=== PATIENT | male | born 1940 | race Caucasian/White ===

== ENCOUNTER 2017-03-03 05:57 | Day surgery (SDC) | payer OTHER ==
[~2017-03-03] VITALS: Ht 167.6 cm; Wt 75.9 kg
[~2017-03-03 05:57] MED LIST: AMLO5TAB22 PO; HYDR-3533 PO; PRAV20 PO
[2017-03-03 06:38] VITALS: BP 173/95; PULSE 71; RESP 20; TEMP 98; O2SAT 95
[2017-03-03] MEDS ORDERED: LOVA20TA PO (06:43)
[2017-03-03] MEDS ORDERED: ASPI-516 CHEW (06:43)
[2017-03-03] MEDS ORDERED: AMLO5TAB2 PO (06:43)
[2017-03-03] MEDS ORDERED: POVIDONE IODINE 5% (ANTISEPSIS KIT) 4 APPLICATIONS EACH NARE SCH (07:00)
[2017-03-03] MEDS ORDERED: CHLORHEXIDINE GLUCONATE 2 % 1 PACK (2 CLOTHS) TOPICAL SCH (07:00)
[2017-03-03] MEDS ORDERED: SODIUM CHLORIDE 0.9% 1000 ML IV SCH (07:00)
[2017-03-03] MEDS ORDERED: VANCOMYCIN 1000 MG/NS 250 ML - implanted port/tunneled catheter IV SCH ×2 (07:00)
[2017-03-03] MEDS ORDERED: ceFAZolin 2 GM PREMIX 50 ML - implanted port/tunneled catheter insertion IV SCH (07:00)
[2017-03-03 07:11] LABS: AUTOMATED NEUTROPHIL # 4.9 TH/MM3 (1.8-7.7); BASOPHIL # 0.1 TH/MM3 (0-0.2); BASOPHIL % 1.1 % (0.0-2.0); EOSINOPHIL # 0.9 TH/MM3 (0-0.4); EOSINOPHIL % 10.9 % (0.0-4.0); HEMATOCRIT 46.6 % (39.0-51.0); HEMO FLAGS DIFF FINAL; LYMPH % 20.8 % (9.0-44.0); LYMPHOCYTE # 1.7 TH/MM3 (1.0-4.8); MEAN CELL VOLUME 92.5 FL (80.0-100.0); MEAN CORPUSCULAR HEMOGLOBIN 31.9 PG (27.0-34.0); MEAN CORPUSCULAR HGB CONC 34.5 % (32.0-36.0); MONO % 5.9 % (0.0-8.0); NEUT % 61.3 % (16.0-70.0); PLATELET COUNT 222 TH/MM3 (150-450); RED BLOOD COUNT 5.04 MIL/MM3 (4.50-5.90); RED CELL DISTRIBUTION WIDTH 13.5 % (11.6-17.2); WHITE BLOOD COUNT 7.9 TH/MM3 (4.0-11.0)
[2017-03-03] MEDS ORDERED: MIDAZOLAM HCL 2 MG/2 ML VIAL ONE ×2 (08:07→08:44)
[2017-03-03] MEDS ORDERED: LIDOCAINE 1%/EPINEPHrine 1:100,000 SOLN 20 ML VIAL ONE (08:13)
[2017-03-03] MEDS ORDERED: SODIUM CHLORIDE 0.9% FLUSH 10 ML FLUSH IVF PRN (09:00)
--- NOTE | 2017-03-03 09:01 | PD.RAD ---
Post Procedure Progress Note Pre Procedure Diagnosis: (1) Bladder cancer Post Procedure Diagnosis: (1) Bladder cancer Procedure Date: Mar 03, 2017 Supervising Radiologist: Luis Wyatt Estimated blood loss: 3CC Anesthesia: Local, Conscious Sedation Plan of Activity Patient to Unit: ROPU Patient Condition: Good Additional Comments: Port placed via the right subclavian vein. Catheter in good position OK for use. Full dictated report to follow See PACS Report for procedural detail/treatment Luis Wyatt MD Mar 03, 2017 09:01
[2017-03-03 09:05] VITALS: BP 127/68; PULSE 67; RESP 20; TEMP 97.8; O2SAT 90
[2017-03-03 09:20] VITALS: BP 141/79; PULSE 69; RESP 16; O2SAT 93
[2017-03-03 10:00] VITALS: BP 105/57; PULSE 60; RESP 16; O2SAT 94
[2017-03-03 10:30] VITALS: BP 116/69; PULSE 52; RESP 18; O2SAT 95
[2017-03-03 10:58] VITALS: BP 130/65; PULSE 57; RESP 18; O2SAT 96
--- NOTE | 2017-03-03 11:43 | RADRPT ---
EXAM DATE/TIME: 03/03/2017 09:20 [facility] COMPARISON: No previous studies available for comparison. INDICATIONS : Patient with bladder cancer in need of [id number] placement. MEDICAL HISTORY : HTN, HLD, AAA SURGICAL HISTORY : AAA Repair, Bladder tumor removed ENCOUNTER: Initial ACUITY: 3 months PAIN SCORE: 0/10 FLUORO TIME: 45 minutes IMAGE SERIES: 1 SEDATION TIME: 30 minutes ACCESS: Right subclavian vein SEDATION: 1.) 2.5 mg midazolam (Versed) IV 2.) 125 mcg fentanyl (Sublimaze) IV Prophylactic antibiotics were administered with appropriate pre-procedure timing. Vancomycin within 2 hours of procedure, Ancef (or alternative) within 1 hour of procedure. DEVICE: 1. 8 Danish single lumen Smart power port with vortex PROCEDURE : 1. Continuous pulse oximetry and EKG monitoring. 2. Intravenous conscious sedation. 3. Ultrasound guidance for venous access. 4. Fluoroscopic guided implantable central venous port placement. The patient was placed supine. The neck was prepped in sterile fashion. Full sterile technique was u sed, including cap, mask, sterile gloves and gown, and a large sterile sheet. Hand hygiene and 2% ch lorhexidine Betadine was utilized per protocol for cutaneous antisepsis with appropriate dry time for site. Sterile gel and sterile probe cover were utilized for ultrasound guidance. The skin and sub cutaneous tissues were infiltrated with local anesthetic solution. The neck was examined with ultrasound. The right internal jugular was patent however the external jug ular was quite sizable and was located across the IJ as such, the decision was made to place a port v ia the subclavian vein. Under direct ultrasound guidance, central venous access was accomplished via the right subclavian vei n. The ultrasound images depicting access guidance were stored and saved to PACS for permanent recor d. A subcutaneous pocket was created using blunt dissection. The port was introduced to the pocket. The catheter tubing was fed through a subcutaneous tunnel to the venotomy site. The catheter tubin g was cut to a suitable length and then was introduced through a valved Peel-Away sheath and position ed with catheter tubing tip at the cavo-atrial junction level. The pocket incision was closed with s ubcuticular Vicryl suture. Steri-Strips were applied. The port was flushed and locked with heparin solution per protocol. Sterile dressing was applied to the site. The patient tolerated the procedur e well. Conscious sedation was performed with the prescribed dosages and duration as above in the presence of an independent trained radiology nurse to assist in the monitoring of the patient. EKG and oximetry remained stable throughout the procedure. The patient tolerated the procedure well and there were no complications. The patient was sent to post anesthesia recovery in stable condition. CONCLUSION: Uncomplicated ultrasound and fluoroscopic guided implanted central venous port catheter placement as described in detail above. An 8 Danish Power port was placed. Luis Wyatt MD on March 03, 2017 at 11:40 Board Certified Radiologist. This report was verified electronically.
== END 2017-03-03 11:00 | disposition home or self-care (01) ==
LOC: HROP 05:57 → HRIP 05:57 → HROP 11:00
PROVIDERS: ATTEND Internal Medicine Hematology & Oncology
DX: C67.9 Malignant neoplasm of bladder, unspecified (principal); I10 Essential (primary) hypertension; E78.5 Hyperlipidemia, unspecified
CPT/HCPCS: 36561; 76937; 77001; 85025; 85610; 99152; 99153; C1788; J0690; J1642; J2250; J3010; J3370; J7030; J7050

== ENCOUNTER 2017-06-24 23:00 | Inpatient (IN) | payer OTHER, MEDICARE ==
[~2017-06-24] VITALS: Ht 167.6 cm; Wt 74.9 kg
[~2017-06-24 23:00] MED LIST changes: +AMLO5TAB2 PO; -AMLO5TAB22 PO; +ASPI-516 CHEW; -HYDR-3533 PO; +LOVA20TA PO; -PRAV20 PO
[2017-06-24 23:06] VITALS: BP 101/66; PULSE 129; RESP 16; TEMP 98.9; O2SAT 97
[2017-06-24] MEDS ORDERED: SODIUM CHLOR 0.9% 1000 ML INJ 1,000 ML IV SCH (23:18)
[2017-06-24 23:30] VITALS: O2SAT 96
[2017-06-24] MEDS ORDERED: FAMOTIDINE 20 MG/2 ML VIAL IV PUSH ONE (23:30)
[2017-06-24] MEDS ORDERED: SODIUM CHLORIDE 0.9% FLUSH 10 ML FLUSH IV FLUSH PRN (23:30)
[2017-06-24] MEDS ORDERED: MORPHINE SULFATE 4 MG/ML INJ IV PUSH ONE (23:30)
[2017-06-24] MEDS ORDERED: ONDANSETRON HCL 4 MG/2 ML VIAL IVP ONE (23:30)
--- NOTE | 2017-06-24 23:57 | PD ---
HPI Chief Complaint: Medical Clearance Time Seen by Provider: 23:09 Travel History International Travel<30 days: No Contact w/Intl Traveler<30days: No Traveled to known affect area: No History of Present Illness HPI The patient is a 77-year-old male who presents to the emergency department for dizziness, nausea, vomiting, and diarrhea. The patient states his symptoms started on . He does have a history of similar symptoms after chemotherapy. The patient last had chemotherapy last Monday, is currently under the care Dr. Valerio, and Dr. Ambrose, for bladder carcinoma. The patient states he had chemotherapy in the past with secondary nausea, vomiting, and diarrhea. However, he is able to drink Gatorade at that time and avoid coming to the emergency department. However, he states his symptoms have him progressing since . He complains of dizziness that is worse with orthostatics, standing upright, and worse with exertion. He also complains of dehydration, lightheadedness, generalized weakness. He does note multiple episodes of nausea and vomiting. He describes his diarrhea as loose, watery, brown, without any visible blood. He estimates 3-4 episodes of diarrhea per day. He also complains of subjective fevers. Symptoms are moderate. PFSH Past Medical History Cancer: Yes (BLADDER) Cardiovascular Problems: No High Cholesterol: Yes Diabetes: No Diminished Hearing: No Endocrine: No Hepatitis: No Hiatal Hernia: No Hypertension: Yes Immune Disorder: No Medical other: No Musculoskeletal: No Neurologic: No Psychiatric: No Reproductive: No Respiratory: Yes (COPD) Thyroid Disease: No Past Surgical History Abdominal Surgery: Yes (AAA) AICD: No Cardiac Surgery: No Ear Surgery: No Endocrine Surgery: No Eye Surgery: No Genitourinary Surgery: Yes (tumor removed on bladder) Gynecologic Surgery: No Joint Replacement: No Neurologic Surgery: No Oral Surgery: Yes (ALL TEETH REMOVED) Pacemaker: No Thoracic Surgery: No Social History Alcohol Use: No (DENIES) Tobacco Use: Yes (1/2 PPD) Substance Use: No Allergies-Medications (Allergen,Severity, Reaction): Coded Allergies: Sulfa (Sulfonamide Antibiotics) (Unverified Allergy, Unknown, BLURRY VISION WITH SULFA EYE DROPS., 11/15/16) Reported Meds & Prescriptions Reported Meds & Active Scripts Active Reported Aspirin 81 Mg Chew 81 Mg CHEW DAILY Amlodipine (Amlodipine Besylate) 5 Mg Tab 5 Mg PO DAILY Lovastatin 20 Mg Tab 20 Mg PO DAILY Review of Systems Except as stated in HPI: all other systems reviewed are Neg General / Constitutional: Positive: Fever (subjective) HENT: Positive: Lightheadedness Cardiovascular: No: Chest Pain or Discomfort Respiratory: No: Shortness of Breath Gastrointestinal: Positive: Nausea, Vomiting, Diarrhea, Abdominal Pain Genitourinary: No: Dysuria Musculoskeletal: Positive: Weakness Neurologic: Positive: Weakness, Dizziness Physical Exam Narrative GENERAL: Awake, alert, pleasant 77-year-old male who appears his stated age and is in no acute respiratory distress. SKIN: Focused skin assessment warm/dry. HEAD: Atraumatic. Normocephalic. EYES: Pupils equal and round. No scleral icterus. No injection or drainage. ENT: No nasal bleeding or discharge. Dry mucous membranes. NECK: Trachea midline. No JVD. CARDIOVASCULAR: Regular, tachycardic with a heart rate in the 130s. Port in place right chest wall. RESPIRATORY: No accessory muscle use. Clear to auscultation. Breath sounds equal bilaterally. GASTROINTESTINAL: Abdomen soft, mild generalized tenderness. No guarding or rigidity. MUSCULOSKELETAL: No obvious deformities. No clubbing. No cyanosis. No edema. NEUROLOGICAL: Awake and alert. No obvious cranial nerve deficits. Motor grossly within normal limits. Normal speech. PSYCHIATRIC: Appropriate mood and affect; insight and judgment normal. Data Data Last Documented VS Vital Signs Date Time Temp Pulse Resp B/P (MAP) Pulse Ox O2 Delivery O2 Flow Rate FiO2 06/24/17 23:30 96 Nasal Cannula 2.00 06/24/17 23:06 98.9 129 16 101/66 (78) Orders Orders Complete Blood Count With Diff (06/24/17 23:18) Comprehensive Metabolic Panel (06/24/17 23:18) Lipase (06/24/17 23:18) Lactic Acid (06/24/17 23:18) Urinalysis - C+S If Indicated (06/24/17 23:18) Ct Abd/Pel W/O Iv Contrast (06/24/17 23:18) Iv Access Insert/Monitor (06/24/17 23:18) Ecg Monitoring (06/24/17 23:18) Oximetry (06/24/17 23:18) Morphine Inj (Morphine Inj) (06/24/17 23:30) Ondansetron Inj (Zofran Inj) (06/24/17 23:30) Sodium Chlor 0.9% 1000 Ml Inj (Ns 1000 M (06/24/17 23:18) Sodium Chloride 0.9% Flush (Ns Flush) (06/24/17 23:30) Electrocardiogram (06/24/17 23:18) Famotidine Inj (Pepcid Inj) (06/24/17 23:30) Orthostatic Blood Pressure (06/24/17 23:18) Blood Culture (06/24/17 23:18) C Diff Toxin Pcr (06/24/17 23:18) Chest, Single Ap (06/25/17 ) Cefepime Inj (Maxipime Inj) (06/25/17 02:30) Azithromycin Inj (Zithromax Inj) (06/25/17 02:30) Sodium Chlor 0.9% 1000 Ml Inj (Ns 1000 M (06/25/17 03:00) (Hub Use Only)Inp Phy Cons/Ref (06/25/17 ) Vancomycin Consult Pharmacy (Vancomycin (06/25/17 03:30) Cefepime Inj (Maxipime Inj) (06/25/17 12:00) Consult Medical Oncology (06/25/17 ) Albuterol-Ipratropium Neb (Duoneb Neb) (06/25/17 03:30) Lactic Acid (06/25/17 06:00) Admit To Inpatient (06/25/17 ) Vital Signs (Adult) Q4H (06/25/17 03:19) Activity Oob With Assistance (06/25/17 03:19) Property Administrator / Telemetry .CONTINUOUS (06/25/17 03:19) Intake + Output GALI.QSHIFT (06/25/17 03:19) Sodium Chlor 0.9% 1000 Ml Inj (Ns 1000 M (06/25/17 03:19) Sodium Chloride 0.9% Flush (Ns Flush) (06/25/17 03:30) Sodium Chloride 0.9% Flush (Ns Flush) (06/25/17 09:00) Ondansetron Inj (Zofran Inj) (06/25/17 03:30) Comprehensive Metabolic Panel (06/25/17 06:00) Complete Blood Count With Diff (06/25/17 06:00) Scd Bilateral/Knee High GALI.BID (06/25/17 03:19) Chris Bilateral/Knee High GALI.QSHIFT (06/25/17 03:22) Acetaminophen (Tylenol) (06/25/17 03:30) Acetamin-Hydrocod 325-5 Mg ([place] 5-325 (06/25/17 03:30) Morphine Inj (Morphine Inj) (06/25/17 03:30) Docusate Sodium-Senna (Idalmis-Colace) (06/25/17 09:00) Magnesium Hydroxide Liq (Milk Of Magnesi (06/25/17 03:30) Sennosides (Senokot) (06/25/17 03:30) Bisacodyl Supp (Dulcolax Supp) (06/25/17 03:30) Lactulose Liq (Lactulose Liq) (06/25/17 03:30) Inpatient Certification (06/25/17 ) Diet Regular Basic (06/25/17 Breakfast) Admit Order (Ed Use Only) (06/25/17 03:22) Labs Laboratory Tests Test 06/24/17 23:25 06/24/17 23:35 06/25/17 02:20 Blood Urea Nitrogen 18 MG/DL Creatinine 1.26 MG/DL Random Glucose 156 MG/DL Total Protein 6.7 GM/DL Albumin 3.0 GM/DL Calcium Level 8.3 MG/DL Alkaline Phosphatase 84 U/L Aspartate Amino Transf (AST/SGOT) 17 U/L Alanine Aminotransferase (ALT/SGPT) 14 U/L Total Bilirubin 0.8 MG/DL Sodium Level 137 MEQ/L Potassium Level 3.8 MEQ/L Chloride Level 99 MEQ/L Carbon Dioxide Level 21.0 MEQ/L Anion Gap 17 MEQ/L Estimat Glomerular Filtration Rate 55 ML/MIN Lipase 103 U/L White Blood Count 1.0 TH/MM3 Red Blood Count 3.42 MIL/MM3 Hemoglobin 11.2 GM/DL Hematocrit 30.6 % Mean Corpuscular Volume 89.3 FL Mean Corpuscular Hemoglobin 32.8 PG Mean Corpuscular Hemoglobin Concent 36.7 % Red Cell Distribution Width 13.0 % Platelet Count 59 TH/MM3 Mean Platelet Volume 9.4 FL Neutrophils (%) (Auto) 96.4 % Lymphocytes (%) (Auto) 1.9 % Monocytes (%) (Auto) 1.5 % Eosinophils (%) (Auto) 0.0 % Basophils (%) (Auto) 0.2 % Neutrophils # (Auto) 0.9 TH/MM3 Lymphocytes # (Auto) 0.0 TH/MM3 Monocytes # (Auto) 0.0 TH/MM3 Eosinophils # (Auto) 0.0 TH/MM3 Basophils # (Auto) 0.0 TH/MM3 CBC Comment AUTO DIFF Differential Total Cells Counted 100 Neutrophils % (Manual) 94 % Band Neutrophils % 2 % Lymphocytes % 2 % Monocytes % 2 % Neutrophils # (Manual) 1.0 TH/MM3 Differential Comment FINAL DIFF MANUAL Toxic Granulation 1+ Dohle Bodies PRESENT Platelet Estimate LOW Platelet Morphology Comment NORMAL Acanthocytes Lactic Acid Level 3.9 mmol/L Urine Color YELLOW Urine Turbidity CLEAR Urine pH 5.5 Urine Specific [place] 1.024 Urine Protein 30 mg/dL Urine Glucose (UA) NEG mg/dL Urine Ketones TRACE mg/dL Urine Occult Blood TRACE Urine Nitrite NEG Urine Bilirubin NEG Urine Urobilinogen LESS THAN 2.0 MG/DL Urine Leukocyte Esterase TRACE Urine RBC 6 /hpf Urine WBC 6 /hpf Urine Squamous Epithelial Cells <1 /hpf Urine Calcium Oxalate Crystals RARE /hpf Urine Bacteria RARE /hpf Urine Hyaline Casts 1 /lpf Urine White Blood Cell Casts 1 /lpf Urine Mucus FEW /lpf Microscopic Urinalysis Comment CULT NOT INDICATED MDM Medical Decision Making Medical Screen Exam Complete: Yes Emergency Medical Condition: Yes Medical Record Reviewed: Yes Interpretation(s) Laboratory Tests Test 06/24/17 23:25 06/24/17 23:35 Blood Urea Nitrogen 18 MG/DL Creatinine 1.26 MG/DL Random Glucose 156 MG/DL Total Protein 6.7 GM/DL Albumin 3.0 GM/DL Calcium Level 8.3 MG/DL Alkaline Phosphatase 84 U/L Aspartate Amino Transf (AST/SGOT) 17 U/L Alanine Aminotransferase (ALT/SGPT) 14 U/L Total Bilirubin 0.8 MG/DL Sodium Level 137 MEQ/L Potassium Level 3.8 MEQ/L Chloride Level 99 MEQ/L Carbon Dioxide Level 21.0 MEQ/L Anion Gap 17 MEQ/L Estimat Glomerular Filtration Rate 55 ML/MIN Lipase 103 U/L White Blood Count 1.0 TH/MM3 Red Blood Count 3.42 MIL/MM3 Hemoglobin 11.2 GM/DL Hematocrit 30.6 % Mean Corpuscular Volume 89.3 FL Mean Corpuscular Hemoglobin 32.8 PG Mean Corpuscular Hemoglobin Concent 36.7 % Red Cell Distribution Width 13.0 % Platelet Count 59 TH/MM3 Mean Platelet Volume 9.4 FL Neutrophils (%) (Auto) 96.4 % Lymphocytes (%) (Auto) 1.9 % Monocytes (%) (Auto) 1.5 % Eosinophils (%) (Auto) 0.0 % Basophils (%) (Auto) 0.2 % Neutrophils # (Auto) 0.9 TH/MM3 Lymphocytes # (Auto) 0.0 TH/MM3 Monocytes # (Auto) 0.0 TH/MM3 Eosinophils # (Auto) 0.0 TH/MM3 Basophils # (Auto) 0.0 TH/MM3 CBC Comment AUTO DIFF Lactic Acid Level 3.9 mmol/L CT the abdomen and pelvis reveals unremarkable bowel gas pattern on this noncontrast exam performed without oral contrast. New patchy opacity in the posterior right lower lobe which is nonspecific and is of unclear chronicity but is new from 2015. The differential diagnosis includes pneumonia, scarring, and asbestosis. Status post interval abdominal aortic aneurysm repair with stent graft in place. Multiple small partially calcified bilateral pleural plaques are now present. Unremarkable gallbladder. Chest x-ray reveals no acute cardiopulmonary disease. The mild patchy opacity a right lower lobe seen on the abdomen CT is not visualized and may be obscured by the hemidiaphragm. Differential Diagnosis Differential diagnosis includes chemotherapy side effect, dehydration, C. difficile, gastroenteritis, acute renal failure, electrolyte abnormality, ileus , partial small bowel obstruction. Narrative Course The patient's port was accessed, labs are drawn and sent, and the patient was placed on cardiac telemetry monitoring and continuous pulse oximetry monitoring. The patient was administered morphine, Zofran, and IV fluids. Noncontrast CT of the abdomen and pelvis was performed. The patient's white count is low 1.0, lactic acid is elevated at 3.9. Chest x-rays unremarkable, CT the abdomen and pelvis reveals right lower lobe patchy airspace disease, possibly pneumonia. The patient does appear dehydrated, initially was tachycardic with elevated lactic acid. The patient was administered IV fluids, was administered cefepime and Zithromax to cover for healthcare acquired pneumonia as he was recently receiving chemotherapy. Patient has [employer], therefore, [facility]ists were paged for admission. Sepsis Criteria SIRS Criteria (2 or more): Heart rate over 90, WBC > 11062, < 4000 or > 10% bands Sepsis Criteria (SIRS+source): Infect source susp/known Criteria Outcome: Meets sepsis criteria Physician Communication Physician Communication The [facility] [employer] I discussed the patient with Dr. Carpenter who agrees with admission. Diagnosis Primary Impression: Right lower lobe pneumonia Qualified Codes: J18.1 - Lobar pneumonia, unspecified organism Additional Impressions: Pancytopenia Lactic acidosis Sepsis Qualified Codes: A41.9 - Sepsis, unspecified organism Admitting Information Admitting Physician Requests: Admit Condition: Stable Tyrell Phelps MD Jun 24, 2017 23:57
[2017-06-25] VITALS (11 sets, daily range): BP systolic 97–116; BP diastolic 60–69; PULSE 79–104; RESP 16–18; TEMP 98–99.2; O2SAT 96–99
[2017-06-25 00:27] LABS: AUTOMATED NEUTROPHIL # 0.9 TH/MM3 (1.8-7.7); BASOPHIL % 0.2 % (0.0-2.0); HEMATOCRIT 30.6 % (39.0-51.0); HEMOGLOBIN 11.2 GM/DL (13.0-17.0); LYMPH % 1.9 % (9.0-44.0); MEAN CELL VOLUME 89.3 FL (80.0-100.0); MEAN CORPUSCULAR HEMOGLOBIN 32.8 PG (27.0-34.0); MEAN CORPUSCULAR HGB CONC 36.7 % (32.0-36.0); MEAN PLATELET VOLUME 9.4 FL (7.0-11.0); MONO % 1.5 % (0.0-8.0); NEUT % 96.4 % (16.0-70.0); PLATELET COUNT 59 TH/MM3 (150-450); RED BLOOD COUNT 3.42 MIL/MM3 (4.50-5.90)
--- NOTE | 2017-06-25 00:35 | RADRPT ---
EXAM DATE/TIME: 06/25/2017 00:13 [facility] COMPARISON: CT ABDOMEN & PELVIS W/O CONTRAST, June 16, 2014, 20:38. INDICATIONS : Abdominal pain, nausea, and vomiting. ORAL CONTRAST: No oral contrast ingested. RADIATION DOSE: 10.08 CTDIvol (mGy) MEDICAL HISTORY : Aneurysm, abdominal. Hypertension. Chronic obstructive pulmonary disease. Bladder cancer SURGICAL HISTORY : None. ENCOUNTER: Initial ACUITY: 1 day PAIN SCALE: 7/10 LOCATION: abdomen TECHNIQUE: Volumetric scanning of the abdomen and pelvis was performed. Using automated exposure control and ad justment of the mA and/or kV according to patient size, radiation dose was kept as low as reasonably achievable to obtain optimal diagnostic quality images. DICOM format image data is available electro nically for review and comparison. FINDINGS: LOWER LUNGS: There are multiple small bilateral partially calcified pleural plaques noted along both posterior and lateral pleura. New patchy opacity is present in the right posterior lower lobe. LIVER: Homogeneous density without lesion. There is no dilation of the biliary tree. No calcified gallston es. SPLEEN: Normal size without lesion. PANCREAS: Within normal limits. KIDNEYS: Normal in size and shape. There is no mass, stone, or hydronephrosis. ADRENAL GLANDS: Within normal limits. VASCULAR: Status post interval abdominal aortic aneurysm repair with stent graft in place. BOWEL/MESENTERY: The stomach, small bowel, and colon demonstrate no acute abnormality. There is no free intraperitone al air or fluid. ABDOMINAL WALL: Within normal limits. RETROPERITONEUM: There is no lymphadenopathy. BLADDER: No wall thickening or mass. REPRODUCTIVE: Within normal limits. INGUINAL: There is no lymphadenopathy or hernia. MUSCULOSKELETAL: Within normal limits for patient age. CONCLUSION: 1. Unremarkable bowel gas pattern on this noncontrast exam performed without oral contrast. 2. New patchy opacity in the posterior right lower lobe which is nonspecific and is of unclear chroni city but is new from 2014. The differential diagnosis includes pneumonia, scarring and asbestosis. 3. Status post interval abdominal aortic aneurysm repair with stent graft in place. 4. Multiple small partially calcified bilateral pleural plaques are now present. 5. Unremarkable gallbladder. Koby Interiano MD on June 25, 2017 at 0:28 Board Certified Radiologist. This report was verified electronically.
[2017-06-25 00:44] LABS: ALT (GPT) 14 U/L (12-78); AST (GOT) 17 U/L (15-37); BLOOD UREA NITROGEN 18 MG/DL (7-18); CALCIUM 8.3 MG/DL (8.5-10.1); CHLORIDE 99 MEQ/L (98-107); CREATININE 1.26 MG/DL (0.60-1.30); GLOMERULAR FILTRATION RATE 55 ML/MIN (>89); GLUCOSE,RANDOM 156 MG/DL (74-106); SODIUM (NA) 137 MEQ/L (136-145)
[2017-06-25 00:47] LABS: ALKALINE PHOSPHATASE 84 U/L (45-117); TOTAL BILIRUBIN ADULT 0.8 MG/DL (0.2-1.0); TOTAL PROTEIN 6.7 GM/DL (6.4-8.2)
--- NOTE | 2017-06-25 01:54 | RADRPT ---
EXAM DATE/TIME: 06/25/2017 00:44 [facility] COMPARISON: CT ABDOMEN & PELVIS W/O CONTRAST, June 25, 2017, 0:13. INDICATIONS : Shortness of breath, abnormal abdomen CT demonstrating patchy opacity in the right posterior lower lo be.. MEDICAL HISTORY : Aneurysm, abdominal. Hypertension Carcinoma, bladder. COPD SURGICAL HISTORY : [id number]. ENCOUNTER: Initial ACUITY: 1 day PAIN SCORE: 0/10 LOCATION: Bilateral chest FINDINGS: A single AP semierect view of the chest was obtained and demonstrates a right subclavian implantable port catheter in place with the tip in the superior vena cava. There are no confluent infiltrates or effusions. The heart and mediastinal structures are within normal limits. The bony thorax is intact. Benign sclerotic foci are present in the proximal left humerus consistent with bone infarcts. There a re multiple overlying electrocardiogram leads. CONCLUSION: No acute cardiopulmonary disease. The mild patchy opacity in the right lower lobe seen on the abdomen CT is not visualized and may be obscured by the hemidiaphragm. Koby Interiano MD on June 25, 2017 at 1:05 Board Certified Radiologist. This report was verified electronically.
[2017-06-25] MEDS ORDERED: AZITHROMYCIN INJ 500 MG in SODIUM CHLOR 0.9% 250 ML INJ 250 ML IV ONE (02:30)
[2017-06-25] MEDS ORDERED: CEFEPIME INJ 2,000 MG in SODIUM CHLORIDE 0.9% INJ 100 ML IV ONE (02:30)
[2017-06-25] MEDS ORDERED: SODIUM CHLOR 0.9% 1000 ML INJ 1,000 ML IV ONE (03:00)
[2017-06-25 03:08] LABS: BANDS 2 % (0-6); DOHLE BODIES PRESENT (NONE SEEN); LYMPHOCYTES 2 % (9-44); MONOCYTES 2 % (0-8); POLYS (SEG NEUTROPHILS) 94 % (16-70); TOXIC GRANULATION 1+ (NORMAL)
[2017-06-25 03:19] LABS: BACTERIA, URINE RARE /hpf; BILIRUBIN, URINE NEG (NEG); BLOOD, URINE TRACE (NEG); CALCIUM OXALATE CRYSTALS,URINE RARE /hpf; GLUCOSE,URINE NEG (NEG); HYALINE CAST, URINE 1 /lpf (RARE); KETONE, URINE TRACE mg/dL (NEG); MUCUS URINE FEW /lpf (OCC); NITRITE,URINE NEG (NEG); PH, URINE 5.5 (5.0-8.5); SQUAMOUS EPITHELIAL CELL URINE <1 /hpf (0-5); URINE COLOR YELLOW (YELLW/STRAW); URINE LEUKOCYTE ESTERASE TRACE (NEG); WHITE BLOOD CELL CAST, URINE 1 /lpf
[2017-06-25] MEDS ORDERED: RESP: ALBUTEROL 2.5 MG/IPRATROPIUM 0.5 MG NEB (PRN) NEB (03:30)
[2017-06-25] MEDS ORDERED: SENNOSIDES 8.6 MG TAB PO PRN (03:30)
[2017-06-25] MEDS ORDERED: LACTULOSE SYRUP 20 GM/30 ML CUP PO PRN (03:30)
[2017-06-25] MEDS ORDERED: Vancomycin Consult Pharmacy 1 EA OTHER SCH (03:30)
[2017-06-25] MEDS ORDERED: BISACODYL 10 MG SUPP RECTAL PRN (03:30)
[2017-06-25] MEDS ORDERED: MAGNESIUM HYDROXIDE SUSP 30 ML CUP PO PRN (03:30)
[2017-06-25] MEDS ORDERED: SODIUM CHLORIDE 0.9% FLUSH 10 ML FLUSH IV FLUSH PRN (03:30)
--- NOTE | 2017-06-25 03:55 | HHI.HP ---
HPI Service [facility] Primary [facility] Physician Myke Estes MD Admission Diagnosis right lower lobe pneumonia, pancytopen, lactic acidosis, dehydration Diagnoses: (1) Sepsis Diagnosis: Principal (2) PNA (pneumonia) Diagnosis: Principal (3) Bladder cancer Diagnosis: Principal (4) Pancytopenia Diagnosis: Principal Travel History International Travel<30 Days: No Contact w/Intl Traveler <30 Da: No Traveled to Known Affected Are: No History of Present Illness This is a 77-year-old male with PMH of HTN, Hyperlipidemia and Bladder CA on Chemo who presented to ER with complaints of generalized weakness, dizziness, nausea, vomiting and diarrhea x3 days. States usually has these symptoms after Chemo, however this time lasted longer than usual. Unable to tolerate PO except for small sips. Denies fever or chills. No chest pain, cough or SOB. On arrival, BP 101/66, HR 129, O2 sat 97% on 2L NC, Afebrile. WBC 1.0. Hemoglobin 11.2. Platelets 59. Lactic Acid 3.9. UA negative for UTI. CXR with no acute findings, mild patchy opacity right lower lobe. CT Abdomen/ Pelvis patchy opacity right lower lobe, possible pneumonia. S/p Blood Cultures , Zithro/Cefepime in ER. Review of Systems Except as stated in HPI: all other systems reviewed are Neg ROS: 14 point review of systems otherwise negative. Past Family Social History Past Medical History PMH: HTN, Hyperlipidemia and Bladder CA on Chemo Past Surgical History PAST SURGICAL HISTORY: AAA, Bladder Surgery, Dental Extraction Allergies: Coded Allergies: Sulfa (Sulfonamide Antibiotics) (Unverified Allergy, Unknown, BLURRY VISION WITH SULFA EYE DROPS., 11/15/16) Family History PAST FAMILY HISTORY: Reviewed. No h/o DM or CAD Social History PAST SOCIAL HISTORY: Negative for alcohol or drugs. Positive for tobacco. Physical Exam Vital Signs Vital Signs Date Time Temp Pulse Resp B/P (MAP) Pulse Ox O2 Delivery O2 Flow Rate FiO2 06/24/17 23:30 96 Nasal Cannula 2.00 06/24/17 23:06 98.9 129 16 101/66 (78 97 Physical Exam PE: GENERAL: Pleasant elderly white male in no acute distress. HEENT: PERRLA, EOMI. No scleral icterus or conjunctival pallor. No lid lag or facial droop. CARDIOVASCULAR: Regular rate and rhythm. No obvious murmurs to auscultation. No chest tenderness to palpation. RESPIRATORY: No obvious rhonchi or wheezing. Clear to auscultation. Breath sounds equal bilaterally. GASTROINTESTINAL: Abdomen soft, non-tender, nondistended. BS normal. MUSCULOSKELETAL: Extremities without clubbing, cyanosis, or edema. No obvious deformities. NEUROLOGICAL: Awake, alert and oriented x4. No focal neurologic deficits. Moving both upper and lower extremities spontaneously. Laboratory Laboratory Tests Test 06/24/17 23:25 06/24/17 23:35 06/25/17 02:20 Blood Urea Nitrogen 18 Creatinine 1.26 Random Glucose 156 Total Protein 6.7 Albumin 3.0 Calcium Level 8.3 Alkaline Phosphatase 84 Aspartate Amino Transf (AST/SGOT) 17 Alanine Aminotransferase (ALT/SGPT) 14 Total Bilirubin 0.8 Sodium Level 137 Potassium Level 3.8 Chloride Level 99 Carbon Dioxide Level 21.0 Anion Gap 17 Estimat Glomerular Filtration Rate 55 Lipase 103 White Blood Count 1.0 Red Blood Count 3.42 Hemoglobin 11.2 Hematocrit 30.6 Mean Corpuscular Volume 89.3 Mean Corpuscular Hemoglobin 32.8 Mean Corpuscular Hemoglobin Concent 36.7 Red Cell Distribution Width 13.0 Platelet Count 59 Mean Platelet Volume 9.4 Neutrophils (%) (Auto) 96.4 Lymphocytes (%) (Auto) 1.9 Monocytes (%) (Auto) 1.5 Eosinophils (%) (Auto) 0.0 Basophils (%) (Auto) 0.2 Neutrophils # (Auto) 0.9 Lymphocytes # (Auto) 0.0 Monocytes # (Auto) 0.0 Eosinophils # (Auto) 0.0 Basophils # (Auto) 0.0 CBC Comment AUTO DIFF Differential Total Cells Counted 100 Neutrophils % (Manual) 94 Band Neutrophils % 2 Lymphocytes % 2 Monocytes % 2 Neutrophils # (Manual) 1.0 Differential Comment FINAL DIFF MANUAL Toxic Granulation 1+ Dohle Bodies PRESENT Platelet Estimate LOW Platelet Morphology Comment NORMAL Acanthocytes Lactic Acid Level 3.9 Urine Color YELLOW Urine Turbidity CLEAR Urine pH 5.5 Urine Specific [place] 1.024 Urine Protein 30 Urine Glucose (UA) NEG Urine Ketones TRACE Urine Occult Blood TRACE Urine Nitrite NEG Urine Bilirubin NEG Urine Urobilinogen LESS THAN 2.0 Urine Leukocyte Esterase TRACE Urine RBC 6 Urine WBC 6 Urine Squamous Epithelial Cells <1 Urine Calcium Oxalate Crystals RARE Urine Bacteria RARE Urine Hyaline Casts 1 Urine White Blood Cell Casts 1 Urine Mucus FEW Microscopic Urinalysis Comment CULT NOT INDICATED Date/Time Source Procedure Growth Status 06/24/17 23:30 Blood Peripheral Aerobic Blood Culture Pending Received 06/24/17 23:30 Blood Peripheral Anaerobic Blood Culture Pending Received Result Diagram: 06/24/17 2335 06/24/17 2325 Caprini VTE Risk Assessment Caprini VTE Risk Assessment: No/Low Risk (score <= 1) Caprini Risk Assessment Model Point Value = 1 Point Value = 2 Point Value = 3 Point Value = 5 Age 41-60 Minor surgery BMI > 25 kg/m2 Swollen legs Varicose veins or History of unexplained or recurrent spontaneous Oral contraceptives or hormone replacement Sepsis (< 1 month) Serious lung disease, including pneumonia (< 1 month) Abnormal pulmonary function Acute myocardial infarction Congestive heart failure (< 1 month) History of inflammatory bowel disease Medical patient at bed rest Age 61-74 Arthroscopic surgery Major open surgery (> 45 min) Laparoscopic surgery (> 45 min) Malignancy Confined to bed (> 72 hours) Immobilizing plaster cast Central venous access Age >= 75 History of VTE Family history of VTE Factor V Leiden Prothrombin [id number] Lupus anticoagulant Anticardiolipin antibodies Elevated serum homocysteine Heparin-induced thrombocytopenia Other congenital or acquired thrombophilia Stroke (< 1 month) Elective arthroplasty Hip, pelvis, or leg fracture Acute spinal cord injury (< 1 month) Prophylaxis Regimen Total Risk Factor Score Risk Level Prophylaxis Regimen 0-1 Low Early ambulation 2 Moderate Order ONE of the following: *Sequential Compression Device (SCD) *Heparin 5000 units SQ BID 3-4 Higher Order ONE of the following medications: *Heparin 5000 units SQ TID *Enoxaparin/Lovenox 40 mg SQ daily (WT < 150 kg, CrCl > 30 mL/min) *Enoxaparin/Lovenox 30 mg SQ daily (WT < 150 kg, CrCl > 10-29 mL/min) *Enoxaparin/Lovenox 30 mg SQ BID (WT < 150 kg, CrCl > 30 mL/min) AND/OR *Sequential Compression Device (SCD) 5 or more Highest Order ONE of the following medications: *Heparin 5000 units SQ TID (Preferred with Epidurals) *Enoxaparin/Lovenox 40 mg SQ daily (WT < 150 kg, CrCl > 30 mL/min) *Enoxaparin/Lovenox 30 mg SQ daily (WT < 150 kg, CrCl > 10-29 mL/min) *Enoxaparin/Lovenox 30 mg SQ BID (WT < 150 kg, CrCl > 30 mL/min) AND *Sequential Compression Device (SCD) Assessment and Plan Problem List: (1) Sepsis ICD Code: A41.9 - Sepsis, unspecified organism Status: Acute (2) PNA (pneumonia) ICD Code: J18.9 - Pneumonia, unspecified organism (3) Pancytopenia ICD Code: D61.818 - Other pancytopenia Status: Acute (4) Bladder cancer ICD Code: C67.9 - Malignant neoplasm of bladder, unspecified Assessment and Plan A/P: 1. Sepsis: HR 120, WBC 1.0, Lactic Acid 3.9, Source-RLL PNA. S/p Blood Cultures, Cefepime/Zithro in ER, will follow up cultures, continue w/ Vanc/ Cefepime IV. +diarrhea, check Stool for C diff 2. PNA: CXR w/ patchy opacity, CT Abd/Pelvis w/ RLL infiltrate, images reviewed by me. Continue w/ IV Vanc/Cefepime, DuoNeb prn, Mucinex, check Sputum Cultures. 3. Pancytopenia: WBC 1.0, Hgb 11.2, Platelets 59, worse in comparison to labs from 06/19/17, likely secondary to recent Chemo. Monitor closely. Repeat labs in am, transfuse as needed. 4. Bladder CA: following w/ Dr. Ambrose and Dr. Valerio as outpatient, will consult Dr. Valerio for further evaluation in light of ongoing chemo w/ acute sepsis. 5. DVT Prophylaxis: SCD/Teds. 6. Social work for d/c planning as needed. 7. Case discussed w/ ER physician at length, labs/records/imaging reviewed by me. Physician Certification 2 Midnight Certification Type: Admission for Inpatient Services Order for Inpatient Services The services are ordered in accordance with Medicare regulations or non- Medicare payer requirements, as applicable. In the case of services not specified as inpatient-only, they are appropriately provided as inpatient services in accordance with the 2-midnight benchmark. Estimated LOS (days): 2 days is the estimated time the patient will need to remain in the hospital, assuming treatment plan goals are met and no additional complications. Post-Hospital Plan: Not yet determined Problem Qualifiers (1) Sepsis: Qualified Codes: A41.9 - Sepsis, unspecified organism Kathleen Carpenter MD Jun 25, 2017 03:55
[2017-06-25] MEDS ORDERED: VANCOMYCIN 1,500 MG/NS 500 ML IV ONE ×2 (04:00)
[2017-06-25] MEDS: SODIUM CHLOR 0.9% 1000 ML INJ 1,000 ML IV SCH ×2 (05:04→19:36)
[2017-06-25 08:28] LABS: AUTOMATED NEUTROPHIL # 0.7 TH/MM3 (1.8-7.7); EOSINOPHIL % 0.1 % (0.0-4.0); HEMATOCRIT 22.7 % (39.0-51.0); LYMPH % 5.9 % (9.0-44.0); MEAN CELL VOLUME 90.3 FL (80.0-100.0); MEAN CORPUSCULAR HEMOGLOBIN 31.6 PG (27.0-34.0); MEAN PLATELET VOLUME 9.1 FL (7.0-11.0); MONO % 1.4 % (0.0-8.0); NEUT % 92.6 % (16.0-70.0); PLATELET COUNT 34 TH/MM3 (150-450); RED BLOOD COUNT 2.51 MIL/MM3 (4.50-5.90); RED CELL DISTRIBUTION WIDTH 13.2 % (11.6-17.2); WHITE BLOOD COUNT 0.7 TH/MM3 (4.0-11.0)
[2017-06-25 08:34] LABS: HEMOGLOBIN 7.9 GM/DL (13.0-17.0)
[2017-06-25 08:58] LABS: ALBUMIN 2.4 GM/DL (3.4-5.0); BICARBONATE 22.7 MEQ/L (21.0-32.0); CALCIUM 7.4 MG/DL (8.5-10.1); CALCIUM-PROTEIN CORRECTED 8.4 MG/DL (8.5-10.1); CREATININE 1.02 MG/DL (0.60-1.30); TOTAL BILIRUBIN ADULT 0.7 MG/DL (0.2-1.0); TOTAL PROTEIN 5.3 GM/DL (6.4-8.2)
[2017-06-25] MEDS: DOCUSATE SODIUM 50 MG/SENNA 8.6 MG TAB PO SCH ×2 (09:00→21:00)
[2017-06-25 09:49] LABS: BANDS 40 % (0-6); DOHLE BODIES PRESENT (NONE SEEN); LYMPHOCYTES 7 % (9-44); NEUTROPHIL # MANUAL DIFF 0.7 TH/MM3 (1.8-7.7); POLYS (SEG NEUTROPHILS) 53 % (16-70); TOXIC GRANULATION 1+ (NORMAL)
[2017-06-25] MEDS: ONDANSETRON HCL 4 MG/2 ML VIAL IVP PRN (10:37)
[2017-06-25] MEDS: guaiFENesin E.R. 600 MG TAB PO SCH ×2 (10:37→21:12)
[2017-06-25] MEDS: SODIUM CHLORIDE 0.9% FLUSH 10 ML FLUSH IV FLUSH SCH ×2 (10:37→21:15)
[2017-06-25 11:39] LABS: HEMATOCRIT 22.1 % (39.0-51.0); HEMOGLOBIN 7.8 GM/DL (13.0-17.0)
[2017-06-25] MEDS: VANCOMYCIN INJ 1,250 MG in SODIUM CHLOR 0.9% 250 ML INJ 250 ML IV SCH (11:49)
--- NOTE | 2017-06-25 14:09 | HHI.PR ---
Subjective Remarks Patient reports still feeling lightheaded. He reports the left great toe is intermittently purple with some mild discomfort. Shortness of breath is about the same. No chest pressure. Objective Vitals Vital Signs Date Time Temp Pulse Resp B/P (MAP) Pulse Ox O2 Delivery O2 Flow Rate FiO2 06/25/17 06:39 99.2 95 16 97/69 (78) 98 06/25/17 06:30 06/25/17 06:30 104 18 103/60 (74) 98 Nasal Cannula 2.00 06/24/17 23:30 96 Nasal Cannula 2.00 06/24/17 23:06 98.9 129 16 101/66 (78) 97 I/O 06/24/17 06/24/17 06/24/17 06/25/17 06/25/17 06/25/17 07:00 15:00 23:00 07:00 15:00 23:00 Intake Total 2350 ml Balance 2350 ml Intake IV Total 2350 ml Result Diagram: 06/25/17 1030 06/25/17 0600 Objective Remarks GENERAL: Elderly and frail male in no acute distress. CARDIOVASCULAR: Normal rate and regular rhythm without murmurs, gallops, or rubs. RESPIRATORY: Good respiratory efforts. Breath sounds equal and clear to auscultation bilaterally. GASTROINTESTINAL: Abdomen soft, non-tender, non-distended. Normal active bowel sounds MUSCULOSKELETAL: Left great toe appears slightly purple compared to the right. I am unable to palpate dorsalis pedis pulses bilaterally. Sensation intact. NEURO: Alert & Oriented x4 to person, place, time, situation. Moves all ext x4 PSYCH: Appropriate mood and affect. A/P Problem List: (1) Severe sepsis ICD Code: A41.9 - Sepsis, unspecified organism; R65.20 - Severe sepsis without septic shock Status: Acute Plan: Secondary to pneumonia in immunosuppressed patient on chemotherapy. Meet criteria due to tachycardia, leukopenia, sources right lower lobe pneumonia. Evidence of organ dysfunction with elevated lactic acid of 3.9 Continue broad-spectrum antibiotics with vancomycin and cefepime. Follow blood cultures Continue IV fluid Sepsis improving, lactic acid normalized. (2) PNA (pneumonia) ICD Code: J18.9 - Pneumonia, unspecified organism Plan: Continue antibiotics as above. (3) Bladder cancer ICD Code: C67.9 - Malignant neoplasm of bladder, unspecified Status: Chronic Plan: Patient undergoing chemotherapy with Dr. Valerio. Consult oncology for assistance. (4) Pancytopenia ICD Code: D61.818 - Other pancytopenia Status: Acute Plan: Monitor labs closely. H&H significantly dropped compared to his baseline since he started chemotherapy. - He may benefit from blood transfusion. Will defer to hematology/oncology. (5) Anemia ICD Code: D64.9 - Anemia, unspecified Problem Qualifiers (1) PNA (pneumonia): Monica Meyer MD Jun 25, 2017 14:09
[2017-06-25] MEDS: CEFEPIME INJ 1,000 MG in SODIUM CHLORIDE 0.9% INJ 100 ML IV SCH (14:28)
--- NOTE | 2017-06-25 19:42 | EKG ---
Date Performed: 06/25/2017 Time Performed: 05:42:56 PTAGE: 77 years EKG: Sinus rhythm MARKED LEFT AXIS DEVIATION ABNORMAL ECG NO PREVIOUS TRACING DOCTOR: Debbie Mckeon Interpretating Date/Time 06/25/2017 19:41:06
--- NOTE | 2017-06-25 19:47 | MB ---
cc: Deb Reyes MD DATE: 06/25/2017 CHIEF COMPLAINT: 1. Locally advanced bladder cancer, currently receiving definitive chemotherapy and radiation therapy under the direction of Dr. Perez and Dr. Valerio. 2. Admitted with sepsis. HISTORY OF PRESENT ILLNESS: Mr. Zaman is a 77-year-old gentleman with a history of locally advanced bladder cancer, which was diagnosed in 01/2017. He declined radical surgery and opted for bladder preservation. He underwent repeat cystoscopy on 04/24 and a 3 cm tumor was removed at the previous biopsy site. He is currently on combined chemotherapy and radiation therapy with cisplatin and gemcitabine. He presented to the emergency room on 06/25/2017, with generalized weakness, dizziness, nausea, vomiting and diarrhea of 3 days' duration. He also had inability to tolerate p.o. On arrival in the emergency room, his heart rate was found to be 125. White blood cell count 1. He had a lactic acidosis at 3.9 and a mild patchy opacity in the right lower lobe on his chest x-ray, which was also seen on the CT scan of the abdomen and pelvis. He was initiated on broad spectrum antibiotics with vancomycin and cefepime. Sputum culture, blood cultures are pending. Urinalysis with ketones, occult blood, proteinuria, rare bacteria. He reports that he continues to have mild nausea, heartburn, and fatigue. He states that he is due for an additional round of chemotherapy and radiation therapy this coming week. PAST MEDICAL HISTORY: 1. Hypertension. 2. Hyperlipidemia. PAST SURGICAL HISTORY: 1. AAA repair. 2. Bladder surgery. 3. Dental extraction. ALLERGIES: ALLERGIC TO SULFA. FAMILY HISTORY: Mother with history of cancer. SOCIAL HISTORY: He is and is a retired [employer]. He is a former smoker. ROS as above in HPI PHYSICAL EXAMINATION: VITAL SIGNS: Temperature 98.3, pulse 90, respiratory rate 16, blood pressure 107/69, pulse oximetry 99% on room air. GENERAL: Elderly man resting in bed in no distress. NECK: Supple with no lymphadenopathy. CARDIOVASCULAR: Regular rate and rhythm with no murmurs. LUNGS: Clear to auscultation bilaterally. ABDOMEN: Protuberant, soft, nontender, nondistended. EXTREMITIES: With no edema. NEUROLOGIC: Grossly nonfocal. PSYCHIATRIC: Appropriate mood and affect. ASSESSMENT AND PLAN: 1. Locally advanced bladder cancer, currently receiving treatment with concurrent chemotherapy and radiation therapy. Will hold while the patient is inpatient and receiving antibiotics. Will alert primary oncology team. 2. Cytopenias due to chemotherapy. White blood cell count 0.7, hemoglobin 7.8, and platelet count is 34,000. ANC is 700. Will continue to trend daily. Will transfuse for hemoglobin of less than 7 or platelet count of less than 20,000. Inpatient oncology service will continue to follow. MD CORTEZ Nguyen/STEVE , 07:30 PM , 07:47 PM TOMAS
[2017-06-25] MEDS ORDERED: ALUMINUM/MAGNESIUM/SIMETH 30 ML CUP PO ONE (20:15)
--- NOTE | 2017-06-25 21:14 | PD.CAR.PN ---
CVT Progress Note Subjective/Hospital Course: REFERRAL RECEIVED Fullconsult TF Thanks J Objective: Vital Signs Date Time Temp Pulse Resp B/P (MAP) Pulse Ox O2 Delivery O2 Flow Rate FiO2 06/25/17 20:55 98.0 93 16 116/63 (80) 98 06/25/17 17:50 98.3 90 16 107/69 (82) 99 06/25/17 16:58 86 06/25/17 14:10 98.4 86 16 101/62 (75) 96 06/25/17 06:39 99.2 95 16 97/69 (78) 98 06/25/17 06:30 06/25/17 06:30 104 18 103/60 (74) 98 Nasal Cannula 2.00 06/24/17 23:30 96 Nasal Cannula 2.00 06/24/17 23:06 98.9 129 16 101/66 (78) 97 Labs: Laboratory Tests Test 06/25/17 10:30 Hemoglobin 7.8 GM/DL (13.0-17.0) Hematocrit 22.1 % (39.0-51.0) Result Diagram: 06/25/17 1030 06/25/17 0600 Juan J Maya MD Jun 25, 2017 21:14
[2017-06-26] VITALS (30 sets, daily range): BP systolic 98–117; BP diastolic 59–69; PULSE 77–108; RESP 16–22; TEMP 97.8–99; O2SAT 98–99
[2017-06-26] MEDS: SODIUM CHLOR 0.9% 1000 ML INJ 1,000 ML IV SCH ×3 (00:46→19:19)
[2017-06-26] MEDS: CEFEPIME INJ 1,000 MG in SODIUM CHLORIDE 0.9% INJ 100 ML IV SCH ×2 (00:46→13:11)
[2017-06-26 06:04] LABS: BICARBONATE 22.2 MEQ/L (21.0-32.0); CALCIUM 7.7 MG/DL (8.5-10.1); CREATININE 0.85 MG/DL (0.60-1.30)
[2017-06-26 06:16] LABS: HEMATOCRIT 22.9 % (39.0-51.0); HEMOGLOBIN 8.2 GM/DL (13.0-17.0); MEAN CELL VOLUME 89.7 FL (80.0-100.0); MEAN CORPUSCULAR HEMOGLOBIN 32.1 PG (27.0-34.0); MEAN CORPUSCULAR HGB CONC 35.9 % (32.0-36.0); PLATELET COUNT 23 TH/MM3 (150-450); RED BLOOD COUNT 2.56 MIL/MM3 (4.50-5.90); RED CELL DISTRIBUTION WIDTH 13.1 % (11.6-17.2); WHITE BLOOD COUNT 1.2 TH/MM3 (4.0-11.0)
[2017-06-26] MEDS: DOCUSATE SODIUM 50 MG/SENNA 8.6 MG TAB PO SCH ×2 (08:31→21:00)
[2017-06-26] MEDS: VANCOMYCIN INJ 1,250 MG in SODIUM CHLOR 0.9% 250 ML INJ 250 ML IV SCH (08:31)
[2017-06-26] MEDS: guaiFENesin E.R. 600 MG TAB PO SCH ×2 (08:31→22:26)
[2017-06-26] MEDS: SODIUM CHLORIDE 0.9% FLUSH 10 ML FLUSH IV FLUSH SCH ×2 (09:00→22:30)
--- NOTE | 2017-06-26 10:08 | PD.ONC.PN ---
Subjective Subjective Remarks Afebrile overnight. Patient resting in bed in nad. continue to have diarrhea. denies abdominal pain at present. feels fatigued today. Objective Data Date Time Temp Pulse Resp B/P (MAP) Pulse Ox O2 Delivery O2 Flow Rate FiO2 06/26/17 08:40 98.6 79 22 98/65 (76) 99 06/26/17 06:02 78 06/26/17 05:02 103 06/26/17 05:00 98.3 89 16 117/69 (85) 98 06/26/17 04:06 82 06/26/17 03:02 86 06/26/17 02:04 77 06/26/17 01:07 78 06/26/17 00:42 99.0 82 16 107/68 (81) 98 06/26/17 00:02 82 06/25/17 23:00 79 06/25/17 22:03 80 06/25/17 21:02 100 06/25/17 20:55 98.0 93 16 116/63 (80) 98 06/25/17 20:01 84 06/25/17 19:02 88 06/25/17 17:50 98.3 90 16 107/69 (82) 99 06/25/17 16:58 86 06/25/17 14:10 98.4 86 16 101/62 (75) 96 06/26/17 06/26/17 06/26/17 07:00 15:00 23:00 Intake Total 1100 ml Balance 1100 ml Result Diagram: 06/26/17 0510 06/26/17 0510 Laboratory Results Laboratory Tests Test 06/25/17 10:30 06/26/17 05:10 Hemoglobin 7.8 GM/DL 8.2 GM/DL Hematocrit 22.1 % 22.9 % White Blood Count 1.2 TH/MM3 Red Blood Count 2.56 MIL/MM3 Mean Corpuscular Volume 89.7 FL Mean Corpuscular Hemoglobin 32.1 PG Mean Corpuscular Hemoglobin Concent 35.9 % Red Cell Distribution Width 13.1 % Platelet Count 23 TH/MM3 Mean Platelet Volume 8.0 FL Blood Urea Nitrogen 13 MG/DL Creatinine 0.85 MG/DL Random Glucose 92 MG/DL Calcium Level 7.7 MG/DL Sodium Level 137 MEQ/L Potassium Level 3.2 MEQ/L Chloride Level 104 MEQ/L Carbon Dioxide Level 22.2 MEQ/L Anion Gap 11 MEQ/L Estimat Glomerular Filtration Rate 87 ML/MIN Culture Results Microbiology Date/Time Source Procedure Growth Status 06/24/17 23:30 Blood Peripheral Aerobic Blood Culture Pending Received 06/24/17 23:30 Blood Peripheral Anaerobic Blood Culture Pending Received 06/24/17 23:20 Blood Peripheral Aerobic Blood Culture Pending Received 06/24/17 23:20 Blood Peripheral Anaerobic Blood Culture Pending Received 06/26/17 01:10 Stool Stool Stool Occult Blood (ORTIZ) - Final HEMOCCULT NEGATIVE Complete 06/25/17 06:26 Sputum Expectorated Sputum Gram Stain - Final Resulted 06/25/17 06:26 Sputum Expectorated Sputum Sputum Culture Pending Resulted Administered Medications Medications (Trade) Dose Ordered Sig/Leeann Route PRN Reason Start Time Stop Time Status Last Admin Dose Admin Cefepime HCl 1000 mg/Sodium Chloride 100 ml @ 200 mls/hr Q12H IV 06/25/17 12:00 06/26/17 00:46 Sodium Chloride 1,000 ml @ 100 mls/hr Q10H IV 06/25/17 03:19 06/26/17 00:46 Sodium Chloride (NS Flush) 2 ml BID IV FLUSH 06/25/17 09:00 06/25/17 21:15 Ondansetron HCl (Zofran Inj) 4 mg Q6H PRN IVP NAUSEA OR VOMITING 06/25/17 03:30 06/25/17 10:37 Guaifenesin (Mucinex Er) 600 mg BID PO 06/25/17 09:00 06/26/17 08:31 Vancomycin HCl 1250 mg/Sodium Chloride 262.5 ml @ 250 mls/hr Q24H IV 06/25/17 10:00 06/26/17 08:31 Objective Remarks GENERAL: Elderly male, sitting up in bed [facility]. SKIN: Warm and dry. HEAD: Normocephalic. EYES: No injection or drainage. NECK: Supple, trachea midline. CARDIOVASCULAR: Regular rate and rhythm RESPIRATORY: Breath sounds equal bilaterally. No accessory muscle use. GASTROINTESTINAL: Abdomen mild distended. + BS, nontender. EXTREMITIES: No cyanosis, or edema. MUSCULOSKELETAL: Adequate muscle tone. NEUROLOGICAL: No obvious focal deficit. Awake, alert, and oriented x3. Assessment/Plan Problem List: (1) Sepsis ICD Codes: A41.9 - Sepsis, unspecified organism Status: Acute Plan: --BC pending. --on Vanco + Cefepime. (2) Bladder cancer ICD Codes: C67.9 - Malignant neoplasm of bladder, unspecified Status: Chronic Plan: --currently on combined chemotherapy and radiation therapy with cisplatin and gemcitabine. (hold while inpatient) (3) Pancytopenia ICD Codes: D61.818 - Other pancytopenia Status: Acute Plan: -- transfuse for hemoglobin of less than 7 or platelet count of less than 20,000. (4) Diarrhea ICD Codes: R19.7 - Diarrhea, unspecified Plan: --C. diff negative --likely due to chemotherapy. --start Imodium (5) Nausea & vomiting ICD Codes: R11.2 - Nausea with vomiting, unspecified Plan: --on IVF --continue symptomatic management Assessment 77y/o male with locally advanced bladder cancer, currently receiving definitive chemotherapy and radiation therapy admitted with sepsis, nausea and vomiting. Attending Statement The exam, history, and the medical decision-making described in the above note were completed with the assistance of the mid-level provider. I reviewed and agree with the findings presented. I attest that I had a [id number] encounter with the patient on the same day, and personally performed and documented my assessment and findings in the medical record. feels weak no more fever has neutropenic fever. A/B . Hold chemo. Problem Qualifiers (1) Sepsis: Qualified Codes: A41.9 - Sepsis, unspecified organism Tiesha Sutherland Jun 26, 2017 10:07 Deepali Valerio MD Jun 26, 2017 17:09
[2017-06-26] MEDS ORDERED: LOPERAMIDE HCL 2 MG CAP PO PRN (10:15)
--- NOTE | 2017-06-26 10:29 | RADRPT ---
EXAM DATE/TIME: 06/25/2017 00:00 [place] COMPARISON: No previous studies available for comparison. INDICATIONS : Left big toe discolored/purple TECHNIQUE: Four-cuff ankle and brachial pressures were obtained. Pulse cuff waveform tracings of the ankles were recorded, and ankle-brachial indices were calculated. PRESSURES (mmHg): Brachial (arm): Right 101 Left 104 Ankle: Right 111 Left 65 ESTELA: Right 1.07 Left 0.63 TBI: Right 1.04 Left 0.00 PULSED CUFF WAVEFORMS: Severely blunted left ankle tracing CONCLUSION: Severely compromised left leg circulation Jonnathan Stringer MD on June 26, 2017 at 10:26 Board Certified Radiologist. This report was verified electronically.
--- NOTE | 2017-06-26 12:09 | HHI.PR ---
Subjective Remarks Patient reports feeling okay except for diarrhea. No abdominal pain. Objective Vitals Vital Signs Date Time Temp Pulse Resp B/P (MAP) Pulse Ox O2 Delivery O2 Flow Rate FiO2 06/26/17 08:40 98.6 79 22 98/65 (76) 99 06/26/17 08:00 80 06/26/17 06:02 78 06/26/17 05:02 103 06/26/17 05:00 98.3 89 16 117/69 (85) 98 06/26/17 04:06 82 06/26/17 03:02 86 06/26/17 02:04 77 06/26/17 01:07 78 06/26/17 00:42 99.0 82 16 107/68 (81) 98 06/26/17 00:02 82 06/25/17 23:00 79 06/25/17 22:03 80 06/25/17 21:02 100 06/25/17 20:55 98.0 93 16 116/63 (80) 98 06/25/17 20:01 84 06/25/17 19:02 88 06/25/17 17:50 98.3 90 16 107/69 (82) 99 06/25/17 16:58 86 06/25/17 14:10 98.4 86 16 101/62 (75) 96 I/O 06/25/17 06/25/17 06/25/17 06/26/17 06/26/17 06/26/17 07:00 15:00 23:00 07:00 15:00 23:00 Intake Total 2350 ml 973 ml 2060 ml 1100 ml 250 ml Output Total 150 ml 300 ml Balance 2350 ml 823 ml 1760 ml 1100 ml 250 ml Intake Oral 720 ml 960 ml IV Total 2350 ml 253 ml 1100 ml 1100 ml 250 ml Output Urine Total 150 ml 300 ml # Voids 5 Result Diagram: 06/26/17 0510 06/26/17 0510 Imaging Last Impressions Chest X-Ray 06/25/17 0000 Signed Impressions: Service Date/Time: Sunday, June 25, 2017 00:44 - CONCLUSION: No acute cardiopulmonary disease. The mild patchy opacity in the right lower lobe seen on the abdomen CT is not visualized and may be obscured by the hemidiaphragm. Koby Interiano MD Abdomen/Pelvis CT 06/24/17 2318 Signed Impressions: Service Date/Time: Sunday, June 25, 2017 00:13 - CONCLUSION: 1. Unremarkable bowel gas pattern on this noncontrast exam performed without oral contrast. 2. New patchy opacity in the posterior right lower lobe which is nonspecific and is of unclear chronicity but is new from 2015. The differential diagnosis includes pneumonia, scarring and asbestosis. 3. Status post interval abdominal aortic aneurysm repair with stent graft in place. 4. Multiple small partially calcified bilateral pleural plaques are now present. 5. Unremarkable gallbladder. Koby Interiano MD Objective Remarks GENERAL: Elderly and frail male in no acute distress. CARDIOVASCULAR: Normal rate and regular rhythm without murmurs, gallops, or rubs. RESPIRATORY: Good respiratory efforts. Breath sounds equal and clear to auscultation bilaterally. GASTROINTESTINAL: Abdomen soft, non-tender, non-distended. Normal active bowel sounds MUSCULOSKELETAL: Left great toe appears slightly purple compared to the right. I am unable to palpate dorsalis pedis pulses bilaterally. Sensation intact. Unchanged from yesterday NEURO: Alert & Oriented x4 to person, place, time, situation. Moves all ext x4 PSYCH: Appropriate mood and affect. A/P Problem List: (1) Severe sepsis ICD Code: A41.9 - Sepsis, unspecified organism; R65.20 - Severe sepsis without septic shock Status: Acute Plan: Secondary to pneumonia in immunosuppressed patient on chemotherapy. Meet criteria due to tachycardia, leukopenia, sources right lower lobe pneumonia. Evidence of organ dysfunction with elevated lactic acid of 3.9 Continue broad-spectrum antibiotics with vancomycin and cefepime. Follow blood cultures Continue IV fluid since he is still having diarrhea. Sepsis improving, lactic acid normalized. (2) PNA (pneumonia) ICD Code: J18.9 - Pneumonia, unspecified organism Plan: Continue antibiotics as above. (3) Bladder cancer ICD Code: C67.9 - Malignant neoplasm of bladder, unspecified Status: Chronic Plan: Patient undergoing chemotherapy with Dr. Valerio. Appreciate Oncology following. (4) Pancytopenia ICD Code: D61.818 - Other pancytopenia Status: Acute Plan: Secondary to chemotherapy. Monitor labs closely. -Hematology/oncology following. Transfuse for hemoglobin less than 7. - Improving but platelets still low. (5) Anemia ICD Code: D64.9 - Anemia, unspecified (6) PAD (peripheral artery disease) ICD Code: I73.9 - Peripheral vascular disease, unspecified Plan: ESTELA conclusion: Severely compromised left leg circulation. Vascular surgery consulted. Dr. Walters aware and full consult to follow Continue to monitor for now, symptoms unchanged. Unclear how much of that is chronic. Will defer to Dr. Walters. (7) Diarrhea ICD Code: R19.7 - Diarrhea, unspecified Plan: Likely secondary to chemotherapy. Agree with Imodium. Follow progress. Problem Qualifiers (1) PNA (pneumonia): Monica Meyer MD Jun 26, 2017 12:09
[2017-06-26 12:29] LABS: BANDS 25 % (0-6); DOHLE BODIES PRESENT (NONE SEEN); LYMPHOCYTES 8 % (9-44); METAMYELOCYTES 3 % (0-1); MONOCYTES 5 % (0-8); POLYS (SEG NEUTROPHILS) 59 % (16-70); TOXIC GRANULATION 2+ (NORMAL)
[2017-06-26] MEDS: ONDANSETRON HCL 4 MG/2 ML VIAL IVP PRN (13:11)
[2017-06-26] MEDS ORDERED: ALUMINUM/MAGNESIUM/SIMETH 30 ML CUP PO PRN (14:00)
[2017-06-26] MEDS: FAMOTIDINE 20 MG/2 ML VIAL IV PUSH SCH ×2 (14:44→22:30)
[2017-06-27] VITALS (30 sets, daily range): BP systolic 99–137; BP diastolic 59–68; PULSE 73–106; RESP 18–22; TEMP 97.9–100.1; O2SAT 94–98
[2017-06-27] MEDS: SODIUM CHLOR 0.9% 1000 ML INJ 1,000 ML IV SCH ×2 (00:25→11:20)
[2017-06-27] MEDS: CEFEPIME INJ 1,000 MG in SODIUM CHLORIDE 0.9% INJ 100 ML IV SCH ×2 (00:25→14:03)
[2017-06-27] MEDS: MORPHINE SULFATE 2 MG/ML SYRINGE IV PUSH PRN (00:40)
[2017-06-27 05:46] LABS: AUTOMATED NEUTROPHIL # 0.8 TH/MM3 (1.8-7.7); BASOPHIL % 0.2 % (0.0-2.0); EOSINOPHIL % 0.8 % (0.0-4.0); HEMOGLOBIN 7.2 GM/DL (13.0-17.0); LYMPH % 5.9 % (9.0-44.0); LYMPHOCYTE # 0.1 TH/MM3 (1.0-4.8); MEAN CELL VOLUME 88.6 FL (80.0-100.0); MEAN CORPUSCULAR HEMOGLOBIN 31.6 PG (27.0-34.0); MEAN CORPUSCULAR HGB CONC 35.6 % (32.0-36.0); MEAN PLATELET VOLUME 8.2 FL (7.0-11.0); MONO % 9.5 % (0.0-8.0); MONOCYTE # 0.1 TH/MM3 (0-0.9); NEUT % 83.6 % (16.0-70.0); RED BLOOD COUNT 2.28 MIL/MM3 (4.50-5.90); RED CELL DISTRIBUTION WIDTH 12.7 % (11.6-17.2)
[2017-06-27 06:08] LABS: HEMATOCRIT 20.2 % (39.0-51.0); PLATELET COUNT 15 TH/MM3 (150-450)
[2017-06-27 06:14] LABS: BICARBONATE 23.4 MEQ/L (21.0-32.0); CALCIUM 7.3 MG/DL (8.5-10.1); CREATININE 0.74 MG/DL (0.60-1.30)
[2017-06-27 06:37] LABS: CALCIUM-PROTEIN CORRECTED 8.2 MG/DL (8.5-10.1); TOTAL PROTEIN 5.4 GM/DL (6.4-8.2)
[2017-06-27 07:13] LABS: BANDS 20 % (0-6); LYMPHOCYTES 10 % (9-44); MONOCYTES 9 % (0-8); NEUTROPHIL # MANUAL DIFF 0.8 TH/MM3 (1.8-7.7); POLYS (SEG NEUTROPHILS) 60 % (16-70)
[2017-06-27] MEDS ORDERED: ACETAMINOPHEN 325 MG TAB PO PRN (08:00)
[2017-06-27] MEDS ORDERED: SODIUM CHLOR 0.9% 250 ML INJ 250 ML IV ONE (08:00)
[2017-06-27] MEDS: DOCUSATE SODIUM 50 MG/SENNA 8.6 MG TAB PO SCH ×2 (08:53→21:00)
[2017-06-27] MEDS: FAMOTIDINE 20 MG/2 ML VIAL IV PUSH SCH (08:54)
[2017-06-27] MEDS: guaiFENesin E.R. 600 MG TAB PO SCH ×2 (08:54→20:53)
[2017-06-27] MEDS: SODIUM CHLORIDE 0.9% FLUSH 10 ML FLUSH IV FLUSH SCH ×2 (08:55→21:04)
[2017-06-27] MEDS: VANCOMYCIN INJ 1,250 MG in SODIUM CHLOR 0.9% 250 ML INJ 250 ML IV SCH (09:07)
[2017-06-27] MEDS ORDERED: POTASSIUM CHLOR 40 MEQ PREMIX 100 ML IV SCH ×2 (09:15→23:00)
[2017-06-27] MEDS ORDERED: PHARMACY ORDERED LAB ONE (09:45)
[2017-06-27 09:53] LABS: MAGNESIUM 1.4 MG/DL (1.5-2.5); VANCOMYCIN TROUGH 5.8 MCG/ML (5.0-10.0)
--- NOTE | 2017-06-27 09:57 | PD.ONC.PN ---
Subjective Subjective Remarks Tmax 100.1 overnight. Patient anxious for counts to come up. He is resting in bed in nad. No complaints. Objective Data Date Time Temp Pulse Resp B/P (MAP) Pulse Ox O2 Delivery O2 Flow Rate FiO2 06/27/17 08:50 99.3 89 22 114/68 (83) 97 06/27/17 08:07 82 06/27/17 08:02 93 06/27/17 06:03 89 06/27/17 05:02 90 06/27/17 04:08 92 06/27/17 04:06 98.9 06/27/17 04:06 97.9 90 18 130/63 (85) 96 06/27/17 03:00 91 06/27/17 02:10 85 06/27/17 01:04 83 06/27/17 00:29 100.1 73 18 137/62 (87) 95 06/27/17 00:07 87 06/26/17 23:04 101 06/26/17 22:01 93 06/26/17 21:29 99.0 92 20 113/62 (79) 98 06/26/17 21:03 90 06/26/17 20:00 86 06/26/17 19:02 99 06/26/17 18:00 86 06/26/17 17:00 108 06/26/17 16:23 98.9 87 20 110/59 (76) 98 06/26/17 16:00 91 06/26/17 15:00 90 06/26/17 14:00 88 06/26/17 13:17 97.8 96 22 110/63 (79) 98 06/26/17 13:00 86 06/26/17 12:00 94 06/26/17 11:00 92 06/26/17 10:00 88 06/27/17 06/27/17 06/27/17 07:00 15:00 23:00 Intake Total 1190 ml Output Total 300 ml Balance 890 ml Result Diagram: 06/27/17 0400 06/27/17 0400 Laboratory Results Laboratory Tests Test 06/27/17 04:00 06/27/17 09:00 White Blood Count 1.0 TH/MM3 Red Blood Count 2.28 MIL/MM3 Hemoglobin 7.2 GM/DL Hematocrit 20.2 % Mean Corpuscular Volume 88.6 FL Mean Corpuscular Hemoglobin 31.6 PG Mean Corpuscular Hemoglobin Concent 35.6 % Red Cell Distribution Width 12.7 % Platelet Count 15 TH/MM3 Mean Platelet Volume 8.2 FL Neutrophils (%) (Auto) 83.6 % Lymphocytes (%) (Auto) 5.9 % Monocytes (%) (Auto) 9.5 % Eosinophils (%) (Auto) 0.8 % Basophils (%) (Auto) 0.2 % Neutrophils # (Auto) 0.8 TH/MM3 Lymphocytes # (Auto) 0.1 TH/MM3 Monocytes # (Auto) 0.1 TH/MM3 Eosinophils # (Auto) 0.0 TH/MM3 Basophils # (Auto) 0.0 TH/MM3 CBC Comment AUTO DIFF Differential Total Cells Counted 100 Neutrophils % (Manual) 60 % Band Neutrophils % 20 % Lymphocytes % 10 % Monocytes % 9 % Eosinophils % 1 % Neutrophils # (Manual) 0.8 TH/MM3 Differential Comment FINAL DIFF MANUAL Platelet Estimate RARE Platelet Morphology Comment NORMAL Blood Urea Nitrogen 7 MG/DL Creatinine 0.74 MG/DL Random Glucose 89 MG/DL Total Protein 5.4 GM/DL Calcium Level 7.3 MG/DL Sodium Level 136 MEQ/L Potassium Level 2.8 MEQ/L Chloride Level 102 MEQ/L Carbon Dioxide Level 23.4 MEQ/L Anion Gap 11 MEQ/L Estimat Glomerular Filtration Rate 102 ML/MIN Protein Corrected Calcium 8.2 MG/DL Magnesium Level 1.4 MG/DL Vancomycin Level Trough 5.8 MCG/ML Culture Results Microbiology Date/Time Source Procedure Growth Status 06/24/17 23:30 Blood Peripheral Aerobic Blood Culture - Preliminary NO GROWTH IN 1 DAY Resulted 06/24/17 23:30 Blood Peripheral Anaerobic Blood Culture - Preliminary NO GROWTH IN 1 DAY Resulted 06/24/17 23:20 Blood Peripheral Aerobic Blood Culture - Preliminary NO GROWTH IN 1 DAY Resulted 06/24/17 23:20 Blood Peripheral Anaerobic Blood Culture - Preliminary NO GROWTH IN 1 DAY Resulted 06/26/17 01:10 Stool Stool Stool Occult Blood (ORTIZ) - Final HEMOCCULT NEGATIVE Complete 06/25/17 06:26 Sputum Expectorated Sputum Gram Stain - Final Complete 06/25/17 06:26 Sputum Expectorated Sputum Sputum Culture - Final HEAVY GROWTH NORMAL RESPIRATORY LISA Complete Administered Medications Medications (Trade) Dose Ordered Sig/Leeann Route PRN Reason Start Time Stop Time Status Last Admin Dose Admin Cefepime HCl 1000 mg/Sodium Chloride 100 ml @ 200 mls/hr Q12H IV 06/25/17 12:00 06/27/17 00:25 Sodium Chloride 1,000 ml @ 100 mls/hr Q10H IV 06/25/17 03:19 06/27/17 00:25 Sodium Chloride (NS Flush) 2 ml UNSCH PRN IV FLUSH FLUSH AFTER USING IV ACCESS 06/25/17 03:30 06/27/17 00:43 Sodium Chloride (NS Flush) 2 ml BID IV FLUSH 06/25/17 09:00 06/27/17 08:55 Ondansetron HCl (Zofran Inj) 4 mg Q6H PRN IVP NAUSEA OR VOMITING 06/25/17 03:30 06/26/17 13:11 Morphine Sulfate (Morphine Inj) 2 mg Q3H PRN IV PUSH Pain 6-10 06/25/17 03:30 06/27/17 00:40 Guaifenesin (Mucinex Er) 600 mg BID PO 06/25/17 09:00 06/27/17 08:54 Vancomycin HCl 1250 mg/Sodium Chloride 262.5 ml @ 250 mls/hr Q24H IV 06/25/17 10:00 06/27/17 09:07 Loperamide HCl (Imodium) 2 mg UNSCH PRN PO DIARRHEA 06/26/17 10:15 06/26/17 13:11 Objective Remarks GENERAL: Elderly male, upright in bed in nad. SKIN: Warm and dry. HEAD: Normocephalic. EYES: No injection or drainage. NECK: Supple, trachea midline. CARDIOVASCULAR: Regular rate and rhythm RESPIRATORY: Breath sounds equal bilaterally. No accessory muscle use. GASTROINTESTINAL: Abdomen soft, non-tender, mildly distended EXTREMITIES: No cyanosis, or edema. NEUROLOGICAL: awake and alert. normal speech. Assessment/Plan Problem List: (1) Pancytopenia ICD Codes: D61.818 - Other pancytopenia Status: Acute Plan: 06/27: start Neupogen. transfuse 1 unit pRBC. replace potassium. continue antibiotics. -- transfuse for hemoglobin of less than 7 or platelet count of less than 20, 000. (2) Sepsis ICD Codes: A41.9 - Sepsis, unspecified organism Status: Acute Plan: --BC no growth --on Vanco + Cefepime. (3) Bladder cancer ICD Codes: C67.9 - Malignant neoplasm of bladder, unspecified Status: Chronic Plan: --currently on combined chemotherapy and radiation therapy with cisplatin and gemcitabine. (hold while inpatient) (4) Diarrhea ICD Codes: R19.7 - Diarrhea, unspecified Plan: --C. diff negative --likely due to chemotherapy. --start Imodium (5) Nausea & vomiting ICD Codes: R11.2 - Nausea with vomiting, unspecified Plan: --on IVF --continue symptomatic management (6) Dyspepsia ICD Codes: R10.13 - Epigastric pain Plan: --on PO Pepcid BID Assessment 77y/o male with locally advanced bladder cancer, currently receiving definitive chemotherapy and radiation therapy admitted with sepsis, nausea and vomiting. Attending Statement The exam, history, and the medical decision-making described in the above note were completed with the assistance of the mid-level provider. I reviewed and agree with the findings presented. I attest that I had a [id number] encounter with the patient on the same day, and personally performed and documented my assessment and findings in the medical record. C/O Weakness and fever pt is neutropenic, on A/B start neupogen PRBC 1 unit. Hold XRt and Chemo Problem Qualifiers (1) Sepsis: Qualified Codes: A41.9 - Sepsis, unspecified organism Tiesha Sutherland Jun 27, 2017 09:57 Deepali Valerio MD Jun 27, 2017 23:04
--- NOTE | 2017-06-27 11:31 | HHI.PR ---
Subjective Remarks K is low. Pancytopenia worsening. Patient report he is feeling ok. Breathing comfortable. Objective Vitals Vital Signs Date Time Temp Pulse Resp B/P (MAP) Pulse Ox O2 Delivery O2 Flow Rate FiO2 06/27/17 08:50 99.3 89 22 114/68 (83) 97 06/27/17 08:07 82 06/27/17 08:02 93 06/27/17 06:03 89 06/27/17 05:02 90 06/27/17 04:08 92 06/27/17 04:06 98.9 06/27/17 04:06 97.9 90 18 130/63 (85) 96 06/27/17 03:00 91 06/27/17 02:10 85 06/27/17 01:04 83 06/27/17 00:29 100.1 73 18 137/62 (87) 95 06/27/17 00:07 87 06/26/17 23:04 101 06/26/17 22:01 93 06/26/17 21:29 99.0 92 20 113/62 (79) 98 06/26/17 21:03 90 06/26/17 20:00 86 06/26/17 19:02 99 06/26/17 18:00 86 06/26/17 17:00 108 06/26/17 16:23 98.9 87 20 110/59 (76) 98 06/26/17 16:00 91 06/26/17 15:00 90 06/26/17 14:00 88 06/26/17 13:17 97.8 96 22 110/63 (79) 98 06/26/17 13:00 86 06/26/17 12:00 94 I/O 06/26/17 06/26/17 06/26/17 06/27/17 06/27/17 06/27/17 07:00 15:00 23:00 07:00 15:00 23:00 Intake Total 1100 ml 350 ml 1490 ml 1190 ml Output Total 1150 ml 300 ml Balance 1100 ml 350 ml 340 ml 890 ml Intake Oral 500 ml 240 ml IV Total 1100 ml 350 ml 990 ml 950 ml Output Urine Total 700 ml 300 ml Stool Total 450 ml # Voids 3 # Bowel Movements 6 Result Diagram: 06/27/17 04006/27/17 040 Objective Remarks GENERAL: Elderly male in no acute distress. CARDIOVASCULAR: Normal rate and regular rhythm without murmurs, gallops, or rubs. RESPIRATORY: Good respiratory efforts. Breath sounds equal and clear to auscultation bilaterally. GASTROINTESTINAL: Abdomen soft, non-tender, non-distended. Normal active bowel sounds MUSCULOSKELETAL: Left great toe appears slightly purple compared to the right. I am unable to palpate dorsalis pedis pulses bilaterally. Sensation intact. Unchanged from yesterday NEURO: Alert & Oriented x4 to person, place, time, situation. Moves all ext x4 PSYCH: Appropriate mood and affect. A/P Problem List: (1) Severe sepsis ICD Code: A41.9 - Sepsis, unspecified organism; R65.20 - Severe sepsis without septic shock Status: Acute Plan: Secondary to pneumonia in immunosuppressed patient on chemotherapy. Meet criteria due to tachycardia, leukopenia, sources right lower lobe pneumonia. Evidence of organ dysfunction with elevated lactic acid of 3.9 on presentation. Continue broad-spectrum antibiotics with vancomycin and cefepime. Follow blood cultures Continue IV fluid since he is still having diarrhea. Sepsis improving, lactic acid normalized. (2) PNA (pneumonia) ICD Code: J18.9 - Pneumonia, unspecified organism Plan: Continue antibiotics as above. (3) Bladder cancer ICD Code: C67.9 - Malignant neoplasm of bladder, unspecified Status: Chronic Plan: Patient undergoing chemotherapy with Dr. Valerio. Appreciate Oncology following. (4) Pancytopenia ICD Code: D61.818 - Other pancytopenia Status: Acute Plan: Secondary to chemotherapy. Worse today. Monitor labs closely. -Hematology/oncology following. Transfusion and Neupogen ordered per Heme/Onc (5) Anemia ICD Code: D64.9 - Anemia, unspecified (6) PAD (peripheral artery disease) ICD Code: I73.9 - Peripheral vascular disease, unspecified Plan: ESTELA conclusion: Severely compromised left leg circulation. Vascular surgery consulted. Dr. Walters aware and full consult to follow Continue to monitor for now, symptoms unchanged. Unclear how much of that is chronic. Will defer to Dr. Walters. (7) Diarrhea ICD Code: R19.7 - Diarrhea, unspecified Plan: Likely secondary to chemotherapy. Agree with Imodium. Follow progress. Problem Qualifiers (1) PNA (pneumonia): Monica Meyer MD Jun 27, 2017 11:31
[2017-06-27] MEDS: ONDANSETRON HCL 4 MG/2 ML VIAL IVP PRN (14:05)
[2017-06-27] MEDS: FILGRASTIM INJ 480 MCG in DEXTROSE 5% IN WATER INJ 50 ML IV SCH ×2 (16:10)
[2017-06-27] MEDS: diphenhydrAMINE HCL 25 MG CAP PO PRN (16:36)
[2017-06-27] MEDS: ACETAMINOPHEN 325 MG TAB PO PRN (16:37)
[2017-06-27] MEDS: ACETAMINOPHEN/HYDROcodone 325 MG/5 MG TAB PO PRN (20:53)
[2017-06-27] MEDS: FAMOTIDINE 20 MG TAB PO SCH (20:53)
[2017-06-27] MEDS: VANCOMYCIN 1 GM/200 ML PREMIX IV SCH (20:54)
[2017-06-27] MEDS ORDERED: VANCOMYCIN INJ 1,250 MG in SODIUM CHLOR 0.9% 250 ML INJ 250 ML IV SCH (21:00)
[2017-06-28] VITALS (18 sets, daily range): BP systolic 89–118; BP diastolic 52–68; PULSE 76–110; RESP 16–18; TEMP 98.5–101.1; O2SAT 94–97
[2017-06-28] MEDS: CEFEPIME INJ 1,000 MG in SODIUM CHLORIDE 0.9% INJ 100 ML IV SCH ×2 (00:40→12:53)
[2017-06-28] MEDS: SODIUM CHLOR 0.9% 1000 ML INJ 1,000 ML IV SCH ×2 (02:38→15:58)
[2017-06-28] MEDS: ACETAMINOPHEN 325 MG TAB PO PRN ×2 (05:40→20:06)
[2017-06-28] MEDS: ACETAMINOPHEN/HYDROcodone 325 MG/5 MG TAB PO PRN ×3 (05:42→20:06)
[2017-06-28 05:57] LABS: BASOPHIL % 0.1 % (0.0-2.0); EOSINOPHIL % 0.4 % (0.0-4.0); HEMATOCRIT 22.3 % (39.0-51.0); LYMPH % 3.3 % (9.0-44.0); LYMPHOCYTE # 0.1 TH/MM3 (1.0-4.8); MEAN CORPUSCULAR HEMOGLOBIN 31.3 PG (27.0-34.0); MEAN PLATELET VOLUME 7.8 FL (7.0-11.0); MONO % 12.3 % (0.0-8.0); MONOCYTE # 0.3 TH/MM3 (0-0.9); NEUT % 83.9 % (16.0-70.0); RED BLOOD COUNT 2.56 MIL/MM3 (4.50-5.90); WHITE BLOOD COUNT 2.4 TH/MM3 (4.0-11.0)
[2017-06-28 06:05] LABS: PLATELET COUNT 12 TH/MM3 (150-450)
[2017-06-28 06:23] LABS: ALBUMIN 2.3 GM/DL (3.4-5.0); AST (GOT) 20 U/L (15-37); BICARBONATE 27.4 MEQ/L (21.0-32.0); BLOOD UREA NITROGEN 5 MG/DL (7-18); CALCIUM 7.5 MG/DL (8.5-10.1); CHLORIDE 104 MEQ/L (98-107); CREATININE 0.76 MG/DL (0.60-1.30); GLOMERULAR FILTRATION RATE 99 ML/MIN (>89); GLUCOSE,RANDOM 100 MG/DL (74-106); SODIUM (NA) 137 MEQ/L (136-145)
[2017-06-28 06:25] LABS: ALT (GPT) 15 U/L (12-78)
[2017-06-28 06:27] LABS: ALKALINE PHOSPHATASE 68 U/L (45-117); TOTAL BILIRUBIN ADULT 0.8 MG/DL (0.2-1.0); TOTAL PROTEIN 5.5 GM/DL (6.4-8.2)
[2017-06-28 07:07] LABS: DOHLE BODIES PRESENT (NONE SEEN); TOXIC GRANULATION 1+ (NORMAL)
--- NOTE | 2017-06-28 08:12 | MB ---
cc: Juan J Maya MD DATE: 06/26/2017 CONSULTING PHYSICIAN: Dr. Maya, Vascular Surgery REASON FOR CONSULTATION: Ischemia, compressed flow to the left leg, incipient gangrene of the left greater toe. HISTORY OF PRESENT ILLNESS: This pleasant 77-year-old gentleman presents to the hospital with locally advanced bladder cancer that he was diagnosed last year with. The patient presents with generalized weakness, nausea, vomiting and severe pancytopenia. On the workup, he was found to have ischemia of the left greater toe with discoloration and purplish hue. Question arise about any significance of this at this time. The patient states his walking has not been impaired. However, right now, he is weak, short of breath and clearly systemically wasting. PAST MEDICAL HISTORY: Abdominal aortic aneurysm, hyperlipidemia, hypertension and the above noted locally advanced bladder cancer. PAST SURGICAL HISTORY: Endovascular abdominal aortic aneurysm repair a year or 2 ago in another hospital, tumor extraction surgery. PHYSICAL EXAMINATION: GENERAL: Reveals a 77-year-old male in no acute. HEENT: Normocephalic. No trauma to head. Pupils equal, reactive to light. Extraocular muscles intact. NECK: Supple, bilateral carotid pulses. No bruits. CHEST: Clear bilateral breath sounds, decreased in both lung bishop. HEART: Regular rhythm. ABDOMEN: Soft. Active bowel sounds. EXTREMITIES: The patient actually has palpable femoral pulses and Dopplerable strong popliteal pulses, dorsalis pedis and posterior tibial by Doppler bilateral. Feet are warm. The patient has slightly decreased capillary refill bilateral, but not significantly. NEUROLOGIC: He is intact. IMPRESSION AND PLAN: The patient with severe pancytopenia manifested by thrombocytopenia and leukopenia, as well as anemia. At this point, the patient's vascular supply is impaired, however, this is a chronic problem and the only acute finding is the ischemia of the hallux. Currently patient's general condition with effective pancytopenia and sequela of the bladder cancer treatment such that no further investigation should be undertaken on vascular issues the patient is improved. Vascular issues of taking secondary place at this point and should not be pursued in this setting. MD ALISON [place] , 10:14 PM , 10:32 PM TOMAS
[2017-06-28] MEDS: FAMOTIDINE 20 MG TAB PO SCH ×2 (08:37→20:05)
[2017-06-28] MEDS: guaiFENesin E.R. 600 MG TAB PO SCH ×2 (08:37→20:06)
[2017-06-28] MEDS: SODIUM CHLORIDE 0.9% FLUSH 10 ML FLUSH IV FLUSH SCH ×2 (08:47→21:16)
[2017-06-28] MEDS: VANCOMYCIN 1 GM/200 ML PREMIX IV SCH (08:47)
[2017-06-28] MEDS ORDERED: PHARMACY ORDERED LAB ONE (09:45)
[2017-06-28] MEDS: MORPHINE SULFATE 2 MG/ML SYRINGE IV PUSH PRN (09:54)
--- NOTE | 2017-06-28 11:04 | PD.ONC.PN ---
Subjective Subjective Remarks T-max 101.1 last night Patient reports overall he feels better No longer having chills No bleeding Objective Data Date Time Temp Pulse Resp B/P (MAP) Pulse Ox O2 Delivery O2 Flow Rate FiO2 06/28/17 07:58 98.5 80 18 95/68 (77) 97 06/28/17 06:03 79 06/28/17 05:03 91 06/28/17 04:04 83 06/28/17 03:51 101.1 92 18 111/60 (77) 97 06/28/17 03:04 85 06/28/17 02:08 91 06/28/17 01:12 90 06/28/17 00:41 99.0 84 18 103/58 (73) 97 06/28/17 00:30 99.1 06/28/17 00:00 76 06/27/17 23:06 80 06/27/17 22:00 78 06/27/17 21:07 81 06/27/17 20:43 99.1 82 18 117/60 97 06/27/17 20:05 81 06/27/17 19:55 98.2 90 18 135/63 (87) 98 06/27/17 19:03 98 06/27/17 17:55 99.2 82 20 106/59 94 06/27/17 17:30 99.5 85 20 99/62 96 06/27/17 15:59 99.1 94 18 109/60 (76) 97 06/27/17 14:00 106 06/27/17 13:00 90 06/27/17 12:00 83 06/27/17 11:32 99.9 91 20 100/60 (73) 94 06/28/17 06/28/17 06/28/17 07:00 15:00 23:00 Intake Total 120 ml Output Total 700 ml Balance -580 ml Result Diagram: 06/28/17 0535 06/28/17 0535 Laboratory Results Laboratory Tests Test 06/28/17 05:35 White Blood Count 2.4 TH/MM3 Red Blood Count 2.56 MIL/MM3 Hemoglobin 8.0 GM/DL Hematocrit 22.3 % Mean Corpuscular Volume 87.0 FL Mean Corpuscular Hemoglobin 31.3 PG Mean Corpuscular Hemoglobin Concent 36.0 % Red Cell Distribution Width 14.0 % Platelet Count 12 TH/MM3 Mean Platelet Volume 7.8 FL Neutrophils (%) (Auto) 83.9 % Lymphocytes (%) (Auto) 3.3 % Monocytes (%) (Auto) 12.3 % Eosinophils (%) (Auto) 0.4 % Basophils (%) (Auto) 0.1 % Neutrophils # (Auto) 2.0 TH/MM3 Lymphocytes # (Auto) 0.1 TH/MM3 Monocytes # (Auto) 0.3 TH/MM3 Eosinophils # (Auto) 0.0 TH/MM3 Basophils # (Auto) 0.0 TH/MM3 CBC Comment AUTO DIFF Differential Comment AUTO DIFF CONFIRMED Toxic Granulation 1+ Dohle Bodies PRESENT Platelet Estimate LOW Platelet Morphology Comment ENLARGED Blood Urea Nitrogen 5 MG/DL Creatinine 0.76 MG/DL Random Glucose 100 MG/DL Total Protein 5.5 GM/DL Albumin 2.3 GM/DL Calcium Level 7.5 MG/DL Alkaline Phosphatase 68 U/L Aspartate Amino Transf (AST/SGOT) 20 U/L Alanine Aminotransferase (ALT/SGPT) 15 U/L Total Bilirubin 0.8 MG/DL Sodium Level 137 MEQ/L Potassium Level 3.2 MEQ/L Chloride Level 104 MEQ/L Carbon Dioxide Level 27.4 MEQ/L Anion Gap 6 MEQ/L Estimat Glomerular Filtration Rate 99 ML/MIN Culture Results Microbiology Date/Time Source Procedure Growth Status 06/28/17 05:35 Blood Line Aerobic Blood Culture Pending Received 06/28/17 05:35 Blood Line Anaerobic Blood Culture Pending Received 06/28/17 05:20 Blood Peripheral Aerobic Blood Culture Pending Received 06/28/17 05:20 Blood Peripheral Anaerobic Blood Culture Pending Received 06/26/17 01:10 Stool Stool Stool Occult Blood (ORTIZ) - Final HEMOCCULT NEGATIVE Complete Administered Medications Medications (Trade) Dose Ordered Sig/Leeann Route PRN Reason Start Time Stop Time Status Last Admin Dose Admin Cefepime HCl 1000 mg/Sodium Chloride 100 ml @ 200 mls/hr Q12H IV 06/25/17 12:00 06/28/17 00:40 Sodium Chloride 1,000 ml @ 75 mls/hr [id number] IV 06/25/17 03:19 06/27/17 11:20 Sodium Chloride (NS Flush) 2 ml UNSCH PRN IV FLUSH FLUSH AFTER USING IV ACCESS 06/25/17 03:30 06/27/17 00:43 Sodium Chloride (NS Flush) 2 ml BID IV FLUSH 06/25/17 09:00 06/28/17 08:47 Ondansetron HCl (Zofran Inj) 4 mg Q6H PRN IVP NAUSEA OR VOMITING 06/25/17 03:30 06/27/17 14:05 Acetaminophen (Tylenol) 650 mg Q6H PRN PO FEVER/PAIN SCALE 1 TO 2 06/25/17 03:30 06/28/17 05:40 Acetaminophen/ Hydrocodone Bitart ([place] 5-325 Mg) 1 tab Q4H PRN PO PAIN SCALE 3 TO 5 06/25/17 03:30 06/28/17 05:42 Morphine Sulfate (Morphine Inj) 2 mg Q3H PRN IV PUSH Pain 6-10 06/25/17 03:30 06/28/17 09:54 Guaifenesin (Mucinex Er) 600 mg BID PO 06/25/17 09:00 06/28/17 08:37 Loperamide HCl (Imodium) 2 mg UNSCH PRN PO DIARRHEA 06/26/17 10:15 06/26/17 13:11 Filgrastim 480 mcg/Dextrose 51.6 ml @ 100 mls/hr DAILY@14 IV 06/27/17 14:00 06/27/17 16:10 Diphenhydramine HCl (Benadryl) 25 mg Q4H PRN PO SEE LABEL COMMENTS 06/27/17 08:00 06/27/17 16:36 Famotidine (Pepcid) 20 mg BID PO 06/27/17 21:00 06/28/17 08:37 Vancomycin/Sodium Chloride 200 ml @ 200 mls/hr Q12H IV 06/27/17 21:00 06/28/17 08:47 Objective Remarks GENERAL: Older male resting in bed in no obvious distress SKIN: Warm and dry. HEAD: Normocephalic. EYES: No injection or drainage. NECK: Supple, trachea midline. CARDIOVASCULAR: Plus S1/S2. No murmur noted RESPIRATORY: Clear anteriorly. Breathing easy and unlabored at rest GASTROINTESTINAL: Abdomen soft, non-tender, nondistended. EXTREMITIES: No cyanosis. Left great toe appears dusky. No edema. MUSCULOSKELETAL: Adequate muscle tone. NEUROLOGICAL: No obvious focal deficit. Awake, alert, and oriented x3. Assessment/Plan Problem List: (1) Pancytopenia ICD Codes: D61.818 - Other pancytopenia Status: Acute Plan: 06/28: Patient no longer neutropenic. Continue Neupogen for now. Monitor CBC. Appreciate ID consult for antibiotic recommendation 06/27: start Neupogen. transfuse 1 unit pRBC. replace potassium. continue antibiotics. -- transfuse for hemoglobin of less than 7 or platelet count of less than 20, 000. (2) Sepsis ICD Codes: A41.9 - Sepsis, unspecified organism Status: Acute Plan: --Blood cultures pending on 06/26 --BC no growth from 06/24 --on Vanco + Cefepime. --ID consulted (3) Bladder cancer ICD Codes: C67.9 - Malignant neoplasm of bladder, unspecified Status: Chronic Plan: --currently on combined chemotherapy and radiation therapy with cisplatin and gemcitabine. (hold while inpatient) (4) Diarrhea ICD Codes: R19.7 - Diarrhea, unspecified Plan: --C. diff negative --likely due to chemotherapy. --start Imodium (5) Nausea & vomiting ICD Codes: R11.2 - Nausea with vomiting, unspecified Plan: --on IVF --continue symptomatic management (6) Dyspepsia ICD Codes: R10.13 - Epigastric pain Plan: --on PO Pepcid BID Assessment 77y/o male with locally advanced bladder cancer, currently receiving definitive chemotherapy and radiation therapy admitted with sepsis, nausea and vomiting. Attending Statement The exam, history, and the medical decision-making described in the above note were completed with the assistance of the mid-level provider. I reviewed and agree with the findings presented. I attest that I had a [id number] encounter with the patient on the same day, and personally performed and documented my assessment and findings in the medical record. C/O pain and discoloration left big toe had fever last night, no chills Neutropenia has resolved. Continue neupogen till ANC >5.0 DR Walters to follow for PVD. continue A/B. Problem Qualifiers (1) Sepsis: Qualified Codes: A41.9 - Sepsis, unspecified organism Lolis Villatoro Jun 28, 2017 11:04 Deepali Valerio MD Jun 28, 2017 23:16
[2017-06-28] MEDS: FILGRASTIM INJ 480 MCG in DEXTROSE 5% IN WATER INJ 50 ML IV SCH ×2 (13:07)
--- NOTE | 2017-06-28 13:10 | HHI.PR ---
Subjective Remarks Patient reports he is feeling okay. He had a fever this morning. Objective Vitals Vital Signs Date Time Temp Pulse Resp B/P (MAP) Pulse Ox O2 Delivery O2 Flow Rate FiO2 06/28/17 11:15 98.5 81 16 100/58 (72) 96 06/28/17 07:58 98.5 80 18 95/68 (77) 97 06/28/17 06:03 79 06/28/17 05:03 91 06/28/17 04:04 83 06/28/17 03:51 101.1 92 18 111/60 (77) 97 06/28/17 03:04 85 06/28/17 02:08 91 06/28/17 01:12 90 06/28/17 00:41 99.0 84 18 103/58 (73) 97 06/28/17 00:30 99.1 06/28/17 00:00 76 06/27/17 23:06 80 06/27/17 22:00 78 06/27/17 21:07 81 06/27/17 20:43 99.1 82 18 117/60 97 06/27/17 20:05 81 06/27/17 19:55 98.2 90 18 135/63 (87) 98 06/27/17 19:03 98 06/27/17 17:55 99.2 82 20 106/59 94 06/27/17 17:30 99.5 85 20 99/62 96 06/27/17 15:59 99.1 94 18 109/60 (76) 97 06/27/17 14:00 106 I/O 06/27/17 06/27/17 06/27/17 06/28/17 06/28/17 06/28/17 07:00 15:00 23:00 07:00 15:00 23:00 Intake Total 1190 ml 250 ml 1265 ml 120 ml Output Total 300 ml 900 ml 700 ml Balance 890 ml 250 ml 365 ml -580 ml Intake Oral 240 ml 240 ml 120 ml IV Total 950 ml 250 ml 200 ml Packed Cells 400 ml Blood Product IV Normal Saline Flush 425 ml Output Urine Total 300 ml 900 ml 700 ml Result Diagram: 06/28/17 0535 06/28/17 0535 Objective Remarks GENERAL: Elderly male in no acute distress. CARDIOVASCULAR: Normal rate and regular rhythm without murmurs, gallops, or rubs. RESPIRATORY: Good respiratory efforts. Breath sounds equal and clear to auscultation bilaterally. GASTROINTESTINAL: Abdomen soft, non-tender, non-distended. Normal active bowel sounds MUSCULOSKELETAL: Left great toe appears slightly purple compared to the right. I am unable to palpate dorsalis pedis pulses bilaterally. Sensation intact. Unchanged from yesterday NEURO: Alert & Oriented x4 to person, place, time, situation. Moves all ext x4 PSYCH: Appropriate mood and affect. A/P Problem List: (1) Severe sepsis ICD Code: A41.9 - Sepsis, unspecified organism; R65.20 - Severe sepsis without septic shock Status: Acute Plan: Secondary to pneumonia in immunosuppressed patient on chemotherapy. Meet criteria due to tachycardia, leukopenia, sources right lower lobe pneumonia. Evidence of organ dysfunction with elevated lactic acid of 3.9 on presentation. Continue broad-spectrum antibiotics with vancomycin and cefepime. He continues to have fevers. Consult infectious disease for assistance. Follow blood cultures (2) PNA (pneumonia) ICD Code: J18.9 - Pneumonia, unspecified organism Plan: Continue antibiotics as above. (3) Bladder cancer ICD Code: C67.9 - Malignant neoplasm of bladder, unspecified Status: Chronic Plan: Patient undergoing chemotherapy with Dr. Valerio. Appreciate Oncology following. (4) Pancytopenia ICD Code: D61.818 - Other pancytopenia Status: Acute Plan: Secondary to chemotherapy. Stable today. Monitor labs closely. -Hematology/oncology following. Status post transfusion and Neupogen ordered per Heme/Onc (5) Anemia ICD Code: D64.9 - Anemia, unspecified (6) PAD (peripheral artery disease) ICD Code: I73.9 - Peripheral vascular disease, unspecified Plan: ESTELA conclusion: Severely compromised left leg circulation. Vascular surgery consulted. Dr. Walters evaluated the patient and concluded that the patient has chronic PAD and given his current comorbid condition, no intervention at this point. Continue to monitor for now, symptoms unchanged. (7) Diarrhea ICD Code: R19.7 - Diarrhea, unspecified Plan: Resolving. Agree with Imodium. Follow progress. Problem Qualifiers (1) PNA (pneumonia): Monica Meyer MD Jun 28, 2017 13:10
--- NOTE | 2017-06-28 14:47 | PD.ID.CON ---
History of Present Illness Service ID Consult Requested By Dr. Meyer Reason for Consult Evaluation and Mment of Neutropenic fever in a patient with bladder cancer s/p Chemotherapy. Primary Care Physician Myke Estes MD Diagnoses: History of Present Illness Mr. Zaman is a 77-year-old pleasant gentleman with PMHx of locally advanced bladder cancer, which was diagnosed in 01/2017. Per review of (H[facility]- Onc) records it appears he declined radical surgery and opted for bladder preservation. He underwent repeat cystoscopy on 04/24 and a 3 cm tumor was removed at the previous biopsy site. He reports being on combined chemotherapy and radiation therapy with cisplatin and gemcitabine. Patient reports his last chemotherapy was approx 1 week prior to admission. He presented to the emergency room on 06/25/2017, with generalized weakness, dizziness, nausea, vomiting and diarrhea of 3 days' duration. He also had inability to tolerate p.o. On arrival in the emergency room. He reports fevers of 101 F at home and associated night sweats. On presentation to the ED he was found to have a HR of 125. He was found to be neutropenic with WBC of 1. He had a lactic acidosis at 3.9 and a mild patchy opacity in the right lower lobe on his chest x-ray, which was also seen on the CT scan of the abdomen and pelvis. Sepsis workup was initiated and she was started on empiric broad spectrum antibiotics with vancomycin and cefepime. Sputum culture, blood cultures are pending at the time of my evaluation. ID was consulted for evaluation and M'ment of fevers in a neutropenic patient. Review of Systems Constitutional: COMPLAINS OF: Diaphoretic episodes, Fatigue, Fever, Chills, Change in appetite, Night Sweats, DENIES: Weight gain, Weight loss, Dizziness Endocrine: DENIES: Heat/cold intolerance, Polydipsia, Polyuria, Polyphagia Eyes: DENIES: Blurred vision, Diplopia, Eye inflammation, Eye pain, Vision loss , Photosensitivity, Double Vision Ears, nose, mouth, throat: DENIES: Tinnitus, Hearing loss, Vertigo, Nasal discharge, Oral lesions, Throat pain, Hoarseness, Ear Pain, Running Nose, Epistaxis, Sinus Pain, Toothache, Odynophagia Respiratory: DENIES: Apneas, Cough, Snoring, Wheezing, Hemoptysis, Sputum production, Shortness of breath Cardiovascular: DENIES: Chest pain, Palpitations, Syncope, Dyspnea on Exertion , PND, Lower Extremity Edema, Orthopnea, Claudication Gastrointestinal: COMPLAINS OF: Diarrhea, DENIES: Abdominal pain, Black stools , Bloody stools, Constipation, Nausea, Vomiting, Difficulty Swallowing, Anorexia Genitourinary: DENIES: Sexual dysfunction, Urinary frequency, Urinary incontinence, Urgency, Hematuria, Dysuria, Nocturia, Penile Discharge, Testicular Pain, Testicular Swelling Musculoskeletal: DENIES: Joint pain, Muscle aches, Stiffness, Joint Swelling, Back pain, Neck pain Integumentary: COMPLAINS OF: Abnormal pigmentation (Left great toe turned a bluish hue with associated tenderness.), DENIES: Nail changes, Pruritus, Rash Hematologic/lymphatic: DENIES: Bruising, Lymphadenopathy Immunologic/allergic: DENIES: Eczema, Urticaria Neurologic: DENIES: Abnormal gait, Headache, Localized weakness, Paresthesias, Seizures, Speech Problems, Tremor, Poor Balance Psychiatric: DENIES: Anxiety, Confusion, Mood changes, Depression, Hallucinations, Agitation, Suicidal Ideation, Homicidal Ideation, Delusions Except as stated in HPI: all other systems reviewed are Neg Past Family Social History Allergies: Coded Allergies: Sulfa (Sulfonamide Antibiotics) (Unverified Allergy, Unknown, BLURRY VISION WITH SULFA EYE DROPS., 11/15/16) Past Medical History HTN, Hyperlipidemia Bladder CA on Chemo Past Surgical History AAA, Bladder Surgery, Dental Extraction Reported Medications Reported Meds & Active Scripts Active Reported Aspirin 81 Mg Chew 81 Mg CHEW DAILY Amlodipine (Amlodipine Besylate) 5 Mg Tab 5 Mg PO DAILY Lovastatin 20 Mg Tab 20 Mg PO DAILY Active Ordered Medications Current Medications Medications (Trade) Dose Ordered Sig/Leeann Route Start Time Stop Time Status Last Admin Pharmacy Profile Note 0 ml @ 0 mls/hr UNSCH OTHER 06/25/17 03:30 Cefepime HCl 1000 mg/Sodium Chloride 100 ml @ 200 mls/hr Q12H IV 06/25/17 12:00 06/28/17 12:53 (Duoneb Neb) 1 ampule Q4HR NEB PRN NEB 06/25/17 03:30 Sodium Chloride 1,000 ml @ 75 mls/hr [id number] IV 06/25/17 03:19 06/27/17 11:20 (NS Flush) 2 ml UNSCH PRN IV FLUSH 06/25/17 03:30 06/27/17 00:43 (NS Flush) 2 ml BID IV FLUSH 06/25/17 09:00 06/28/17 08:47 (Zofran Inj) 4 mg Q6H PRN IVP 06/25/17 03:30 06/27/17 14:05 (Tylenol) 650 mg Q6H PRN PO 06/25/17 03:30 06/28/17 05:40 ([place] 5-325 Mg) 1 tab Q4H PRN PO 06/25/17 03:30 06/28/17 12:52 (Morphine Inj) 2 mg Q3H PRN IV PUSH 06/25/17 03:30 06/28/17 09:54 (Milk Of Magnesia Liq) 30 ml Q12H PRN PO 06/25/17 03:30 (Senokot) 17.2 mg Q12H PRN PO 06/25/17 03:30 (Dulcolax Supp) 10 mg DAILY PRN RECTAL 06/25/17 03:30 (Lactulose Liq) 30 ml DAILY PRN PO 06/25/17 03:30 (Mucinex Er) 600 mg BID PO 06/25/17 09:00 06/28/17 08:37 (Imodium) 2 mg UNSCH PRN PO 06/26/17 10:15 06/26/17 13:11 (Mag-Al Plus Susp Liq) 30 ml Q6H PRN PO 06/26/17 14:00 Filgrastim 480 mcg/Dextrose 51.6 ml @ 100 mls/hr DAILY@14 IV 06/27/17 14:00 06/28/17 13:07 (Tylenol) 650 mg Q4H PRN PO 06/27/17 08:00 (Benadryl) 25 mg Q4H PRN PO 06/27/17 08:00 06/27/17 16:36 (Pepcid) 20 mg BID PO 06/27/17 21:00 06/28/17 08:37 Vancomycin/Sodium Chloride 200 ml @ 200 mls/hr Q12H IV 06/27/17 21:00 06/28/17 08:47 Miscellaneous Information SPECIFIC LAB TO BE DRAWN:VANCOMYCIN TROUGH DATE TO... ONCE ONCE .XX 06/29/17 08:45 06/29/17 08:46 Family History reviewed and NC to current ID problems. Social History Alcohol: 6-8 beers approx 2-3 times a day. Smokin/2 ppd for 40 plus years in past. Denies any IVDA or illicit drugs. Has been a part of [employer] [employer]. Was in the [employer]. He has dogs at home. Physical Exam Vital Signs Vital Signs Date Time Temp Pulse Resp B/P (MAP) Pulse Ox O2 Delivery O2 Flow Rate FiO2 06/28/17 11:15 98.5 81 16 100/58 (72) 96 06/28/17 07:58 98.5 80 18 95/68 (77) 97 06/28/17 06:03 79 06/28/17 05:03 91 06/28/17 04:04 83 06/28/17 03:51 101.1 92 18 111/60 (77) 97 06/28/17 03:04 85 06/28/17 02:08 91 06/28/17 01:12 90 06/28/17 00:41 99.0 84 18 103/58 (73) 97 06/28/17 00:30 99.1 06/28/17 00:00 76 06/27/17 23:06 80 06/27/17 22:00 78 06/27/17 21:07 81 06/27/17 20:43 99.1 82 18 117/60 97 06/27/17 20:05 81 06/27/17 19:55 98.2 90 18 135/63 (87) 98 06/27/17 19:03 98 06/27/17 17:55 99.2 82 20 106/59 94 06/27/17 17:30 99.5 85 20 99/62 96 06/27/17 15:59 99.1 94 18 109/60 (76) 97 Physical Exam GENERAL: This is a well-nourished, well-developed patient, in no apparent distress. SKIN: No rashes, ecchymoses or lesions. Cool and dry. HEAD: Atraumatic. Normocephalic. No temporal or scalp tenderness. EYES: Pupils equal round and reactive. Extraocular motions intact. No scleral icterus. No injection or drainage. ENT: Nose without bleeding, purulent drainage or septal hematoma. Throat without erythema, tonsillar hypertrophy or exudate. Uvula midline. Airway patent. NECK: Trachea midline. Supple, nontender, no meningeal signs. CARDIOVASCULAR: HS audible. RESPIRATORY: Clear to auscultation. Breath sounds equal bilaterally. No wheezes , rales, or rhonchi. GASTROINTESTINAL: Abdomen soft, non-tender, nondistended. MUSCULOSKELETAL: Left great toe with bluish discoloration, cool clammy skin. Decreased dorsalis pedis pulsations. Tenderness on touching the toe. NEUROLOGICAL: Awake and alert. Non focal Psych cooperative IV line sites with no e/o infection. Port site with no e.o infection Laboratory Laboratory Tests Test 06/28/17 05:35 White Blood Count 2.4 Red Blood Count 2.56 Hemoglobin 8.0 Hematocrit 22.3 Mean Corpuscular Volume 87.0 Mean Corpuscular Hemoglobin 31.3 Mean Corpuscular Hemoglobin Concent 36.0 Red Cell Distribution Width 14.0 Platelet Count 12 Mean Platelet Volume 7.8 Neutrophils (%) (Auto) 83.9 Lymphocytes (%) (Auto) 3.3 Monocytes (%) (Auto) 12.3 Eosinophils (%) (Auto) 0.4 Basophils (%) (Auto) 0.1 Neutrophils # (Auto) 2.0 Lymphocytes # (Auto) 0.1 Monocytes # (Auto) 0.3 Eosinophils # (Auto) 0.0 Basophils # (Auto) 0.0 CBC Comment AUTO DIFF Differential Comment AUTO DIFF CONFIRMED Toxic Granulation 1+ Dohle Bodies PRESENT Platelet Estimate LOW Platelet Morphology Comment ENLARGED Blood Urea Nitrogen 5 Creatinine 0.76 Random Glucose 100 Total Protein 5.5 Albumin 2.3 Calcium Level 7.5 Alkaline Phosphatase 68 Aspartate Amino Transf (AST/SGOT) 20 Alanine Aminotransferase (ALT/SGPT) 15 Total Bilirubin 0.8 Sodium Level 137 Potassium Level 3.2 Chloride Level 104 Carbon Dioxide Level 27.4 Anion Gap 6 Estimat Glomerular Filtration Rate 99 Date/Time Source Procedure Growth Status 06/28/17 05:35 Blood Line Aerobic Blood Culture Pending Received 06/28/17 05:35 Blood Line Anaerobic Blood Culture Pending Received 06/26/17 01:10 Stool Stool Stool Occult Blood (ORTIZ) - Final HEMOCCULT NEGATIVE Complete 06/25/17 06:26 Sputum Expectorated Sputum Gram Stain - Final Complete 06/25/17 06:26 Sputum Expectorated Sputum Sputum Culture - Final HEAVY GROWTH NORMAL RESPIRATORY LISA Complete Result Diagram: 3/28/18 0535 06/28/17 0535 Imaging Last Impressions Chest X-Ray 06/25/17 0000 Signed Impressions: Service Date/Time: Sunday, June 25, 2017 00:44 - CONCLUSION: No acute cardiopulmonary disease. The mild patchy opacity in the right lower lobe seen on the abdomen CT is not visualized and may be obscured by the hemidiaphragm. Koby Interiano MD Abdomen/Pelvis CT 06/24/17 2318 Signed Impressions: Service Date/Time: Sunday, June 25, 2017 00:13 - CONCLUSION: 1. Unremarkable bowel gas pattern on this noncontrast exam performed without oral contrast. 2. New patchy opacity in the posterior right lower lobe which is nonspecific and is of unclear chronicity but is new from 2015. The differential diagnosis includes pneumonia, scarring and asbestosis. 3. Status post interval abdominal aortic aneurysm repair with stent graft in place. 4. Multiple small partially calcified bilateral pleural plaques are now present. 5. Unremarkable gallbladder. Koby Interiano MD Assessment and Plan Assessment and Plan Possible Sepsis present on admission. Neutropenic fever Possible pneumonitis vs asbestosis. Left great toe with ischemia ? early gangrene secondary cellulitis. Recs: Continue Cefepime IV DC Vanco IV (? drug fever from Vanco IV) Start Daptomycin IV (cellulitis. Possible drug fever, cannot use Zyvox due to low platelets, cannot use Teflaro as need Cefepime in Neutropenic patient) Check CK level Follow cultures Follow clinically. reviewed vascular notes: no surgical intervention planned. dw patient. Sruthi Melgoza MD Jun 28, 2017 14:47
[2017-06-28] MEDS: DAPTOmycin INJ 600 MG in SODIUM CHLORIDE 0.9% INJ 100 ML IV SCH (21:16)
[2017-06-29] VITALS (19 sets, daily range): BP systolic 88–116; BP diastolic 53–85; PULSE 64–104; RESP 16–18; TEMP 97.4–100.1; O2SAT 96–98
[2017-06-29] MEDS: CEFEPIME INJ 1,000 MG in SODIUM CHLORIDE 0.9% INJ 100 ML IV SCH ×2 (00:49→13:00)
[2017-06-29] MEDS: ACETAMINOPHEN/HYDROcodone 325 MG/5 MG TAB PO PRN ×3 (00:53→20:37)
[2017-06-29] MEDS: SODIUM CHLOR 0.9% 1000 ML INJ 1,000 ML IV SCH ×2 (04:47→16:51)
[2017-06-29 05:43] LABS: HEMATOCRIT 22.5 % (39.0-51.0); HEMOGLOBIN 7.9 GM/DL (13.0-17.0); MEAN CELL VOLUME 87.6 FL (80.0-100.0); MEAN CORPUSCULAR HEMOGLOBIN 30.8 PG (27.0-34.0); MEAN CORPUSCULAR HGB CONC 35.2 % (32.0-36.0); MEAN PLATELET VOLUME 8.8 FL (7.0-11.0); RED BLOOD COUNT 2.57 MIL/MM3 (4.50-5.90); RED CELL DISTRIBUTION WIDTH 14.2 % (11.6-17.2); WHITE BLOOD COUNT 2.3 TH/MM3 (4.0-11.0)
[2017-06-29 05:57] LABS: ALBUMIN 2.2 GM/DL (3.4-5.0); BICARBONATE 26.9 MEQ/L (21.0-32.0); CALCIUM 7.4 MG/DL (8.5-10.1); CALCIUM-PROTEIN CORRECTED 8.5 MG/DL (8.5-10.1); CREATININE 0.78 MG/DL (0.60-1.30); TOTAL BILIRUBIN ADULT 0.5 MG/DL (0.2-1.0); TOTAL PROTEIN 5.2 GM/DL (6.4-8.2)
[2017-06-29 06:00] LABS: PLATELET COUNT 14 TH/MM3 (150-450)
[2017-06-29 08:25] LABS: BANDS 14 % (0-6); DOHLE BODIES PRESENT (NONE SEEN); LYMPHOCYTES 14 % (9-44); METAMYELOCYTES 1 % (0-1); MONOCYTES 4 % (0-8); NEUTROPHIL # MANUAL DIFF 1.9 TH/MM3 (1.8-7.7); POLYS (SEG NEUTROPHILS) 65 % (16-70); PROMYELOCYTES 2 % (0-0); TOXIC GRANULATION 1+ (NORMAL)
[2017-06-29 08:27] LABS: OVALOCYTES 1+ (NORMAL)
[2017-06-29] MEDS ORDERED: PHARMACY ORDERED LAB ONE (08:45)
[2017-06-29] MEDS: POTASSIUM CHLORIDE INJ 30 MEQ in SODIUM CHLORIDE 0.9% INJ 100 ML IV SCH ×2 (09:00→13:00)
[2017-06-29] MEDS: SODIUM CHLORIDE 0.9% FLUSH 10 ML FLUSH IV FLUSH SCH ×2 (09:00→20:37)
[2017-06-29] MEDS: FAMOTIDINE 20 MG TAB PO SCH ×2 (09:01→20:36)
[2017-06-29] MEDS: guaiFENesin E.R. 600 MG TAB PO SCH ×2 (09:01→20:36)
--- NOTE | 2017-06-29 09:08 | PD.ONC.PN ---
Subjective Subjective Remarks Tmax 100.7 overnight. Patient resting in bed. feeling good. hopeful to go home soon. Objective Data Date Time Temp Pulse Resp B/P (MAP) Pulse Ox O2 Delivery O2 Flow Rate FiO2 06/29/17 07:55 97.7 18 107/59 (75) 97 06/29/17 04:43 97.8 73 17 92/53 (66) 96 06/29/17 04:00 74 06/29/17 03:00 76 06/29/17 02:00 90 06/29/17 01:00 84 06/29/17 00:00 100.1 96 17 96/53 (67) 96 06/29/17 00:00 89 06/29/17 00:00 86 06/28/17 23:00 110 06/28/17 22:00 78 06/28/17 21:00 88 06/28/17 20:00 100.7 95 16 118/63 (81) 94 06/28/17 20:00 94 06/28/17 20:00 94 06/28/17 19:00 88 06/28/17 15:40 98.5 84 18 89/52 (64) 97 06/28/17 11:15 98.5 81 16 100/58 (72) 96 06/29/17 06/29/17 06/29/17 07:00 15:00 23:00 Intake Total 175 ml Output Total 300 ml Balance -125 ml Result Diagram: 06/29/17 0450 06/29/17 0450 Laboratory Results Laboratory Tests Test 06/28/17 20:05 06/29/17 04:50 Total Creatine Kinase 86 U/L White Blood Count 2.3 TH/MM3 Red Blood Count 2.57 MIL/MM3 Hemoglobin 7.9 GM/DL Hematocrit 22.5 % Mean Corpuscular Volume 87.6 FL Mean Corpuscular Hemoglobin 30.8 PG Mean Corpuscular Hemoglobin Concent 35.2 % Red Cell Distribution Width 14.2 % Platelet Count 14 TH/MM3 Mean Platelet Volume 8.8 FL CBC Comment AUTO DIFF Differential Total Cells Counted 100 Neutrophils % (Manual) 65 % Band Neutrophils % 14 % Lymphocytes % 14 % Monocytes % 4 % Neutrophils # (Manual) 1.9 TH/MM3 Metamyelocytes 1 % Promyelocytes 2 % Differential Comment FINAL DIFF MANUAL Atypical Lymphocytes % Toxic Granulation 1+ Dohle Bodies PRESENT Platelet Estimate LOW Platelet Morphology Comment NORMAL Basophilic Stippling FAINT Ovalocytes 1+ Blood Urea Nitrogen 5 MG/DL Creatinine 0.78 MG/DL Random Glucose 100 MG/DL Total Protein 5.2 GM/DL Albumin 2.2 GM/DL Calcium Level 7.4 MG/DL Alkaline Phosphatase 80 U/L Aspartate Amino Transf (AST/SGOT) 24 U/L Alanine Aminotransferase (ALT/SGPT) 11 U/L Total Bilirubin 0.5 MG/DL Sodium Level 139 MEQ/L Potassium Level 3.1 MEQ/L Chloride Level 105 MEQ/L Carbon Dioxide Level 26.9 MEQ/L Anion Gap 7 MEQ/L Estimat Glomerular Filtration Rate 96 ML/MIN Protein Corrected Calcium 8.5 MG/DL Culture Results Microbiology Date/Time Source Procedure Growth Status 06/28/17 05:35 Blood Line Aerobic Blood Culture Pending Received 06/28/17 05:35 Blood Line Anaerobic Blood Culture Pending Received 06/28/17 05:20 Blood Peripheral Aerobic Blood Culture Pending Received 06/28/17 05:20 Blood Peripheral Anaerobic Blood Culture Pending Received Administered Medications Medications (Trade) Dose Ordered Sig/Leeann Route PRN Reason Start Time Stop Time Status Last Admin Dose Admin Cefepime HCl 1000 mg/Sodium Chloride 100 ml @ 200 mls/hr Q12H IV 06/25/17 12:00 06/29/17 00:49 Sodium Chloride 1,000 ml @ 75 mls/hr [id number] IV 06/25/17 03:19 06/29/17 04:47 Sodium Chloride (NS Flush) 2 ml UNSCH PRN IV FLUSH FLUSH AFTER USING IV ACCESS 06/25/17 03:30 06/27/17 00:43 Sodium Chloride (NS Flush) 2 ml BID IV FLUSH 06/25/17 09:00 06/28/17 21:16 Ondansetron HCl (Zofran Inj) 4 mg Q6H PRN IVP NAUSEA OR VOMITING 06/25/17 03:30 06/27/17 14:05 Acetaminophen (Tylenol) 650 mg Q6H PRN PO FEVER/PAIN SCALE 1 TO 2 06/25/17 03:30 06/28/17 20:06 Acetaminophen/ Hydrocodone Bitart ([place] 5-325 Mg) 1 tab Q4H PRN PO PAIN SCALE 3 TO 5 06/25/17 03:30 06/29/17 00:53 Morphine Sulfate (Morphine Inj) 2 mg Q3H PRN IV PUSH Pain 6-10 06/25/17 03:30 06/28/17 09:54 Guaifenesin (Mucinex Er) 600 mg BID PO 06/25/17 09:00 06/28/17 20:06 Loperamide HCl (Imodium) 2 mg UNSCH PRN PO DIARRHEA 06/26/17 10:15 06/26/17 13:11 Filgrastim 480 mcg/Dextrose 51.6 ml @ 100 mls/hr DAILY@14 IV 06/27/17 14:00 06/28/17 13:07 Diphenhydramine HCl (Benadryl) 25 mg Q4H PRN PO SEE LABEL COMMENTS 06/27/17 08:00 06/27/17 16:36 Famotidine (Pepcid) 20 mg BID PO 06/27/17 21:00 06/28/17 20:05 Daptomycin 600 mg/ Sodium Chloride 100 ml @ 200 mls/hr Q24H IV 06/28/17 20:00 06/28/17 21:16 Objective Remarks GENERAL: Elderly male, cheerful and in good spirits, lying in bed resting. SKIN: Warm and dry. HEAD: Normocephalic. EYES: No injection or drainage. NECK: Supple, trachea midline. CARDIOVASCULAR: Regular rate and rhythm RESPIRATORY: Breath sounds equal bilaterally. No accessory muscle use. GASTROINTESTINAL: Abdomen soft, non-tender, mildly distended EXTREMITIES: No cyanosis, or edema. NEUROLOGICAL: awake and alert. normal speech. no focal deficit. Assessment/Plan Problem List: (1) Pancytopenia ICD Codes: D61.818 - Other pancytopenia Status: Acute Plan: 06/29: Continue Neupogen until WBC greater than 5K. Monitor CBC. 06/27: start Neupogen. transfuse 1 unit pRBC. replace potassium. continue antibiotics. -- transfuse for hemoglobin of less than 7 or platelet count of less than 20, 000. (2) Sepsis ICD Codes: A41.9 - Sepsis, unspecified organism Status: Acute Plan: --BC 06/28 pending --BC no growth from 06/24 --on Dapto + Cefepime. --ID consulted (3) Bladder cancer ICD Codes: C67.9 - Malignant neoplasm of bladder, unspecified Status: Chronic Plan: --currently on combined chemotherapy and radiation therapy with cisplatin and gemcitabine. (hold while inpatient) (4) Diarrhea ICD Codes: R19.7 - Diarrhea, unspecified Status: Resolved Plan: --C. diff negative --likely due to chemotherapy. --start Imodium (5) Nausea & vomiting ICD Codes: R11.2 - Nausea with vomiting, unspecified Status: Resolved Plan: --on IVF --continue symptomatic management (6) Dyspepsia ICD Codes: R10.13 - Epigastric pain Status: Resolved Plan: --on PO Pepcid BID Assessment 77y/o male with locally advanced bladder cancer, currently receiving definitive chemotherapy and radiation therapy admitted with sepsis, nausea and vomiting. Attending Statement The exam, history, and the medical decision-making described in the above note were completed with the assistance of the mid-level provider. I reviewed and agree with the findings presented. I attest that I had a [id number] encounter with the patient on the same day, and personally performed and documented my assessment and findings in the medical record. Feels better, OOB and walking in the room. Continue A/b an dneupogen Monitor cbc. Problem Qualifiers (1) Sepsis: Qualified Codes: A41.9 - Sepsis, unspecified organism Tiesha Sutherland Jun 29, 2017 09:08 Deepali Valerio MD Jun 29, 2017 21:17
[2017-06-29] MEDS: MAGNESIUM SULFATE 1 GM PREMIX 100 ML IV SCH ×2 (09:15→09:44)
--- NOTE | 2017-06-29 12:02 | HHI.PR ---
Subjective Remarks Patient reports he is feeling okay today. No shortness of breath, no chest pain. Blood cell count stable. Objective Vitals Vital Signs Date Time Temp Pulse Resp B/P (MAP) Pulse Ox O2 Delivery O2 Flow Rate FiO2 06/29/17 11:28 97.4 71 18 88/54 (65) 97 06/29/17 07:55 97.7 18 107/59 (75) 97 06/29/17 04:43 97.8 73 17 92/53 (66) 96 06/29/17 04:00 74 06/29/17 03:00 76 06/29/17 02:00 90 06/29/17 01:00 84 06/29/17 00:00 100.1 96 17 96/53 (67) 96 06/29/17 00:00 89 06/29/17 00:00 86 06/28/17 23:00 110 06/28/17 22:00 78 06/28/17 21:00 88 06/28/17 20:00 100.7 95 16 118/63 (81) 94 06/28/17 20:00 94 06/28/17 20:00 94 06/28/17 19:00 88 06/28/17 15:40 98.5 84 18 89/52 (64) 97 I/O 06/28/17 06/28/17 06/28/17 06/29/17 06/29/17 06/29/17 07:00 15:00 23:00 07:00 15:00 23:00 Intake Total 120 ml 580 ml 175 ml 115 ml Output Total 700 ml 775 ml 300 ml Balance -580 ml -195 ml -125 ml 115 ml Intake Oral 120 ml 480 ml IV Total 100 ml 175 ml 115 ml Output Urine Total 700 ml 775 ml 300 ml Result Diagram: 06/29/17 0450 06/29/17 0450 Objective Remarks GENERAL: Elderly male in no acute distress. CARDIOVASCULAR: Normal rate and regular rhythm without murmurs, gallops, or rubs. RESPIRATORY: Good respiratory efforts. Breath sounds equal and clear to auscultation bilaterally. GASTROINTESTINAL: Abdomen soft, non-tender, non-distended. Normal active bowel sounds MUSCULOSKELETAL: Left great toe appears slightly purple compared to the right. I am unable to palpate dorsalis pedis pulses bilaterally. Sensation intact. Unchanged from yesterday NEURO: Alert & Oriented x4 to person, place, time, situation. Moves all ext x4 PSYCH: Appropriate mood and affect. A/P Problem List: (1) Severe sepsis ICD Code: A41.9 - Sepsis, unspecified organism; R65.20 - Severe sepsis without septic shock Status: Acute Plan: Secondary to pneumonia in immunosuppressed patient on chemotherapy. Meet criteria due to tachycardia, leukopenia, sources right lower lobe pneumonia. Evidence of organ dysfunction with elevated lactic acid of 3.9 on presentation. Continue broad-spectrum antibiotics. Vancomycin switched to daptomycin per ID for concerns of drug fever. Appreciate assistance from infectious disease Follow blood cultures (2) PNA (pneumonia) ICD Code: J18.9 - Pneumonia, unspecified organism Plan: Continue antibiotics as above. (3) Bladder cancer ICD Code: C67.9 - Malignant neoplasm of bladder, unspecified Status: Chronic Plan: Patient undergoing chemotherapy with Dr. Valerio. Appreciate Oncology following. (4) Pancytopenia ICD Code: D61.818 - Other pancytopenia Status: Acute Plan: Secondary to chemotherapy. Stable today. Monitor labs closely. -Hematology/oncology following. Status post transfusion and Neupogen ordered per Heme/Onc - Continue Neupogen per oncology. (5) Anemia ICD Code: D64.9 - Anemia, unspecified (6) PAD (peripheral artery disease) ICD Code: I73.9 - Peripheral vascular disease, unspecified Plan: ESTELA conclusion: Severely compromised left leg circulation. Vascular surgery consulted. Dr. Walters evaluated the patient and concluded that the patient has chronic PAD and given his current comorbid condition, no intervention at this point. Continue to monitor for now, symptoms unchanged. (7) Diarrhea ICD Code: R19.7 - Diarrhea, unspecified Status: Resolved Plan: Resolving. Agree with Imodium. Follow progress. Problem Qualifiers (1) PNA (pneumonia): Monica Meyer MD Jun 29, 2017 12:02
[2017-06-29] MEDS: FILGRASTIM INJ 480 MCG in DEXTROSE 5% IN WATER INJ 50 ML IV SCH ×2 (13:45)
[2017-06-29] MEDS ORDERED: MAGNESIUM SULFATE 1 GM PREMIX 100 ML IV ONE (18:00)
[2017-06-29] MEDS: DAPTOmycin INJ 600 MG in SODIUM CHLORIDE 0.9% INJ 100 ML IV SCH (20:36)
[2017-06-30] VITALS (19 sets, daily range): BP systolic 103–119; BP diastolic 59–73; PULSE 72–100; RESP 16–20; TEMP 96.4–99.6; O2SAT 96–99
[2017-06-30] MEDS: CEFEPIME INJ 1,000 MG in SODIUM CHLORIDE 0.9% INJ 100 ML IV SCH ×2 (00:30→13:34)
[2017-06-30] MEDS: SODIUM CHLOR 0.9% 1000 ML INJ 1,000 ML IV SCH ×3 (04:01→20:50)
[2017-06-30 05:57] LABS: HEMATOCRIT 22.9 % (39.0-51.0); HEMOGLOBIN 8.1 GM/DL (13.0-17.0); MEAN CELL VOLUME 87.8 FL (80.0-100.0); MEAN CORPUSCULAR HEMOGLOBIN 31.1 PG (27.0-34.0); MEAN CORPUSCULAR HGB CONC 35.4 % (32.0-36.0); MEAN PLATELET VOLUME 9.5 FL (7.0-11.0); PLATELET COUNT 25 TH/MM3 (150-450); RED BLOOD COUNT 2.61 MIL/MM3 (4.50-5.90); RED CELL DISTRIBUTION WIDTH 14.5 % (11.6-17.2); WHITE BLOOD COUNT 4.2 TH/MM3 (4.0-11.0)
[2017-06-30 06:23] LABS: ALBUMIN 2.1 GM/DL (3.4-5.0); BICARBONATE 25.4 MEQ/L (21.0-32.0); CALCIUM 7.4 MG/DL (8.5-10.1); CALCIUM-PROTEIN CORRECTED 8.3 MG/DL (8.5-10.1); CREATININE 0.74 MG/DL (0.60-1.30); MAGNESIUM 1.5 MG/DL (1.5-2.5); TOTAL BILIRUBIN ADULT 0.5 MG/DL (0.2-1.0); TOTAL PROTEIN 5.4 GM/DL (6.4-8.2)
[2017-06-30 06:59] LABS: BANDS 12 % (0-6); CORRECTED NUCLEATED RBC 4 /100 WBC (0-0); DOHLE BODIES PRESENT (NONE SEEN); LYMPHOCYTES 10 % (9-44); MONOCYTES 6 % (0-8); MYELOCYTES 7 % (0-0); NEUTROPHIL # MANUAL DIFF 3.5 TH/MM3 (1.8-7.7); NUCLEATED RED BLOOD CELL 4 (0-0); POLYS (SEG NEUTROPHILS) 65 % (16-70); TOXIC GRANULATION 1+ (NORMAL)
[2017-06-30 07:00] LABS: OVALOCYTES 1+ (NORMAL); TOXIC VACUOLATION PRESENT (NONE SEEN)
[2017-06-30] MEDS ORDERED: MAGNESIUM SULFATE 1 GM PREMIX 100 ML IV ONE (08:30)
--- NOTE | 2017-06-30 08:47 | PD.ONC.PN ---
Subjective Subjective Remarks Afebrile overnight. patient resting in bed. states he feels clammy and lightheaded this AM. no chest pain or shortness of breath. mild nausea, which he states is always there and not new. had a very small BM yesterday. Objective Data Date Time Temp Pulse Resp B/P (MAP) Pulse Ox O2 Delivery O2 Flow Rate FiO2 06/30/17 06:00 78 06/30/17 05:40 99.6 88 16 110/62 (78) 96 06/30/17 05:00 84 06/30/17 04:00 78 06/30/17 03:00 100 06/30/17 02:00 74 06/30/17 01:00 72 06/30/17 00:29 72 06/30/17 00:27 98.5 76 18 109/59 (76) 96 06/29/17 23:00 70 06/29/17 22:00 72 06/29/17 21:35 16 06/29/17 21:00 70 06/29/17 20:41 97.8 81 18 115/59 (77) 98 06/29/17 20:11 71 06/29/17 19:00 74 06/29/17 16:36 70 06/29/17 16:35 97.9 71 16 116/85 (95) 97 06/29/17 12:00 64 06/29/17 11:28 97.4 71 18 88/54 (65) 97 06/30/17 06/30/17 06/30/17 07:00 15:00 23:00 Intake Total 400 ml Output Total 1200 ml Balance -800 ml Result Diagram: 06/30/17 0535 06/30/17 0535 Laboratory Results Laboratory Tests Test 06/30/17 05:35 White Blood Count 4.2 TH/MM3 Red Blood Count 2.61 MIL/MM3 Hemoglobin 8.1 GM/DL Hematocrit 22.9 % Mean Corpuscular Volume 87.8 FL Mean Corpuscular Hemoglobin 31.1 PG Mean Corpuscular Hemoglobin Concent 35.4 % Red Cell Distribution Width 14.5 % Platelet Count 25 TH/MM3 Mean Platelet Volume 9.5 FL CBC Comment AUTO DIFF Differential Total Cells Counted 100 Neutrophils % (Manual) 65 % Band Neutrophils % 12 % Lymphocytes % 10 % Monocytes % 6 % Neutrophils # (Manual) 3.5 TH/MM3 Myelocytes 7 % Nucleated Red Blood Cells 4 /100 WBC Differential Comment FINAL DIFF MANUAL Toxic Granulation 1+ Toxic Vacuolation PRESENT Dohle Bodies PRESENT Platelet Estimate LOW Platelet Morphology Comment ENLARGED Ovalocytes 1+ Blood Urea Nitrogen 5 MG/DL Creatinine 0.74 MG/DL Random Glucose 101 MG/DL Total Protein 5.4 GM/DL Albumin 2.1 GM/DL Calcium Level 7.4 MG/DL Magnesium Level 1.5 MG/DL Alkaline Phosphatase 83 U/L Aspartate Amino Transf (AST/SGOT) 19 U/L Alanine Aminotransferase (ALT/SGPT) 12 U/L Total Bilirubin 0.5 MG/DL Sodium Level 140 MEQ/L Potassium Level 3.2 MEQ/L Chloride Level 106 MEQ/L Carbon Dioxide Level 25.4 MEQ/L Anion Gap 9 MEQ/L Estimat Glomerular Filtration Rate 102 ML/MIN Protein Corrected Calcium 8.3 MG/DL Culture Results Microbiology Date/Time Source Procedure Growth Status 06/28/17 05:35 Blood Line Aerobic Blood Culture - Preliminary NO GROWTH IN 1 DAY Resulted 06/28/17 05:35 Blood Line Anaerobic Blood Culture - Preliminary NO GROWTH IN 1 DAY Resulted 06/28/17 05:20 Blood Peripheral Aerobic Blood Culture - Preliminary NO GROWTH IN 1 DAY Resulted 06/28/17 05:20 Blood Peripheral Anaerobic Blood Culture - Preliminary NO GROWTH IN 1 DAY Resulted Administered Medications Medications (Trade) Dose Ordered Sig/Leeann Route PRN Reason Start Time Stop Time Status Last Admin Dose Admin Cefepime HCl 1000 mg/Sodium Chloride 100 ml @ 200 mls/hr Q12H IV 06/25/17 12:00 06/30/17 00:30 Sodium Chloride 1,000 ml @ 100 mls/hr Q10H IV 06/25/17 03:19 06/30/17 04:01 Sodium Chloride (NS Flush) 2 ml UNSCH PRN IV FLUSH FLUSH AFTER USING IV ACCESS 06/25/17 03:30 06/27/17 00:43 Sodium Chloride (NS Flush) 2 ml BID IV FLUSH 06/25/17 09:00 06/29/17 09:00 Ondansetron HCl (Zofran Inj) 4 mg Q6H PRN IVP NAUSEA OR VOMITING 06/25/17 03:30 06/27/17 14:05 Acetaminophen (Tylenol) 650 mg Q6H PRN PO FEVER/PAIN SCALE 1 TO 2 06/25/17 03:30 06/28/17 20:06 Acetaminophen/ Hydrocodone Bitart ([employer] 5-325 Mg) 1 tab Q4H PRN PO PAIN SCALE 3 TO 5 06/25/17 03:30 06/29/17 20:37 Morphine Sulfate (Morphine Inj) 2 mg Q3H PRN IV PUSH Pain 6-10 06/25/17 03:30 06/28/17 09:54 Guaifenesin (Mucinex Er) 600 mg BID PO 06/25/17 09:00 06/29/17 20:36 Loperamide HCl (Imodium) 2 mg UNSCH PRN PO DIARRHEA 06/26/17 10:15 06/26/17 13:11 Filgrastim 480 mcg/Dextrose 51.6 ml @ 100 mls/hr DAILY@14 IV 06/27/17 14:00 06/29/17 13:45 Diphenhydramine HCl (Benadryl) 25 mg Q4H PRN PO SEE LABEL COMMENTS 06/27/17 08:00 06/27/17 16:36 Famotidine (Pepcid) 20 mg BID PO 06/27/17 21:00 06/29/17 20:36 Daptomycin 600 mg/ Sodium Chloride 100 ml @ 200 mls/hr Q24H IV 06/28/17 20:00 06/29/17 20:36 Objective Remarks GENERAL: Pleasant elderly male, lying in bed. He appears comfortable. He does not appear pale or diaphoretic. HEAD: Normocephalic. EYES: No injection or drainage. NECK: Supple, trachea midline. CARDIOVASCULAR: Regular rate and rhythm RESPIRATORY: Breath sounds equal bilaterally. No accessory muscle use. GASTROINTESTINAL: Abdomen soft, mildly distended. EXTREMITIES: No cyanosis NEUROLOGICAL: awake and alert. normal speech. moving extremities. Assessment/Plan Problem List: (1) Pancytopenia ICD Codes: D61.818 - Other pancytopenia Status: Acute Plan: 06/30: WBC=4K. continue neupogen. no blood transfusion 06/27: start Neupogen. transfuse 1 unit pRBC. replace potassium. continue antibiotics. -- transfuse for hemoglobin of less than 7 or platelet count of less than 20, 000. (2) Sepsis ICD Codes: A41.9 - Sepsis, unspecified organism Status: Acute Plan: 06/30: monitor for fever, continue antibiotics and supportive care with fluids. check repeat chest x-ray. --BC 06/28 no growth --BC no growth from 06/24 --on Dapto + Cefepime. --ID following (3) Bladder cancer ICD Codes: C67.9 - Malignant neoplasm of bladder, unspecified Status: Chronic Plan: --currently on combined chemotherapy and radiation therapy with cisplatin and gemcitabine. (hold while inpatient) (4) Dyspepsia ICD Codes: R10.13 - Epigastric pain Status: Resolved Plan: --on PO Pepcid BID Assessment 77y/o male with locally advanced bladder cancer, currently receiving definitive chemotherapy and radiation therapy admitted with sepsis, nausea and vomiting. Attending Statement The exam, history, and the medical decision-making described in the above note were completed with the assistance of the mid-level provider. I reviewed and agree with the findings presented. I attest that I had a [id number] encounter with the patient on the same day, and personally performed and documented my assessment and findings in the medical record. Feels better. Neutropenia has resolved. Stop growth factor. Remains afebrile. Continue to monitor CBC. He will continue XRT. Problem Qualifiers (1) Sepsis: Qualified Codes: A41.9 - Sepsis, unspecified organism Tiesha Sutherland Jun 30, 2017 08:47 Ja Fitzpatrick MD Jul 01, 2017 11:48
[2017-06-30] MEDS: SODIUM CHLORIDE 0.9% FLUSH 10 ML FLUSH IV FLUSH SCH ×2 (09:00→20:53)
--- NOTE | 2017-06-30 09:21 | RADRPT ---
EXAM DATE/TIME: 06/30/2017 08:43 [facility] COMPARISON: CHEST SINGLE AP, June 25, 2017, 0:44. INDICATIONS : Short of breath, cough MEDICAL HISTORY : Aneurysm, abdominal. Carcinoma, bladder. Chronic obstructive pulmonary disease. Hypertension SURGICAL HISTORY : infusaport, bladder x 2 ENCOUNTER: Subsequent ACUITY: 4 - 6 days PAIN SCORE: 0/10 LOCATION: Bilateral chest FINDINGS: A single view of the chest demonstrates the lungs to be symmetrically aerated without evidence of mas s, infiltrate or effusion. The cardiomediastinal contours are unremarkable. Osseous structures are intact. CONCLUSION: No acute disease. David Martinez MD on June 30, 2017 at 9:18 Board Certified Radiologist. This report was verified electronically.
--- NOTE | 2017-06-30 09:22 | RADRPT ---
EXAM DATE/TIME: 06/30/2017 08:47 [facility] COMPARISON: No previous studies available for comparison. INDICATIONS : Abdominal discomfort and bloating, nausea MEDICAL HISTORY : Aneurysm, abdominal. Carcinoma, bladder. Chronic obstructive pulmonary disease. SURGICAL HISTORY : infusaport, bladder x 2 ENCOUNTER: Subsequent ACUITY: 4 - 6 days PAIN SCORE: 3/10 LOCATION: Bilateral abdomen FINDINGS: Examination of the abdomen demonstrates a normal bowel gas pattern. No free air is identified. No o rganomegaly is evident. Osseous structures are intact. Aortic stent graft is noted in place. CONCLUSION: No evidence of obstruction. Aortic stent graft identified. David Martinez MD on June 30, 2017 at 9:19 Board Certified Radiologist. This report was verified electronically.
[2017-06-30] MEDS: FAMOTIDINE 20 MG TAB PO SCH ×2 (09:32→20:53)
[2017-06-30] MEDS: ACETAMINOPHEN/HYDROcodone 325 MG/5 MG TAB PO PRN ×2 (09:32→21:00)
[2017-06-30] MEDS: guaiFENesin E.R. 600 MG TAB PO SCH ×2 (09:32→20:53)
--- NOTE | 2017-06-30 10:41 | HHI.PR ---
Subjective Remarks Patient reported cold chills and lightheadedness earlier this morning. A troponin was checked which came back elevated at 0.65. On my evaluation, he denies chest pain or shortness of breath. In reviewing cardiovascular history, he denies any history of heart problems in the past. He did have an abdominal aneurysm which was repaired with a stent at [facility] a few months ago. Objective Vitals Vital Signs Date Time Temp Pulse Resp B/P (MAP) Pulse Ox O2 Delivery O2 Flow Rate FiO2 06/30/17 06:00 78 06/30/17 05:40 99.6 88 16 110/62 (78) 96 06/30/17 05:00 84 06/30/17 04:00 78 06/30/17 03:00 100 06/30/17 02:00 74 06/30/17 01:00 72 06/30/17 00:29 72 06/30/17 00:27 98.5 76 18 109/59 (76) 96 06/29/17 23:00 70 06/29/17 22:00 72 06/29/17 21:35 16 06/29/17 21:00 70 06/29/17 20:41 97.8 81 18 115/59 (77) 98 06/29/17 20:11 71 06/29/17 19:00 74 06/29/17 16:36 70 06/29/17 16:35 97.9 71 16 116/85 (95) 97 06/29/17 12:00 64 06/29/17 11:28 97.4 71 18 88/54 (65) 97 I/O 06/29/17 06/29/17 06/29/17 06/30/17 06/30/17 06/30/17 07:00 15:00 23:00 07:00 15:00 23:00 Intake Total 175 ml 115 ml 400 ml Output Total 300 ml 1200 ml Balance -125 ml 115 ml -800 ml Intake Oral 400 ml IV Total 175 ml 115 ml Output Urine Total 300 ml 1200 ml # Voids 5 # Bowel Movements 1 Result Diagram: 06/30/1735 06/30/17 0535 Objective Remarks GENERAL: Elderly male in no acute distress. CARDIOVASCULAR: Normal rate and regular rhythm without murmurs, gallops, or rubs. RESPIRATORY: Good respiratory efforts. Breath sounds equal and clear to auscultation bilaterally. GASTROINTESTINAL: Abdomen soft, non-tender, non-distended. Normal active bowel sounds MUSCULOSKELETAL: Left great toe is more purple compared to my previous exam. I am unable to palpate dorsalis pedis pulses bilaterally. Exam worse today NEURO: Alert & Oriented x4 to person, place, time, situation. Moves all ext x4 PSYCH: Appropriate mood and affect. A/P Problem List: (1) Severe sepsis ICD Code: A41.9 - Sepsis, unspecified organism; R65.20 - Severe sepsis without septic shock Status: Acute Plan: Secondary to pneumonia in immunosuppressed patient on chemotherapy. Meet criteria due to tachycardia, leukopenia, sources right lower lobe pneumonia. Evidence of organ dysfunction with elevated lactic acid of 3.9 on presentation. Continue broad-spectrum antibiotics. Vancomycin switched to daptomycin per ID for concerns of drug fever. Appreciate assistance from infectious disease Follow blood cultures (2) Elevated troponin I level ICD Code: R74.8 - Abnormal levels of other serum enzymes Plan: Troponin 0.65 Asymptomatic, no chest pain or shortness of breath. The patient denies any cardiac history. His risk factors include hypertension and age otherwise no previous history of coronary artery disease. He has a history of abdominal aortic aneurysm repair. He does have PAD with a current ischemic left toe. ? demand ischemia from anemia. He is s/p transfusion. I do not see any acute ST changes on his EKG. - Consult Cardiology for recommendations. - Trend troponin (3) PNA (pneumonia) ICD Code: J18.9 - Pneumonia, unspecified organism Plan: Continue antibiotics as above. (4) PAD (peripheral artery disease) ICD Code: I73.9 - Peripheral vascular disease, unspecified Status: Acute Plan: ESTELA conclusion: Severely compromised left leg circulation. Acute on chronic. Vascular surgery consult. Dr. Pio Mcadams discussed the case with him today regarding worsening ischemic left great toe. Unfortunately not much can be done given the patient's comorbidities, mainly pancytopenia. Dr. Walters will consult podiatry. (5) Bladder cancer ICD Code: C67.9 - Malignant neoplasm of bladder, unspecified Status: Chronic Plan: Patient undergoing chemotherapy with Dr. Valerio. Appreciate Oncology following. (6) Pancytopenia ICD Code: D61.818 - Other pancytopenia Status: Acute Plan: Secondary to chemotherapy. Improving. Monitor labs closely. -Hematology/oncology following. Status post transfusion and Neupogen ordered per Heme/Onc - Continue Neupogen per oncology. (7) Anemia ICD Code: D64.9 - Anemia, unspecified (8) Diarrhea ICD Code: R19.7 - Diarrhea, unspecified Status: Resolved Plan: Resolving. Agree with Imodium. Follow progress. (9) Electrolyte abnormality ICD Code: E87.8 - Other disorders of electrolyte and fluid balance, not elsewhere classified Plan: Replace potassium and magnesium. Follow-up BMP in a.m. Problem Qualifiers (1) PNA (pneumonia): Monica Meyer MD Jun 30, 2017 10:41
[2017-06-30] MEDS: POTASSIUM CHLORIDE INJ 30 MEQ in SODIUM CHLORIDE 0.9% INJ 100 ML IV SCH ×2 (11:05→11:45)
--- NOTE | 2017-06-30 11:28 | EKG ---
Date Performed: 06/30/2017 Time Performed: 08:12:01 PTAGE: 77 years EKG: Sinus rhythm MARKED LEFT AXIS DEVIATION ABNORMAL ECG PREVIOUS TRACING : 06/25/2017 05.42 Since the previous tracing, no significant change noted DOCTOR: Andres Churchill Interpretating Date/Time 06/30/2017 11:25:58
[2017-06-30] MEDS: FILGRASTIM INJ 480 MCG in DEXTROSE 5% IN WATER INJ 50 ML IV SCH ×2 (13:33)
--- NOTE | 2017-06-30 13:35 | MB ---
cc: Steven Cote MD DATE: 06/30/2017 REASON FOR CONSULTATION: Evaluation of elevated troponin. HISTORY OF PRESENT ILLNESS: Matt Hurst is a 77-year-old man with known vascular disease. Dr. Watson did an AAA repair at [facility]. I do not have have any of those records. The patient has been about 1 pack per day smoker for 55 years and only quit 2 weeks ago. He does not know his lipid status. He came in to the hospital 6 days ago with dizziness, nausea, vomiting, and diarrhea, was severely cytopenic and he was septic. His condition is significantly improved. Troponin is elevated, but I cannot elicit any chest pain, chest tightness, chest squeezing or any other symptoms that I could construe as representing coronary ischemia. His EKG does not show any acute ST-T wave changes. He still has significant cytopenias on his lab work. He has claudication, pain in his left leg. Denies dyspnea on exertion despite the appearance of COPD. PAST MEDICAL HISTORY: Includes bladder cancer that is invasive, getting chemotherapy for this; vascular disease with AAA repair, teeth extractions, hypertension, and hyperlipidemia. ALLERGIES: SULFA. FAMILY HISTORY: Positive for cancer in the mother. SOCIAL HISTORY: Retired [employer]. . Heavy smoker in the past as described. REVIEW OF SYSTEMS: Otherwise, negative. PHYSICAL EXAMINATION: GENERAL: Well-developed, well-nourished white male, in no acute distress. He has a gravelly voice. VITAL SIGNS: Blood pressure highest he has been is 115, lowest he has been is 85. He is in sinus rhythm. HEENT: Unremarkable. NECK: No bruits. No JVD. CHEST: Shows diminished breath sounds with a few scattered rhonchi. HEART: Shows S1, S2. Regular rate and rhythm, I/ systolic ejection murmur. ABDOMEN: Soft. EXTREMITIES: Reveal absent left femoral pulse, severely diminished left pedal pulses and discoloration of the left first great toe. LABORATORY DATA: Troponin was 0.65 and 0.51 on repeat. Potassium is only 3.2. He has cytopenias. EKG does not show any acute changes. IMPRESSION: This is a 77-year-old man with documented atherosclerotic disease, previous aneurysm repair and undoubtedly has coronary artery disease. I cannot elicit any anginal symptoms from him. He could have easily had a type 2 infarct on admission from all the problems he has had. RECOMMENDATIONS: With the cytopenias, he is not a candidate for aspirin, PCI or intervention. I am going to add a 0.1 mg per hour nitroglycerin patch. I am going to order a 2-D echo Doppler study. Once he recovers from cytopenias, he should probably have a nuclear stress test. We will followup p.r.n. Please call if questions. MD BENJAMÍN Ly/MADELINE , 01:16 PM , 01:35 PM
--- NOTE | 2017-06-30 14:07 | HHI.IDPN ---
Subjective Subjective Remarks Mr. Zaman is a 77-year-old pleasant gentleman with PMHx of locally advanced bladder cancer, which was diagnosed in 01/2017. Per review of ([facility]) records it appears he declined radical surgery and opted for bladder preservation. He underwent repeat cystoscopy on 04/24 and a 3 cm tumor was removed at the previous biopsy site. He reports being on combined chemotherapy and radiation therapy with cisplatin and gemcitabine. Patient reports his last chemotherapy was approx 1 week prior to admission. He presented to the emergency room on 06/25/2017, with generalized weakness, dizziness, nausea, vomiting and diarrhea of 3 days' duration. He also had inability to tolerate p.o. On arrival in the emergency room. He reports fevers of 101 F at home and associated night sweats. On presentation to the ED he was found to have a HR of 125. He was found to be neutropenic with WBC of 1. He had a lactic acidosis at 3.9 and a mild patchy opacity in the right lower lobe on his chest x-ray, which was also seen on the CT scan of the abdomen and pelvis. Sepsis workup was initiated and she was started on empiric broad spectrum antibiotics with vancomycin and cefepime. Sputum culture, blood cultures are pending at the time of my evaluation. ID was consulted for evaluation and M'ment of fevers in a neutropenic patient. Delayed entry patient seen at ~ 11 am Overnight events reviewed No fevers No rash No diarrhea Dizzy this am troponins elevated. Cardiology consult placed. No more dizzy when I saw him. Antibiotics Cefepime IV Dapto IV Lines Lines ok Past Medical History reviewed Allergies: Coded Allergies: Sulfa (Sulfonamide Antibiotics) (Unverified Allergy, Unknown, BLURRY VISION WITH SULFA EYE DROPS., 11/15/16) Objective . Vital Signs Date Time Temp Pulse Resp B/P (MAP) Pulse Ox O2 Delivery O2 Flow Rate FiO2 06/30/17 08:00 80 06/30/17 06:00 78 06/30/17 05:40 99.6 88 16 110/62 (78) 96 06/30/17 05:00 84 06/30/17 04:00 78 06/30/17 03:00 100 06/30/17 02:00 74 06/30/17 01:00 72 06/30/17 00:29 72 06/30/17 00:27 98.5 76 18 109/59 (76) 96 06/29/17 23:00 70 06/29/17 22:00 72 06/29/17 21:35 16 06/29/17 21:00 70 06/29/17 20:41 97.8 81 18 115/59 (77) 98 06/29/17 20:11 71 06/29/17 19:00 74 06/29/17 16:36 70 06/29/17 16:35 97.9 71 16 116/85 (95) 97 06/30/17 06/30/17 07/01/17 15:00 23:00 07:00 Intake Total 0 ml Balance 0 ml Intake Oral 0 ml . Laboratory Tests Test 06/29/17 04:50 06/30/17 05:35 White Blood Count 2.3 TH/MM3 4.2 TH/MM3 Red Blood Count 2.57 MIL/MM3 2.61 MIL/MM3 Hemoglobin 7.9 GM/DL 8.1 GM/DL Hematocrit 22.5 % 22.9 % Mean Corpuscular Volume 87.6 FL 87.8 FL Mean Corpuscular Hemoglobin 30.8 PG 31.1 PG Mean Corpuscular Hemoglobin Concent 35.2 % 35.4 % Red Cell Distribution Width 14.2 % 14.5 % Platelet Count 14 TH/MM3 25 TH/MM3 Mean Platelet Volume 8.8 FL 9.5 FL CBC Comment AUTO DIFF AUTO DIFF Differential Total Cells Counted 100 100 Neutrophils % (Manual) 65 % 65 % Band Neutrophils % 14 % 12 % Lymphocytes % 14 % 10 % Monocytes % 4 % 6 % Neutrophils # (Manual) 1.9 TH/MM3 3.5 TH/MM3 Metamyelocytes 1 % Promyelocytes 2 % Differential Comment FINAL DIFF MANUAL FINAL DIFF MANUAL Atypical Lymphocytes % Toxic Granulation 1+ 1+ Dohle Bodies PRESENT PRESENT Platelet Estimate LOW LOW Platelet Morphology Comment NORMAL ENLARGED Basophilic Stippling FAINT Ovalocytes 1+ 1+ Myelocytes 7 % Nucleated Red Blood Cells 4 /100 WBC Toxic Vacuolation PRESENT Laboratory Tests Test 06/28/17 20:05 06/29/17 04:50 06/30/17 05:35 06/30/17 10:05 Total Creatine Kinase 86 U/L Blood Urea Nitrogen 5 MG/DL 5 MG/DL Creatinine 0.78 MG/DL 0.74 MG/DL Random Glucose 100 MG/DL 101 MG/DL Total Protein 5.2 GM/DL 5.4 GM/DL Albumin 2.2 GM/DL 2.1 GM/DL Calcium Level 7.4 MG/DL 7.4 MG/DL Alkaline Phosphatase 80 U/L 83 U/L Aspartate Amino Transf (AST/SGOT) 24 U/L 19 U/L Alanine Aminotransferase (ALT/SGPT) 11 U/L 12 U/L Total Bilirubin 0.5 MG/DL 0.5 MG/DL Sodium Level 139 MEQ/L 140 MEQ/L Potassium Level 3.1 MEQ/L 3.2 MEQ/L Chloride Level 105 MEQ/L 106 MEQ/L Carbon Dioxide Level 26.9 MEQ/L 25.4 MEQ/L Anion Gap 7 MEQ/L 9 MEQ/L Estimat Glomerular Filtration Rate 96 ML/MIN 102 ML/MIN Protein Corrected Calcium 8.5 MG/DL 8.3 MG/DL Magnesium Level 1.5 MG/DL Troponin I 0.65 NG/ML 0.51 NG/ML Microbiology Date/Time Source Procedure Growth Status 06/28/17 05:35 Blood Line Aerobic Blood Culture - Preliminary NO GROWTH IN 2 DAYS Resulted 06/28/17 05:35 Blood Line Anaerobic Blood Culture - Preliminary NO GROWTH IN 2 DAYS Resulted 06/28/17 05:20 Blood Peripheral Aerobic Blood Culture - Preliminary NO GROWTH IN 2 DAYS Resulted 06/28/17 05:20 Blood Peripheral Anaerobic Blood Culture - Preliminary NO GROWTH IN 2 DAYS Resulted Imaging Last Impressions Chest X-Ray 06/30/17 0000 Signed Impressions: Service Date/Time: Friday, June 30, 2017 08:43 - CONCLUSION: No acute disease. David Martinez MD Abdomen X-Ray 06/30/17 0000 Signed Impressions: Service Date/Time: Friday, June 30, 2017 08:47 - CONCLUSION: No evidence of obstruction. Aortic stent graft identified. David Martinez MD Abdomen/Pelvis CT 06/24/17 2318 Signed Impressions: Service Date/Time: Sunday, June 25, 2017 00:13 - CONCLUSION: 1. Unremarkable bowel gas pattern on this noncontrast exam performed without oral contrast. 2. New patchy opacity in the posterior right lower lobe which is nonspecific and is of unclear chronicity but is new from 2015. The differential diagnosis includes pneumonia, scarring and asbestosis. 3. Status post interval abdominal aortic aneurysm repair with stent graft in place. 4. Multiple small partially calcified bilateral pleural plaques are now present. 5. Unremarkable gallbladder. Koby Interiano MD Physical Exam GENERAL: This is a well-nourished, well-developed patient, in no apparent distress. SKIN: No rashes, ecchymoses or lesions. Cool and dry. HEAD: Atraumatic. Normocephalic. No temporal or scalp tenderness. EYES: Pupils equal round and reactive. Extraocular motions intact. No scleral icterus. No injection or drainage. ENT: Nose without bleeding, purulent drainage or septal hematoma. Throat without erythema, tonsillar hypertrophy or exudate. Uvula midline. Airway patent. NECK: Trachea midline. Supple, nontender, no meningeal signs. CARDIOVASCULAR: HS audible. RESPIRATORY: Clear to auscultation. Breath sounds equal bilaterally. No wheezes , rales, or rhonchi. GASTROINTESTINAL: Abdomen soft, non-tender, nondistended. MUSCULOSKELETAL: Left great toe with bluish discoloration, cool clammy skin. Decreased dorsalis pedis pulsations. Tenderness on touching the toe. NEUROLOGICAL: Awake and alert. Non focal Psych cooperative IV line sites with no e/o infection. Port site with no e.o infection Assessment & Plan Remarks Possible Sepsis present on admission. Neutropenic fever Possible pneumonitis vs asbestosis. Left great toe with ischemia ? early gangrene secondary cellulitis. Recs: Continue Cefepime IV Continue Daptomycin IV (cellulitis. Possible drug fever, cannot use Zyvox due to low platelets, cannot use Teflaro as need Cefepime in Neutropenic patient) Follow cultures Follow clinically. dw patient. covering for me this weekend. Sruthi Melgoza MD Jun 30, 2017 14:07
--- NOTE | 2017-06-30 15:45 | ECHRPT ---
Indication: CORONARY ATHEROSCLEROSIS CONCLUSIONS Normal left ventricular size. Wall thickness is normal. The left ventricular systolic function is normal with an estimated ejection fraction in the range of 55-60%. Mitral annular calcification is present. There is trace tricuspid valve regurgitation. BP: / HR: Rhythm: Technical Quality: FINDINGS LEFT VENTRICLE Normal left ventricular size. Wall thickness is normal. The left ventricular systolic function is normal with an estimated ejection fraction in the range of 55-60%. RIGHT VENTRICLE Normal right ventricular size and systolic function. LEFT ATRIUM The left atrial size is normal. RIGHT ATRIUM The right atrial size is normal. ATRIAL SEPTUM Normal atrial septal thickness without atrial level shunting by limited color doppler interrogation. AORTA The aortic root and proximal ascending aorta are normal in size on limited imaging. MITRAL VALVE Mitral annular calcification is present. AORTIC VALVE Trileaflet aortic valve. No aortic valve stenosis or regurgitation. TRICUSPID VALVE There is trace tricuspid valve regurgitation. PULMONARY VALVE The pulmonary valve is not well visualized. VESSELS The inferior vena cava is normal in size. PERICARDIUM No pericardial effusion. Han Cr MD, FACC (Electronically Signed) Final Date:30 June 2017 15:44
[2017-06-30] MEDS: NITROGLYCERIN 0.1 MG/HR PATCH T-DERMAL SCH (16:05)
[2017-06-30] MEDS: DAPTOmycin INJ 600 MG in SODIUM CHLORIDE 0.9% INJ 100 ML IV SCH (20:52)
[2017-07-01] VITALS (28 sets, daily range): BP systolic 105–138; BP diastolic 57–67; PULSE 68–108; RESP 16–20; TEMP 97.5–100.6; O2SAT 95–98
[2017-07-01] MEDS: CEFEPIME INJ 1,000 MG in SODIUM CHLORIDE 0.9% INJ 100 ML IV SCH ×3 (00:26→23:22)
[2017-07-01 05:45] LABS: AUTOMATED NEUTROPHIL # 7.3 TH/MM3 (1.8-7.7); BASOPHIL % 0.2 % (0.0-2.0); EOSINOPHIL % 0.2 % (0.0-4.0); HEMATOCRIT 22.9 % (39.0-51.0); HEMOGLOBIN 8.2 GM/DL (13.0-17.0); LYMPH % 3.3 % (9.0-44.0); LYMPHOCYTE # 0.3 TH/MM3 (1.0-4.8); MEAN CELL VOLUME 87.8 FL (80.0-100.0); MEAN CORPUSCULAR HEMOGLOBIN 31.6 PG (27.0-34.0); MEAN PLATELET VOLUME 9.2 FL (7.0-11.0); MONO % 8.3 % (0.0-8.0); MONOCYTE # 0.7 TH/MM3 (0-0.9); PLATELET COUNT 36 TH/MM3 (150-450); RED BLOOD COUNT 2.61 MIL/MM3 (4.50-5.90); RED CELL DISTRIBUTION WIDTH 14.1 % (11.6-17.2); WHITE BLOOD COUNT 8.3 TH/MM3 (4.0-11.0)
[2017-07-01 06:03] LABS: ALBUMIN 2.3 GM/DL (3.4-5.0); AST (GOT) 21 U/L (15-37); BLOOD UREA NITROGEN 4 MG/DL (7-18); CHLORIDE 107 MEQ/L (98-107); GLOMERULAR FILTRATION RATE 109 ML/MIN (>89); GLUCOSE,RANDOM 94 MG/DL (74-106); SODIUM (NA) 140 MEQ/L (136-145)
[2017-07-01 06:05] LABS: ALT (GPT) 12 U/L (12-78)
[2017-07-01 06:07] LABS: ALKALINE PHOSPHATASE 95 U/L (45-117); TOTAL BILIRUBIN ADULT 0.6 MG/DL (0.2-1.0); TOTAL PROTEIN 5.5 GM/DL (6.4-8.2)
[2017-07-01] MEDS: ACETAMINOPHEN/HYDROcodone 325 MG/5 MG TAB PO PRN ×3 (06:11→20:08)
[2017-07-01 07:36] LABS: BANDS 18 % (0-6); CORRECTED NUCLEATED RBC 1 /100 WBC (0-0); LYMPHOCYTES 1 % (9-44); METAMYELOCYTES 6 % (0-1); MYELOCYTES 4 % (0-0); NEUTROPHIL # MANUAL DIFF 8.2 TH/MM3 (1.8-7.7); NUCLEATED RED BLOOD CELL 1 (0-0); POLYS (SEG NEUTROPHILS) 71 % (16-70)
[2017-07-01 07:37] LABS: DOHLE BODIES PRESENT (NONE SEEN); TOXIC GRANULATION 1+ (NORMAL)
[2017-07-01] MEDS: NITROGLYCERIN 0.1 MG/HR PATCH T-DERMAL SCH (09:00)
[2017-07-01] MEDS: FAMOTIDINE 20 MG TAB PO SCH ×2 (09:30→20:08)
[2017-07-01] MEDS: guaiFENesin E.R. 600 MG TAB PO SCH ×2 (09:30→20:08)
[2017-07-01] MEDS: SODIUM CHLOR 0.9% 1000 ML INJ 1,000 ML IV SCH ×2 (09:31→19:31)
[2017-07-01] MEDS: SODIUM CHLORIDE 0.9% FLUSH 10 ML FLUSH IV FLUSH SCH ×2 (09:31→20:09)
--- NOTE | 2017-07-01 12:04 | HHI.PR ---
Subjective Remarks Patient reports he is feeling okay today. Pain in the toes about the same. Objective Vitals Vital Signs Date Time Temp Pulse Resp B/P (MAP) Pulse Ox O2 Delivery O2 Flow Rate FiO2 07/01/17 11:48 97.5 85 18 112/67 (82) 97 07/01/17 10:00 80 07/01/17 09:06 97.9 91 16 122/62 (82) 97 07/01/17 08:00 91 07/01/17 05:03 99.3 93 18 121/60 (80) 95 07/01/17 05:00 88 07/01/17 04:00 84 07/01/17 04:00 72 07/01/17 03:00 82 07/01/17 02:00 76 07/01/17 01:00 74 07/01/17 00:00 70 07/01/17 00:00 98.7 82 16 106/58 (74) 95 07/01/17 00:00 72 06/30/17 23:00 76 06/30/17 22:00 72 06/30/17 21:00 74 06/30/17 20:40 96.4 80 16 115/60 (78) 96 06/30/17 20:40 72 06/30/17 20:00 76 06/30/17 16:00 96 06/30/17 15:34 98.0 85 20 103/61 (75) 99 06/30/17 15:00 98.0 85 20 103/61 (75) 99 I/O 06/30/17 06/30/17 06/30/17 07/01/17 07/01/17 07/01/17 07:00 15:00 23:00 07:00 15:00 23:00 Intake Total 400 ml 0 ml 580 ml 1580 ml 1000 ml Output Total 1200 ml 1075 ml 1325 ml Balance -800 ml 0 ml -495 ml 255 ml 1000 ml Intake Oral 400 ml 0 ml 480 ml 480 ml IV Total 100 ml 1100 ml 1000 ml Output Urine Total 1200 ml 1075 ml 1325 ml # Bowel Movements 1 1 1 Result Diagram: 07/01/17 0510 07/01/17 0510 Objective Remarks GENERAL: Elderly male in no acute distress. CARDIOVASCULAR: Normal rate and regular rhythm without murmurs, gallops, or rubs. RESPIRATORY: Good respiratory efforts. Breath sounds equal and clear to auscultation bilaterally. GASTROINTESTINAL: Abdomen soft, non-tender, non-distended. Normal active bowel sounds MUSCULOSKELETAL: Left great toe is purple. I am unable to palpate dorsalis pedis pulses bilaterally. Exam stable today. Slightly better NEURO: Alert & Oriented x4 to person, place, time, situation. Moves all ext x4 PSYCH: Appropriate mood and affect. A/P Problem List: (1) Severe sepsis ICD Code: A41.9 - Sepsis, unspecified organism; R65.20 - Severe sepsis without septic shock Status: Acute Plan: Secondary to pneumonia in immunosuppressed patient on chemotherapy. Meet criteria due to tachycardia, leukopenia, sources right lower lobe pneumonia. Evidence of organ dysfunction with elevated lactic acid of 3.9 on presentation. Continue broad-spectrum antibiotics. Vancomycin switched to daptomycin per ID for concerns of drug fever. Appreciate assistance from infectious disease Follow blood cultures (2) Elevated troponin I level ICD Code: R74.8 - Abnormal levels of other serum enzymes Plan: Troponin 0.65 Asymptomatic, no chest pain or shortness of breath. The patient denies any cardiac history. His risk factors include hypertension and age otherwise no previous history of coronary artery disease. He has a history of abdominal aortic aneurysm repair. He does have PAD with a current ischemic left toe. ? demand ischemia from anemia. He is s/p transfusion. I do not see any acute ST changes on his EKG. -Appreciate Cardiology input. Possible type 2 [place]. - Troponin trended down. Not a candidate for invasive measures given pancytopenia. (3) PNA (pneumonia) ICD Code: J18.9 - Pneumonia, unspecified organism Plan: Continue antibiotics as above. (4) PAD (peripheral artery disease) ICD Code: I73.9 - Peripheral vascular disease, unspecified Status: Acute Plan: ESTELA conclusion: Severely compromised left leg circulation. Acute on chronic. Vascular surgery consult. Dr. Pio Mcadams discussed the case with him regarding ischemic left great toe. Unfortunately not much can be done given the patient's comorbidities, mainly pancytopenia. Dr. Walters will consult podiatry. Unclear if he will need amputation. (5) Bladder cancer ICD Code: C67.9 - Malignant neoplasm of bladder, unspecified Status: Chronic Plan: Patient undergoing chemotherapy with Dr. Valerio. Appreciate Oncology following. (6) Pancytopenia ICD Code: D61.818 - Other pancytopenia Status: Acute Plan: Secondary to chemotherapy. Improving. Monitor labs closely. -Hematology/oncology following. Status post transfusion and Neupogen ordered per Heme/Onc - Neupogen on hold for now as counts recovering. (7) Anemia ICD Code: D64.9 - Anemia, unspecified (8) Diarrhea ICD Code: R19.7 - Diarrhea, unspecified Status: Resolved Plan: Resolving. Agree with Imodium. Follow progress. (9) Electrolyte abnormality ICD Code: E87.8 - Other disorders of electrolyte and fluid balance, not elsewhere classified Plan: Replace potassium and magnesium. Follow-up BMP in a.m. Problem Qualifiers (1) PNA (pneumonia): Monica Meyer MD Jul 01, 2017 12:04
[2017-07-01] MEDS ORDERED: POTASSIUM CHLORIDE 10 MEQ CONTROLLED RELEASE TAB PO ONE (14:15)
--- NOTE | 2017-07-01 14:25 | PD.CARD.PN ---
Subjective Subjective Remarks no chest pain Objective Medications Current Medications Medications (Trade) Dose Ordered Sig/Leeann Route Start Time Stop Time Status Last Admin Cefepime HCl 1000 mg/Sodium Chloride 100 ml @ 200 mls/hr Q12H IV 06/25/17 12:00 07/01/17 11:46 (Duoneb Neb) 1 ampule Q4HR NEB PRN NEB 06/25/17 03:30 Sodium Chloride 1,000 ml @ 100 mls/hr Q10H IV 06/25/17 03:19 07/01/17 09:31 (NS Flush) 2 ml UNSCH PRN IV FLUSH 06/25/17 03:30 06/27/17 00:43 (NS Flush) 2 ml BID IV FLUSH 06/25/17 09:00 07/01/17 09:31 (Zofran Inj) 4 mg Q6H PRN IVP 06/25/17 03:30 06/27/17 14:05 (Tylenol) 650 mg Q6H PRN PO 06/25/17 03:30 06/28/17 20:06 ([place] 5-325 Mg) 1 tab Q4H PRN PO 06/25/17 03:30 07/01/17 10:15 (Morphine Inj) 2 mg Q3H PRN IV PUSH 06/25/17 03:30 06/28/17 09:54 (Milk Of Magnesia Liq) 30 ml Q12H PRN PO 06/25/17 03:30 (Senokot) 17.2 mg Q12H PRN PO 06/25/17 03:30 (Dulcolax Supp) 10 mg DAILY PRN RECTAL 06/25/17 03:30 (Lactulose Liq) 30 ml DAILY PRN PO 06/25/17 03:30 (Mucinex Er) 600 mg BID PO 06/25/17 09:00 07/01/17 09:30 (Imodium) 2 mg UNSCH PRN PO 06/26/17 10:15 06/26/17 13:11 (Mag-Al Plus Susp Liq) 30 ml Q6H PRN PO 06/26/17 14:00 (Tylenol) 650 mg Q4H PRN PO 06/27/17 08:00 (Benadryl) 25 mg Q4H PRN PO 3/27/18 08:00 06/27/17 16:36 (Pepcid) 20 mg BID PO 06/27/17 21:00 07/01/17 09:30 Daptomycin 600 mg/ Sodium Chloride 100 ml @ 200 mls/hr Q24H IV 06/28/17 20:00 06/30/17 20:52 (Nitro-Dur 0.1 Mg Patch.24hr) 1 patch DAILY T-DERMAL 06/30/17 15:00 06/30/17 16:05 Vital Signs / I&O Vital Signs Date Time Temp Pulse Resp B/P (MAP) Pulse Ox O2 Delivery O2 Flow Rate FiO2 07/01/17 14:00 100 07/01/17 13:00 80 07/01/17 12:00 94 07/01/17 11:48 97.5 85 18 112/67 (82) 97 07/01/17 11:00 80 07/01/17 10:00 80 07/01/17 09:06 97.9 91 16 122/62 (82) 97 07/01/17 09:00 92 07/01/17 08:00 91 07/01/17 05:03 99.3 93 18 121/60 (80) 95 07/01/17 05:00 88 07/01/17 04:00 84 07/01/17 04:00 72 07/01/17 03:00 82 07/01/17 02:00 76 07/01/17 01:00 74 07/01/17 00:00 70 07/01/17 00:00 98.7 82 16 106/58 (74) 95 07/01/17 00:00 72 06/30/17 23:00 76 06/30/17 22:00 72 06/30/17 21:00 74 06/30/17 20:40 96.4 80 16 115/60 (78) 96 06/30/17 20:40 72 06/30/17 20:00 76 06/30/17 16:00 96 06/30/17 15:34 98.0 85 20 103/61 (75) 99 06/30/17 15:00 98.0 85 20 103/61 (75) 99 I/O 06/30/17 06/30/17 06/30/17 07/01/17 07/01/17 07/01/17 07:00 15:00 23:00 07:00 15:00 23:00 Intake Total 400 ml 0 ml 580 ml 1580 ml 1000 ml Output Total 1200 ml 1075 ml 1325 ml Balance -800 ml 0 ml -495 ml 255 ml 1000 ml Intake Oral 400 ml 0 ml 480 ml 480 ml IV Total 100 ml 1100 ml 1000 ml Output Urine Total 1200 ml 1075 ml 1325 ml # Bowel Movements 1 1 1 Physical Exam Obese Alert, NAD Chest: BS diminished (COPD) CV S1S2 RRR Ext: no edema Laboratory Laboratory Tests Test 07/01/17 05:10 White Blood Count 8.3 TH/MM3 Red Blood Count 2.61 MIL/MM3 Hemoglobin 8.2 GM/DL Hematocrit 22.9 % Mean Corpuscular Volume 87.8 FL Mean Corpuscular Hemoglobin 31.6 PG Mean Corpuscular Hemoglobin Concent 36.0 % Red Cell Distribution Width 14.1 % Platelet Count 36 TH/MM3 Mean Platelet Volume 9.2 FL Neutrophils (%) (Auto) 88.0 % Lymphocytes (%) (Auto) 3.3 % Monocytes (%) (Auto) 8.3 % Eosinophils (%) (Auto) 0.2 % Basophils (%) (Auto) 0.2 % Neutrophils # (Auto) 7.3 TH/MM3 Lymphocytes # (Auto) 0.3 TH/MM3 Monocytes # (Auto) 0.7 TH/MM3 Eosinophils # (Auto) 0.0 TH/MM3 Basophils # (Auto) 0.0 TH/MM3 CBC Comment AUTO DIFF Differential Total Cells Counted 100 Neutrophils % (Manual) 71 % Band Neutrophils % 18 % Lymphocytes % 1 % Neutrophils # (Manual) 8.2 TH/MM3 Metamyelocytes 6 % Myelocytes 4 % Nucleated Red Blood Cells 1 /100 WBC Differential Comment FINAL DIFF MANUAL Toxic Granulation 1+ Dohle Bodies PRESENT Platelet Estimate LOW Platelet Morphology Comment NORMAL Basophilic Stippling FAINT Blood Urea Nitrogen 4 MG/DL Creatinine 0.70 MG/DL Random Glucose 94 MG/DL Total Protein 5.5 GM/DL Albumin 2.3 GM/DL Calcium Level 8.0 MG/DL Alkaline Phosphatase 95 U/L Aspartate Amino Transf (AST/SGOT) 21 U/L Alanine Aminotransferase (ALT/SGPT) 12 U/L Total Bilirubin 0.6 MG/DL Sodium Level 140 MEQ/L Potassium Level 3.2 MEQ/L Chloride Level 107 MEQ/L Carbon Dioxide Level 26.0 MEQ/L Anion Gap 7 MEQ/L Estimat Glomerular Filtration Rate 109 ML/MIN Imaging Last 48 hours Impressions Chest X-Ray 06/30/17 0000 Signed Impressions: Service Date/Time: Friday, June 30, 2017 08:43 - CONCLUSION: No acute disease. David Martinez MD Abdomen X-Ray 06/30/17 0000 Signed Impressions: Service Date/Time: Friday, June 30, 2017 08:47 - CONCLUSION: No evidence of obstruction. Aortic stent graft identified. David Martinez MD Assessment and Plan Problem List: (1) Non-STEMI (non-ST elevated myocardial infarction) ICD Codes: I21.4 - Non-ST elevation (NSTEMI) myocardial infarction (2) COPD (chronic obstructive pulmonary disease) ICD Codes: J44.9 - Chronic obstructive pulmonary disease, unspecified (3) Pancytopenia ICD Codes: D61.818 - Other pancytopenia Status: Acute Assessment and Plan add Steven Chaparro MD Jul 01, 2017 14:25
[2017-07-01] MEDS ORDERED: PILL SPLITTER OTHER PRN (14:30)
--- NOTE | 2017-07-01 14:38 | EKG ---
Date Performed: 07/01/2017 Time Performed: 08:43:02 PTAGE: 77 years EKG: Sinus rhythm MARKED LEFT AXIS DEVIATION ABNORMAL ECG PREVIOUS TRACING : 06/30/2017 08.12 Since the previous tracing, no significant change noted DOCTOR: Andres Churchill Interpretating Date/Time 07/01/2017 14:36:26
[2017-07-01] MEDS: ONDANSETRON HCL 4 MG/2 ML VIAL IVP PRN (18:46)
[2017-07-01] MEDS: DAPTOmycin INJ 600 MG in SODIUM CHLORIDE 0.9% INJ 100 ML IV SCH (20:08)
[2017-07-01] MEDS: ACETAMINOPHEN 325 MG TAB PO PRN (23:21)
[2017-07-01] MEDS: METOPROLOL TARTRATE 25 MG TAB PO SCH (23:22)
[2017-07-02] VITALS (28 sets, daily range): BP systolic 105–139; BP diastolic 59–70; PULSE 58–90; RESP 16–20; TEMP 97.8–98.5; O2SAT 95–98
[2017-07-02] MEDS: SODIUM CHLOR 0.9% 1000 ML INJ 1,000 ML IV SCH ×2 (04:51→05:42)
[2017-07-02] MEDS: METOPROLOL TARTRATE 25 MG TAB PO SCH ×2 (05:30→20:43)
[2017-07-02 06:11] LABS: HEMOGLOBIN 8.3 GM/DL (13.0-17.0); MEAN CELL VOLUME 89.9 FL (80.0-100.0); MEAN CORPUSCULAR HEMOGLOBIN 31.2 PG (27.0-34.0); MEAN CORPUSCULAR HGB CONC 34.7 % (32.0-36.0); MEAN PLATELET VOLUME 10.1 FL (7.0-11.0); PLATELET COUNT 57 TH/MM3 (150-450); RED BLOOD COUNT 2.67 MIL/MM3 (4.50-5.90); RED CELL DISTRIBUTION WIDTH 14.4 % (11.6-17.2); WHITE BLOOD COUNT 8.6 TH/MM3 (4.0-11.0)
[2017-07-02 06:35] LABS: BICARBONATE 25.5 MEQ/L (21.0-32.0); CALCIUM 7.7 MG/DL (8.5-10.1); CREATININE 0.77 MG/DL (0.60-1.30)
--- NOTE | 2017-07-02 08:51 | PD.ONC.PN ---
Subjective Subjective Remarks Tmax 100.6 overnight. Patient resting in bed in nad. Objective Data Date Time Temp Pulse Resp B/P (MAP) Pulse Ox O2 Delivery O2 Flow Rate FiO2 07/02/17 06:00 60 07/02/17 05:26 97.9 72 18 105/59 (74) 97 07/02/17 05:00 58 07/02/17 04:01 68 07/02/17 03:00 62 07/02/17 02:00 72 07/02/17 01:00 70 07/02/17 00:21 16 07/02/17 00:05 85 07/01/17 23:30 100.6 106 16 119/57 (77) 96 07/01/17 23:00 108 07/01/17 22:00 104 07/01/17 21:08 20 07/01/17 21:00 68 07/01/17 20:05 70 07/01/17 19:40 98.1 75 20 138/63 (88) 98 07/01/17 19:00 70 07/01/17 18:00 70 07/01/17 17:00 76 07/01/17 16:00 76 07/01/17 15:41 97.8 79 20 105/62 (76) 97 07/01/17 15:00 80 07/01/17 14:00 100 07/01/17 13:00 80 07/01/17 12:00 94 07/01/17 11:48 97.5 85 18 112/67 (82) 97 07/01/17 11:00 80 07/01/17 10:00 80 07/01/17 09:06 97.9 91 16 122/62 (82) 97 07/01/17 09:00 92 07/02/17 07/02/17 07/02/17 07:00 15:00 23:00 Intake Total 780 ml Output Total 1450 ml Balance -670 ml Result Diagram: 07/02/17 0550 07/02/17 0550 Laboratory Results Laboratory Tests Test 07/02/17 05:50 White Blood Count 8.6 TH/MM3 Red Blood Count 2.67 MIL/MM3 Hemoglobin 8.3 GM/DL Hematocrit 24.0 % Mean Corpuscular Volume 89.9 FL Mean Corpuscular Hemoglobin 31.2 PG Mean Corpuscular Hemoglobin Concent 34.7 % Red Cell Distribution Width 14.4 % Platelet Count 57 TH/MM3 Mean Platelet Volume 10.1 FL Blood Urea Nitrogen 4 MG/DL Creatinine 0.77 MG/DL Random Glucose 105 MG/DL Calcium Level 7.7 MG/DL Sodium Level 141 MEQ/L Potassium Level 3.7 MEQ/L Chloride Level 109 MEQ/L Carbon Dioxide Level 25.5 MEQ/L Anion Gap 7 MEQ/L Estimat Glomerular Filtration Rate 98 ML/MIN Administered Medications Medications (Trade) Dose Ordered Sig/Leeann Route PRN Reason Start Time Stop Time Status Last Admin Dose Admin Cefepime HCl 1000 mg/Sodium Chloride 100 ml @ 200 mls/hr Q12H IV 06/25/17 12:00 07/01/17 23:22 Sodium Chloride 1,000 ml @ 100 mls/hr Q10H IV 06/25/17 03:19 07/02/17 05:42 Sodium Chloride (NS Flush) 2 ml UNSCH PRN IV FLUSH FLUSH AFTER USING IV ACCESS 06/25/17 03:30 06/27/17 00:43 Sodium Chloride (NS Flush) 2 ml BID IV FLUSH 06/25/17 09:00 07/01/17 09:31 Ondansetron HCl (Zofran Inj) 4 mg Q6H PRN IVP NAUSEA OR VOMITING 06/25/17 03:30 07/01/17 18:46 Acetaminophen (Tylenol) 650 mg Q6H PRN PO FEVER/PAIN SCALE 1 TO 2 06/25/17 03:30 07/01/17 23:21 Acetaminophen/ Hydrocodone Bitart ([place] 5-325 Mg) 1 tab Q4H PRN PO PAIN SCALE 3 TO 5 06/25/17 03:30 07/01/17 20:08 Morphine Sulfate (Morphine Inj) 2 mg Q3H PRN IV PUSH Pain 6-10 06/25/17 03:30 06/28/17 09:54 Guaifenesin (Mucinex Er) 600 mg BID PO 06/25/17 09:00 07/01/17 20:08 Loperamide HCl (Imodium) 2 mg UNSCH PRN PO DIARRHEA 06/26/17 10:15 06/26/17 13:11 Diphenhydramine HCl (Benadryl) 25 mg Q4H PRN PO SEE LABEL COMMENTS 06/27/17 08:00 06/27/17 16:36 Famotidine (Pepcid) 20 mg BID PO 06/27/17 21:00 07/01/17 20:08 Daptomycin 600 mg/ Sodium Chloride 100 ml @ 200 mls/hr Q24H IV 06/28/17 20:00 07/01/17 20:08 Nitroglycerin (Nitro-Dur 0.1 Mg Patch.24hr) 1 patch DAILY T-DERMAL 06/30/17 15:00 06/30/17 16:05 Metoprolol Tartrate (Lopressor) 12.5 mg Q8HR PO 07/01/17 22:00 07/02/17 05:30 Objective Remarks GENERAL: Pleasant elderly male, supine in bed in nad. HEAD: Normocephalic. EYES: No injection or drainage. NECK: Supple, trachea midline. CARDIOVASCULAR: Regular rate and rhythm RESPIRATORY: Breath sounds equal bilaterally. No accessory muscle use. GASTROINTESTINAL: Abdomen soft, nontender. +XRT markings present EXTREMITIES: +cyanosis, mottling of left great toe. NEUROLOGICAL: awake and alert. normal speech. moving extremities. Assessment/Plan Problem List: (1) PAD (peripheral artery disease) ICD Codes: I73.9 - Peripheral vascular disease, unspecified Status: Acute Plan: --vascular surgery following. (2) Sepsis ICD Codes: A41.9 - Sepsis, unspecified organism Status: Acute Plan: --BC 06/28 no growth --BC no growth from 06/24 --on Dapto + Cefepime. --ID following (3) Bladder cancer ICD Codes: C67.9 - Malignant neoplasm of bladder, unspecified Status: Chronic Plan: --currently on combined chemotherapy and radiation therapy with cisplatin and gemcitabine. (hold while inpatient) (4) Dyspepsia ICD Codes: R10.13 - Epigastric pain Status: Resolved Plan: --on PO Pepcid BID (5) Pancytopenia ICD Codes: D61.818 - Other pancytopenia Status: Acute Plan: --counts recovering. -- transfuse for hemoglobin of less than 7 or platelet count of less than 20, 000. Assessment 77y/o male with locally advanced bladder cancer, currently receiving definitive chemotherapy and radiation therapy admitted with sepsis, nausea and vomiting. Plan 1. monitor blood counts. 2. continue antibiotics per ID 3. defer to vascular surgery for management of cyanotic toe. expect counts to be recovered by early next week. additionally, platelets could be transfused prior to surgery if deemed necessary by vascular surgery. Attending Statement The exam, history, and the medical decision-making described in the above note were completed with the assistance of the mid-level provider. I reviewed and agree with the findings presented. I attest that I had a [id number] encounter with the patient on the same day, and personally performed and documented my assessment and findings in the medical record. Feels better this am. Has fever last night with chill. Now afebrile. No longer neutropenic. Platelet trending up. Start Lovenox prophylaxis. Hold ASA in case he is going for surgery. Repeat blood cx if spkie fever again. ID following. Problem Qualifiers (1) Sepsis: Qualified Codes: A41.9 - Sepsis, unspecified organism Tiesha Sutherland Jul 02, 2017 08:51 Ja Fitzpatrick MD Jul 02, 2017 11:18
[2017-07-02] MEDS: SODIUM CHLORIDE 0.9% FLUSH 10 ML FLUSH IV FLUSH SCH ×2 (09:00→20:43)
[2017-07-02] MEDS: FAMOTIDINE 20 MG TAB PO SCH ×2 (09:45→20:43)
[2017-07-02] MEDS: guaiFENesin E.R. 600 MG TAB PO SCH ×2 (09:45→20:43)
[2017-07-02] MEDS: ACETAMINOPHEN/HYDROcodone 325 MG/5 MG TAB PO PRN ×2 (09:46→19:17)
[2017-07-02] MEDS: NITROGLYCERIN 0.1 MG/HR PATCH T-DERMAL SCH (09:48)
--- NOTE | 2017-07-02 10:01 | HHI.PR ---
Subjective Remarks Patient reports he is feeling okay. Still having pain on the left toe. He states he does not want to have to deal with this pain. He rather have the toe cut off. Objective Vitals Vital Signs Date Time Temp Pulse Resp B/P (MAP) Pulse Ox O2 Delivery O2 Flow Rate FiO2 07/02/17 06:00 60 07/02/17 05:26 97.9 72 18 105/59 (74) 97 07/02/17 05:00 58 07/02/17 04:01 68 07/02/17 03:00 62 07/02/17 02:00 72 07/02/17 01:00 70 07/02/17 00:21 16 07/02/17 00:05 85 07/01/17 23:30 100.6 106 16 119/57 (77) 96 07/01/17 23:00 108 07/01/17 22:00 104 07/01/17 21:08 20 07/01/17 21:00 68 07/01/17 20:05 70 07/01/17 19:40 98.1 75 20 138/63 (88) 98 07/01/17 19:00 70 07/01/17 18:00 70 07/01/17 17:00 76 07/01/17 16:00 76 07/01/17 15:41 97.8 79 20 105/62 (76) 97 07/01/17 15:00 80 07/01/17 14:00 100 07/01/17 13:00 80 07/01/17 12:00 94 07/01/17 11:48 97.5 85 18 112/67 (82) 97 07/01/17 11:00 80 I/O 07/01/17 07/01/17 07/01/17 07/02/17 07/02/17 07/02/17 07:00 15:00 23:00 07:00 15:00 23:00 Intake Total 1580 ml 1000 ml 1200 ml 780 ml Output Total 1325 ml 1200 ml 1450 ml Balance 255 ml 1000 ml 0 ml -670 ml Intake Oral 480 ml 1200 ml 780 ml IV Total 1100 ml 1000 ml Output Urine Total 1325 ml 1200 ml 1450 ml # Voids 1 # Bowel Movements 1 1 1 1 Result Diagram: 07/02/17 0550 07/02/17 0550 Objective Remarks GENERAL: Elderly male in no acute distress. CARDIOVASCULAR: Normal rate and regular rhythm without murmurs, gallops, or rubs. RESPIRATORY: Good respiratory efforts. Breath sounds equal and clear to auscultation bilaterally. GASTROINTESTINAL: Abdomen soft, non-tender, non-distended. Normal active bowel sounds MUSCULOSKELETAL: Left great toe is purple. I am unable to palpate dorsalis pedis pulses bilaterally. Exam stable today. Slightly better NEURO: Alert & Oriented x4 to person, place, time, situation. Moves all ext x4 PSYCH: Appropriate mood and affect. A/P Problem List: (1) Severe sepsis ICD Code: A41.9 - Sepsis, unspecified organism; R65.20 - Severe sepsis without septic shock Status: Acute Plan: Secondary to pneumonia in immunosuppressed patient on chemotherapy. Meet criteria due to tachycardia, leukopenia, sources right lower lobe pneumonia. Evidence of organ dysfunction with elevated lactic acid of 3.9 on presentation. Continue broad-spectrum antibiotics. Vancomycin switched to daptomycin per ID for concerns of drug fever. Appreciate assistance from infectious disease Follow blood cultures (2) Elevated troponin I level ICD Code: R74.8 - Abnormal levels of other serum enzymes Plan: Troponin 0.65 Asymptomatic, no chest pain or shortness of breath. The patient denies any cardiac history. His risk factors include hypertension and age otherwise no previous history of coronary artery disease. He has a history of abdominal aortic aneurysm repair. He does have PAD with a current ischemic left toe. ? demand ischemia from anemia. He is s/p transfusion. I do not see any acute ST changes on his EKG. -Appreciate Cardiology input. Possible type 2 [place]. - Troponin trended down. Not a candidate for invasive measures given pancytopenia. (3) PNA (pneumonia) ICD Code: J18.9 - Pneumonia, unspecified organism Plan: Continue antibiotics as above. (4) PAD (peripheral artery disease) ICD Code: I73.9 - Peripheral vascular disease, unspecified Status: Acute Plan: ESTELA conclusion: Severely compromised left leg circulation. Acute on chronic. Vascular surgery consult. Dr. Pio Mcadams discussed the case with him regarding ischemic left great toe. Unfortunately not much can be done given the patient's comorbidities, mainly pancytopenia. Dr. Walters consulted podiatry. Discussed with hematology. If he does need amputation, he may be given platelets prior to surgery. (5) Bladder cancer ICD Code: C67.9 - Malignant neoplasm of bladder, unspecified Status: Chronic Plan: Patient undergoing chemotherapy with Dr. Valerio. Appreciate Oncology following. (6) Pancytopenia ICD Code: D61.818 - Other pancytopenia Status: Acute Plan: Secondary to chemotherapy. Improving. Monitor labs closely. -Hematology/oncology following. Status post transfusion and Neupogen ordered per Heme/Onc - Neupogen on hold for now as counts recovering. (7) Anemia ICD Code: D64.9 - Anemia, unspecified (8) Diarrhea ICD Code: R19.7 - Diarrhea, unspecified Status: Resolved Plan: Resoled. Agree with Imodium as needed. Follow progress. (9) Electrolyte abnormality ICD Code: E87.8 - Other disorders of electrolyte and fluid balance, not elsewhere classified Status: Resolved Problem Qualifiers (1) PNA (pneumonia): Monica Meyer MD Jul 02, 2017 10:01
[2017-07-02] MEDS: CEFEPIME INJ 1,000 MG in SODIUM CHLORIDE 0.9% INJ 100 ML IV SCH ×2 (13:02→23:30)
--- NOTE | 2017-07-02 13:03 | MB ---
cc: Mira Teague DPM DATE: 07/02/2017 CHIEF COMPLAINT: Left foot ischemia. HISTORY OF PRESENT ILLNESS: Mr. Zaman is a 77-year-old patient who was admitted for generalized weakness, dizziness, nausea and vomiting earlier in the week. The patient states that he usually has these symptoms with chemo; however, they are worse and are lasting longer this time. My consultation was to evaluate the patient's left lower extremity for ischemia. He has been seen by vascular surgery, but due to his other comorbidities, is not a candidate for revascularization at this time. PAST MEDICAL HISTORY: Hypertension, hyperlipidemia, bladder cancer, and chemotherapy. PAST SURGICAL HISTORY: Includes AAA, bladder surgery, and dental extractions. ALLERGIES: CODEINE. FAMILY HISTORY: Noncontributory. SOCIAL HISTORY: The patient denies any alcohol or drug abuse. He does admit to using tobacco. VITAL SIGNS: Temperature is 98.1, pulse 67, respiratory rate 16, blood pressure 139/65, pulse oximetry 96% O2 on room air. LABORATORY DATA: White count is 8.6, hemoglobin 8.3, hematocrit 24.0, platelets 57. Sodium 141, potassium 3.7, chloride 109, carbon dioxide 25.5, BUN 4, glucose 105. Blood cultures are negative x 5 days. PHYSICAL EXAMINATION: The patient has nonpalpable DP or PT pulses. Cap refill time is sluggish to the left hallux and within normal limits to other digits. There is an absence of pedal hair noted and no gross abnormalities or deformities. The left hallux has a slight bluish mottled discoloration at the distal half, but no gangrenous areas. No open wounds. ASSESSMENT AND PLAN: Left foot hallux ischemia. Thank you for allowing me to be involved in this patient's care. The patient does have early signs of ischemia to the left hallux; however, there is no demarcation or signs of gangrene at this time. I spoke to the patient in detail regarding the development of gangrene and unfortunately, at this time, our hands are tied. He is nearly done with his chemo, and once he is done with chemo and has been cancer free for a certain period of time, he should be reevaluated by vascular surgery as perhaps he may be more of a candidate for intervention at that time. I will continue to monitor the patient closely. He is welcome to follow up with me in the outpatient setting as well. He is very understanding of the situation and the reason for no action at this time. Thank you for this consultation and allowing me to be involved in this patient's care. EVELINA Joseph/STEVE , 12:49 PM , 01:02 PM
[2017-07-02] MEDS: ENOXAPARIN SODIUM 40 MG/0.4 ML SYRINGE SQ SCH (13:04)
--- NOTE | 2017-07-02 15:42 | PD.CARD.PN ---
Subjective Subjective Remarks no chest pain Objective Medications Current Medications Medications (Trade) Dose Ordered Sig/Leeann Route Start Time Stop Time Status Last Admin Cefepime HCl 1000 mg/Sodium Chloride 100 ml @ 200 mls/hr Q12H IV 06/25/17 12:00 07/02/17 13:02 (Duoneb Neb) 1 ampule Q4HR NEB PRN NEB 06/25/17 03:30 Sodium Chloride 1,000 ml @ 100 mls/hr Q10H IV 06/25/17 03:19 07/02/17 05:42 (NS Flush) 2 ml UNSCH PRN IV FLUSH 06/25/17 03:30 06/27/17 00:43 (NS Flush) 2 ml BID IV FLUSH 06/25/17 09:00 07/01/17 09:31 (Zofran Inj) 4 mg Q6H PRN IVP 06/25/17 03:30 07/01/17 18:46 (Tylenol) 650 mg Q6H PRN PO 06/25/17 03:30 07/01/17 23:21 ([place] 5-325 Mg) 1 tab Q4H PRN PO 06/25/17 03:30 07/02/17 09:46 (Morphine Inj) 2 mg Q3H PRN IV PUSH 06/25/17 03:30 06/28/17 09:54 (Milk Of Magnesia Liq) 30 ml Q12H PRN PO 06/25/17 03:30 (Senokot) 17.2 mg Q12H PRN PO 06/25/17 03:30 (Dulcolax Supp) 10 mg DAILY PRN RECTAL 06/25/17 03:30 (Lactulose Liq) 30 ml DAILY PRN PO 06/25/17 03:30 (Mucinex Er) 600 mg BID PO 06/25/17 09:00 07/02/17 09:45 (Imodium) 2 mg UNSCH PRN PO 06/26/17 10:15 06/26/17 13:11 (Mag-Al Plus Susp Liq) 30 ml Q6H PRN PO 06/26/17 14:00 (Tylenol) 650 mg Q4H PRN PO 06/27/17 08:00 (Benadryl) 25 mg Q4H PRN PO 3/27/18 08:00 06/27/17 16:36 (Pepcid) 20 mg BID PO 06/27/17 21:00 07/02/17 09:45 Daptomycin 600 mg/ Sodium Chloride 100 ml @ 200 mls/hr Q24H IV 06/28/17 20:00 07/01/17 20:08 (Nitro-Dur 0.1 Mg Patch.24hr) 1 patch DAILY T-DERMAL 06/30/17 15:00 07/02/17 09:48 (Lopressor) 12.5 mg Q8HR PO 07/01/17 22:00 07/02/17 05:30 (Pill Splitter) 1 ea UNSCH PRN OTHER 07/01/17 14:30 (Lovenox Inj) 40 mg Q24H SQ 07/02/17 12:00 07/02/17 13:04 Vital Signs / I&O Vital Signs Date Time Temp Pulse Resp B/P (MAP) Pulse Ox O2 Delivery O2 Flow Rate FiO2 07/02/17 13:00 97.8 79 16 131/70 (90) 95 07/02/17 11:00 72 07/02/17 10:00 74 07/02/17 09:36 98.1 67 16 139/65 (89) 96 07/02/17 09:00 64 07/02/17 08:00 64 07/02/17 07:00 58 07/02/17 06:00 60 07/02/17 05:26 97.9 72 18 105/59 (74) 97 07/02/17 05:00 58 07/02/17 04:01 68 07/02/17 03:00 62 07/02/17 02:00 72 07/02/17 01:00 70 07/02/17 00:21 16 07/02/17 00:05 85 07/01/17 23:30 100.6 106 16 119/57 (77) 96 07/01/17 23:00 108 07/01/17 22:00 104 07/01/17 21:08 20 07/01/17 21:00 68 07/01/17 20:05 70 07/01/17 19:40 98.1 75 20 138/63 (88) 98 07/01/17 19:00 70 07/01/17 18:00 70 07/01/17 17:00 76 07/01/17 16:00 76 I/O 07/01/17 07/01/17 07/01/17 07/02/17 07/02/17 07/02/17 07:00 15:00 23:00 07:00 15:00 23:00 Intake Total 1580 ml 1000 ml 1200 ml 780 ml Output Total 1325 ml 1200 ml 1450 ml Balance 255 ml 1000 ml 0 ml -670 ml Intake Oral 480 ml 1200 ml 780 ml IV Total 1100 ml 1000 ml Output Urine Total 1325 ml 1200 ml 1450 ml # Voids 1 # Bowel Movements 1 1 1 1 Physical Exam Obese Alert, NAD Chest: BS diminished (COPD), no wheezes or rales CV S1S2 RRR Ext: no edema Laboratory Laboratory Tests Test 07/02/17 05:50 White Blood Count 8.6 TH/MM3 Red Blood Count 2.67 MIL/MM3 Hemoglobin 8.3 GM/DL Hematocrit 24.0 % Mean Corpuscular Volume 89.9 FL Mean Corpuscular Hemoglobin 31.2 PG Mean Corpuscular Hemoglobin Concent 34.7 % Red Cell Distribution Width 14.4 % Platelet Count 57 TH/MM3 Mean Platelet Volume 10.1 FL Blood Urea Nitrogen 4 MG/DL Creatinine 0.77 MG/DL Random Glucose 105 MG/DL Calcium Level 7.7 MG/DL Sodium Level 141 MEQ/L Potassium Level 3.7 MEQ/L Chloride Level 109 MEQ/L Carbon Dioxide Level 25.5 MEQ/L Anion Gap 7 MEQ/L Estimat Glomerular Filtration Rate 98 ML/MIN Assessment and Plan Problem List: (1) Non-STEMI (non-ST elevated myocardial infarction) ICD Codes: I21.4 - Non-ST elevation (NSTEMI) myocardial infarction (2) COPD (chronic obstructive pulmonary disease) ICD Codes: J44.9 - Chronic obstructive pulmonary disease, unspecified (3) Pancytopenia ICD Codes: D61.818 - Other pancytopenia Status: Acute Plan: improving Assessment and Plan increase metoprolol to 25mg bid Steven Cote MD Jul 02, 2017 15:42
[2017-07-02] MEDS: POTASSIUM CHLORIDE 20 MEQ CONTROLLED RELEASE TAB PO SCH (16:16)
[2017-07-02] MEDS: DAPTOmycin INJ 600 MG in SODIUM CHLORIDE 0.9% INJ 100 ML IV SCH (20:43)
[2017-07-03] VITALS (16 sets, daily range): BP systolic 101–149; BP diastolic 67–77; PULSE 64–97; RESP 16–18; TEMP 97.7–99; O2SAT 93–99
[2017-07-03] MEDS: SODIUM CHLOR 0.9% 1000 ML INJ 1,000 ML IV SCH ×4 (00:51→20:41)
[2017-07-03 06:20] LABS: HEMATOCRIT 24.6 % (39.0-51.0); HEMOGLOBIN 8.5 GM/DL (13.0-17.0); MEAN CELL VOLUME 89.1 FL (80.0-100.0); MEAN CORPUSCULAR HEMOGLOBIN 30.9 PG (27.0-34.0); MEAN CORPUSCULAR HGB CONC 34.7 % (32.0-36.0); MEAN PLATELET VOLUME 9.2 FL (7.0-11.0); PLATELET COUNT 72 TH/MM3 (150-450); RED BLOOD COUNT 2.76 MIL/MM3 (4.50-5.90); RED CELL DISTRIBUTION WIDTH 14.3 % (11.6-17.2); WHITE BLOOD COUNT 7.8 TH/MM3 (4.0-11.0)
[2017-07-03 06:44] LABS: CREATININE 0.81 MG/DL (0.60-1.30)
[2017-07-03] MEDS ORDERED: DIAZEPAM 5 MG TAB PO SCH (08:45)
[2017-07-03] MEDS ORDERED: diphenhydrAMINE HCL 25 MG CAP PO SCH (08:45)
--- NOTE | 2017-07-03 08:48 | PD.CARD.PN ---
Subjective Subjective Remarks no chest pain Objective Medications Current Medications Medications (Trade) Dose Ordered Sig/Leeann Route Start Time Stop Time Status Last Admin Cefepime HCl 1000 mg/Sodium Chloride 100 ml @ 200 mls/hr Q12H IV 06/25/17 12:00 07/02/17 23:30 (Duoneb Neb) 1 ampule Q4HR NEB PRN NEB 06/25/17 03:30 Sodium Chloride 1,000 ml @ 100 mls/hr Q10H IV 06/25/17 03:19 07/03/17 04:02 (NS Flush) 2 ml UNSCH PRN IV FLUSH 06/25/17 03:30 06/27/17 00:43 (NS Flush) 2 ml BID IV FLUSH 06/25/17 09:00 07/01/17 09:31 (Zofran Inj) 4 mg Q6H PRN IVP 06/25/17 03:30 07/01/17 18:46 (Tylenol) 650 mg Q6H PRN PO 06/25/17 03:30 07/01/17 23:21 ([place] 5-325 Mg) 1 tab Q4H PRN PO 06/25/17 03:30 07/02/17 19:17 (Morphine Inj) 2 mg Q3H PRN IV PUSH 06/25/17 03:30 06/28/17 09:54 (Milk Of Magnesia Liq) 30 ml Q12H PRN PO 06/25/17 03:30 (Senokot) 17.2 mg Q12H PRN PO 06/25/17 03:30 (Dulcolax Supp) 10 mg DAILY PRN RECTAL 06/25/17 03:30 (Lactulose Liq) 30 ml DAILY PRN PO 06/25/17 03:30 (Mucinex Er) 600 mg BID PO 06/25/17 09:00 07/02/17 20:43 (Imodium) 2 mg UNSCH PRN PO 06/26/17 10:15 06/26/17 13:11 (Mag-Al Plus Susp Liq) 30 ml Q6H PRN PO 06/26/17 14:00 (Tylenol) 650 mg Q4H PRN PO 06/27/17 08:00 (Benadryl) 25 mg Q4H PRN PO 06/27/17 08:00 06/27/17 16:36 (Pepcid) 20 mg BID PO 06/27/17 21:00 07/02/17 20:43 Daptomycin 600 mg/ Sodium Chloride 100 ml @ 200 mls/hr Q24H IV 06/28/17 20:00 07/02/17 20:43 (Nitro-Dur 0.1 Mg Patch.24hr) 1 patch DAILY T-DERMAL 06/30/17 15:00 07/02/17 09:48 (Pill Splitter) 1 ea UNSCH PRN OTHER 07/01/17 14:30 (Lovenox Inj) 40 mg Q24H SQ 07/02/17 12:00 07/02/17 13:04 (Lopressor) 25 mg BID PO 07/02/17 21:00 07/02/17 20:43 (KCl) 20 meq DAILY PO 07/02/17 15:45 07/02/17 16:16 Sodium Chloride 1,000 ml @ 100 mls/hr Q10H IV 07/03/17 08:34 07/08/17 08:33 UNV (Benadryl) 25 mg REIMBURSEMENT SPECIALIST PO 07/03/17 08:45 07/07/17 08:44 UNV (Valium) 5 mg REIMBURSEMENT SPECIALIST PO 07/03/17 08:45 07/07/17 08:44 UNV Vital Signs / I&O Vital Signs Date Time Temp Pulse Resp B/P (MAP) Pulse Ox O2 Delivery O2 Flow Rate FiO2 07/03/17 06:00 68 07/03/17 05:30 97.7 85 16 142/67 (92) 97 07/03/17 05:00 88 07/03/17 04:06 71 07/03/17 03:00 66 07/03/17 02:04 67 07/03/17 02:00 70 07/03/17 01:00 64 07/03/17 00:07 68 07/02/17 23:27 98.3 70 16 125/67 (86) 98 07/02/17 23:00 60 07/02/17 22:00 70 07/02/17 21:00 74 07/02/17 20:40 98.5 72 20 132/65 (87) 95 07/02/17 20:17 16 07/02/17 20:02 79 07/02/17 19:00 76 07/02/17 18:00 68 07/02/17 17:00 66 07/02/17 16:00 66 07/02/17 16:00 97.9 67 16 121/64 (83) 97 07/02/17 15:00 72 07/02/17 14:00 90 07/02/17 13:00 78 07/02/17 13:00 97.8 79 16 131/70 (90) 95 07/02/17 12:00 70 07/02/17 11:00 72 07/02/17 10:00 74 07/02/17 09:36 98.1 67 16 139/65 (89) 96 07/02/17 09:00 64 I/O 07/02/17 07/02/17 07/02/17 07/03/17 07/03/17 07/03/17 07:00 15:00 23:00 07:00 15:00 23:00 Intake Total 780 ml 100 ml 2100 ml 480 ml Output Total 1450 ml 1300 ml 2200 ml Balance -670 ml 100 ml 800 ml -1720 ml Intake Oral 780 ml 2100 ml 480 ml IV Total 100 ml Output Urine Total 1450 ml 1300 ml 2200 ml # Voids 2 # Bowel Movements 1 1 1 Physical Exam Obese Alert, NAD Chest: BS diminished (COPD), no wheezes or rales CV S1S2 RRR Ext: no edema Vascular: good right radial pulse. Good left brachial pulse. Absent pulses LLE with severe ischemic changes Left 1st toe Laboratory Laboratory Tests Test 07/03/17 05:57 White Blood Count 7.8 TH/MM3 Red Blood Count 2.76 MIL/MM3 Hemoglobin 8.5 GM/DL Hematocrit 24.6 % Mean Corpuscular Volume 89.1 FL Mean Corpuscular Hemoglobin 30.9 PG Mean Corpuscular Hemoglobin Concent 34.7 % Red Cell Distribution Width 14.3 % Platelet Count 72 TH/MM3 Mean Platelet Volume 9.2 FL CBC Comment AUTO DIFF Blood Urea Nitrogen 5 MG/DL Creatinine 0.81 MG/DL Random Glucose 100 MG/DL Calcium Level 8.0 MG/DL Sodium Level 142 MEQ/L Potassium Level 3.8 MEQ/L Chloride Level 109 MEQ/L Carbon Dioxide Level 26.0 MEQ/L Anion Gap 7 MEQ/L Estimat Glomerular Filtration Rate 92 ML/MIN Assessment and Plan Problem List: (1) Non-STEMI (non-ST elevated myocardial infarction) ICD Codes: I21.4 - Non-ST elevation (NSTEMI) myocardial infarction (2) COPD (chronic obstructive pulmonary disease) ICD Codes: J44.9 - Chronic obstructive pulmonary disease, unspecified (3) Pancytopenia ICD Codes: D61.818 - Other pancytopenia Status: Acute (4) PAD (peripheral artery disease) ICD Codes: I73.9 - Peripheral vascular disease, unspecified Status: Acute (5) Bladder cancer ICD Codes: C67.9 - Malignant neoplasm of bladder, unspecified Status: Chronic Assessment and Plan I had a long discussion with patient and Dr. Valerio. His MD is complicating further treatment of his ischemic left leg and giving further chemo. We have decided our best judgement is to do a cardiac cath tomorrow (right radial) to determine the severity and extent of his CAD. He might need revascularization but if he needs stenting will use bare metal stents so we can limit duration of clopidogrel use. Informed consent obtained. Steven oCte MD Jul 03, 2017 08:48
[2017-07-03 08:57] LABS: BANDS 8 % (0-6); CORRECTED NUCLEATED RBC 1 /100 WBC (0-0); LYMPHOCYTES 7 % (9-44); METAMYELOCYTES 5 % (0-1); MONOCYTES 10 % (0-8); MYELOCYTES 8 % (0-0); NEUTROPHIL # MANUAL DIFF 6.3 TH/MM3 (1.8-7.7); NUCLEATED RED BLOOD CELL 1 (0-0); POLYS (SEG NEUTROPHILS) 60 % (16-70); TOXIC GRANULATION 1+ (NORMAL)
[2017-07-03] MEDS: SODIUM CHLORIDE 0.9% FLUSH 10 ML FLUSH IV FLUSH SCH ×2 (09:00→20:41)
--- NOTE | 2017-07-03 09:15 | EKG ---
Date Performed: 07/03/2017 Time Performed: 09:02:36 PTAGE: 77 years EKG: Sinus rhythm MARKED LEFT AXIS DEVIATION ABNORMAL ECG PREVIOUS TRACING : 07/01/2017 08.43 Since the previous tracing, no significant change noted DOCTOR: Lorenzo Montalvo Interpretating Date/Time 07/03/2017 09:13:53
[2017-07-03] MEDS: guaiFENesin E.R. 600 MG TAB PO SCH ×2 (09:57→20:39)
[2017-07-03] MEDS: FAMOTIDINE 20 MG TAB PO SCH ×2 (09:57→20:39)
[2017-07-03] MEDS: NITROGLYCERIN 0.1 MG/HR PATCH T-DERMAL SCH (09:57)
[2017-07-03] MEDS: METOPROLOL TARTRATE 25 MG TAB PO SCH ×2 (09:58→20:39)
[2017-07-03] MEDS: POTASSIUM CHLORIDE 20 MEQ CONTROLLED RELEASE TAB PO SCH (09:58)
[2017-07-03] MEDS: ACETAMINOPHEN/HYDROcodone 325 MG/5 MG TAB PO PRN ×2 (09:59→18:08)
--- NOTE | 2017-07-03 11:11 | HHI.IDPN ---
Subjective Subjective Remarks Mr. Zaman is a 77-year-old pleasant gentleman with PMHx of locally advanced bladder cancer, which was diagnosed in 01/2017. Per review of ([facility]) records it appears he declined radical surgery and opted for bladder preservation. He underwent repeat cystoscopy on 04/24 and a 3 cm tumor was removed at the previous biopsy site. He reports being on combined chemotherapy and radiation therapy with cisplatin and gemcitabine. Patient reports his last chemotherapy was approx 1 week prior to admission. He presented to the emergency room on 06/25/2017, with generalized weakness, dizziness, nausea, vomiting and diarrhea of 3 days' duration. He also had inability to tolerate p.o. On arrival in the emergency room. He reports fevers of 101 F at home and associated night sweats. On presentation to the ED he was found to have a HR of 125. He was found to be neutropenic with WBC of 1. He had a lactic acidosis at 3.9 and a mild patchy opacity in the right lower lobe on his chest x-ray, which was also seen on the CT scan of the abdomen and pelvis. Sepsis workup was initiated and she was started on empiric broad spectrum antibiotics with vancomycin and cefepime. Sputum culture, blood cultures are pending at the time of my evaluation. ID was consulted for evaluation and M'ment of fevers in a neutropenic patient. Overnight events reviewed No fevers No rash No diarrhea Dizzy this am troponins elevated. Cardiology following plan for cardiac cath in am. No more dizzy when I saw him. Complains of pain in left great toe controlled pain meds twice a day. No e/o infection clinically. Antibiotics Cefepime IV Dapto IV Lines Lines ok Past Medical History reviewed Allergies: Coded Allergies: Sulfa (Sulfonamide Antibiotics) (Unverified Allergy, Unknown, BLURRY VISION WITH SULFA EYE DROPS., 11/15/16) Objective . Vital Signs Date Time Temp Pulse Resp B/P (MAP) Pulse Ox O2 Delivery O2 Flow Rate FiO2 07/03/17 08:48 99.0 97 18 101/77 (85) 93 07/03/17 06:00 68 07/03/17 05:30 97.7 85 16 142/67 (92) 97 07/03/17 05:00 88 07/03/17 04:06 71 07/03/17 03:00 66 07/03/17 02:04 67 07/03/17 02:00 70 07/03/17 01:00 64 07/03/17 00:07 68 07/02/17 23:27 98.3 70 16 125/67 (86) 98 07/02/17 23:00 60 07/02/17 22:00 70 07/02/17 21:00 74 07/02/17 20:40 98.5 72 20 132/65 (87) 95 07/02/17 20:17 16 07/02/17 20:02 79 07/02/17 19:00 76 07/02/17 18:00 68 07/02/17 17:00 66 07/02/17 16:00 66 07/02/17 16:00 97.9 67 16 121/64 (83) 97 07/02/17 15:00 72 07/02/17 14:00 90 07/02/17 13:00 78 07/02/17 13:00 97.8 79 16 131/70 (90) 95 07/02/17 12:00 70 . Laboratory Tests Test 07/02/17 05:50 07/03/17 05:57 White Blood Count 8.6 TH/MM3 7.8 TH/MM3 Red Blood Count 2.67 MIL/MM3 2.76 MIL/MM3 Hemoglobin 8.3 GM/DL 8.5 GM/DL Hematocrit 24.0 % 24.6 % Mean Corpuscular Volume 89.9 FL 89.1 FL Mean Corpuscular Hemoglobin 31.2 PG 30.9 PG Mean Corpuscular Hemoglobin Concent 34.7 % 34.7 % Red Cell Distribution Width 14.4 % 14.3 % Platelet Count 57 TH/MM3 72 TH/MM3 Mean Platelet Volume 10.1 FL 9.2 FL CBC Comment AUTO DIFF Differential Total Cells Counted 100 Neutrophils % (Manual) 60 % Band Neutrophils % 8 % Lymphocytes % 7 % Monocytes % 10 % Eosinophils % 2 % Neutrophils # (Manual) 6.3 TH/MM3 Metamyelocytes 5 % Myelocytes 8 % Nucleated Red Blood Cells 1 /100 WBC Differential Comment FINAL DIFF MANUAL Toxic Granulation 1+ Platelet Estimate LOW Platelet Morphology Comment NORMAL Laboratory Tests Test 07/02/17 05:50 07/03/17 05:57 Blood Urea Nitrogen 4 MG/DL 5 MG/DL Creatinine 0.77 MG/DL 0.81 MG/DL Random Glucose 105 MG/DL 100 MG/DL Calcium Level 7.7 MG/DL 8.0 MG/DL Sodium Level 141 MEQ/L 142 MEQ/L Potassium Level 3.7 MEQ/L 3.8 MEQ/L Chloride Level 109 MEQ/L 109 MEQ/L Carbon Dioxide Level 25.5 MEQ/L 26.0 MEQ/L Anion Gap 7 MEQ/L 7 MEQ/L Estimat Glomerular Filtration Rate 98 ML/MIN 92 ML/MIN Imaging Last Impressions Chest X-Ray 06/30/17 0000 Signed Impressions: Service Date/Time: Friday, June 30, 2017 08:43 - CONCLUSION: No acute disease. David Martinez MD Abdomen X-Ray 06/30/17 0000 Signed Impressions: Service Date/Time: Friday, June 30, 2017 08:47 - CONCLUSION: No evidence of obstruction. Aortic stent graft identified. David Martinez MD Abdomen/Pelvis CT 06/24/17 2318 Signed Impressions: Service Date/Time: Sunday, June 25, 2017 00:13 - CONCLUSION: 1. Unremarkable bowel gas pattern on this noncontrast exam performed without oral contrast. 2. New patchy opacity in the posterior right lower lobe which is nonspecific and is of unclear chronicity but is new from 2015. The differential diagnosis includes pneumonia, scarring and asbestosis. 3. Status post interval abdominal aortic aneurysm repair with stent graft in place. 4. Multiple small partially calcified bilateral pleural plaques are now present. 5. Unremarkable gallbladder. Koby Interiano MD Physical Exam GENERAL: This is a well-nourished, well-developed patient, in no apparent distress. SKIN: No rashes, ecchymoses or lesions. Cool and dry. HEAD: Atraumatic. Normocephalic. No temporal or scalp tenderness. EYES: Pupils equal round and reactive. Extraocular motions intact. No scleral icterus. No injection or drainage. ENT: Nose without bleeding, purulent drainage or septal hematoma. Throat without erythema, tonsillar hypertrophy or exudate. Uvula midline. Airway patent. NECK: Trachea midline. Supple, nontender, no meningeal signs. CARDIOVASCULAR: HS audible. RESPIRATORY: Clear to auscultation. Breath sounds equal bilaterally. No wheezes , rales, or rhonchi. GASTROINTESTINAL: Abdomen soft, non-tender, nondistended. MUSCULOSKELETAL: Left great toe with bluish discoloration, cool clammy skin. Decreased dorsalis pedis pulsations. Tenderness on touching the toe. NEUROLOGICAL: Awake and alert. Non focal Psych cooperative IV line sites with no e/o infection. Port site with no e.o infection Assessment & Plan Remarks Possible Sepsis present on admission. Neutropenic fever Possible pneumonitis vs asbestosis. Left great toe with ischemia ? early gangrene secondary cellulitis. Recs: DC Cefepime IV DC Daptomycin IV dw : no e/o ongoing infection SIRS could be from ongoing left foot ischemia and also FL. Follow clinically. shamika patient. Will sign off please call back if any change in clinical condition or questions. Sruthi Melgoza MD Jul 03, 2017 11:11
--- NOTE | 2017-07-03 11:35 | PD.ONC.PN ---
Subjective Subjective Remarks Afebrile overnight Patient resting in bed asleep Anxious over cardiac cath in a.m. No acute complaints Objective Data Date Time Temp Pulse Resp B/P (MAP) Pulse Ox O2 Delivery O2 Flow Rate FiO2 07/03/17 08:48 99.0 97 18 101/77 (85) 93 07/03/17 06:00 68 07/03/17 05:30 97.7 85 16 142/67 (92) 97 07/03/17 05:00 88 07/03/17 04:06 71 07/03/17 03:00 66 07/03/17 02:04 67 07/03/17 02:00 70 07/03/17 01:00 64 07/03/17 00:07 68 07/02/17 23:27 98.3 70 16 125/67 (86) 98 07/02/17 23:00 60 07/02/17 22:00 70 07/02/17 21:00 74 07/02/17 20:40 98.5 72 20 132/65 (87) 95 07/02/17 20:17 16 07/02/17 20:02 79 07/02/17 19:00 76 07/02/17 18:00 68 07/02/17 17:00 66 07/02/17 16:00 66 07/02/17 16:00 97.9 67 16 121/64 (83) 97 07/02/17 15:00 72 07/02/17 14:00 90 07/02/17 13:00 78 07/02/17 13:00 97.8 79 16 131/70 (90) 95 07/02/17 12:00 70 07/03/17 07/03/17 07/03/17 07:00 15:00 23:00 Intake Total 480 ml Output Total 2200 ml Balance -1720 ml Result Diagram: 07/03/17 0557 07/03/17 0557 Laboratory Results Laboratory Tests Test 07/03/17 05:57 White Blood Count 7.8 TH/MM3 Red Blood Count 2.76 MIL/MM3 Hemoglobin 8.5 GM/DL Hematocrit 24.6 % Mean Corpuscular Volume 89.1 FL Mean Corpuscular Hemoglobin 30.9 PG Mean Corpuscular Hemoglobin Concent 34.7 % Red Cell Distribution Width 14.3 % Platelet Count 72 TH/MM3 Mean Platelet Volume 9.2 FL CBC Comment AUTO DIFF Differential Total Cells Counted 100 Neutrophils % (Manual) 60 % Band Neutrophils % 8 % Lymphocytes % 7 % Monocytes % 10 % Eosinophils % 2 % Neutrophils # (Manual) 6.3 TH/MM3 Metamyelocytes 5 % Myelocytes 8 % Nucleated Red Blood Cells 1 /100 WBC Differential Comment FINAL DIFF MANUAL Toxic Granulation 1+ Platelet Estimate LOW Platelet Morphology Comment NORMAL Blood Urea Nitrogen 5 MG/DL Creatinine 0.81 MG/DL Random Glucose 100 MG/DL Calcium Level 8.0 MG/DL Sodium Level 142 MEQ/L Potassium Level 3.8 MEQ/L Chloride Level 109 MEQ/L Carbon Dioxide Level 26.0 MEQ/L Anion Gap 7 MEQ/L Estimat Glomerular Filtration Rate 92 ML/MIN Administered Medications Medications (Trade) Dose Ordered Sig/Leeann Route PRN Reason Start Time Stop Time Status Last Admin Dose Admin Sodium Chloride 1,000 ml @ 100 mls/hr Q10H IV 06/25/17 03:19 07/03/17 04:02 Sodium Chloride (NS Flush) 2 ml UNSCH PRN IV FLUSH FLUSH AFTER USING IV ACCESS 06/25/17 03:30 06/27/17 00:43 Sodium Chloride (NS Flush) 2 ml BID IV FLUSH 06/25/17 09:00 07/01/17 09:31 Ondansetron HCl (Zofran Inj) 4 mg Q6H PRN IVP NAUSEA OR VOMITING 06/25/17 03:30 07/01/17 18:46 Acetaminophen (Tylenol) 650 mg Q6H PRN PO FEVER/PAIN SCALE 1 TO 2 06/25/17 03:30 07/01/17 23:21 Acetaminophen/ Hydrocodone Bitart ([place] 5-325 Mg) 1 tab Q4H PRN PO PAIN SCALE 3 TO 5 06/25/17 03:30 07/03/17 09:59 Morphine Sulfate (Morphine Inj) 2 mg Q3H PRN IV PUSH Pain 6-10 06/25/17 03:30 06/28/17 09:54 Guaifenesin (Mucinex Er) 600 mg BID PO 06/25/17 09:00 07/03/17 09:57 Loperamide HCl (Imodium) 2 mg UNSCH PRN PO DIARRHEA 06/26/17 10:15 06/26/17 13:11 Diphenhydramine HCl (Benadryl) 25 mg Q4H PRN PO SEE LABEL COMMENTS 06/27/17 08:00 06/27/17 16:36 Famotidine (Pepcid) 20 mg BID PO 06/27/17 21:00 07/03/17 09:57 Nitroglycerin (Nitro-Dur 0.1 Mg Patch.24hr) 1 patch DAILY T-DERMAL 06/30/17 15:00 07/03/17 09:57 Enoxaparin Sodium (Lovenox Inj) 40 mg Q24H SQ 07/02/17 12:00 07/02/17 13:04 Metoprolol Tartrate (Lopressor) 25 mg BID PO 07/02/17 21:00 07/03/17 09:58 Potassium Chloride (KCl) 20 meq DAILY PO 07/02/17 15:45 07/03/17 09:58 Objective Remarks GENERAL: Older male resting in bed in no obvious distress SKIN: Warm and dry. HEAD: Normocephalic. EYES: No injection or drainage. NECK: Supple, trachea midline. CARDIOVASCULAR: Plus S1/S2. No murmur noted RESPIRATORY: Clear anteriorly. Breathing easy and unlabored at rest GASTROINTESTINAL: Abdomen soft, non-tender, nondistended. EXTREMITIES: No cyanosis. Left great toe appears purple in color. Second and third toes appear dusky. No edema. MUSCULOSKELETAL: Adequate muscle tone. NEUROLOGICAL: No obvious focal deficit. Awake, alert, and oriented x3. Assessment/Plan Problem List: (1) Bladder cancer ICD Codes: C67.9 - Malignant neoplasm of bladder, unspecified Status: Chronic Plan: 07/03/17: Cardiac cath in a.m. per Dr. Cote. Counts recovering. Continue to monitor periodic CBC. --currently on combined chemotherapy and radiation therapy with cisplatin and gemcitabine. (hold while inpatient) (2) PAD (peripheral artery disease) ICD Codes: I73.9 - Peripheral vascular disease, unspecified Status: Acute Plan: --vascular surgery following. (3) Sepsis ICD Codes: A41.9 - Sepsis, unspecified organism Status: Acute Plan: --BC 06/28 no growth --BC no growth from 06/24 --on Dapto + Cefepime. --ID following (4) Dyspepsia ICD Codes: R10.13 - Epigastric pain Status: Resolved Plan: --on PO Pepcid BID (5) Pancytopenia ICD Codes: D61.818 - Other pancytopenia Status: Acute Plan: --counts recovering. -- transfuse for hemoglobin of less than 7 or platelet count of less than 20, 000. Assessment 77y/o male with locally advanced bladder cancer, currently receiving definitive chemotherapy and radiation therapy admitted with sepsis, nausea and vomiting. Attending Statement The exam, history, and the medical decision-making described in the above note were completed with the assistance of the mid-level provider. I reviewed and agree with the findings presented. I attest that I had a [id number] encounter with the patient on the same day, and personally performed and documented my assessment and findings in the medical record. No new c/o Wants to go home, Denies any CP left toe is same. Had NSTEMI. Extensive d/w Dr [employer] DR Harris. Risks and benefits of cath were discussed. I fully support to have cardiac cath tomorrow. D/W pt regarding cath , he has agreed. Further recommendations after cath. Plat are >70. Hematologically he is cleared to have the procedure. Problem Qualifiers (1) Sepsis: Qualified Codes: A41.9 - Sepsis, unspecified organism Lolis Villatoro Jul 03, 2017 11:34 Deepali Valerio MD Jul 03, 2017 22:18
[2017-07-03] MEDS: ENOXAPARIN SODIUM 40 MG/0.4 ML SYRINGE SQ SCH (12:00)
--- NOTE | 2017-07-03 12:03 | HHI.PR ---
Subjective Remarks Patient reports he is feeling okay. Reports pain in the left toe is unchanged. Objective Vitals Vital Signs Date Time Temp Pulse Resp B/P (MAP) Pulse Ox O2 Delivery O2 Flow Rate FiO2 07/03/17 08:48 99.0 97 18 101/77 (85) 93 07/03/17 06:00 68 07/03/17 05:30 97.7 85 16 142/67 (92) 97 07/03/17 05:00 88 07/03/17 04:06 71 07/03/17 03:00 66 07/03/17 02:04 67 07/03/17 02:00 70 07/03/17 01:00 64 07/03/17 00:07 68 07/02/17 23:27 98.3 70 16 125/67 (86) 98 07/02/17 23:00 60 07/02/17 22:00 70 07/02/17 21:00 74 07/02/17 20:40 98.5 72 20 132/65 (87) 95 07/02/17 20:17 16 07/02/17 20:02 79 07/02/17 19:00 76 07/02/17 18:00 68 07/02/17 17:00 66 07/02/17 16:00 66 07/02/17 16:00 97.9 67 16 121/64 (83) 97 07/02/17 15:00 72 07/02/17 14:00 90 07/02/17 13:00 78 07/02/17 13:00 97.8 79 16 131/70 (90) 95 I/O 07/02/17 07/02/17 07/02/17 07/03/17 07/03/17 07/03/17 07:00 15:00 23:00 07:00 15:00 23:00 Intake Total 780 ml 100 ml 2100 ml 480 ml Output Total 1450 ml 1300 ml 2200 ml Balance -670 ml 100 ml 800 ml -1720 ml Intake Oral 780 ml 2100 ml 480 ml IV Total 100 ml Output Urine Total 1450 ml 1300 ml 2200 ml # Voids 2 # Bowel Movements 1 1 1 Result Diagram: 07/03/17 0557 07/03/17 0557 Objective Remarks GENERAL: Elderly male in no acute distress. CARDIOVASCULAR: Normal rate and regular rhythm without murmurs, gallops, or rubs. RESPIRATORY: Good respiratory efforts. Breath sounds equal and clear to auscultation bilaterally. GASTROINTESTINAL: Abdomen soft, non-tender, non-distended. Normal active bowel sounds MUSCULOSKELETAL: Left great toe is purple. I am unable to palpate dorsalis pedis pulses bilaterally. Exam stable today. This has been intermittently worse , affecting the 2nd and 3rd toes as well. NEURO: Alert & Oriented x4 to person, place, time, situation. Moves all ext x4 PSYCH: Appropriate mood and affect. A/P Problem List: (1) Severe sepsis ICD Code: A41.9 - Sepsis, unspecified organism; R65.20 - Severe sepsis without septic shock Status: Acute Plan: Sepsis syndrome resolved. DW ID. Agree with discontinuing antibiotics and monitor. (2) Non-STEMI (non-ST elevated myocardial infarction) ICD Code: I21.4 - Non-ST elevation (NSTEMI) myocardial infarction Plan: Cardiology following. Plan for heart catheterization tomorrow. Continue aspirin, metoprolol. Check lipids (3) PNA (pneumonia) ICD Code: J18.9 - Pneumonia, unspecified organism Plan: S/P treatment with antibiotics. Was followed by ID. (4) PAD (peripheral artery disease) ICD Code: I73.9 - Peripheral vascular disease, unspecified Status: Acute Plan: ESTELA conclusion: Severely compromised left leg circulation. Acute on chronic. Vascular surgery consult. Dr. Pio Mcadams discussed the case with him regarding ischemic left great toe. Unfortunately not much can be done given the patient's comorbidities, mainly pancytopenia. Dr. Walters consulted podiatry. Podiatry following. May need amputation but timing to be determined given ongoing cancer treatment. (5) Bladder cancer ICD Code: C67.9 - Malignant neoplasm of bladder, unspecified Status: Chronic Plan: Patient undergoing chemotherapy with Dr. Valerio. Appreciate Oncology following. (6) Pancytopenia ICD Code: D61.818 - Other pancytopenia Status: Acute Plan: Secondary to chemotherapy. Much improved. Monitor labs. -Hematology/oncology following. Status post transfusion and Neupogen ordered per Heme/Onc - Neupogen on hold for now as counts recovering. (7) Anemia ICD Code: D64.9 - Anemia, unspecified (8) Diarrhea ICD Code: R19.7 - Diarrhea, unspecified Status: Resolved (9) Electrolyte abnormality ICD Code: E87.8 - Other disorders of electrolyte and fluid balance, not elsewhere classified Status: Resolved Problem Qualifiers (1) PNA (pneumonia): Monica Meyer MD Jul 03, 2017 12:03
[2017-07-03] MEDS ORDERED: ASPIRIN 325 MG TAB PO ONE (17:00)
[2017-07-04] VITALS (17 sets, daily range): BP systolic 113–174; BP diastolic 59–91; PULSE 59–94; RESP 16–18; TEMP 97–98.5; O2SAT 97–99
[2017-07-04] MEDS: SODIUM CHLOR 0.9% 1000 ML INJ 1,000 ML IV SCH ×2 (04:23→06:51)
[2017-07-04] MEDS: ACETAMINOPHEN/HYDROcodone 325 MG/5 MG TAB PO PRN ×4 (04:55→19:49)
[2017-07-04 06:31] LABS: CALCIUM 7.6 MG/DL (8.5-10.1); CREATININE 0.62 MG/DL (0.60-1.30)
[2017-07-04] MEDS ORDERED: HEPARIN-NS/PF FLUSH BAG 1,000 ML IV FLUSH ONE (07:10)
[2017-07-04] MEDS ORDERED: MIDAZOLAM HCL 2 MG/2 ML VIAL ONE (07:28)
[2017-07-04 07:32] LABS: AUTOMATED NEUTROPHIL # 4.7 TH/MM3 (1.8-7.7); BASOPHIL % 0.5 % (0.0-2.0); EOSINOPHIL % 0.4 % (0.0-4.0); HEMATOCRIT 23.5 % (39.0-51.0); HEMOGLOBIN 8.1 GM/DL (13.0-17.0); LYMPHOCYTE # 0.3 TH/MM3 (1.0-4.8); MEAN CELL VOLUME 90.2 FL (80.0-100.0); MEAN CORPUSCULAR HEMOGLOBIN 31.2 PG (27.0-34.0); MEAN CORPUSCULAR HGB CONC 34.6 % (32.0-36.0); MONO % 14.6 % (0.0-8.0); MONOCYTE # 0.9 TH/MM3 (0-0.9); NEUT % 79.5 % (16.0-70.0); PLATELET COUNT 66 TH/MM3 (150-450); RED CELL DISTRIBUTION WIDTH 13.9 % (11.6-17.2); WHITE BLOOD COUNT 5.9 TH/MM3 (4.0-11.0)
[2017-07-04] MEDS ORDERED: NITROGLYCERIN INJ 5 ML ONE (07:33)
--- NOTE | 2017-07-04 08:32 | CATHPROC ---
Filmaster HIS Report Study Information Study Number Admission Scheduled Start Study Start [id number] Jun 25 2017 3:24AM 07/04/2017 Jul 04 2017 7:01AM [place] Service Cardiac Catheterization Admit Source Facility Department Other [facility] - Special Client Bus Driver Physician and Clinical Staff Initial Steven Keita Belt Worker Tisha Salcedo,RN Belt Worker Jean-Pierre Silva,RN Recorder Cata Mccoy,RT(R) (BS) Scrub Ayana Green,RT(R) Procedures Performed Procedure Location (Site) Vessel Name Angiogram LV LV Ventricle Coronary Angiograms LCA Left Coronary Coronary Angiograms RCA Right Coronary Coronary Angiograms Abd Aorta (A3) Aorta L Heart Cath Equipment Time Forging Press Setter Up Description Size Mfg Part Number Used/Scraped TRANSDUCER, TRUWAVE [id number] 07:03 ALSTON ALVAREZ * Used W/STOCKCOCK *[id number] 534-676T *[id number] [id number] *[id number] [id number] *[id number] [id number] *[id number] PIGTAIL ANG. 145 INFINITI 534-652S CATHETER *[id number] 08:15 DAIG/ST. ARMAND MEDICAL ANGIOSEAL, FR6 VIP FR 6 Used *[id number] 07:03 M[employer]INCKRODT SYRINGE, ANGIOMAT 150ML 150ML *[id number] Used 2SUB [id number] 07:03 [email or web address] INDUSTRIES PACK, CCL CUSTOM * Used *[id number] 07:03 [employer]You SUPPORT, ARTERIAL ADULT 30255 *[id number] Used [id number] 07:03 [email or web address] PACER PEN, SKIN DUAL W/ RULER * Used *[id number] 08:16 [employer] MEDICAL SHEATH, FR6.5 PRELUDE 11CM FR 6.5 038ACT Used *[id number] 07:03 [employer] MEDICAL WIRE, EXCHANGE 260CM 3MMJ 260CM Used *[id number] 07:03 NAMIC MANIFOLD, 4 PORT * Used *[id number] 07:03 [employer]COMED OMNIPAQUE, 350 MG, 100ML 100ML [id number] Used 07:51 NYCOMED OMNIPAQUE, 350 MG, 50ML 50ML [id number] Used [id number] 07:03 [employer] MEDICAL BLANKET,WARM AIR CCL * Used *[id number] 07:03 [facility] JELCO NEEDLE 4056 *[id number] Used SHEATH, FR6 TRANSRADIAL [id number] 07:03 [facility] 6 Used SLENDER 10CM *[id number] Equipment Model, Serial, Lot Number and Expiration Data Description Model Number Serial Number Lot Number Expiration Date ANGIOSEAL, FR6 VIP [id number] 03-02-2018 History: Allergies Allergy Reaction Sulfa (Sulfonamide Antibiotics) BLURRY VISION WITH SULFA EYE DROPS. History: Risk Factors Family History of Hypertension Dyslipidemia Previous [place] Previous Heart Failure Premature CAD Yes Yes No No No Prior Valve Prior PCI Prior CABG Surgery No No No Cerebrovascular Peripheral Artery Chronic Lung On Dialysis Diabetes Disease Disease Disease No No Yes No No History: Stress Tests Stress or Imaging Studies Performed No History: Other Current Smoker Method Packs a Day Years Used Pack Years Yes Cigarettes 1 55 55 Labs Hgb (g/dl) Hct (%) WBC (l/cumm) Platelets (thousands) 11.60-17.00 35.00-51.00 4.00-11.00 150.00-450.00 8.5 24.6 7.8 72 Glucose (mg/dl) BUN (mg/dl) Creatinine (mg/dl) BUN:Creatinine (1:x) 74.00-106.00 7.00-18.00 0.50-1.30 10.00-20.00 89 6 0.6 10 Na (meq/l) K (meq/l) 136.00-145.00 3.50-5.10 143 4.1 Troponin I (ng/ml) CPK-MB (ng/ML) 0.02-0.05 0.50-3.60 0.51 Not Drawn Medication Medication Total Dose (Bolus/Oral) Medication Total Dosage/Unit 1% XYLOCAINE 20 mL VERSED 2 mg Medications (Bolus/Oral) Medication Time Given Dosage/Unit Administered By Reason VERSED 07/04/2017 7:43:28 AM 1 mg Ricardo, Jean-Pierre 1 mg VERSED given in lab by Jean-Pierre Silva RN via Peripheral IV. VERSED 07/04/2017 7:44:53 AM 1 mg Ricardo, Jean-Pierre 1 mg VERSED given in lab by Jean-Pierre Silva RN via Peripheral IV. 1% XYLOCAINE 07/04/2017 7:45:02 AM 20 mL Steven Cote 20 mL 1% XYLOCAINE given in lab by Steven Cote in Right Groin via Subcutaneous. Medication (Drip) Medication Time Given Dosage/Unit Concentration/Unit Diluent (ml) Solution IV Solutions 07/04/2017 7:14:37 AM 0 mL (IV) 1000 NaCl .9 Patient arrived on IV Solutions in Right shoulder via Peripheral IV. Pump/Drip Flow = 100 ml/hr using NaCl .9. Initial Case Assessment Cardiovascular HR Rhythm NIBP 76 reg 158/92 Edema Present Skin color Skin None Normal Warm Dry Circulatory - Right Pulses Dorsalis Pedis Femoral 2 2 Scale (0,1,2,3,4,d) Circulatory - Left Pulses Dorsalis Pedis Femoral 1 2 Scale (0,1,2,3,4,d) Circulatory - Lower Extremities Color Lower Right Color Lower Left Normal Normal Neurological State Oriented to time-place- Alert Moves all extremities person Respiration - General Respiration Rate SpO2 (%) (B/min) 17 97 Chronological Log Time Study Chronological Log 7:14:16 Patient arrived via Bed. 7:14:17 Patient Name, D.O.B, / Armband Verified By R.N. 7:14:18 Consent signed by the physician and the patient and verified by the Special Client Bus Driver staff. 7:14:18 Pre-op and post- op instructions given; patient acknowledges understanding of instructions. 7:14:19 Verbal Stimulation=2 Physical Stimulation=2 Airway=2 Respiration=2 TOTAL=8. (0=absent, 1=garcia ited, 2=present) 7:14:20 Presedation assessment performed by Special Client Bus Driver RN. 7:14:27 Patient has been NPO for More than 6Hrs. 7:14:29 Skin Breakdown left great toe is blackish 7:14:30 Patient Warmer Placed on the Table. 7:14:35 Nellie Prominences Protected 7:14:37 A port was noted in the Subclav. Vein (Rt). 7:14:37 Patient arrived on IV Solutions in Right shoulder via Peripheral IV. Pump/Drip Flow = 100 ml /hr using NaCl .9. 7:14:38 History and physical on the chart or being dictated. Assessment: Initial Case, HR=76 BPM, Rhythm=reg, LLLG=439/92 mmhg, Edema=None, Color=Normal, Ski n = Warm, Dry Right Pulses: Pop Ped=2, Femoral=2 Left Pulses: Pop Ped=1, Femoral=2 7:14:40 Lower Right Extremities: Color=Normal Lower Left Extremities: Color=Normal Neurological: State=Alert, Ox3, CORTEZ Respiration: Resp=17 B/min, SpO2=97 % Vitals capture started with the following parameters, Patient=Adult, Interval=5 min, Initial Pre cslbg=168 mmHg, 7:23:50 Deflation Rate=5 mmHg, Cuff placed on Unknown 7:24:26 HR=82 bpm, FSWA=099/92 mmhg, SpO2=96.0 %, Resp=14 B/min, Pain=0, Pablo=10, Sanches=2 7:29:29 HR=77 bpm, SVCW=288/84 mmhg, SpO2=95.0 %, Resp=21 B/min, Pain=0, Pablo=10, Sanches=2 7:31:55 Bilateral groins prepped with 2% chlorhexidine, and draped after a 3 minute waiting time. 7:34:12 Reference ECG taken 7:34:28 HR=87 bpm, IRJG=385/88 mmhg, SpO2=96.0 %, Resp=17 B/min, Pain=0, Pablo=10, Sanches=2 7:36:25 MD paged 7:37:48 MD arrived 7:38:41 Pressure channel 1 zeroed. 7:39:28 HR=75 bpm, ARIW=445/87 mmhg, SpO2=94.0 %, Resp=17 B/min, Pain=0, Pablo=10, Sanches=2 7:43:28 1 mg VERSED given in lab by Jean-Pierre Silva, RN via Peripheral IV. Time Out. Correct patient, correct procedure, correct physician, power injector loaded with cont rast with surgical team 7:43:31 present. Time Out Concurred by MD and individual staff in procedure. 7:43:40 Case Start 7:44:31 HR=78 bpm, ZMKG=677/86 mmhg, SpO2=94.0 %, Resp=21 B/min, Pain=0, Pablo=10, Sanches=2 7:44:53 1 mg VERSED given in lab by Jean-Pierre Silva, RN via Peripheral IV. 7:45:02 20 mL 1% XYLOCAINE given in lab by Steven Cote in Right Groin via Subcutaneous. 7:48:26 Access site was Right Femoral Artery. 7:48:32 A SHEATH, FR6.5 PRELUDE 11CM FR 6.5 was advanced into the Fem Art (right) using the Percutan eous technique. A PIGTAIL ANG. 145 INFINITI CATHETER FR 6 was advanced over a wire. OMNIPAQUE, 350 MG, 100ML 100 ML was 7:49:18 used for injections. 7:49:32 HR=71 bpm, OGQZ=869/66 mmhg, SpO2=95.0 %, Resp=14 B/min, Pain=0, Pablo=10, Sanches=2 Recorded Pressure: LV, HR=80, Condition=Condition 1 7:50:33 (Left Ventricle) LV 147/2/9 7:50:46 The LV was injected at 10 cc/sec for a total of 30. OMNIPAQUE, 350 MG, 50ML 50ML used. Recorded Pressure: LV, Ao, HR=78, Condition=Condition 1 7:52:18 (Left Ventricle) LV 100/1/6, (Aorta) Ao 107/51/74 7:54:31 HR=70 bpm, TCYN=789/75 mmhg, SpO2=94.0 %, Resp=19 B/min, Pain=0, Pablo=10, Sanches=2 After removing the current catheter a JL 4.5 INFINITI CATHETER FR 6 was advanced over a WIRE, EX CHANGE 260CM 7:55:00 3MMJ 260CM. After removing the current catheter a JL 5.0 INFINITI CATHETER FR 6 was advanced over a WIRE, EX CHANGE 260CM 7:56:52 3MMJ 260CM. Recorded Pressure: Ao, HR=70, Condition=Condition 1 7:58:39 (Aorta) Ao 126/59/85 7:58:46 The LCA was injected and visualized at various angles. OMNIPAQUE, 350 MG, 100ML 100ML used. 7:59:28 HR=73 bpm, TVDL=239/79 mmhg, SpO2=95.0 %, Resp=15 B/min, Pain=0, Pablo=10, Sanches=2 After removing the current catheter a 3DRC INFINITI CATHETER FR 6 was advanced over a WIRE, EXCH SHAHLA 260CM 8:01:33 3MMJ 260CM. 8:02:52 The RCA was injected and visualized at various angles. OMNIPAQUE, 350 MG, 100ML 100ML used. 8:04:27 HR=72 bpm, ZANQ=568/81 mmhg, SpO2=93.0 %, Resp=19 B/min, Pain=0, Pablo=10, Sanches=2 8:05:07 Catheter was removed A JR 4.0 INFINITI CATHETER FR 6 was advanced over a wire. OMNIPAQUE, 350 MG, 100ML 100ML was use d for 8:05:08 injections. 8:06:19 The Abd Aorta (A3) was injected and visualized at various angles. OMNIPAQUE, 350 MG, 100ML 1 00ML used. 8:09:19 Catheter was removed 8:09:30 HR=74 bpm, UKCM=402/81 mmhg, SpO2=95.0 %, Resp=19 B/min, Pain=0, Pablo=10, Sanches=2 8:10:04 MD reviewing images 8:14:33 HR=73 bpm, TVIX=602/84 mmhg, SpO2=95.0 %, Resp=23 B/min, Pain=0, Pablo=10, Sanches=2 8:14:58 An injection in the Fem Art (right) was made through the SHEATH, FR6.5 PRELUDE 11CM FR 6.5. 8:16:37 ANGIOSEAL, FR6 VIP FR 6 placement in the Fem Art (right) 8:17:27 Case End 8:17:34 Catheter(s) removed without difficulty 8:18:06 No case complications noted. 8:18:19 Bedside Report will be given. 8:18:20 Implantable Device card placed in patient's chart. 8:18:23 A Left Heart Cath was performed. 8:19:34 HR=72 bpm, QCOU=504/75 mmhg, SpO2=95.0 %, Resp=20 B/min, Pain=0, Pablo=10, Sanches=2 8:20:22 CIC called. Spoke to Thelma. 8:24:31 IAVR=234/91 mmhg, SpO2=94.0 %, Pain=0, Pablo=10, Sanches=2 8:28:19 Patient moved to stretcher 8:29:24 Vitals capture stopped. End Study - Contrast Media Used In Study Contrast Total Opened (mL) Total Used (mL) Total Wasted (mL) Omnipaque 110 110 0 End Study - Maximum Contrast Load Max Contrast Load (mL) 611.0 End Study - Radiation Exposure Fluoro Time (minutes) 5.3 End Study - Sheaths Sheaths Pulled By Sheath Hold Time (min) Steven Cote End Study - Patient Disposition Complications Transferred To Interventional Outcome No Telemetry Bed No attempt made
[2017-07-04] MEDS ORDERED: SODIUM CHLOR 0.9% 1000 ML INJ 1,000 ML IV SCH (08:37)
[2017-07-04 08:44] LABS: BANDS 12 % (0-6); CORRECTED NUCLEATED RBC 1 /100 WBC (0-0); LYMPHOCYTES 3 % (9-44); METAMYELOCYTES 10 % (0-1); MONOCYTES 8 % (0-8); MYELOCYTES 4 % (0-0); NEUTROPHIL # MANUAL DIFF 5.3 TH/MM3 (1.8-7.7); NUCLEATED RED BLOOD CELL 1 (0-0); POLYS (SEG NEUTROPHILS) 63 % (16-70)
[2017-07-04] MEDS ORDERED: SODIUM CHLORIDE 0.9% FLUSH 10 ML FLUSH IV FLUSH PRN (08:45)
[2017-07-04] MEDS: NITROGLYCERIN 0.1 MG/HR PATCH T-DERMAL SCH (08:52)
[2017-07-04] MEDS: FAMOTIDINE 20 MG TAB PO SCH ×2 (08:53→19:50)
[2017-07-04] MEDS: POTASSIUM CHLORIDE 20 MEQ CONTROLLED RELEASE TAB PO SCH (08:53)
[2017-07-04] MEDS: SODIUM CHLORIDE 0.9% FLUSH 10 ML FLUSH IV FLUSH SCH ×2 (08:54→19:53)
[2017-07-04] MEDS: guaiFENesin E.R. 600 MG TAB PO SCH ×2 (08:54→19:50)
[2017-07-04] MEDS: METOPROLOL TARTRATE 25 MG TAB PO SCH ×2 (08:54→19:52)
[2017-07-04] MEDS ORDERED: BACITRACIN OINT 0.9 GM PKT TOP ONE (09:00)
--- NOTE | 2017-07-04 11:03 | HHI.PR ---
Subjective Remarks Patient reports he is doing okay. Left great toe pain is unchanged. Status post heart catheterization today. Objective Vitals Vital Signs Date Time Temp Pulse Resp B/P (MAP) Pulse Ox O2 Delivery O2 Flow Rate FiO2 07/04/17 08:41 97.6 73 167/70 (102) 97 07/04/17 04:20 98.5 77 17 153/73 (99) 97 07/04/17 04:00 64 07/04/17 00:35 97.0 61 16 152/70 (97) 97 07/04/17 00:00 59 07/03/17 20:30 97.7 69 16 149/74 (99) 99 07/03/17 20:00 66 07/03/17 17:40 69 07/03/17 16:56 98.0 91 18 125/67 (86) 97 07/03/17 12:45 67 I/O 07/03/17 07/03/17 07/03/17 07/04/17 07/04/17 07/04/17 07:00 15:00 23:00 07:00 15:00 23:00 Intake Total 480 ml 1200 ml Output Total 2200 ml 200 ml 1900 ml 500 ml Balance -1720 ml -200 ml -700 ml -500 ml Intake Oral 480 ml IV Total 1200 ml Output Urine Total 2200 ml 200 ml 1900 ml 500 ml # Bowel Movements 1 Result Diagram: 07/04/17 0655 07/04/17 0445 Objective Remarks GENERAL: Elderly male in no acute distress. CARDIOVASCULAR: Normal rate and regular rhythm without murmurs, gallops, or rubs. RESPIRATORY: Good respiratory efforts. Breath sounds equal and clear to auscultation bilaterally. GASTROINTESTINAL: Abdomen soft, non-tender, non-distended. Normal active bowel sounds MUSCULOSKELETAL: Left great toe is purple. I am unable to palpate dorsalis pedis pulses bilaterally. Exam stable today. This has been intermittently worse , affecting the 2nd and 3rd toes as well. NEURO: Alert & Oriented x4 to person, place, time, situation. Moves all ext x4 PSYCH: Appropriate mood and affect. A/P Problem List: (1) Severe sepsis ICD Code: A41.9 - Sepsis, unspecified organism; R65.20 - Severe sepsis without septic shock Status: Acute Plan: Sepsis syndrome resolved. DW ID. Agree with discontinuing antibiotics and monitor. (2) Non-STEMI (non-ST elevated myocardial infarction) ICD Code: I21.4 - Non-ST elevation (NSTEMI) myocardial infarction Plan: Cardiology following. Status post heart catheterization. Official report pending. Continue aspirin, metoprolol. Check lipids (3) PNA (pneumonia) ICD Code: J18.9 - Pneumonia, unspecified organism Plan: S/P treatment with antibiotics. Was followed by ID. (4) PAD (peripheral artery disease) ICD Code: I73.9 - Peripheral vascular disease, unspecified Status: Acute Plan: ESTELA conclusion: Severely compromised left leg circulation. Acute on chronic. Vascular surgery following, Dr. Suero Podiatreddi consulted as well. Vascular surgery to follow-up (5) Bladder cancer ICD Code: C67.9 - Malignant neoplasm of bladder, unspecified Status: Chronic Plan: Patient undergoing chemotherapy with Dr. Valerio. Appreciate Oncology following. (6) Pancytopenia ICD Code: D61.818 - Other pancytopenia Status: Acute Plan: Secondary to chemotherapy. Much improved. Monitor labs. -Hematology/oncology following. Status post transfusion and Neupogen ordered per Heme/Onc - Neupogen on hold for now as counts recovering. (7) Anemia ICD Code: D64.9 - Anemia, unspecified (8) Diarrhea ICD Code: R19.7 - Diarrhea, unspecified Status: Resolved (9) Electrolyte abnormality ICD Code: E87.8 - Other disorders of electrolyte and fluid balance, not elsewhere classified Status: Resolved Discharge Planning Pending further input from Vascular surgery. Problem Qualifiers (1) PNA (pneumonia): Monica Meyer MD Jul 04, 2017 11:03
[2017-07-04] MEDS: ENOXAPARIN SODIUM 40 MG/0.4 ML SYRINGE SQ SCH (11:27)
--- NOTE | 2017-07-04 11:55 | PD.ONC.PN ---
Subjective Subjective Remarks Afebrile overnight. Patient resting in bed in nad. No complaints. Had cardiac catheterization this AM. Objective Data Date Time Temp Pulse Resp B/P (MAP) Pulse Ox O2 Delivery O2 Flow Rate FiO2 07/04/17 11:30 97.1 65 18 113/59 (77) 98 07/04/17 08:41 97.6 73 167/70 (102) 97 07/04/17 04:20 98.5 77 17 153/73 (99) 97 07/04/17 04:00 64 07/04/17 00:35 97.0 61 16 152/70 (97) 97 07/04/17 00:00 59 07/03/17 20:30 97.7 69 16 149/74 (99) 99 07/03/17 20:00 66 07/03/17 17:40 69 07/03/17 16:56 98.0 91 18 125/67 (86) 97 07/03/17 12:45 67 07/04/17 07/04/17 07/04/17 07:00 15:00 23:00 Intake Total 1200 ml Output Total 1900 ml 500 ml Balance -700 ml -500 ml Result Diagram: 07/04/17 0655 07/04/17 0445 Laboratory Results Laboratory Tests Test 07/04/17 04:45 07/04/17 06:55 Blood Urea Nitrogen 6 MG/DL Creatinine 0.62 MG/DL Random Glucose 89 MG/DL Calcium Level 7.6 MG/DL Sodium Level 143 MEQ/L Potassium Level 4.1 MEQ/L Chloride Level 110 MEQ/L Carbon Dioxide Level 25.0 MEQ/L Anion Gap 8 MEQ/L Estimat Glomerular Filtration Rate 125 ML/MIN White Blood Count 5.9 TH/MM3 Red Blood Count 2.60 MIL/MM3 Hemoglobin 8.1 GM/DL Hematocrit 23.5 % Mean Corpuscular Volume 90.2 FL Mean Corpuscular Hemoglobin 31.2 PG Mean Corpuscular Hemoglobin Concent 34.6 % Red Cell Distribution Width 13.9 % Platelet Count 66 TH/MM3 Mean Platelet Volume 9.0 FL Neutrophils (%) (Auto) 79.5 % Lymphocytes (%) (Auto) 5.0 % Monocytes (%) (Auto) 14.6 % Eosinophils (%) (Auto) 0.4 % Basophils (%) (Auto) 0.5 % Neutrophils # (Auto) 4.7 TH/MM3 Lymphocytes # (Auto) 0.3 TH/MM3 Monocytes # (Auto) 0.9 TH/MM3 Eosinophils # (Auto) 0.0 TH/MM3 Basophils # (Auto) 0.0 TH/MM3 CBC Comment AUTO DIFF Differential Total Cells Counted 100 Neutrophils % (Manual) 63 % Band Neutrophils % 12 % Lymphocytes % 3 % Monocytes % 8 % Neutrophils # (Manual) 5.3 TH/MM3 Metamyelocytes 10 % Myelocytes 4 % Nucleated Red Blood Cells 1 /100 WBC Differential Comment FINAL DIFF MANUAL Platelet Estimate LOW Platelet Morphology Comment NORMAL Red Cell Morphology Comment Administered Medications Medications (Trade) Dose Ordered Sig/Leeann Route PRN Reason Start Time Stop Time Status Last Admin Dose Admin Ondansetron HCl (Zofran Inj) 4 mg Q6H PRN IVP NAUSEA OR VOMITING 06/25/17 03:30 07/01/17 18:46 Acetaminophen (Tylenol) 650 mg Q6H PRN PO FEVER/PAIN SCALE 1 TO 2 06/25/17 03:30 07/01/17 23:21 Acetaminophen/ Hydrocodone Bitart ([place] 5-325 Mg) 1 tab Q4H PRN PO PAIN SCALE 3 TO 5 06/25/17 03:30 07/04/17 08:54 Morphine Sulfate (Morphine Inj) 2 mg Q3H PRN IV PUSH Pain 6-10 06/25/17 03:30 06/28/17 09:54 Guaifenesin (Mucinex Er) 600 mg BID PO 06/25/17 09:00 07/04/17 08:54 Loperamide HCl (Imodium) 2 mg UNSCH PRN PO DIARRHEA 06/26/17 10:15 06/26/17 13:11 Diphenhydramine HCl (Benadryl) 25 mg Q4H PRN PO SEE LABEL COMMENTS 06/27/17 08:00 06/27/17 16:36 Famotidine (Pepcid) 20 mg BID PO 06/27/17 21:00 07/04/17 08:53 Nitroglycerin (Nitro-Dur 0.1 Mg Patch.24hr) 1 patch DAILY T-DERMAL 06/30/17 15:00 07/04/17 08:52 Enoxaparin Sodium (Lovenox Inj) 40 mg Q24H SQ 07/02/17 12:00 07/02/17 13:04 Metoprolol Tartrate (Lopressor) 25 mg BID PO 07/02/17 21:00 07/04/17 08:54 Potassium Chloride (KCl) 20 meq DAILY PO 07/02/17 15:45 07/04/17 08:53 Sodium Chloride 1,000 ml @ 100 mls/hr Q10H IV 07/04/17 08:37 07/04/17 14:36 07/04/17 11:29 Sodium Chloride (NS Flush) 2 ml BID IV FLUSH 07/04/17 09:00 07/04/17 08:54 Objective Remarks GENERAL: Elderly male, sitting up in bed in nad. SKIN: Warm and dry. HEAD: Normocephalic. EYES: No injection or drainage. NECK: Supple, trachea midline. CARDIOVASCULAR: Regular rate and rhythm RESPIRATORY: Breath sounds equal bilaterally. No accessory muscle use. GASTROINTESTINAL: Abdomen soft, non-tender, nondistended. EXTREMITIES: No cyanosis NEUROLOGICAL: awake and alert. normal speech. moving extremities. Assessment/Plan Problem List: (1) Non-STEMI (non-ST elevated myocardial infarction) ICD Codes: I21.4 - Non-ST elevation (NSTEMI) myocardial infarction Plan: 07/04: underwent cardiac cath this AM by Dr. Cote which showed mild CAD, no stent needed. (2) Bladder cancer ICD Codes: C67.9 - Malignant neoplasm of bladder, unspecified Status: Chronic Plan: 07/04/17: once discharged plan for follow up at [facility] --currently on combined chemotherapy and radiation therapy with cisplatin and gemcitabine. (hold while inpatient) (3) PAD (peripheral artery disease) ICD Codes: I73.9 - Peripheral vascular disease, unspecified Status: Acute Plan: --vascular surgery following. (4) Sepsis ICD Codes: A41.9 - Sepsis, unspecified organism Status: Acute Plan: --BC 06/28 no growth --BC no growth from 06/24 --on Dapto + Cefepime. --ID following (5) Dyspepsia ICD Codes: R10.13 - Epigastric pain Status: Resolved Plan: --on PO Pepcid BID (6) Pancytopenia ICD Codes: D61.818 - Other pancytopenia Status: Acute Plan: --counts recovering. -- transfuse for hemoglobin of less than 7 or platelet count of less than 20, 000. Assessment 77y/o male with locally advanced bladder cancer, currently receiving definitive chemotherapy and radiation therapy admitted with sepsis, nausea and vomiting. Attending Statement The exam, history, and the medical decision-making described in the above note were completed with the assistance of the mid-level provider. I reviewed and agree with the findings presented. I attest that I had a [id number] encounter with the patient on the same day, and personally performed and documented my assessment and findings in the medical record. Denies any problem. just came back from Cath, which showed mild CAD. 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 DR Walters need to decide about treatment. WBC is back to normal. Plat are low but can be improved with TX if need vascular surgery. Anemia can be improve with PRBC prior to vacsular surgery if needed. Problem Qualifiers (1) Sepsis: Qualified Codes: A41.9 - Sepsis, unspecified organism Tiesha Sutherland Jul 04, 2017 11:55 Deepali Valerio MD Jul 04, 2017 22:06
[2017-07-04] MEDS ORDERED: IOHEXOL 350 MG/ML 100 ML BTL (for Cath Lab) OTHER ONE (12:55)
[2017-07-04] MEDS ORDERED: IOHEXOL 350 MG/ML 50 ML BTL (for Cath Lab) OTHER ONE (12:55)
--- NOTE | 2017-07-04 14:37 | PD.CAR.PN ---
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 Steven Cote. 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 Due to his systemic condition he is not a candidate for aortofemoral bypass however he would be appropriate candidate for femoral-femoral bypass On the other hand, if he is to receive radiation therapy in the near future, then femoro-femoral bypass will need to be postponed We will discuss with oncology and get a better picture of the plan Objective: Vital Signs Date Time Temp Pulse Resp B/P (MAP) Pulse Ox O2 Delivery O2 Flow Rate FiO2 07/04/17 11:30 97.1 65 18 113/59 (77) 98 07/04/17 08:41 97.6 73 167/70 (102) 97 07/04/17 04:20 98.5 77 17 153/73 (99) 97 07/04/17 04:00 64 07/04/17 00:35 97.0 61 16 152/70 (97) 97 07/04/17 00:00 59 07/03/17 20:30 97.7 69 16 149/74 (99) 99 07/03/17 20:00 66 07/03/17 17:40 69 07/03/17 16:56 98.0 91 18 125/67 (86) 97 Labs: Laboratory Tests Test 07/04/17 04:45 07/04/17 06:55 Blood Urea Nitrogen 6 MG/DL (7-18) Creatinine 0.62 MG/DL (0.60-1.30) Random Glucose 89 MG/DL (74-106) Calcium Level 7.6 MG/DL (8.5-10.1) Sodium Level 143 MEQ/L (136-145) Potassium Level 4.1 MEQ/L (3.5-5.1) Chloride Level 110 MEQ/L (98-107) Carbon Dioxide Level 25.0 MEQ/L (21.0-32.0) Anion Gap 8 MEQ/L (5-15) Estimat Glomerular Filtration Rate 125 ML/MIN (>89) White Blood Count 5.9 TH/MM3 (4.0-11.0) Red Blood Count 2.60 MIL/MM3 (4.50-5.90) Hemoglobin 8.1 GM/DL (13.0-17.0) Hematocrit 23.5 % (39.0-51.0) Mean Corpuscular Volume 90.2 FL (80.0-100.0) Mean Corpuscular Hemoglobin 31.2 PG (27.0-34.0) Mean Corpuscular Hemoglobin Concent 34.6 % (32.0-36.0) Red Cell Distribution Width 13.9 % (11.6-17.2) Platelet Count 66 TH/MM3 (150-450) Mean Platelet Volume 9.0 FL (7.0-11.0) Neutrophils (%) (Auto) 79.5 % (16.0-70.0) Lymphocytes (%) (Auto) 5.0 % (9.0-44.0) Monocytes (%) (Auto) 14.6 % (0.0-8.0) Eosinophils (%) (Auto) 0.4 % (0.0-4.0) Basophils (%) (Auto) 0.5 % (0.0-2.0) Neutrophils # (Auto) 4.7 TH/MM3 (1.8-7.7) Lymphocytes # (Auto) 0.3 TH/MM3 (1.0-4.8) Monocytes # (Auto) 0.9 TH/MM3 (0-0.9) Eosinophils # (Auto) 0.0 TH/MM3 (0-0.4) Basophils # (Auto) 0.0 TH/MM3 (0-0.2) CBC Comment AUTO DIFF Differential Total Cells Counted 100 Neutrophils % (Manual) 63 % (16-70) Band Neutrophils % 12 % (0-6) Lymphocytes % 3 % (9-44) Monocytes % 8 % (0-8) Neutrophils # (Manual) 5.3 TH/MM3 (1.8-7.7) Metamyelocytes 10 % (0-1) Myelocytes 4 % (0-0) Nucleated Red Blood Cells 1 /100 WBC (0-0) Differential Comment FINAL DIFF MANUAL Platelet Estimate LOW (NORMAL) Platelet Morphology Comment NORMAL (NORMAL) Red Cell Morphology Comment (NORMAL) Result Diagram: 07/04/17 0655 07/04/17 0445 (1) Non-STEMI (non-ST elevated myocardial infarction) (2) COPD (chronic obstructive pulmonary disease) (3) Pancytopenia (4) PAD (peripheral artery disease) (5) Bladder cancer Juan J Maya MD Jul 04, 2017 14:37
[2017-07-05] VITALS (30 sets, daily range): BP systolic 10–125; BP diastolic 63–75; PULSE 52–87; RESP 16–20; TEMP 97–98.7; O2SAT 95–99
[2017-07-05] MEDS: ACETAMINOPHEN/HYDROcodone 325 MG/5 MG TAB PO PRN ×3 (00:36→08:46)
[2017-07-05 06:38] LABS: BASOPHIL % 0.4 % (0.0-2.0); EOSINOPHIL % 0.3 % (0.0-4.0); HEMATOCRIT 23.3 % (39.0-51.0); HEMOGLOBIN 8.1 GM/DL (13.0-17.0); LYMPH % 6.2 % (9.0-44.0); LYMPHOCYTE # 0.3 TH/MM3 (1.0-4.8); MEAN CELL VOLUME 89.9 FL (80.0-100.0); MEAN CORPUSCULAR HEMOGLOBIN 31.2 PG (27.0-34.0); MEAN CORPUSCULAR HGB CONC 34.7 % (32.0-36.0); MEAN PLATELET VOLUME 8.7 FL (7.0-11.0); MONO % 14.7 % (0.0-8.0); MONOCYTE # 0.8 TH/MM3 (0-0.9); NEUT % 78.4 % (16.0-70.0); PLATELET COUNT 119 TH/MM3 (150-450); RED BLOOD COUNT 2.59 MIL/MM3 (4.50-5.90); RED CELL DISTRIBUTION WIDTH 14.6 % (11.6-17.2); WHITE BLOOD COUNT 5.1 TH/MM3 (4.0-11.0)
[2017-07-05 07:07] LABS: BICARBONATE 25.3 MEQ/L (21.0-32.0); CALCIUM 8.3 MG/DL (8.5-10.1); CREATININE 0.75 MG/DL (0.60-1.30)
[2017-07-05 07:54] LABS: BANDS 9 % (0-6); BASOPHILS 1 % (0-2); LYMPHOCYTES 7 % (9-44); METAMYELOCYTES 7 % (0-1); MONOCYTES 7 % (0-8); MYELOCYTES 3 % (0-0); NEUTROPHIL # MANUAL DIFF 4.3 TH/MM3 (1.8-7.7); POLYS (SEG NEUTROPHILS) 66 % (16-70)
[2017-07-05] MEDS: guaiFENesin E.R. 600 MG TAB PO SCH ×2 (08:44→21:09)
[2017-07-05] MEDS: FAMOTIDINE 20 MG TAB PO SCH ×2 (08:44→21:09)
[2017-07-05] MEDS: POTASSIUM CHLORIDE 20 MEQ CONTROLLED RELEASE TAB PO SCH (08:45)
[2017-07-05] MEDS: SODIUM CHLORIDE 0.9% FLUSH 10 ML FLUSH IV FLUSH SCH ×2 (08:46→21:12)
[2017-07-05] MEDS: METOPROLOL TARTRATE 25 MG TAB PO SCH ×2 (08:46→21:09)
[2017-07-05] MEDS ORDERED: SODIUM CHLOR 0.9% 250 ML INJ 250 ML IV ONE (09:00)
--- NOTE | 2017-07-05 11:36 | MA ---
cc: Steven Cote MD DATE: 07/02/2017 PROCEDURE PERFORMED: Left heart catheterization, left ventriculography Coronary angiography, Bilateral iliac angiography DESCRIPTION OF PROCEDURE: Prior to the procedure, an Gil's test was performed on the right. The patient failed his Gil's test. Left radial pulse is absent, for this reason, I chose the right groin. He does not have a pulse in his left groin. The patient was sedated with 2 mg of IV Versed. Using 1% lidocaine for local anesthesia, a 6-1/2 Yoruba sheath. was inserted in the RFA. A left 5 Dayana was used to image the left coronary artery. The right coronary artery was imaged with a 3DRC catheter. All the catheter exchanges were performed over a wire. I then used a right 4 Dayana to image the left and right iliacs. FINDINGS: 1. Hemodynamics. There was no gradient during pullback from the left ventricle to the aorta. 2. Left ventriculography shows moderate posterobasal hypokinesis with an EF of about 60%. There is no mitral regurgitation. 3. Coronary angiography. The coronary arteries look very smooth. Left main coronary artery appears normal. The proximal left anterior descending artery and the major first diagonal branch appear normal. After the second diagonal, the LAD has a very focal stenosis best appreciated in the GEORGIAN cranial views. This is not thought to be more severe than 50-60%. This lesion could be treated medically. Circumflex artery appears smooth and appears normal. The right coronary artery has an eccentric 30-40% proximal stenosis and a smooth 30% mid stenosis. It looks like this can be treated medically as well. 4. Iliac angiography. Angiography of the left iliac artery shows that the external iliac artery appears to be totally occluded with collaterals to the common femoral artery. On the right leg the external iliac has diffuse 50% scattered disease. CONCLUSIONS IMPRESSION: 1. Overall, preserved left ventricular function, but with posterobasal hypokinesis. 2. Normal hemodynamics. 3. Mild 2-vessel coronary artery disease. 4. 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 RECOMMENDATIONS: An attempt at percutaneous intervention on the left iliac artery. Steven Cote MD VEW/TL/rr , 08:35 AM , 09:03 AM [facility]
[2017-07-05] MEDS ORDERED: ALTEPLASE RECOMBINANT 2 MG VIAL INTRACATH PRN ×2 (12:15→14:30)
[2017-07-05] MEDS ORDERED: IOHEXOL 350 MG/ML 10 ML VIAL (for RAD DIAG) IVCONTRAST ONE (12:18)
[2017-07-05] MEDS: NITROGLYCERIN 0.1 MG/HR PATCH T-DERMAL SCH (12:43)
--- NOTE | 2017-07-05 12:53 | HHI.PR ---
Subjective Remarks Patient reports he is doing okay. Left great toe pain is unchanged. Status post heart catheterization today.. 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 Objective Vitals Vital Signs Date Time Temp Pulse Resp B/P (MAP) Pulse Ox O2 Delivery O2 Flow Rate FiO2 07/05/17 11:30 97.5 61 18 118/70 (86) 97 07/05/17 09:55 20 07/05/17 08:00 62 07/05/17 08:00 98.6 62 16 112/67 (82) 98 07/05/17 05:00 68 07/05/17 04:31 98.4 69 16 10 (48) 97 07/05/17 04:05 61 07/05/17 03:00 64 07/05/17 02:00 68 07/05/17 01:00 64 07/05/17 00:29 97.0 70 18 124/63 (83) 98 07/05/17 00:01 87 07/04/17 22:00 70 07/04/17 21:00 70 07/04/17 20:07 81 07/04/17 19:46 97.9 82 18 116/73 (87) 99 07/04/17 19:00 70 07/04/17 17:29 97.2 88 18 118/91 (100) 98 07/04/17 17:27 79 07/04/17 15:00 94 07/04/17 14:39 84 18 114/69 (84) 99 I/O 07/04/17 07/04/17 07/04/17 07/05/17 07/05/17 07/05/17 07:00 15:00 23:00 07:00 15:00 23:00 Intake Total 1200 ml 1160 ml 240 ml Output Total 1900 ml 500 ml 925 ml 940 ml Balance -700 ml -500 ml 235 ml -700 ml Intake Oral 360 ml 240 ml IV Total 1200 ml 800 ml Output Urine Total 1900 ml 500 ml 925 ml 940 ml Result Diagram: 07/05/17 0510 07/05/17 0510 Other Results Laboratory Tests Test 07/03/17 05:57 07/04/17 04:45 07/04/17 06:55 07/05/17 05:10 White Blood Count 7.8 TH/MM3 5.9 TH/MM3 5.1 TH/MM3 Red Blood Count 2.76 MIL/MM3 2.60 MIL/MM3 2.59 MIL/MM3 Hemoglobin 8.5 GM/DL 8.1 GM/DL 8.1 GM/DL Hematocrit 24.6 % 23.5 % 23.3 % Mean Corpuscular Volume 89.1 FL 90.2 FL 89.9 FL Mean Corpuscular Hemoglobin 30.9 PG 31.2 PG 31.2 PG Mean Corpuscular Hemoglobin Concent 34.7 % 34.6 % 34.7 % Red Cell Distribution Width 14.3 % 13.9 % 14.6 % Platelet Count 72 TH/MM3 66 TH/MM3 119 TH/MM3 Mean Platelet Volume 9.2 FL 9.0 FL 8.7 FL CBC Comment AUTO DIFF AUTO DIFF AUTO DIFF Differential Total Cells Counted 100 100 100 Neutrophils % (Manual) 60 % 63 % 66 % Band Neutrophils % 8 % 12 % 9 % Lymphocytes % 7 % 3 % 7 % Monocytes % 10 % 8 % 7 % Eosinophils % 2 % Neutrophils # (Manual) 6.3 TH/MM3 5.3 TH/MM3 4.3 TH/MM3 Metamyelocytes 5 % 10 % 7 % Myelocytes 8 % 4 % 3 % Nucleated Red Blood Cells 1 /100 WBC 1 /100 WBC Differential Comment FINAL DIFF MANUAL FINAL DIFF MANUAL FINAL DIFF MANUAL Toxic Granulation 1+ Platelet Estimate LOW LOW LOW Platelet Morphology Comment NORMAL NORMAL NORMAL Blood Urea Nitrogen 5 MG/DL 6 MG/DL 5 MG/DL Creatinine 0.81 MG/DL 0.62 MG/DL 0.75 MG/DL Random Glucose 100 MG/DL 89 MG/DL 91 MG/DL Calcium Level 8.0 MG/DL 7.6 MG/DL 8.3 MG/DL Sodium Level 142 MEQ/L 143 MEQ/L 139 MEQ/L Potassium Level 3.8 MEQ/L 4.1 MEQ/L 3.9 MEQ/L Chloride Level 109 MEQ/L 110 MEQ/L 106 MEQ/L Carbon Dioxide Level 26.0 MEQ/L 25.0 MEQ/L 25.3 MEQ/L Anion Gap 7 MEQ/L 8 MEQ/L 8 MEQ/L Estimat Glomerular Filtration Rate 92 ML/MIN 125 ML/MIN 101 ML/MIN Neutrophils (%) (Auto) 79.5 % 78.4 % Lymphocytes (%) (Auto) 5.0 % 6.2 % Monocytes (%) (Auto) 14.6 % 14.7 % Eosinophils (%) (Auto) 0.4 % 0.3 % Basophils (%) (Auto) 0.5 % 0.4 % Neutrophils # (Auto) 4.7 TH/MM3 4.0 TH/MM3 Lymphocytes # (Auto) 0.3 TH/MM3 0.3 TH/MM3 Monocytes # (Auto) 0.9 TH/MM3 0.8 TH/MM3 Eosinophils # (Auto) 0.0 TH/MM3 0.0 TH/MM3 Basophils # (Auto) 0.0 TH/MM3 0.0 TH/MM3 Red Cell Morphology Comment Basophils % 1 % Imaging Last Impressions Chest X-Ray 06/30/17 0000 Signed Impressions: Service Date/Time: Friday, June 30, 2017 08:43 - CONCLUSION: No acute disease. David Martinez MD Abdomen X-Ray 06/30/17 0000 Signed Impressions: Service Date/Time: Friday, June 30, 2017 08:47 - CONCLUSION: No evidence of obstruction. Aortic stent graft identified. David Martinez MD Abdomen/Pelvis CT 06/24/17 2318 Signed Impressions: Service Date/Time: Sunday, June 25, 2017 00:13 - CONCLUSION: 1. Unremarkable bowel gas pattern on this noncontrast exam performed without oral contrast. 2. New patchy opacity in the posterior right lower lobe which is nonspecific and is of unclear chronicity but is new from 2015. The differential diagnosis includes pneumonia, scarring and asbestosis. 3. Status post interval abdominal aortic aneurysm repair with stent graft in place. 4. Multiple small partially calcified bilateral pleural plaques are now present. 5. Unremarkable gallbladder. Koby Interiano MD Objective Remarks GENERAL: Awake alert and oriented 3 talkative and cooperative appears stated age SKIN: Warm and dry. Left great toe is gangrenOUS HEAD: Atraumatic. Normocephalic. EYES: Pupils equal and round. No scleral icterus. No injection or drainage. Extraocular muscles intact ENT: No nasal bleeding or discharge. Mucous membranes pink and moist. Tongue is midline NECK: Trachea midline. No JVD. Supple CARDIOVASCULAR: Regular rate and rhythm. S1-S2 no S3-S4 RESPIRATORY: No accessory muscle use. Clear to auscultation. Breath sounds equal bilaterally. GASTROINTESTINAL: Abdomen soft, non-tender, nondistended. Hepatic and splenic margins not palpable. Obese MUSCULOSKELETAL: Extremities without clubbing, cyanosis, or edema. No obvious deformities. Left great toe is gangrenous NEUROLOGICAL: Awake and alert. No obvious cranial nerve deficits. Motor grossly within normal limits. Five out of 5 muscle strength in the arms and legs. Normal speech. PSYCHIATRIC: Appropriate mood and affect; insight and judgment normal. Procedures 07/02/2017 PROCEDURE PERFORMED: DESCRIPTION OF PROCEDURE: Prior to the procedure, an Gil's test was performed on the right. The patient failed his Gil's test. Left radial pulse is absent, for this reason, I chose the right groin. He does not have a pulse in his left groin. The patient was sedated with 2 mg of IV Versed. Using 1% lidocaine for local anesthesia, a 6-1/2 Ghanaian sheath 5 Dayana for the left coronary artery. Right coronary artery was imaged with a 3DRC catheter. All the catheter exchanges were performed over a wire. I then used a right 4 Dayana to image the left . FINDINGS: 1. Hemodynamics. Left ventricular pressure is during the pullback. During pullback from the left ventricle to the aorta, aortic pressure is 126/59 with a mean of 85 . 2. Left ventriculography shows moderate posterobasal hypokinesis with an EF of about 60%. There is no mitral regurgitation. 3. Coronary angiography. The coronary arteries look very smooth. Left main coronary artery appears normal. The proximal left anterior descending artery and the major first diagonal branch appear normal. After the second diagonal, the LAD has a very focal stenosis best appreciated in the ITALIAN cranial views. This is not thought to be more severe than 50-60%. This lesion could be treated medically. Circumflex artery appears smooth and appears normal. The right coronary artery has an eccentric 30-40% proximal stenosis and a smooth 30% mid stenosis. It looks like this can be treated medically as well. 4. Iliac angiography. Angiography of the left iliac artery shows that the external iliac artery appears to be totally occluded with collaterals to the common femoral artery. On the right leg the external iliac has diffuse 50% scattered disease. CONCLUSIONS IMPRESSION: 1. Overall, preserved left ventricular function, but with posterobasal hypokinesis. 2. Normal hemodynamics. 3. Mild 2-vessel coronary artery disease. 4. 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 RECOMMENDATIONS: An attempt at percutaneous intervention on the left iliac artery. Steven Cote MD Medications and IVs Current Medications Morphine Sulfate (Morphine Inj) 4 mg ONCE ONCE IV PUSH Last administered on at 23:31; Start 06/24/17 at 23:30; Stop 06/24/17 at 23:31; Status DC Ondansetron HCl (Zofran Inj) 4 mg ONCE ONCE IVP Last administered on at 23:31; Start 06/24/17 at 23:30; Stop 06/24/17 at 23:31; Status DC Sodium Chloride 1,000 ml @ 1,000 mls/hr Q1H IV Last administered on 06/24/17at 23:31; Start 06/24/17 at 23:18; Stop 06/25/17 at 00:17; Status DC Sodium Chloride (NS Flush) 2 ml UNSCH PRN IV FLUSH FLUSH AFTER USING IV ACCESS ; Start 06/24/17 at 23:30; Stop 06/25/17 at 03:31; Status DC Famotidine (Pepcid Inj) 20 mg ONCE ONCE IV PUSH Last administered on at 23:31; Start 06/24/17 at 23:30; Stop 06/24/17 at 23:31; Status DC Cefepime HCl 2000 mg/Sodium Chloride 100 ml @ 200 mls/hr ONCE ONCE IV Last administered on 06/25/17at 02:39; Start 06/25/17 at 02:30; Stop 06/25/17 at 02:59 ; Status DC Azithromycin 500 mg/Sodium Chloride 250 ml @ 250 mls/hr ONCE ONCE IV Last administered on 06/25/17at 05:04; Start 06/25/17 at 02:30; Stop 06/25/17 at 03:29 ; Status DC Sodium Chloride 1,000 ml @ 999 mls/hr BOLUS ONCE IV Last administered on 06/25at 05:04; Start 06/25/17 at 03:00; Stop 06/25/17 at 04:00; Status DC Pharmacy Profile Note 0 ml @ 0 mls/hr UNSCH OTHER ; Start 06/25/17 at 03:30; Stop 06/28/17 at 18:01; Status DC Cefepime HCl 1000 mg/Sodium Chloride 100 ml @ 200 mls/hr Q12H IV Last administered on 07/02/17at 23:30; Start 06/25/17 at 12:00; Stop 07/03/17 at 11:12; Status DC Albuterol/ Ipratropium (Duoneb Neb) 1 ampule Q4HR NEB PRN NEB SOB/WHEEZING; Start 06/25/17 at 03:30 Sodium Chloride 1,000 ml @ 100 mls/hr Q10H IV Last administered on 07/03/17at 14 :16; Start 06/25/17 at 03:19; Stop 07/04/17 at 08:46; Status DC Sodium Chloride (NS Flush) 2 ml UNSCH PRN IV FLUSH FLUSH AFTER USING IV ACCESS Last administered on 06/27/17at 00:43; Start 06/25/17 at 03:30; Stop 07/04/17 at 08:47; Status DC Sodium Chloride (NS Flush) 2 ml BID IV FLUSH Last administered on 07/01/17at 09: 31; Start 06/25/17 at 09:00; Stop 07/04/17 at 08:47; Status DC Ondansetron HCl (Zofran Inj) 4 mg Q6H PRN IVP NAUSEA OR VOMITING Last administered on 07/01/17at 18:46; Start 06/25/17 at 03:30 Acetaminophen (Tylenol) 650 mg Q6H PRN PO FEVER/PAIN SCALE 1 TO 2 Last administered on 07/01/17at 23:21; Start 06/25/17 at 03:30 Acetaminophen/ Hydrocodone Bitart (Tama 5-325 Mg) 1 tab Q4H PRN PO PAIN SCALE 3 TO 5 Last administered on 07/05/17at 08:46; Start 06/25/17 at 03:30 Morphine Sulfate (Morphine Inj) 2 mg Q3H PRN IV PUSH Pain 6-10 Last administered on 06/28/17at 09:54; Start 06/25/17 at 03:30 Senna/Docusate Sodium (Idalmis-Colace) 1 tab BID PO ; Start 06/25/17 at 09:00; Stop 06/27/17 at 21:22; Status DC Magnesium Hydroxide (Milk Of Magnesia Liq) 30 ml Q12H PRN PO Mild constipation ; Start 06/25/17 at 03:30 Sennosides (Senokot) 17.2 mg Q12H PRN PO Moderate constipation; Start 06/25/17 at 03:30 Bisacodyl (Dulcolax Supp) 10 mg DAILY PRN RECTAL SEVERE CONSITIPATION; Start at 03:30 Lactulose (Lactulose Liq) 30 ml DAILY PRN PO SEVERE CONSITIPATION; Start at 03:30 Vancomycin HCl 1500 mg/Sodium Chloride 515 ml @ 257.5 mls/ hr ONCE ONCE IV ; Start 06/25/17 at 04:00; Stop 06/25/17 at 05:59; Status Cancel Guaifenesin (Mucinex Er) 600 mg BID PO Last administered on 07/05/17at 08:44; Start 06/25/17 at 09:00 Vancomycin HCl 1250 mg/Sodium Chloride 262.5 ml @ 250 mls/hr Q24H IV Last administered on 06/27/17at 09:07; Start 06/25/17 at 10:00; Stop 06/27/17 at 10:50 ; Status DC Miscellaneous Information SPECIFIC LAB TO BE DRAWN:VANCO TROUGH DATE TO... ONCE ONCE .XX ; Start 06/28/17 at 09:45; Stop 06/28/17 at 09:45; Status DC Al Hydrox/Mg Hydrox/Simethicone (Mag-Al Plus Susp Liq) 30 ml ONCE ONCE PO Last administered on 06/25/17at 21:08; Start 06/25/17 at 20:15; Stop 06/25/17 at 20:16; Status DC Loperamide HCl (Imodium) 2 mg UNSCH PRN PO DIARRHEA Last administered on at 13:11; Start 06/26/17 at 10:15 Miscellaneous Information SPECIFIC LAB TO BE DRAWN:VANCO TROUGH DATE TO... ONCE ONCE .XX Last administered on 06/27/17at 09:00; Start 06/27/17 at 09:45; Stop 06/27/17 at 09:46; Status DC Al Hydrox/Mg Hydrox/Simethicone (Mag-Al Plus Susp Liq) 30 ml Q6H PRN PO DYSPEPSIA OR HEARTBURN; Start 06/26/17 at 14:00 Famotidine (Pepcid Inj) 20 mg Q12HR IV PUSH Last administered on 06/27/17at 08: 54; Start 06/26/17 at 14:00; Stop 06/27/17 at 09:02; Status DC Filgrastim 480 mcg/Dextrose 51.6 ml @ 100 mls/hr DAILY@14 IV Last administered on 06/30/17at 13:33; Start 06/27/17 at 14:00; Stop 07/01/17 at 07:32 ; Status DC Sodium Chloride 250 ml @ 15 mls/hr ONCE ONCE IV ; Start 06/27/17 at 08:00; Stop 06/28/17 at 00:39; Status DC Acetaminophen (Tylenol) 650 mg Q4H PRN PO SEE LABEL COMMENTS; Start 06/27/17 at 08:00 Diphenhydramine HCl (Benadryl) 25 mg Q4H PRN PO SEE LABEL COMMENTS Last administered on 06/27/17at 16:36; Start 06/27/17 at 08:00 Potassium Chloride 100 ml @ 25 mls/hr Q4H IV Last administered on 06/27/17at 11 :20; Start 06/27/17 at 09:15; Stop 06/27/17 at 17:15; Status DC Famotidine (Pepcid) 20 mg BID PO Last administered on 07/05/17at 08:44; Start at 21:00 Vancomycin HCl 1250 mg/Sodium Chloride 262.5 ml @ 250 mls/hr Q12H IV ; Start at 21:00; Stop 06/27/17 at 21:00; Status DC Vancomycin/Sodium Chloride 200 ml @ 200 mls/hr Q12H IV Last administered on at 08:47; Start 06/27/17 at 21:00; Stop 06/28/17 at 18:01; Status DC Miscellaneous Information SPECIFIC LAB TO BE DRAWN:VANCOMYCIN TROUGH DATE TO... ONCE ONCE .XX ; Start 06/29/17 at 08:45; Stop 06/29/17 at 08:45; Status DC Potassium Chloride 100 ml @ 25 mls/hr Q4H IV Last administered on 06/27/17at 22 :41; Start 06/27/17 at 23:00; Stop 06/28/17 at 02:59; Status DC Daptomycin 600 mg/ Sodium Chloride 100 ml @ 200 mls/hr Q24H IV Last administered on 07/02/17at 20:43; Start 06/28/17 at 20:00; Stop 07/03/17 at 11:12; Status DC Potassium Chloride 30 meq/ Sodium Chloride 115 ml @ 33 mls/hr Q3H IV Last administered on 06/29/17at 13:00; Start 06/29/17 at 09:00; Stop 06/29/17 at 14:59 ; Status DC Magnesium Sulfate/ Dextrose 100 ml @ 100 mls/hr Q1H IV Last administered on at 09:44; Start 06/29/17 at 08:15; Stop 06/29/17 at 10:14; Status DC Magnesium Sulfate/ Dextrose 100 ml @ 100 mls/hr ONCE ONCE IV Last administered on 06/29/17at 18:00; Start 06/29/17 at 18:00; Stop 06/29/17 at 18:59 ; Status DC Potassium Chloride 30 meq/ Sodium Chloride 115 ml @ 33 mls/hr Q3H IV Last administered on 06/30/17at 11:45; Start 06/30/17 at 08:45; Stop 06/30/17 at 14:44 ; Status DC Magnesium Sulfate/ Dextrose 100 ml @ 100 mls/hr ONCE ONCE IV Last administered on 06/30/17at 09:33; Start 06/30/17 at 08:30; Stop 06/30/17 at 09:29 ; Status DC Nitroglycerin (Nitro-Dur 0.1 Mg Patch.24hr) 1 patch DAILY T-DERMAL Last administered on 07/04/17at 08:52; Start 06/30/17 at 15:00 Potassium Chloride (KCl) 30 meq ONCE ONCE PO Last administered on 07/01/17at 15 :40; Start 07/01/17 at 14:15; Stop 07/01/17 at 14:18; Status DC Metoprolol Tartrate (Lopressor) 12.5 mg Q8HR PO Last administered on 07/02/17at 05:30; Start 07/01/17 at 22:00; Stop 07/02/17 at 15:40; Status DC Miscellaneous (Pill Splitter) 1 ea UNSCH PRN OTHER SEE LABEL COMMENTS; Start at 14:30 Enoxaparin Sodium (Lovenox Inj) 40 mg Q24H SQ Last administered on 07/02/17at 13: 04; Start 07/02/17 at 12:00 Metoprolol Tartrate (Lopressor) 25 mg BID PO Last administered on 07/05/17at 08: 46; Start 07/02/17 at 21:00 Potassium Chloride (KCl) 20 meq DAILY PO Last administered on 07/05/17at 08:45; Start 07/02/17 at 15:45 Sodium Chloride 1,000 ml @ 100 mls/hr Q10H IV Last administered on 07/04/17at 04 :23; Start 07/03/17 at 08:34; Stop 07/04/17 at 08:46; Status DC Diphenhydramine HCl (Benadryl) 25 mg DOG DAYCARE PROVIDER PO ; Start 07/03/17 at 08:45; Stop 07/07/17 at 08:44 Diazepam (Valium) 5 mg DOG DAYCARE PROVIDER PO ; Start 07/03/17 at 08:45; Stop 07/07/17 at 08: 44 Aspirin (Aspirin) 325 mg ONCE ONCE PO Last administered on 07/03/17at 18:06; Start 07/03/17 at 17:00; Stop 07/03/17 at 17:01; Status DC Heparin Sodium/ Sodium Chloride 1,000 ml @ As Directed STK-MED ONCE IV FLUSH ; Start 07/04/17 at 07:10; Stop 07/04/17 at 07:11; Status DC Midazolam HCl (Versed Inj) 2 mg STK-MED ONCE .ROUTE Last administered on at 07:28; Start 07/04/17 at 07:28; Stop 07/04/17 at 07:29; Status DC Nitroglycerin 5 ml @ As Directed STK-MED ONCE .ROUTE ; Start 07/04/17 at 07:33; Stop 07/04/17 at 07:34; Status DC Sodium Chloride 1,000 ml @ 100 mls/hr Q10H IV Last administered on 07/04/17at 11 :29; Start 07/04/17 at 08:37; Stop 07/04/17 at 14:36; Status DC Sodium Chloride (NS Flush) 2 ml BID IV FLUSH Last administered on 07/05/17at 08: 46; Start 07/04/17 at 09:00 Sodium Chloride (NS Flush) 2 ml UNSCH PRN IV FLUSH FLUSH AFTER USING IV ACCESS ; Start 07/04/17 at 08:45 Bacitracin (Bacitracin Oint Packet) 0.9 gm ONCE ONCE TOP Last administered on 07/04/17at 08:54; Start 07/04/17 at 09:00; Stop 07/04/17 at 09:01; Status DC Iohexol (OMNIPAQUE 350 INJ ([employer] Supervisor)) 100 ml STK-MED ONCE OTHER ; Start at 12:55; Stop 07/04/17 at 12:56; Status DC Iohexol (OMNIPAQUE 350 INJ ([employer] Supervisor)) 50 ml STK-MED ONCE OTHER ; Start 07/04/17 at 12:55; Stop 07/04/17 at 12:56; Status DC Sodium Chloride 250 ml @ 15 mls/hr ONCE ONCE IV ; Start 07/05/17 at 09:00; Stop 07/06/17 at 01:39 Alteplase, Recombinant (Cathflo Activase Inj) 2 mg Q2H PRN INTRACATH clotted cath; Start 07/05/17 at 12:15 Iohexol (Omnipaque 350 Inj) 99 ml STK-MED ONCE IVCONTRAST Last administered on 07/05/17at 12:18; Start 07/05/17 at 12:18; Stop 07/05/17 at 12:19; Status DC Heparin Sodium (Porcine) (Heparin Central Flush) 2.5 units STK-MED ONCE IV FLUSH ; Start 07/05/17 at 12:19; Stop 07/05/17 at 12:20; Status DC Alteplase, Recombinant (Cathflo Activase Inj) 2 mg Q2H PRN INTRACATH OCCLUDED CATHETER/PORT; Start 07/05/17 at 12:45; Status UNV Amlodipine Besylate (Norvasc) 5 mg DAILY PO ; Start 07/06/17 at 09:00; Status UNV Aspirin (Aspirin Chew) 81 mg DAILY CHEW ; Start 07/06/17 at 09:00; Status UNV Pravastatin Sodium (Pravachol) 20 mg DAILY PO ; Start 07/06/17 at 09:00; Status UNV A/P Problem List: (1) Severe sepsis ICD Code: A41.9 - Sepsis, unspecified organism; R65.20 - Severe sepsis without septic shock Status: Acute Plan: Sepsis syndrome resolved. DW ID. Agree with discontinuing antibiotics and monitor. (2) Non-STEMI (non-ST elevated myocardial infarction) ICD Code: I21.4 - Non-ST elevation (NSTEMI) myocardial infarction Plan: Cardiology following. Status post heart catheterization. Official report pending. Continue aspirin, metoprolol. Check lipids (3) PNA (pneumonia) ICD Code: J18.9 - Pneumonia, unspecified organism Plan: S/P treatment with antibiotics. Was followed by ID. (4) PAD (peripheral artery disease) ICD Code: I73.9 - Peripheral vascular disease, unspecified Status: Acute Plan: ESTELA conclusion: Severely compromised left leg circulation. Acute on chronic. Vascular surgery following, Dr. Suero Podiatry consulted as well. Vascular surgery to follow-up for surgery femorofemoral bypass on the fifth (5) Bladder cancer ICD Code: C67.9 - Malignant neoplasm of bladder, unspecified Status: Chronic Plan: Patient undergoing chemotherapy with Dr. Valerio. Appreciate Oncology following. (6) Pancytopenia ICD Code: D61.818 - Other pancytopenia Status: Acute Plan: Secondary to chemotherapy. Much improved. Monitor labs. -Hematology/oncology following. Status post transfusion and Neupogen ordered per Heme/Onc - Neupogen on hold for now as counts recovering. (7) Anemia ICD Code: D64.9 - Anemia, unspecified Plan: A.m. lab (8) Diarrhea ICD Code: R19.7 - Diarrhea, unspecified Status: Resolved (9) Electrolyte abnormality ICD Code: E87.8 - Other disorders of electrolyte and fluid balance, not elsewhere classified Status: Resolved Plan: Replace as needed Assessment and Plan (1) Severe sepsis ICD Code: A41.9 - Sepsis, unspecified organism; R65.20 - Severe sepsis without septic shock Status: Acute Plan: Sepsis syndrome resolved. DW ID. Agree with discontinuing antibiotics and monitor. (2) Non-STEMI (non-ST elevated myocardial infarction) ICD Code: I21.4 - Non-ST elevation (NSTEMI) myocardial infarction Plan: Cardiology following. Status post heart catheterization. Official report pending. Continue aspirin, metoprolol. Check lipids (3) PNA (pneumonia) ICD Code: J18.9 - Pneumonia, unspecified organism Plan: S/P treatment with antibiotics. Was followed by ID. (4) PAD (peripheral artery disease) ICD Code: I73.9 - Peripheral vascular disease, unspecified Status: Acute Plan: ESTELA conclusion: Severely compromised left leg circulation. Acute on chronic. Vascular surgery following, Dr. Suero Podiatry consulted as well. Vascular surgery to follow-up (5) Bladder cancer ICD Code: C67.9 - Malignant neoplasm of bladder, unspecified Status: Chronic Plan: Patient undergoing chemotherapy with Dr. Valerio. Appreciate Oncology following. (6) Pancytopenia ICD Code: D61.818 - Other pancytopenia Status: Acute Plan: Secondary to chemotherapy. Much improved. Monitor labs. -Hematology/oncology following. Status post transfusion and Neupogen ordered per Heme/Onc - Neupogen on hold for now as counts recovering. (7) Anemia ICD Code: D64.9 - Anemia, unspecified (8) Diarrhea ICD Code: R19.7 - Diarrhea, unspecified Status: Resolved (9) Electrolyte abnormality ICD Code: E87.8 - Other disorders of electrolyte and fluid balance, not elsewhere classified Status: Resolved Discharge Planning Pending further input from Vascular surgery. Discharge Planning Pending clearance from surgery Problem Qualifiers (1) PNA (pneumonia): Armin Bennett DO Jul 05, 2017 12:53
--- NOTE | 2017-07-05 13:39 | RADRPT ---
EXAM DATE/TIME: 07/05/2017 12:03 [place] COMPARISON: CT ABDOMEN & PELVIS W/O CONTRAST, June 25, 2017, 0:13. INDICATIONS : Left lower leg ischemia IV CONTRAST: 99 cc Omnipaque 350 (iohexol) IV RADIATION DOSE: 3.29 CTDIvol (mGy) MEDICAL HISTORY : Hypertension. Chronic obstructive pulmonary disease. Bladder cancer SURGICAL HISTORY : Abdominal aortic aneurysm repair. Tumor removed from bladder ENCOUNTER: Initial ACUITY: 1 day PAIN SCALE: 3/10 LOCATION: Left Lower extremity TECHNIQUE: Volumetric scanning was performed using a multi-row detector CT scanner. The data was post processed with a variety of visualization algorithms including full volume maximum intensity projection, multi -planar sliding thin slab reformation, curved planar reformation, and surface rendering techniques. Using automated exposure control and adjustment of the mA and/or kV according to patient size, radiat ion dose was kept as low as reasonably achievable to obtain optimal diagnostic quality images. DICO M format image data is available electronically for review and comparison. FINDINGS: Abdominal aorta: The celiac and SMA origins are widely patent. There are single renal arteries bilaterally. The renal arteries appear adequate in caliber. The patient is post endograft repair of the infrarenal aorta. Th e graft is well-positioned and patent. The iliac limbs of the graft are patent. Note is made of some mild intimal hyperplasia within the graft. Pelvis: The iliac limbs the graft are patent. There is some mild intimal hyperplasia within the left limb of the graft. The external iliac circulation on the right is disease with an area of high-grade stenosis in its mid segment. Distally, it returns to a more normal caliber. The hypogastric on the left is pa tent. The left external iliac occludes at its origin. It remains occluded down to the level of the co mmon femoral. Right leg: The common femoral is diseased but patent. The profunda femoral is patent. The superficial femoral is diseased but patent throughout its course. There is moderate stenosis at the adductor hiatus. The po pliteal is patent above and below the knee. Distally, all 3 trifurcation vessels are patent. Left leg: The left common femoral is heavily diseased and has a very high grade stenosis in its distal segment. This is essentially a subtotal occlusion. The profunda femoral is patent. The superficial femoral is patent throughout its course. The popliteal is patent above and below the knee. Distally, all 3 trif urcation vessels are patent. CT source data: There are COPD changes within the lung bases. The solid organs of the abdomen are intact. There is no significant retroperitoneal adenopathy. No free air or free fluid is present. CONCLUSION: 1. The patient is post endograft repair of the infrarenal aorta. There is moderate intimal hyperplasi a within the graft but it appears adequate in caliber. 2. The left external iliac circulation is occluded at its origin. There is reconstitution of the left common femoral but it is severely diseased with very high grade stenosis in its distal portion. 3. There is a focal area of high-grade stenosis in the mid segment of the right external iliac. 4. 5. Right le. The runoff distal to the common femoral is adequate. 7. 8. Left le. The runoff distal to the common femoral is adequate. Luis Wyatt MD on July 05, 2017 at 13:27 Board Certified Radiologist. This report was verified electronically.
--- NOTE | 2017-07-05 13:59 | PD.CAR.PN ---
CVT Progress Note Subjective/Hospital Course: REFERRAL RECEIVED Fullconsult KENIA Nell Selena 07/04/2017 As noted in my original consultation this patient has of severely compromised flow to the left leg manifested by chronic ischemia and early gangrene of the left hallux On initial evaluation patient was not a candidate for any surgical procedures due to pancytopenia as the consequence of chemotherapy for bladder cancer Patient's hematologic picture has somewhat improved and according to the oncology he is to undergo radiation therapy Patient has palpable right femoral pulse but none on the left very weak dopplerable popliteal pulse on the left Foot remains fairly warm with a cool greater toe which is discolored and purplish I discussed the distal aortic and iliac arteriogram findings with Dr. Steven Cote. 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 Due to his systemic condition he is not a candidate for aortofemoral bypass however he would be appropriate candidate for femoral-femoral bypass On the other hand, if he is to receive radiation therapy in the near future, then femoro-femoral bypass will need to be postponed We will discuss with oncology and get a better picture of the plan. 07/05/2017 Discussed the care with oncologist today and at this point considering the priority and patient's improvement will proceed with revascularization of the left leg CTA is reviewed and confirms the clinical exam findings. 1. Patient has a high-grade stenosis of the right external iliac artery and occlusion of left external iliac artery both of this compromising the flow to the legs 2. Patient has patent right SFA but somewhat diseased in the nearly occluded left SFA with severe disease throughout Based on all of the above this gentleman needs revascularization of the left leg. The simplest option would be left external iliac stent thromboembolectomy and left femoral-popliteal bypass. If I am unable to open left external iliac artery then the next option is right external iliac balloon angioplasty with stent and femoral-femoral bypass with left femoral-popliteal bypass. Will proceed with surgery tomorrow depending on availability of the endovascular suite for this is a combined case I discussed the details of the case with patient and the family as well as the benefits and the risks of the procedure Objective: Vital Signs Date Time Temp Pulse Resp B/P (MAP) Pulse Ox O2 Delivery O2 Flow Rate FiO2 07/05/17 11:30 97.5 61 18 118/70 (86) 97 4/4/18 09:55 20 07/05/17 08:00 62 07/05/17 08:00 98.6 62 16 112/67 (82) 98 07/05/17 05:00 68 07/05/17 04:31 98.4 69 16 10 (48) 97 07/05/17 04:05 61 07/05/17 03:00 64 07/05/17 02:00 68 07/05/17 01:00 64 07/05/17 00:29 97.0 70 18 124/63 (83) 98 07/05/17 00:01 87 07/04/17 22:00 70 07/04/17 21:00 70 07/04/17 20:07 81 07/04/17 19:46 97.9 82 18 116/73 (87) 99 07/04/17 19:00 70 07/04/17 17:29 97.2 88 18 118/91 (100) 98 07/04/17 17:27 79 07/04/17 15:00 94 07/04/17 14:39 84 18 114/69 (84) 99 Labs: Laboratory Tests Test 07/05/17 05:10 White Blood Count 5.1 TH/MM3 (4.0-11.0) Red Blood Count 2.59 MIL/MM3 (4.50-5.90) Hemoglobin 8.1 GM/DL (13.0-17.0) Hematocrit 23.3 % (39.0-51.0) Mean Corpuscular Volume 89.9 FL (80.0-100.0) Mean Corpuscular Hemoglobin 31.2 PG (27.0-34.0) Mean Corpuscular Hemoglobin Concent 34.7 % (32.0-36.0) Red Cell Distribution Width 14.6 % (11.6-17.2) Platelet Count 119 TH/MM3 (150-450) Mean Platelet Volume 8.7 FL (7.0-11.0) Neutrophils (%) (Auto) 78.4 % (16.0-70.0) Lymphocytes (%) (Auto) 6.2 % (9.0-44.0) Monocytes (%) (Auto) 14.7 % (0.0-8.0) Eosinophils (%) (Auto) 0.3 % (0.0-4.0) Basophils (%) (Auto) 0.4 % (0.0-2.0) Neutrophils # (Auto) 4.0 TH/MM3 (1.8-7.7) Lymphocytes # (Auto) 0.3 TH/MM3 (1.0-4.8) Monocytes # (Auto) 0.8 TH/MM3 (0-0.9) Eosinophils # (Auto) 0.0 TH/MM3 (0-0.4) Basophils # (Auto) 0.0 TH/MM3 (0-0.2) CBC Comment AUTO DIFF Differential Total Cells Counted 100 Neutrophils % (Manual) 66 % (16-70) Band Neutrophils % 9 % (0-6) Lymphocytes % 7 % (9-44) Monocytes % 7 % (0-8) Basophils % 1 % (0-2) Neutrophils # (Manual) 4.3 TH/MM3 (1.8-7.7) Metamyelocytes 7 % (0-1) Myelocytes 3 % (0-0) Differential Comment FINAL DIFF MANUAL Platelet Estimate LOW (NORMAL) Platelet Morphology Comment NORMAL (NORMAL) Blood Urea Nitrogen 5 MG/DL (7-18) Creatinine 0.75 MG/DL (0.60-1.30) Random Glucose 91 MG/DL (74-106) Calcium Level 8.3 MG/DL (8.5-10.1) Sodium Level 139 MEQ/L (136-145) Potassium Level 3.9 MEQ/L (3.5-5.1) Chloride Level 106 MEQ/L (98-107) Carbon Dioxide Level 25.3 MEQ/L (21.0-32.0) Anion Gap 8 MEQ/L (5-15) Estimat Glomerular Filtration Rate 101 ML/MIN (>89) Result Diagram: 07/05/17 0510 07/05/17 0510 (1) Non-STEMI (non-ST elevated myocardial infarction) (2) COPD (chronic obstructive pulmonary disease) (3) Pancytopenia (4) PAD (peripheral artery disease) (5) Bladder cancer Juan J Maya MD Jul 05, 2017 13:59
--- NOTE | 2017-07-05 14:15 | PD.ONC.PN ---
Subjective Subjective Remarks Afebrile overnight. Patient resting in bed in nad. States toe is the same today. No complaints. Objective Data Date Time Temp Pulse Resp B/P (MAP) Pulse Ox O2 Delivery O2 Flow Rate FiO2 07/05/17 11:30 97.5 61 18 118/70 (86) 97 07/05/17 09:55 20 07/05/17 08:00 62 07/05/17 08:00 98.6 62 16 112/67 (82) 98 07/05/17 05:00 68 07/05/17 04:31 98.4 69 16 10/67 (48) 97 07/05/17 04:05 61 07/05/17 03:00 64 07/05/17 02:00 68 07/05/17 01:00 64 07/05/17 00:29 97.0 70 18 124/63 (83) 98 07/05/17 00:01 87 07/04/17 22:00 70 07/04/17 21:00 70 07/04/17 20:07 81 07/04/17 19:46 97.9 82 18 116/73 (87) 99 07/04/17 19:00 70 07/04/17 17:29 97.2 88 18 118/91 (100) 98 07/04/17 17:27 79 07/04/17 15:00 94 07/04/17 14:39 84 18 114/69 (84) 99 07/05/17 07/05/17 07/05/17 07:00 15:00 23:00 Intake Total 240 ml Output Total 940 ml Balance -700 ml Result Diagram: 07/05/17 0510 07/05/17 0510 Laboratory Results Laboratory Tests Test 07/05/17 05:10 White Blood Count 5.1 TH/MM3 Red Blood Count 2.59 MIL/MM3 Hemoglobin 8.1 GM/DL Hematocrit 23.3 % Mean Corpuscular Volume 89.9 FL Mean Corpuscular Hemoglobin 31.2 PG Mean Corpuscular Hemoglobin Concent 34.7 % Red Cell Distribution Width 14.6 % Platelet Count 119 TH/MM3 Mean Platelet Volume 8.7 FL Neutrophils (%) (Auto) 78.4 % Lymphocytes (%) (Auto) 6.2 % Monocytes (%) (Auto) 14.7 % Eosinophils (%) (Auto) 0.3 % Basophils (%) (Auto) 0.4 % Neutrophils # (Auto) 4.0 TH/MM3 Lymphocytes # (Auto) 0.3 TH/MM3 Monocytes # (Auto) 0.8 TH/MM3 Eosinophils # (Auto) 0.0 TH/MM3 Basophils # (Auto) 0.0 TH/MM3 CBC Comment AUTO DIFF Differential Total Cells Counted 100 Neutrophils % (Manual) 66 % Band Neutrophils % 9 % Lymphocytes % 7 % Monocytes % 7 % Basophils % 1 % Neutrophils # (Manual) 4.3 TH/MM3 Metamyelocytes 7 % Myelocytes 3 % Differential Comment FINAL DIFF MANUAL Platelet Estimate LOW Platelet Morphology Comment NORMAL Blood Urea Nitrogen 5 MG/DL Creatinine 0.75 MG/DL Random Glucose 91 MG/DL Calcium Level 8.3 MG/DL Sodium Level 139 MEQ/L Potassium Level 3.9 MEQ/L Chloride Level 106 MEQ/L Carbon Dioxide Level 25.3 MEQ/L Anion Gap 8 MEQ/L Estimat Glomerular Filtration Rate 101 ML/MIN Imaging Studies Last 24 hours Impressions Aorta w/Runoff CTA 07/05/17 0000 Signed Impressions: Service Date/Time: Wednesday, July 05, 2017 12:03 - CONCLUSION: 1. The patient is post endograft repair of the infrarenal aorta. There is moderate intimal hyperplasia within the graft but it appears adequate in caliber. 2. The left external iliac circulation is occluded at its origin. There is reconstitution of the left common femoral but it is severely diseased with very high grade stenosis in its distal portion. 3. There is a focal area of high-grade stenosis in the mid segment of the right external iliac. 4. 5. Right le. The runoff distal to the common femoral is adequate. 7. 8. Left le. The runoff distal to the common femoral is adequate. Luis Wyatt MD Administered Medications Medications (Trade) Dose Ordered Sig/Leeann Route PRN Reason Start Time Stop Time Status Last Admin Dose Admin Ondansetron HCl (Zofran Inj) 4 mg Q6H PRN IVP NAUSEA OR VOMITING 06/25/17 03:30 07/01/17 18:46 Acetaminophen (Tylenol) 650 mg Q6H PRN PO FEVER/PAIN SCALE 1 TO 2 06/25/17 03:30 07/01/17 23:21 Acetaminophen/ Hydrocodone Bitart ([place] 5-325 Mg) 1 tab Q4H PRN PO PAIN SCALE 3 TO 5 06/25/17 03:30 07/05/17 08:46 Morphine Sulfate (Morphine Inj) 2 mg Q3H PRN IV PUSH Pain 6-10 06/25/17 03:30 06/28/17 09:54 Guaifenesin (Mucinex Er) 600 mg BID PO 06/25/17 09:00 07/05/17 08:44 Loperamide HCl (Imodium) 2 mg UNSCH PRN PO DIARRHEA 06/26/17 10:15 06/26/17 13:11 Diphenhydramine HCl (Benadryl) 25 mg Q4H PRN PO SEE LABEL COMMENTS 06/27/17 08:00 06/27/17 16:36 Famotidine (Pepcid) 20 mg BID PO 06/27/17 21:00 07/05/17 08:44 Nitroglycerin (Nitro-Dur 0.1 Mg Patch.24hr) 1 patch DAILY T-DERMAL 06/30/17 15:00 07/05/17 12:43 Enoxaparin Sodium (Lovenox Inj) 40 mg Q24H SQ 07/02/17 12:00 07/02/17 13:04 Metoprolol Tartrate (Lopressor) 25 mg BID PO 07/02/17 21:00 07/05/17 08:46 Potassium Chloride (KCl) 20 meq DAILY PO 07/02/17 15:45 07/05/17 08:45 Sodium Chloride (NS Flush) 2 ml BID IV FLUSH 07/04/17 09:00 07/05/17 08:46 Alteplase, Recombinant (Cathflo Activase Inj) 2 mg Q2H PRN INTRACATH clotted cath 07/05/17 12:15 07/05/17 12:44 Objective Remarks GENERAL: Elderly male, upright in bed watching TV SKIN: Warm and dry. HEAD: Normocephalic. EYES: No injection or drainage. NECK: Supple, trachea midline. CARDIOVASCULAR: Regular rate and rhythm RESPIRATORY: Breath sounds equal bilaterally. No accessory muscle use. GASTROINTESTINAL: Abdomen soft, non-tender, nondistended. EXTREMITIES: left great toe is cyanotic. NEUROLOGICAL: awake and alert. no focal deficit. Assessment/Plan Problem List: (1) PAD (peripheral artery disease) ICD Codes: I73.9 - Peripheral vascular disease, unspecified Status: Acute Plan: 07/05: fem-fem bypass planned for tomorrow. --vascular surgery following. (2) Bladder cancer ICD Codes: C67.9 - Malignant neoplasm of bladder, unspecified Status: Chronic Plan: 07/05/17: will place radiation on hold until recovered from fem-fem bypass planned for tomorrow. --currently on combined chemotherapy and radiation therapy with cisplatin and gemcitabine. (hold while inpatient) (3) Sepsis ICD Codes: A41.9 - Sepsis, unspecified organism Status: Acute Plan: --BC 06/28 no growth --BC no growth from 06/24 --on Dapto + Cefepime. --ID following (4) Dyspepsia ICD Codes: R10.13 - Epigastric pain Status: Resolved Plan: --on PO Pepcid BID (5) Non-STEMI (non-ST elevated myocardial infarction) ICD Codes: I21.4 - Non-ST elevation (NSTEMI) myocardial infarction Plan: underwent cardiac cath on 07/[address] Cote which showed mild CAD, no stent needed. Assessment 77y/o male with locally advanced bladder cancer, currently receiving definitive chemotherapy and radiation therapy admitted with sepsis, nausea and vomiting. Attending Statement The exam, history, and the medical decision-making described in the above note were completed with the assistance of the mid-level provider. I reviewed and agree with the findings presented. I attest that I had a [id number] encounter with the patient on the same day, and personally performed and documented my assessment and findings in the medical record. No c/o Extensive d/w Dr Walters regarding ischemic left leg. He will schedule surgery for tomorrow. PRBC 2 units today for the procedure tomorrow. Problem Qualifiers (1) Sepsis: Qualified Codes: A41.9 - Sepsis, unspecified organism Tiesha Sutherland Jul 05, 2017 14:15 Deepali Valerio MD Jul 05, 2017 16:40
--- NOTE | 2017-07-05 14:40 | PD.CARD.PN ---
Subjective Subjective Remarks no chest pain Objective Medications Current Medications Medications (Trade) Dose Ordered Sig/Leeann Route Start Time Stop Time Status Last Admin (Duoneb Neb) 1 ampule Q4HR NEB PRN NEB 06/25/17 03:30 (Zofran Inj) 4 mg Q6H PRN IVP 06/25/17 03:30 07/01/17 18:46 (Tylenol) 650 mg Q6H PRN PO 06/25/17 03:30 07/01/17 23:21 ([place] 5-325 Mg) 1 tab Q4H PRN PO 06/25/17 03:30 07/05/17 08:46 (Morphine Inj) 2 mg Q3H PRN IV PUSH 06/25/17 03:30 06/28/17 09:54 (Milk Of Magnesia Liq) 30 ml Q12H PRN PO 06/25/17 03:30 (Senokot) 17.2 mg Q12H PRN PO 06/25/17 03:30 (Dulcolax Supp) 10 mg DAILY PRN RECTAL 06/25/17 03:30 (Lactulose Liq) 30 ml DAILY PRN PO 06/25/17 03:30 (Mucinex Er) 600 mg BID PO 06/25/17 09:00 07/05/17 08:44 (Imodium) 2 mg UNSCH PRN PO 06/26/17 10:15 06/26/17 13:11 (Mag-Al Plus Susp Liq) 30 ml Q6H PRN PO 06/26/17 14:00 (Tylenol) 650 mg Q4H PRN PO 06/27/17 08:00 (Benadryl) 25 mg Q4H PRN PO 06/27/17 08:00 06/27/17 16:36 (Pepcid) 20 mg BID PO 06/27/17 21:00 07/05/17 08:44 (Nitro-Dur 0.1 Mg Patch.24hr) 1 patch DAILY T-DERMAL 06/30/17 15:00 07/05/17 12:43 (Pill Splitter) 1 ea UNSCH PRN OTHER 07/01/17 14:30 (Lovenox Inj) 40 mg Q24H SQ 07/02/17 12:00 07/02/17 13:04 (Lopressor) 25 mg BID PO 07/02/17 21:00 07/05/17 08:46 (KCl) 20 meq DAILY PO 07/02/17 15:45 07/05/17 08:45 (Benadryl) 25 mg [employer] PO 07/03/17 08:45 07/07/17 08:44 (Valium) 5 mg [employer] PO 07/03/17 08:45 07/07/17 08:44 (NS Flush) 2 ml BID IV FLUSH 07/04/17 09:00 07/05/17 08:46 (NS Flush) 2 ml UNSCH PRN IV FLUSH 07/04/17 08:45 Sodium Chloride 250 ml @ 15 mls/hr ONCE ONCE IV 07/05/17 09:00 07/06/17 01:39 (Cathflo Activase Inj) 2 mg Q2H PRN INTRACATH 07/05/17 12:15 07/05/17 12:44 (Cathflo Activase Inj) 2 mg Q2H PRN INTRACATH 07/05/17 12:45 UNV (Norvasc) 5 mg DAILY PO 07/06/17 09:00 UNV (Aspirin Chew) 81 mg DAILY CHEW 07/06/17 09:00 UNV (Pravachol) 20 mg DAILY PO 07/06/17 09:00 UNV Vital Signs / I&O Vital Signs Date Time Temp Pulse Resp B/P (MAP) Pulse Ox O2 Delivery O2 Flow Rate FiO2 07/05/17 11:30 97.5 61 18 118/70 (86) 97 07/05/17 09:55 20 07/05/17 08:00 62 07/05/17 08:00 98.6 62 16 112/67 (82) 98 07/05/17 05:00 68 07/05/17 04:31 98.4 69 16 10/67 (48) 97 07/05/17 04:05 61 07/05/17 03:00 64 07/05/17 02:00 68 07/05/17 01:00 64 07/05/17 00:29 97.0 70 18 124/63 (83) 98 07/05/17 00:01 87 07/04/17 22:00 70 07/04/17 21:00 70 07/04/17 20:07 81 07/04/17 19:46 97.9 82 18 116/73 (87) 99 07/04/17 19:00 70 07/04/17 17:29 97.2 88 18 118/91 (100) 98 07/04/17 17:27 79 07/04/17 15:00 94 07/04/17 14:39 84 18 114/69 (84) 99 I/O 07/04/17 07/04/17 07/04/17 07/05/17 07/05/17 07/05/17 07:00 15:00 23:00 07:00 15:00 23:00 Intake Total 1200 ml 1160 ml 240 ml Output Total 1900 ml 500 ml 925 ml 940 ml Balance -700 ml -500 ml 235 ml -700 ml Intake Oral 360 ml 240 ml IV Total 1200 ml 800 ml Output Urine Total 1900 ml 500 ml 925 ml 940 ml Physical Exam Obese Alert, NAD Chest: BS diminished (COPD), no wheezes or rales CV S1S2 RRR Ext: no edema, right groin OK Laboratory Laboratory Tests Test 07/05/17 05:10 White Blood Count 5.1 TH/MM3 Red Blood Count 2.59 MIL/MM3 Hemoglobin 8.1 GM/DL Hematocrit 23.3 % Mean Corpuscular Volume 89.9 FL Mean Corpuscular Hemoglobin 31.2 PG Mean Corpuscular Hemoglobin Concent 34.7 % Red Cell Distribution Width 14.6 % Platelet Count 119 TH/MM3 Mean Platelet Volume 8.7 FL Neutrophils (%) (Auto) 78.4 % Lymphocytes (%) (Auto) 6.2 % Monocytes (%) (Auto) 14.7 % Eosinophils (%) (Auto) 0.3 % Basophils (%) (Auto) 0.4 % Neutrophils # (Auto) 4.0 TH/MM3 Lymphocytes # (Auto) 0.3 TH/MM3 Monocytes # (Auto) 0.8 TH/MM3 Eosinophils # (Auto) 0.0 TH/MM3 Basophils # (Auto) 0.0 TH/MM3 CBC Comment AUTO DIFF Differential Total Cells Counted 100 Neutrophils % (Manual) 66 % Band Neutrophils % 9 % Lymphocytes % 7 % Monocytes % 7 % Basophils % 1 % Neutrophils # (Manual) 4.3 TH/MM3 Metamyelocytes 7 % Myelocytes 3 % Differential Comment FINAL DIFF MANUAL Platelet Estimate LOW Platelet Morphology Comment NORMAL Blood Urea Nitrogen 5 MG/DL Creatinine 0.75 MG/DL Random Glucose 91 MG/DL Calcium Level 8.3 MG/DL Sodium Level 139 MEQ/L Potassium Level 3.9 MEQ/L Chloride Level 106 MEQ/L Carbon Dioxide Level 25.3 MEQ/L Anion Gap 8 MEQ/L Estimat Glomerular Filtration Rate 101 ML/MIN Imaging Last 24 hours Impressions Aorta w/Runoff CTA 07/05/17 0000 Signed Impressions: Service Date/Time: Wednesday, July 05, 2017 12:03 - CONCLUSION: 1. The patient is post endograft repair of the infrarenal aorta. There is moderate intimal hyperplasia within the graft but it appears adequate in caliber. 2. The left external iliac circulation is occluded at its origin. There is reconstitution of the left common femoral but it is severely diseased with very high grade stenosis in its distal portion. 3. There is a focal area of high-grade stenosis in the mid segment of the right external iliac. 4. 5. Right le. The runoff distal to the common femoral is adequate. 7. 8. Left le. The runoff distal to the common femoral is adequate. Luis Wyatt MD Assessment and Plan Problem List: (1) Non-STEMI (non-ST elevated myocardial infarction) ICD Codes: I21.4 - Non-ST elevation (NSTEMI) myocardial infarction (2) COPD (chronic obstructive pulmonary disease) ICD Codes: J44.9 - Chronic obstructive pulmonary disease, unspecified (3) Pancytopenia ICD Codes: D61.818 - Other pancytopenia Status: Acute (4) PAD (peripheral artery disease) ICD Codes: I73.9 - Peripheral vascular disease, unspecified Status: Acute Plan: Occluded left external iliac (5) Bladder cancer ICD Codes: C67.9 - Malignant neoplasm of bladder, unspecified Status: Chronic (6) Coronary artery disease ICD Codes: I25.10 - Atherosclerotic heart disease of [place] coronary artery without angina pectoris Plan: Medical therapy Assessment and Plan Cleared for Leg leg revasc. Steven Cote MD Jul 05, 2017 14:40
[2017-07-05] MEDS: diphenhydrAMINE HCL 25 MG CAP PO PRN (15:13)
[2017-07-05] MEDS: ENOXAPARIN SODIUM 40 MG/0.4 ML SYRINGE SQ SCH (15:19)
[2017-07-05] MEDS ORDERED: ACETAMINOPHEN 325 MG TAB PO PRN (15:30)
[2017-07-05] MEDS ORDERED: diphenhydrAMINE HCL 25 MG CAP PO PRN (15:30)
[2017-07-05] MEDS ORDERED: CEFAZOLIN INJ 2,000 MG in SODIUM CHLORIDE 0.9% INJ 100 ML IV SCH (17:30)
[2017-07-06] VITALS (13 sets, daily range): BP systolic 104–127; BP diastolic 60–64; PULSE 50–84; RESP 16–18; TEMP 98.4–98.7; O2SAT 94–96
[2017-07-06] MEDS ORDERED: PROTAMINE SULFATE 50 MG/5 ML VIAL ONE (06:50)
[2017-07-06] MEDS ORDERED: ceFAZolin INJ 1,000 MG VIAL ONE (06:50)
[2017-07-06] MEDS ORDERED: HEPARIN SODIUM - IV 10,000 UNITS/10 ML VIAL ONE (06:50)
[2017-07-06] MEDS ORDERED: HEPARIN SODIUM - SQ 10,000 UNITS/ML VIAL ONE ×2 (06:51)
[2017-07-06] MEDS ORDERED: HEPARIN-NS/PF INJ 500 ML ONE (06:51)
[2017-07-06 07:05] LABS: AUTOMATED NEUTROPHIL # 3.7 TH/MM3 (1.8-7.7); BASOPHIL % 0.4 % (0.0-2.0); EOSINOPHIL % 0.4 % (0.0-4.0); HEMATOCRIT 30.5 % (39.0-51.0); HEMOGLOBIN 10.6 GM/DL (13.0-17.0); LYMPH % 6.3 % (9.0-44.0); LYMPHOCYTE # 0.3 TH/MM3 (1.0-4.8); MEAN CELL VOLUME 86.7 FL (80.0-100.0); MEAN CORPUSCULAR HEMOGLOBIN 30.2 PG (27.0-34.0); MEAN CORPUSCULAR HGB CONC 34.9 % (32.0-36.0); MEAN PLATELET VOLUME 8.5 FL (7.0-11.0); MONO % 15.9 % (0.0-8.0); MONOCYTE # 0.8 TH/MM3 (0-0.9); PLATELET COUNT 145 TH/MM3 (150-450); RED BLOOD COUNT 3.52 MIL/MM3 (4.50-5.90); RED CELL DISTRIBUTION WIDTH 15.5 % (11.6-17.2); WHITE BLOOD COUNT 4.7 TH/MM3 (4.0-11.0)
[2017-07-06 07:20] LABS: ALBUMIN 2.6 GM/DL (3.4-5.0); AST (GOT) 16 U/L (15-37); BICARBONATE 27.7 MEQ/L (21.0-32.0); BLOOD UREA NITROGEN 8 MG/DL (7-18); CALCIUM 8.5 MG/DL (8.5-10.1); CHLORIDE 103 MEQ/L (98-107); GLOMERULAR FILTRATION RATE 82 ML/MIN (>89); GLUCOSE,RANDOM 84 MG/DL (74-106); MAGNESIUM 1.6 MG/DL (1.5-2.5); SODIUM (NA) 139 MEQ/L (136-145)
[2017-07-06] MEDS ORDERED: fentaNYL CITRATE 250 MCG/5 ML AMP ONE (07:28)
[2017-07-06 07:32] LABS: ALKALINE PHOSPHATASE 93 U/L (45-117); ALT (GPT) 11 U/L (12-78); FREE T4 0.79 NG/DL (0.76-1.46); PHOSPHORUS 3.6 MG/DL (2.5-4.9); TOTAL BILIRUBIN ADULT 0.6 MG/DL (0.2-1.0)
[2017-07-06] MEDS ORDERED: NITROGLYCERIN 0.4 MG SL 25 TABS/BTL SL ONE (08:36)
[2017-07-06 08:39] LABS: BANDS 8 % (0-6); CORRECTED NUCLEATED RBC 2 /100 WBC (0-0); LYMPHOCYTES 4 % (9-44); METAMYELOCYTES 1 % (0-1); MONOCYTES 4 % (0-8); MYELOCYTES 3 % (0-0); NEUTROPHIL # MANUAL DIFF 4.3 TH/MM3 (1.8-7.7); NUCLEATED RED BLOOD CELL 2 (0-0); OVALOCYTES 1+ (NORMAL); POLYS (SEG NEUTROPHILS) 80 % (16-70); TOXIC GRANULATION 1+ (NORMAL)
[2017-07-06] MEDS ORDERED: NITROGLYCERIN-D5W 50 MG/250 ML 250 ML ONE (08:40)
[2017-07-06] MEDS: ASPIRIN 81 MG CHEW TAB CHEW SCH (09:00)
[2017-07-06] MEDS: NITROGLYCERIN 0.1 MG/HR PATCH T-DERMAL SCH (09:00)
[2017-07-06] MEDS: guaiFENesin E.R. 600 MG TAB PO SCH ×2 (09:00→20:31)
[2017-07-06] MEDS: FAMOTIDINE 20 MG TAB PO SCH ×2 (09:00→20:31)
[2017-07-06] MEDS: SODIUM CHLORIDE 0.9% FLUSH 10 ML FLUSH IV FLUSH SCH ×2 (09:00→20:35)
[2017-07-06] MEDS: METOPROLOL TARTRATE 25 MG TAB PO SCH ×2 (09:00→20:33)
[2017-07-06] MEDS: PRAVASTATIN SOD 20 MG TAB PO SCH (09:00)
[2017-07-06] MEDS: POTASSIUM CHLORIDE 20 MEQ CONTROLLED RELEASE TAB PO SCH (09:00)
[2017-07-06] MEDS: amLODIPine BESYLATE 5 MG TAB PO SCH (09:00)
[2017-07-06] MEDS ORDERED: IOHEXOL 300 INJ 50 ML IV ONE (10:02)
--- NOTE | 2017-07-06 10:31 | PQ ---
Physician Query Response Document PATIENT: RONAK PINEDA : 1940 ADMIT DATE: 06/25/2017 3:24 AM DISCH DATE: RESPONDING PROVIDER #: [email or web address] QUERY TEXT: CDS Clarification ACUTE blood loss anemia in the setting of HGB/HCT drop from 11.2/30.6 to 7.9/22.7 in 24 hr period heydi ated with transfusion Other explanation of clinical findings. Unable to determine (no explanation for clinical findings). The patient's Clinical Indicators include: The medical record reflects the following clinical findings, treatment, and risk factors. * Clinical Indicators: HGB/HCT drop from 11.2/30.6 to 7.9/22.7 in 24 hr period * Risk Factors: Bladder CA on chemo and radiation, Sepsis * Treatment: IVF, transfusions Please clarify and document your clinical opinion in the progress notes and discharge summary includi ng the definitive and/or presumptive diagnosis (suspected or probable), related to the above clinical findings. Please include clinical findings supporting your diagnosis. Thank you, Tisha Henderson CDS/RN ext. [phone] Query created by: Tisha Henderson on 07/06/2017 10:01 AM RESPONSE TEXT: ANEMIA Suspected due to GI BLEEDING WAS TRANSFUSED DX OF ACUTE ANEMIA DUE TO GI BLOOD LOSS SP TRANSFUSION Electronically signed by: Armin Bennett 07/06/2017 10:28 AM
[2017-07-06] MEDS ORDERED: ONDANSETRON HCL 4 MG/2 ML VIAL IV ONE (12:00)
[2017-07-06] MEDS ORDERED: DO NOT ADM ANY ANTICOAGULANT DRUGS PRN (12:00)
[2017-07-06] MEDS ORDERED: PHENYLEPH/NS 1000 MCG/10 ML SYR IV ONE (12:00)
[2017-07-06] MEDS ORDERED: NEOSTIGMINE 5 MG/5 ML SYRINGE IV PUSH ONE (12:00)
[2017-07-06] MEDS ORDERED: LABETALOL HCL 100 MG/20 ML VIAL IV ONE (12:00)
[2017-07-06] MEDS ORDERED: ROCURONIUM INJ 50 MG/5 ML SYRINGE IV PUSH ONE (12:00)
[2017-07-06] MEDS ORDERED: DEXAMETHASONE SOD PHOS 4 MG/ML VIAL IV ONE (12:00)
[2017-07-06] MEDS ORDERED: LIDOCAINE HCL 1% PF 5 ML SYRINGE OTHER ONE (12:00)
[2017-07-06] MEDS ORDERED: ePHEDrine/NS 25 MG/5 ML SYRINGE IV ONE (12:00)
[2017-07-06] MEDS: ENOXAPARIN SODIUM 40 MG/0.4 ML SYRINGE SQ SCH (12:00)
[2017-07-06] MEDS ORDERED: PROPOFOL 200 MG/20 ML AMP IV ONE (12:00)
[2017-07-06] MEDS ORDERED: GLYCOPYRROLATE 1 MG/5 ML SYRINGE IV PUSH ONE (12:00)
[2017-07-06] MEDS ORDERED: IOHEXOL 300 MG/ML 50 ML BTL (for RAD DIAG) IVCONTRAST ONE (12:00)
[2017-07-06] MEDS ORDERED: *RESP: ALBUTEROL 2.5 MG/3 ML NEB (PRN) PERIprocedural Use ONLY NEB ONE (12:19)
[2017-07-06] MEDS: CLOPIDOGREL 75 MG TAB PO SCH (13:15)
--- NOTE | 2017-07-06 13:59 | EKG ---
Date Performed: 07/06/2017 Time Performed: 08:28:17 PTAGE: 77 years EKG: Sinus rhythm MARKED LEFT AXIS DEVIATION ABNORMAL ECG Since the PREVIOUS TRACING , no significant change noted PREVIOUS TRACIN07/03/2017 09.02 DOCTOR: Kristy Chavez Interpretating Date/Time 07/06/2017 13:58:22
--- NOTE | 2017-07-06 15:06 | MP ---
cc: Juan J Maya MD DATE OF OPERATION: 07/06/2017 PREOPERATIVE DIAGNOSIS: Left leg ischemia, occlusion of the left common femoral, external iliac, common femoral arteries with reconstitution. 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 OPERATIVE PROCEDURE: Left common femoral and external iliac artery endarterectomy, patch angioplasty, left external iliac and common iliac artery balloon thromboembolectomy and aortogram with runoff. SURGEON: MD Zulma ANESTHESIA: General. ESTIMATED BLOOD LOSS: 300 mL. PROCEDURE: The patient was prepped and draped in usual fashion and procedure started by opening the left groin in an oblique fashion and the incision was then deepened down with sharp and blunt dissection. The common femoral, superficial femoral and deep femoral arteries were isolated. The vessel appears to be firm and there is barely dopplerable pulse in it; it obviously cannot be palpated. The patient is giving 7000 units of heparin and then a micro needle and micro wire are placed into the junction of the common femoral and external iliac artery, where there is some sort of a flow. The micro wire is advanced under fluoroscopy and then over the micro wire a small dilator is placed. A 0.38 Glidewire was now inserted and with careful manipulation advanced through the external iliac artery occlusion area into the common femoral artery, which is also occluded distally and into the previously placed aortobifemoral endograft. Once we are in the graft, over the glidewire an Omni Flush catheter is advanced and then aortogram with runoff obtained. The patient has flow in the aorta. The right iliac artery is patent with a stenosis, both on the left side the common iliac distally is occluded and occlusion extends into the proximal external iliac. The distal external iliac is patent, but severely diseased; by that I can see it just by palpating it. At this point, decision had to be made whether this was a thromboembolic material clotting off the vessel or atherosclerotic. In my opinion, this was thromboembolic material. Therefore, this part of the procedure is terminated. The wire is left in place; however, and the sheath is left in place. The vessel is now opened longitudinally with [place] scissors from the superficial femoral into the common and external iliac artery. Proximally there is minimal bleeding downward. The deep femoral is patent. The profunda clamp is placed and superficial femoral artery has minimal backbleeding. The patient has massive amount of thromboembolic material and atherosclerotic material in the common femoral artery. This one is dissected in the media plane with a [place] dissector and then removed. The intima is cut sharply to prevent detachment later on; this is done proximally and distally. Now, a 6-Lao sheath is advanced over the wire, up into this external iliac clot and thromboembolic cluster and then through the sheath the 4 Lizzie balloon is inserted. The 4 Lizzie balloon is now inserted all the way into the bifurcation of the aorta and then gradually pulled back with a sheath. This results in acquisition of large amount of thromboembolic material and some dark mondragon material which is obviously filling the vessel. Now that we had a pad, the Lizzie is introduced another three times and each time a large amount of thrombotic material is obtained. This is now finally followed with a brisk flow under pressure. Once more Lizzie catheter is advanced while holding the vessel. The balloon is finally advanced for the last time and no more thromboembolic material is obtained. A clamp is now applied. Arteriogram is now obtained by reintroducing the sheath and shooting the arteriogram through the Omni Flush catheter. There is excellent flow now and the vessel is completely open. The Satinsky clamp is then reapplied proximally and then the sheath is turned distally and arteriogram obtained of the superficial femoral artery by direct injection this one is patent so there was no need to do anything there. The common femoral, external iliac artery are now closed with bovine patch with running 5-0 Prolene. Once completed blood flow was reestablished in the usual order and fashion. There is a superb pulse in deep femoral, superficial and common femoral arteries. Meticulous hemostasis obtained. Incision closed with the 0 Vicryl in layers and 4-0 Monocryl. At the end of procedure, the patient's leg is warm with good distal pulses. MD ALISON Angeles/STEVE , 02:16 PM , 03:05 PM
--- NOTE | 2017-07-06 15:12 | HHI.PR ---
Subjective Remarks Patient reports he is doing okay. Left great toe pain is unchanged. Status post heart catheterization today.. 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 Dr. Maya today regarding his lower extremity Patient seen postoperatively Denies any nausea vomiting denies any shortness of breath denies any chest pain Discussed with patient and RN A.m. labs Objective Vitals Vital Signs Date Time Temp Pulse Resp B/P (MAP) Pulse Ox O2 Delivery O2 Flow Rate FiO2 07/06/17 13:30 97.7 48 14 119/63 (81) 100 Nasal Cannula 2 07/06/17 13:15 47 14 116/56 (76) 100 Nasal Cannula 3 07/06/17 13:00 52 14 125/58 (80) 99 Nasal Cannula 3 07/06/17 12:45 45 14 117/56 (76) 97 Nasal Cannula 3 07/06/17 12:30 48 14 123/58 (79) 96 Nasal Cannula 3 Aerosol Mask 07/06/17 12:15 50 16 112/61 (78) 93 Nasal Cannula 3 07/06/17 12:00 62 16 120/66 (84) 92 Simple Mask 6 07/06/17 11:51 97.5 63 15 89/54 (66) 88 Nasal Cannula 3 07/06/17 08:25 98 Nasal Cannula 2 07/06/17 08:25 59 20 142/89 (106) 98 07/06/17 06:00 54 07/06/17 05:00 60 07/06/17 04:00 58 07/06/17 03:32 56 16 122/64 (83) 94 07/06/17 03:22 56 07/06/17 00:00 54 07/05/17 23:42 98.7 52 18 124/75 (91) 97 07/05/17 23:00 58 07/05/17 22:58 98.7 56 18 124/75 95 07/05/17 22:34 98.4 56 18 121/72 99 07/05/17 22:00 64 07/05/17 21:00 68 07/05/17 20:00 78 07/05/17 20:00 98.7 60 18 123/73 (90) 97 07/05/17 20:00 71 07/05/17 19:00 80 07/05/17 18:17 97.8 61 20 118/68 99 07/05/17 18:00 72 07/05/17 17:21 97.9 61 20 98 07/05/17 17:00 78 07/05/17 16:10 98.3 67 19 122/69 98 07/05/17 16:00 64 07/05/17 15:40 98.0 75 20 111/71 99 07/05/17 15:30 97.8 68 18 125/71 (89) 95 07/05/17 15:28 97.9 70 18 114/71 97 I/O 07/05/17 07/05/17 07/05/17 07/06/17 07/06/17 07/06/17 07:00 15:00 23:00 07:00 15:00 23:00 Intake Total 240 ml 1360 ml 240 ml 1300 ml Output Total 940 ml 650 ml 800 ml 700 ml Balance -700 ml 710 ml -560 ml 600 ml Intake Oral 240 ml 480 ml 240 ml 0 ml Packed Cells 360 ml Blood Product IV Normal Saline Flush 520 ml Other 1300 ml Output Urine Total 940 ml 650 ml 800 ml 400 ml Estimated Blood Loss 300 ml # Bowel Movements 1 Result Diagram: 07/06/17 0501 07/06/17 0501 Other Results Laboratory Tests Test 07/04/17 04:45 07/04/17 06:55 07/05/17 05:10 07/06/17 05:01 Blood Urea Nitrogen 6 MG/DL 5 MG/DL 8 MG/DL Creatinine 0.62 MG/DL 0.75 MG/DL 0.90 MG/DL Random Glucose 89 MG/DL 91 MG/DL 84 MG/DL Calcium Level 7.6 MG/DL 8.3 MG/DL 8.5 MG/DL Sodium Level 143 MEQ/L 139 MEQ/L 139 MEQ/L Potassium Level 4.1 MEQ/L 3.9 MEQ/L 4.2 MEQ/L Chloride Level 110 MEQ/L 106 MEQ/L 103 MEQ/L Carbon Dioxide Level 25.0 MEQ/L 25.3 MEQ/L 27.7 MEQ/L Anion Gap 8 MEQ/L 8 MEQ/L 8 MEQ/L Estimat Glomerular Filtration Rate 125 ML/MIN 101 ML/MIN 82 ML/MIN White Blood Count 5.9 TH/MM3 5.1 TH/MM3 4.7 TH/MM3 Red Blood Count 2.60 MIL/MM3 2.59 MIL/MM3 3.52 MIL/MM3 Hemoglobin 8.1 GM/DL 8.1 GM/DL 10.6 GM/DL Hematocrit 23.5 % 23.3 % 30.5 % Mean Corpuscular Volume 90.2 FL 89.9 FL 86.7 FL Mean Corpuscular Hemoglobin 31.2 PG 31.2 PG 30.2 PG Mean Corpuscular Hemoglobin Concent 34.6 % 34.7 % 34.9 % Red Cell Distribution Width 13.9 % 14.6 % 15.5 % Platelet Count 66 TH/MM3 119 TH/MM3 145 TH/MM3 Mean Platelet Volume 9.0 FL 8.7 FL 8.5 FL Neutrophils (%) (Auto) 79.5 % 78.4 % 77.0 % Lymphocytes (%) (Auto) 5.0 % 6.2 % 6.3 % Monocytes (%) (Auto) 14.6 % 14.7 % 15.9 % Eosinophils (%) (Auto) 0.4 % 0.3 % 0.4 % Basophils (%) (Auto) 0.5 % 0.4 % 0.4 % Neutrophils # (Auto) 4.7 TH/MM3 4.0 TH/MM3 3.7 TH/MM3 Lymphocytes # (Auto) 0.3 TH/MM3 0.3 TH/MM3 0.3 TH/MM3 Monocytes # (Auto) 0.9 TH/MM3 0.8 TH/MM3 0.8 TH/MM3 Eosinophils # (Auto) 0.0 TH/MM3 0.0 TH/MM3 0.0 TH/MM3 Basophils # (Auto) 0.0 TH/MM3 0.0 TH/MM3 0.0 TH/MM3 CBC Comment AUTO DIFF AUTO DIFF AUTO DIFF Differential Total Cells Counted 100 100 100 Neutrophils % (Manual) 63 % 66 % 80 % Band Neutrophils % 12 % 9 % 8 % Lymphocytes % 3 % 7 % 4 % Monocytes % 8 % 7 % 4 % Neutrophils # (Manual) 5.3 TH/MM3 4.3 TH/MM3 4.3 TH/MM3 Metamyelocytes 10 % 7 % 1 % Myelocytes 4 % 3 % 3 % Nucleated Red Blood Cells 1 /100 WBC 2 /100 WBC Differential Comment FINAL DIFF MANUAL FINAL DIFF MANUAL FINAL DIFF MANUAL Platelet Estimate LOW LOW LOW Platelet Morphology Comment NORMAL NORMAL NORMAL Red Cell Morphology Comment Basophils % 1 % Toxic Granulation 1+ Ovalocytes 1+ Total Protein 6.0 GM/DL Albumin 2.6 GM/DL Phosphorus Level 3.6 MG/DL Magnesium Level 1.6 MG/DL Alkaline Phosphatase 93 U/L Aspartate Amino Transf (AST/SGOT) 16 U/L Alanine Aminotransferase (ALT/SGPT) 11 U/L Total Bilirubin 0.6 MG/DL Free Thyroxine 0.79 NG/DL Thyroid Stimulating Hormone 3rd Gen 2.620 uIU/ML Imaging Last Impressions Aorta w/Runoff CTA 07/05/17 0000 Signed Impressions: Service Date/Time: Wednesday, July 05, 2017 12:03 - CONCLUSION: 1. The patient is post endograft repair of the infrarenal aorta. There is moderate intimal hyperplasia within the graft but it appears adequate in caliber. 2. The left external iliac circulation is occluded at its origin. There is reconstitution of the left common femoral but it is severely diseased with very high grade stenosis in its distal portion. 3. There is a focal area of high-grade stenosis in the mid segment of the right external iliac. 4. 5. Right le. The runoff distal to the common femoral is adequate. 7. 8. Left le. The runoff distal to the common femoral is adequate. Luis Wyatt MD Chest X-Ray 06/30/17 0000 Signed Impressions: Service Date/Time: Friday, June 30, 2017 08:43 - CONCLUSION: No acute disease. David Martinez MD Abdomen X-Ray 06/30/17 0000 Signed Impressions: Service Date/Time: Friday, June 30, 2017 08:47 - CONCLUSION: No evidence of obstruction. Aortic stent graft identified. David Martinez MD Abdomen/Pelvis CT 06/24/17 [id number] Signed Impressions: Service Date/Time: Sunday, June 25, 2017 00:13 - CONCLUSION: 1. Unremarkable bowel gas pattern on this noncontrast exam performed without oral contrast. 2. New patchy opacity in the posterior right lower lobe which is nonspecific and is of unclear chronicity but is new from 2015. The differential diagnosis includes pneumonia, scarring and asbestosis. 3. Status post interval abdominal aortic aneurysm repair with stent graft in place. 4. Multiple small partially calcified bilateral pleural plaques are now present. 5. Unremarkable gallbladder. Koby Interiano MD Objective Remarks GENERAL: Awake alert and oriented 3 talkative and cooperative appears stated age SKIN: Warm and dry. Left great toe is gangrenOUS HEAD: Atraumatic. Normocephalic. EYES: Pupils equal and round. No scleral icterus. No injection or drainage. Extraocular muscles intact ENT: No nasal bleeding or discharge. Mucous membranes pink and moist. Tongue is midline NECK: Trachea midline. No JVD. Supple CARDIOVASCULAR: Regular rate and rhythm. S1-S2 no S3-S4 RESPIRATORY: No accessory muscle use. Clear to auscultation. Breath sounds equal bilaterally. GASTROINTESTINAL: Abdomen soft, non-tender, nondistended. Hepatic and splenic margins not palpable. Obese MUSCULOSKELETAL: Extremities without clubbing, cyanosis, or edema. No obvious deformities. Left great toe is gangrenous NEUROLOGICAL: Awake and alert. No obvious cranial nerve deficits. Motor grossly within normal limits. Five out of 5 muscle strength in the arms and legs. Normal speech. PSYCHIATRIC: Appropriate mood and affect; insight and judgment normal. Procedures 07/02/2017 PROCEDURE PERFORMED: DESCRIPTION OF PROCEDURE: Prior to the procedure, an Gil's test was performed on the right. The patient failed his Gil's test. Left radial pulse is absent, for this reason, I chose the right groin. He does not have a pulse in his left groin. The patient was sedated with 2 mg of IV Versed. Using 1% lidocaine for local anesthesia, a 6-1/2 [place] sheath 5 Dayana for the left coronary artery. Right coronary artery was imaged with a 3DRC catheter. All the catheter exchanges were performed over a wire. I then used a right 4 Dayana to image the left . FINDINGS: 1. Hemodynamics. Left ventricular pressure is during the pullback. During pullback from the left ventricle to the aorta, aortic pressure is 126/59 with a mean of 85 . 2. Left ventriculography shows moderate posterobasal hypokinesis with an EF of about 60%. There is no mitral regurgitation. 3. Coronary angiography. The coronary arteries look very smooth. Left main coronary artery appears normal. The proximal left anterior descending artery and the major first diagonal branch appear normal. After the second diagonal, the LAD has a very focal stenosis best appreciated in the SINHALA cranial views. This is not thought to be more severe than 50-60%. This lesion could be treated medically. Circumflex artery appears smooth and appears normal. The right coronary artery has an eccentric 30-40% proximal stenosis and a smooth 30% mid stenosis. It looks like this can be treated medically as well. 4. Iliac angiography. Angiography of the left iliac artery shows that the external iliac artery appears to be totally occluded with collaterals to the common femoral artery. On the right leg the external iliac has diffuse 50% scattered disease. CONCLUSIONS IMPRESSION: 1. Overall, preserved left ventricular function, but with posterobasal hypokinesis. 2. Normal hemodynamics. 3. Mild 2-vessel coronary artery disease. 4. 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 RECOMMENDATIONS: An attempt at percutaneous intervention on the left iliac artery. Steven Cote MD Medications and IVs Current Medications Morphine Sulfate (Morphine Inj) 4 mg ONCE ONCE IV PUSH Last administered on at 23:31; Start 06/24/17 at 23:30; Stop 06/24/17 at 23:31; Status DC Ondansetron HCl (Zofran Inj) 4 mg ONCE ONCE IVP Last administered on at 23:31; Start 06/24/17 at 23:30; Stop 06/24/17 at 23:31; Status DC Sodium Chloride 1,000 ml @ 1,000 mls/hr Q1H IV Last administered on 06/24/17at 23:31; Start 06/24/17 at 23:18; Stop 06/25/17 at 00:17; Status DC Sodium Chloride (NS Flush) 2 ml UNSCH PRN IV FLUSH FLUSH AFTER USING IV ACCESS ; Start 06/24/17 at 23:30; Stop 06/25/17 at 03:31; Status DC Famotidine (Pepcid Inj) 20 mg ONCE ONCE IV PUSH Last administered on at 23:31; Start 06/24/17 at 23:30; Stop 06/24/17 at 23:31; Status DC Cefepime HCl 2000 mg/Sodium Chloride 100 ml @ 200 mls/hr ONCE ONCE IV Last administered on 06/25/17at 02:39; Start 06/25/17 at 02:30; Stop 06/25/17 at 02:59 ; Status DC Azithromycin 500 mg/Sodium Chloride 250 ml @ 250 mls/hr ONCE ONCE IV Last administered on 06/25/17at 05:04; Start 06/25/17 at 02:30; Stop 06/25/17 at 03:29 ; Status DC Sodium Chloride 1,000 ml @ 999 mls/hr BOLUS ONCE IV Last administered on 06/25at 05:04; Start 06/25/17 at 03:00; Stop 06/25/17 at 04:00; Status DC Pharmacy Profile Note 0 ml @ 0 mls/hr UNSCH OTHER ; Start 06/25/17 at 03:30; Stop 06/28/17 at 18:01; Status DC Cefepime HCl 1000 mg/Sodium Chloride 100 ml @ 200 mls/hr Q12H IV Last administered on 07/02/17at 23:30; Start 06/25/17 at 12:00; Stop 07/03/17 at 11:12; Status DC Albuterol/ Ipratropium (Duoneb Neb) 1 ampule Q4HR NEB PRN NEB SOB/WHEEZING; Start 06/25/17 at 03:30 Sodium Chloride 1,000 ml @ 100 mls/hr Q10H IV Last administered on 07/03/17at 14 :16; Start 06/25/17 at 03:19; Stop 07/04/17 at 08:46; Status DC Sodium Chloride (NS Flush) 2 ml UNSCH PRN IV FLUSH FLUSH AFTER USING IV ACCESS Last administered on 06/27/17at 00:43; Start 06/25/17 at 03:30; Stop 07/04/17 at 08:47; Status DC Sodium Chloride (NS Flush) 2 ml BID IV FLUSH Last administered on 07/01/17at 09: 31; Start 06/25/17 at 09:00; Stop 07/04/17 at 08:47; Status DC Ondansetron HCl (Zofran Inj) 4 mg Q6H PRN IVP NAUSEA OR VOMITING Last administered on 07/01/17at 18:46; Start 06/25/17 at 03:30 Acetaminophen (Tylenol) 650 mg Q6H PRN PO FEVER/PAIN SCALE 1 TO 2 Last administered on 07/01/17at 23:21; Start 06/25/17 at 03:30 Acetaminophen/ Hydrocodone Bitart (Buchtel 5-325 Mg) 1 tab Q4H PRN PO PAIN SCALE 3 TO 5 Last administered on 07/05/17at 08:46; Start 06/25/17 at 03:30 Morphine Sulfate (Morphine Inj) 2 mg Q3H PRN IV PUSH Pain 6-10 Last administered on 06/28/17at 09:54; Start 06/25/17 at 03:30 Senna/Docusate Sodium (Idalmis-Colace) 1 tab BID PO ; Start 06/25/17 at 09:00; Stop 06/27/17 at 21:22; Status DC Magnesium Hydroxide (Milk Of Magnesia Liq) 30 ml Q12H PRN PO Mild constipation ; Start 06/25/17 at 03:30 Sennosides (Senokot) 17.2 mg Q12H PRN PO Moderate constipation; Start 06/25/17 at 03:30 Bisacodyl (Dulcolax Supp) 10 mg DAILY PRN RECTAL SEVERE CONSITIPATION; Start at 03:30 Lactulose (Lactulose Liq) 30 ml DAILY PRN PO SEVERE CONSITIPATION; Start at 03:30 Vancomycin HCl 1500 mg/Sodium Chloride 515 ml @ 257.5 mls/ hr ONCE ONCE IV ; Start 06/25/17 at 04:00; Stop 06/25/17 at 05:59; Status Cancel Guaifenesin (Mucinex Er) 600 mg BID PO Last administered on 07/05/17at 21:09; Start 06/25/17 at 09:00 Vancomycin HCl 1250 mg/Sodium Chloride 262.5 ml @ 250 mls/hr Q24H IV Last administered on 06/27/17at 09:07; Start 06/25/17 at 10:00; Stop 06/27/17 at 10:50 ; Status DC Miscellaneous Information SPECIFIC LAB TO BE DRAWN:VANCO TROUGH DATE TO... ONCE ONCE .XX ; Start 06/28/17 at 09:45; Stop 06/28/17 at 09:45; Status DC Al Hydrox/Mg Hydrox/Simethicone (Mag-Al Plus Susp Liq) 30 ml ONCE ONCE PO Last administered on 06/25/17at 21:08; Start 06/25/17 at 20:15; Stop 06/25/17 at 20:16; Status DC Loperamide HCl (Imodium) 2 mg UNSCH PRN PO DIARRHEA Last administered on at 13:11; Start 06/26/17 at 10:15 Miscellaneous Information SPECIFIC LAB TO BE DRAWN:VANCO TROUGH DATE TO... ONCE ONCE .XX Last administered on 06/27/17at 09:00; Start 06/27/17 at 09:45; Stop 06/27/17 at 09:46; Status DC Al Hydrox/Mg Hydrox/Simethicone (Mag-Al Plus Susp Liq) 30 ml Q6H PRN PO DYSPEPSIA OR HEARTBURN; Start 06/26/17 at 14:00 Famotidine (Pepcid Inj) 20 mg Q12HR IV PUSH Last administered on 06/27/17at 08: 54; Start 06/26/17 at 14:00; Stop 06/27/17 at 09:02; Status DC Filgrastim 480 mcg/Dextrose 51.6 ml @ 100 mls/hr DAILY@14 IV Last administered on 06/30/17at 13:33; Start 06/27/17 at 14:00; Stop 07/01/17 at 07:32 ; Status DC Sodium Chloride 250 ml @ 15 mls/hr ONCE ONCE IV ; Start 06/27/17 at 08:00; Stop 06/28/17 at 00:39; Status DC Acetaminophen (Tylenol) 650 mg Q4H PRN PO SEE LABEL COMMENTS Last administered on 07/05/17at 15:13; Start 06/27/17 at 08:00; Stop 07/05/17 at 15:24; Status DC Diphenhydramine HCl (Benadryl) 25 mg Q4H PRN PO SEE LABEL COMMENTS Last administered on 07/05/17at 15:13; Start 06/27/17 at 08:00; Stop 07/05/17 at 15:13; Status DC Potassium Chloride 100 ml @ 25 mls/hr Q4H IV Last administered on 06/27/17at 11 :20; Start 06/27/17 at 09:15; Stop 06/27/17 at 17:15; Status DC Famotidine (Pepcid) 20 mg BID PO Last administered on 07/05/17at 21:09; Start at 21:00 Vancomycin HCl 1250 mg/Sodium Chloride 262.5 ml @ 250 mls/hr Q12H IV ; Start at 21:00; Stop 06/27/17 at 21:00; Status DC Vancomycin/Sodium Chloride 200 ml @ 200 mls/hr Q12H IV Last administered on at 08:47; Start 06/27/17 at 21:00; Stop 06/28/17 at 18:01; Status DC Miscellaneous Information SPECIFIC LAB TO BE DRAWN:VANCOMYCIN TROUGH DATE TO... ONCE ONCE .XX ; Start 06/29/17 at 08:45; Stop 06/29/17 at 08:45; Status DC Potassium Chloride 100 ml @ 25 mls/hr Q4H IV Last administered on 06/27/17at 22 :41; Start 06/27/17 at 23:00; Stop 06/28/17 at 02:59; Status DC Daptomycin 600 mg/ Sodium Chloride 100 ml @ 200 mls/hr Q24H IV Last administered on 07/02/17at 20:43; Start 06/28/17 at 20:00; Stop 07/03/17 at 11:12; Status DC Potassium Chloride 30 meq/ Sodium Chloride 115 ml @ 33 mls/hr Q3H IV Last administered on 06/29/17at 13:00; Start 06/29/17 at 09:00; Stop 06/29/17 at 14:59 ; Status DC Magnesium Sulfate/ Dextrose 100 ml @ 100 mls/hr Q1H IV Last administered on at 09:44; Start 06/29/17 at 08:15; Stop 06/29/17 at 10:14; Status DC Magnesium Sulfate/ Dextrose 100 ml @ 100 mls/hr ONCE ONCE IV Last administered on 06/29/17at 18:00; Start 06/29/17 at 18:00; Stop 06/29/17 at 18:59 ; Status DC Potassium Chloride 30 meq/ Sodium Chloride 115 ml @ 33 mls/hr Q3H IV Last administered on 06/30/17at 11:45; Start 06/30/17 at 08:45; Stop 06/30/17 at 14:44 ; Status DC Magnesium Sulfate/ Dextrose 100 ml @ 100 mls/hr ONCE ONCE IV Last administered on 06/30/17at 09:33; Start 06/30/17 at 08:30; Stop 06/30/17 at 09:29 ; Status DC Nitroglycerin (Nitro-Dur 0.1 Mg Patch.24hr) 1 patch DAILY T-DERMAL Last administered on 07/05/17 12:43; Start 06/30/17 at 15:00 Potassium Chloride (KCl) 30 meq ONCE ONCE PO Last administered on 07/01/17at 15 :40; Start 07/01/17 at 14:15; Stop 07/01/17 at 14:18; Status DC Metoprolol Tartrate (Lopressor) 12.5 mg Q8HR PO Last administered on 07/02/17 05:30; Start 07/01/17 at 22:00; Stop 07/02/17 at 15:40; Status DC Miscellaneous (Pill Splitter) 1 ea UNSCH PRN OTHER SEE LABEL COMMENTS; Start at 14:30 Enoxaparin Sodium (Lovenox Inj) 40 mg Q24H SQ Last administered on 07/05/17 15: 19; Start 07/02/17 at 12:00 Metoprolol Tartrate (Lopressor) 25 mg BID PO Last administered on 07/05/17 21: 09; Start 07/02/17 at 21:00 Potassium Chloride (KCl) 20 meq DAILY PO Last administered on 07/05/17 08:45; Start 07/02/17 at 15:45 Sodium Chloride 1,000 ml @ 100 mls/hr Q10H IV Last administered on 07/04/17 04 :23; Start 07/03/17 at 08:34; Stop 07/04/17 at 08:46; Status DC Diphenhydramine HCl (Benadryl) 25 mg MEDICAL AUTHORIZATION SPECIALIST PO Last administered on 07/05/17 21:10; Start 07/03/17 at 08:45; Stop 07/07/17 at 08:44 Diazepam (Valium) 5 mg MEDICAL AUTHORIZATION SPECIALIST PO ; Start 07/03/17 at 08:45; Stop 07/07/17 at 08: 44 Aspirin (Aspirin) 325 mg ONCE ONCE PO Last administered on 4/2/18at 18:06; Start 07/03/17 at 17:00; Stop 07/03/17 at 17:01; Status DC Heparin Sodium/ Sodium Chloride 1,000 ml @ As Directed STK-MED ONCE IV FLUSH ; Start 07/04/17 at 07:10; Stop 07/04/17 at 07:11; Status DC Midazolam HCl (Versed Inj) 2 mg STK-MED ONCE .ROUTE Last administered on at 07:28; Start 07/04/17 at 07:28; Stop 07/04/17 at 07:29; Status DC Nitroglycerin 5 ml @ As Directed STK-MED ONCE .ROUTE ; Start 07/04/17 at 07:33; Stop 07/04/17 at 07:34; Status DC Sodium Chloride 1,000 ml @ 100 mls/hr Q10H IV Last administered on 07/04/17at 11 :29; Start 07/04/17 at 08:37; Stop 07/04/17 at 14:36; Status DC Sodium Chloride (NS Flush) 2 ml BID IV FLUSH Last administered on 07/05/17at 21: 12; Start 07/04/17 at 09:00 Sodium Chloride (NS Flush) 2 ml UNSCH PRN IV FLUSH FLUSH AFTER USING IV ACCESS ; Start 07/04/17 at 08:45 Bacitracin (Bacitracin Oint Packet) 0.9 gm ONCE ONCE TOP Last administered on 07/04/17at 08:54; Start 07/04/17 at 09:00; Stop 07/04/17 at 09:01; Status DC Iohexol (OMNIPAQUE 350 INJ (Population Health Coach)) 100 ml STK-MED ONCE OTHER ; Start at 12:55; Stop 07/04/17 at 12:56; Status DC Iohexol (OMNIPAQUE 350 INJ (Population Health Coach)) 50 ml STK-MED ONCE OTHER ; Start 07/04/17 at 12:55; Stop 07/04/17 at 12:56; Status DC Sodium Chloride 250 ml @ 15 mls/hr ONCE ONCE IV Last administered on at 09:00; Start 07/05/17 at 09:00; Stop 07/06/17 at 01:39; Status DC Alteplase, Recombinant (Cathflo Activase Inj) 2 mg Q2H PRN INTRACATH clotted cath Last administered on 07/05/17at 12:44; Start 07/05/17 at 12:15; Stop 07/05/17 at 15:18; Status DC Iohexol (Omnipaque 350 Inj) 99 ml STK-MED ONCE IVCONTRAST Last administered on 07/05/17at 12:18; Start 07/05/17 at 12:18; Stop 07/05/17 at 12:19; Status DC Heparin Sodium (Porcine) (Heparin Central Flush) 2.5 units STK-MED ONCE IV FLUSH ; Start 07/05/17 at 12:19; Stop 07/05/17 at 12:20; Status DC Alteplase, Recombinant (Cathflo Activase Inj) 2 mg Q2H PRN INTRACATH OCCLUDED CATHETER/PORT; Start 07/05/17 at 14:30 Amlodipine Besylate (Norvasc) 5 mg DAILY PO ; Start 07/06/17 at 09:00 Aspirin (Aspirin Chew) 81 mg DAILY CHEW ; Start 07/06/17 at 09:00 Pravastatin Sodium (Pravachol) 20 mg DAILY PO ; Start 07/06/17 at 09:00 Acetaminophen (Tylenol) 650 mg Q4H PRN PO SEE LABEL COMMENTS Last administered on 07/05/17at 21:11; Start 07/05/17 at 15:30 Diphenhydramine HCl (Benadryl) 25 mg Q4H PRN PO SEE LABEL COMMENTS; Start at 15:30 Cefazolin Sodium 2000 mg/Sodium Chloride 120 ml @ 240 mls/hr MEDICAL AUTHORIZATION SPECIALIST IV ; Start 07/05/17 at 17:30; Stop 07/08/17 at 17:29 Protamine Sulfate (Protamine Sulfate Inj) 50 mg STK-MED ONCE .ROUTE ; Start 07/06 at 06:50; Stop 07/06/17 at 06:51; Status DC Heparin Sodium (Porcine) (Heparin Inj) 10,000 units STK-MED ONCE .ROUTE ; Start 07/06/17 at 06:50; Stop 07/06/17 at 06:51; Status DC Cefazolin Sodium (Ancef Inj) 2,000 mg STK-MED ONCE .ROUTE Last administered on 07/06/17at 09:37; Start 07/06/17 at 06:50; Stop 07/06/17 at 06:51; Status DC Heparin Sodium (Porcine) (Heparin Inj) 10,000 units STK-MED ONCE .ROUTE ; Start 07/06/17 at 06:51; Stop 07/06/17 at 06:52; Status DC Heparin Sodium (Porcine) (Heparin Inj) 20,000 units STK-MED ONCE .ROUTE ; Start 07/06/17 at 06:51; Stop 07/06/17 at 06:52; Status DC Heparin Sodium/ Sodium Chloride 500 ml @ As Directed STK-MED ONCE .ROUTE Last administered on 07/06/17at 06:51; Start 07/06/17 at 06:51; Stop 07/06/17 at 06:52; Status DC Fentanyl Citrate (fentaNYL INJ) 500 mcg STK-MED ONCE .ROUTE ; Start 07/06/17 at 07:28; Stop 07/06/17 at 07:29; Status DC Nitroglycerin (Nitrostat Sl (Adm Override)) 0.4 mg STK-MED ONCE SL ; Start at 08:36; Stop 07/06/17 at 08:37; Status DC Nitroglycerin/ Dextrose 250 ml @ As Directed STK-MED ONCE .ROUTE ; Start at 08:40; Stop 07/06/17 at 08:41; Status DC Iohexol 50 ml @ 0 mls/hr ONCE ONCE IV ; Start 07/06/17 at 10:02; Stop 07/06/17 at 13:13; Status DC Albuterol Sulfate (*ALBUTEROL NEB PERIprocedure ONLY) 2.5 mg STK-MED ONCE NEB ; Start 07/06/17 at 12:19; Stop 07/06/17 at 12:20; Status DC Clopidogrel Bisulfate (Plavix) 75 mg DAILY PO ; Start 07/06/17 at 13:15 Miscellaneous Information ALL NURSING DEPARTME... UNSCH PRN .XX SEE LABEL COMMENTS; Start 07/06/17 at 12:00; Stop 07/07/17 at 11:59 A/P Problem List: (1) Severe sepsis ICD Code: A41.9 - Sepsis, unspecified organism; R65.20 - Severe sepsis without septic shock Status: Acute Plan: Sepsis syndrome resolved. DW ID. Agree with discontinuing antibiotics and monitor. (2) Non-STEMI (non-ST elevated myocardial infarction) ICD Code: I21.4 - Non-ST elevation (NSTEMI) myocardial infarction Plan: Cardiology following. Status post heart catheterization. Official report pending. Continue aspirin, metoprolol. Check lipids (3) PNA (pneumonia) ICD Code: J18.9 - Pneumonia, unspecified organism Plan: S/P treatment with antibiotics. Was followed by ID. (4) PAD (peripheral artery disease) ICD Code: I73.9 - Peripheral vascular disease, unspecified Status: Acute Plan: ESTELA conclusion: Severely compromised left leg circulation. Acute on chronic. Vascular surgery following, Dr. Suero Podiatreddi consulted as well. Vascular surgery to follow-up for surgery femorofemoral bypass on the fifth Underwent vascular surgery with Dr. Dr. Maya today July 06 (5) Bladder cancer ICD Code: C67.9 - Malignant neoplasm of bladder, unspecified Status: Chronic Plan: Patient undergoing chemotherapy with Dr. Valerio. Appreciate Oncology following. (6) Pancytopenia ICD Code: D61.818 - Other pancytopenia Status: Acute Plan: Secondary to chemotherapy. Much improved. Monitor labs. -Hematology/oncology following. Status post transfusion and Neupogen ordered per Heme/Onc - Neupogen on hold for now as counts recovering. (7) Anemia ICD Code: D64.9 - Anemia, unspecified Plan: A.m. lab Acute blood loss anemia probably secondary to GI loss (8) Diarrhea ICD Code: R19.7 - Diarrhea, unspecified Status: Resolved (9) Electrolyte abnormality ICD Code: E87.8 - Other disorders of electrolyte and fluid balance, not elsewhere classified Status: Resolved Plan: Replace as needed Assessment and Plan (1) Severe sepsis ICD Code: A41.9 - Sepsis, unspecified organism; R65.20 - Severe sepsis without septic shock Status: Acute Plan: Sepsis syndrome resolved. DW ID. Agree with discontinuing antibiotics and monitor. (2) Non-STEMI (non-ST elevated myocardial infarction) ICD Code: I21.4 - Non-ST elevation (NSTEMI) myocardial infarction Plan: Cardiology following. Status post heart catheterization. Official report pending. Continue aspirin, metoprolol. Check lipids (3) PNA (pneumonia) ICD Code: J18.9 - Pneumonia, unspecified organism Plan: S/P treatment with antibiotics. Was followed by ID. (4) PAD (peripheral artery disease) ICD Code: I73.9 - Peripheral vascular disease, unspecified Status: Acute Plan: ESTELA conclusion: Severely compromised left leg circulation. Acute on chronic. Vascular surgery following, Dr. Suero Podiatry consulted as well. Vascular surgery to follow-up Status post vascular surgical procedure with Dr. Dr. Maya (5) Bladder cancer ICD Code: C67.9 - Malignant neoplasm of bladder, unspecified Status: Chronic Plan: Patient undergoing chemotherapy with Dr. Valerio. Appreciate Oncology following. (6) Pancytopenia ICD Code: D61.818 - Other pancytopenia Status: Acute Plan: Secondary to chemotherapy. Much improved. Monitor labs. -Hematology/oncology following. Status post transfusion and Neupogen ordered per Heme/Onc - Neupogen on hold for now as counts recovering. (7) Anemia ICD Code: D64.9 - Anemia, unspecified (8) Diarrhea ICD Code: R19.7 - Diarrhea, unspecified Status: Resolved (9) Electrolyte abnormality ICD Code: E87.8 - Other disorders of electrolyte and fluid balance, not elsewhere classified Status: Resolved Blood loss anemia has been transfused suspect secondary to GI losses Discharge Planning Pending further input from Vascular surgery. Discharge Planning Pending clearance from surgery Problem Qualifiers (1) PNA (pneumonia): (2) Anemia: Armin Bennett DO Jul 06, 2017 15:12
--- NOTE | 2017-07-06 15:23 | PD.ONC.PN ---
Subjective Subjective Remarks Afebrile overnight. patient s/p fem-fem bypass this AM. Doing well post-surgery but is hungry and wants to eat a regular diet. Objective Data Date Time Temp Pulse Resp B/P (MAP) Pulse Ox O2 Delivery O2 Flow Rate FiO2 07/06/17 13:30 97.7 48 14 119/63 (81) 100 Nasal Cannula 2 07/06/17 13:15 47 14 116/56 (76) 100 Nasal Cannula 3 07/06/17 13:00 52 14 125/58 (80) 99 Nasal Cannula 3 07/06/17 12:45 45 14 117/56 (76) 97 Nasal Cannula 3 07/06/17 12:30 48 14 123/58 (79) 96 Nasal Cannula 3 Aerosol Mask 07/06/17 12:15 50 16 112/61 (78) 93 Nasal Cannula 3 07/06/17 12:00 62 16 120/66 (84) 92 Simple Mask 6 07/06/17 11:51 97.5 63 15 89/54 (66) 88 Nasal Cannula 3 07/06/17 08:25 98 Nasal Cannula 2 07/06/17 08:25 59 20 142/89 (106) 98 07/06/17 06:00 54 07/06/17 05:00 60 07/06/17 04:00 58 07/06/17 03:32 56 16 122/64 (83) 94 07/06/17 03:22 56 07/06/17 00:00 54 07/05/17 23:42 98.7 52 18 124/75 (91) 97 07/05/17 23:00 58 07/05/17 22:58 98.7 56 18 124/75 95 07/05/17 22:34 98.4 56 18 121/72 99 07/05/17 22:00 64 07/05/17 21:00 68 07/05/17 20:00 78 07/05/17 20:00 98.7 60 18 123/73 (90) 97 07/05/17 20:00 71 07/05/17 19:00 80 07/05/17 18:17 97.8 61 20 118/68 99 07/05/17 18:00 72 07/05/17 17:21 97.9 61 20 98 07/05/17 17:00 78 07/05/17 16:10 98.3 67 19 122/69 98 07/05/17 16:00 64 07/05/17 15:40 98.0 75 20 111/71 99 07/05/17 15:30 97.8 68 18 125/71 (89) 95 07/05/17 15:28 97.9 70 18 114/71 97 07/06/17 07/06/17 07/06/17 07:00 15:00 23:00 Intake Total 240 ml 1300 ml Output Total 800 ml 700 ml Balance -560 ml 600 ml Result Diagram: 07/06/17 0501 07/06/17 0501 Laboratory Results Laboratory Tests Test 07/06/17 05:01 White Blood Count 4.7 TH/MM3 Red Blood Count 3.52 MIL/MM3 Hemoglobin 10.6 GM/DL Hematocrit 30.5 % Mean Corpuscular Volume 86.7 FL Mean Corpuscular Hemoglobin 30.2 PG Mean Corpuscular Hemoglobin Concent 34.9 % Red Cell Distribution Width 15.5 % Platelet Count 145 TH/MM3 Mean Platelet Volume 8.5 FL Neutrophils (%) (Auto) 77.0 % Lymphocytes (%) (Auto) 6.3 % Monocytes (%) (Auto) 15.9 % Eosinophils (%) (Auto) 0.4 % Basophils (%) (Auto) 0.4 % Neutrophils # (Auto) 3.7 TH/MM3 Lymphocytes # (Auto) 0.3 TH/MM3 Monocytes # (Auto) 0.8 TH/MM3 Eosinophils # (Auto) 0.0 TH/MM3 Basophils # (Auto) 0.0 TH/MM3 CBC Comment AUTO DIFF Differential Total Cells Counted 100 Neutrophils % (Manual) 80 % Band Neutrophils % 8 % Lymphocytes % 4 % Monocytes % 4 % Neutrophils # (Manual) 4.3 TH/MM3 Metamyelocytes 1 % Myelocytes 3 % Nucleated Red Blood Cells 2 /100 WBC Differential Comment FINAL DIFF MANUAL Toxic Granulation 1+ Platelet Estimate LOW Platelet Morphology Comment NORMAL Ovalocytes 1+ Blood Urea Nitrogen 8 MG/DL Creatinine 0.90 MG/DL Random Glucose 84 MG/DL Total Protein 6.0 GM/DL Albumin 2.6 GM/DL Calcium Level 8.5 MG/DL Phosphorus Level 3.6 MG/DL Magnesium Level 1.6 MG/DL Alkaline Phosphatase 93 U/L Aspartate Amino Transf (AST/SGOT) 16 U/L Alanine Aminotransferase (ALT/SGPT) 11 U/L Total Bilirubin 0.6 MG/DL Sodium Level 139 MEQ/L Potassium Level 4.2 MEQ/L Chloride Level 103 MEQ/L Carbon Dioxide Level 27.7 MEQ/L Anion Gap 8 MEQ/L Estimat Glomerular Filtration Rate 82 ML/MIN Free Thyroxine 0.79 NG/DL Thyroid Stimulating Hormone 3rd Gen 2.620 uIU/ML Administered Medications Medications (Trade) Dose Ordered Sig/Leeann Route PRN Reason Start Time Stop Time Status Last Admin Dose Admin Ondansetron HCl (Zofran Inj) 4 mg Q6H PRN IVP NAUSEA OR VOMITING 06/25/17 03:30 07/01/17 18:46 Acetaminophen (Tylenol) 650 mg Q6H PRN PO FEVER/PAIN SCALE 1 TO 2 06/25/17 03:30 07/01/17 23:21 Acetaminophen/ Hydrocodone Bitart ([place] 5-325 Mg) 1 tab Q4H PRN PO PAIN SCALE 3 TO 5 06/25/17 03:30 07/05/17 08:46 Morphine Sulfate (Morphine Inj) 2 mg Q3H PRN IV PUSH Pain 6-10 06/25/17 03:30 06/28/17 09:54 Guaifenesin (Mucinex Er) 600 mg BID PO 06/25/17 09:00 07/05/17 21:09 Loperamide HCl (Imodium) 2 mg UNSCH PRN PO DIARRHEA 06/26/17 10:15 06/26/17 13:11 Famotidine (Pepcid) 20 mg BID PO 06/27/17 21:00 07/05/17 21:09 Nitroglycerin (Nitro-Dur 0.1 Mg Patch.24hr) 1 patch DAILY T-DERMAL 06/30/17 15:00 07/05/17 12:43 Enoxaparin Sodium (Lovenox Inj) 40 mg Q24H SQ 07/02/17 12:00 07/05/17 15:19 Metoprolol Tartrate (Lopressor) 25 mg BID PO 07/02/17 21:00 07/05/17 21:09 Potassium Chloride (KCl) 20 meq DAILY PO 07/02/17 15:45 07/05/17 08:45 Diphenhydramine HCl (Benadryl) 25 mg [employer] PO 07/03/17 08:45 4/6/18 08:44 07/05/17 21:10 Sodium Chloride (NS Flush) 2 ml BID IV FLUSH 07/04/17 09:00 07/05/17 21:12 Acetaminophen (Tylenol) 650 mg Q4H PRN PO SEE LABEL COMMENTS 07/05/17 15:30 07/05/17 21:11 Objective Remarks GENERAL: Elderly male, sitting up in bed in nad. SKIN: Warm and dry. HEAD: Normocephalic. EYES: no injection or drainage. NECK: Supple, trachea midline. CARDIOVASCULAR: Regular rate and rhythm RESPIRATORY: Breath sounds equal bilaterally. No accessory muscle use. GASTROINTESTINAL: Abdomen soft, non-tender, nondistended. EXTREMITIES: no edema. distal toes are warm and well perfused in bilateral lower extremities. NEUROLOGICAL: awake and alert. normal speech. moving extremities. Assessment/Plan Problem List: (1) PAD (peripheral artery disease) ICD Codes: I73.9 - Peripheral vascular disease, unspecified Status: Acute Plan: 07/06: s/p fem-fem bypass today. continue treatment per vascular surgery. --vascular surgery following. (2) Bladder cancer ICD Codes: C67.9 - Malignant neoplasm of bladder, unspecified Status: Chronic Plan: --radiation on hold until recovered from fem-fem bypass --currently on combined chemotherapy and radiation therapy with cisplatin and gemcitabine. (hold while inpatient) (3) Dyspepsia ICD Codes: R10.13 - Epigastric pain Status: Resolved Plan: --on PO Pepcid BID (4) Non-STEMI (non-ST elevated myocardial infarction) ICD Codes: I21.4 - Non-ST elevation (NSTEMI) myocardial infarction Plan: underwent cardiac cath on 07/[address] Cote which showed mild CAD, no stent needed. Assessment 77y/o male with locally advanced bladder cancer, currently receiving definitive chemotherapy and radiation therapy admitted with sepsis, nausea and vomiting. Attending Statement The exam, history, and the medical decision-making described in the above note were completed with the assistance of the mid-level provider. I reviewed and agree with the findings presented. I attest that I had a [id number] encounter with the patient on the same day, and personally performed and documented my assessment and findings in the medical record. NO new c/o for surgery today. will follow. Tiesha Sutherland Jul 06, 2017 15:23 Deepali Valerio MD Jul 07, 2017 13:23
[2017-07-06 17:20] LABS: HEMOGLOBIN A1C 6.3 % (4.3-6.0)
[2017-07-06] MEDS: MORPHINE SULFATE 2 MG/ML SYRINGE IV PUSH PRN (20:33)
[2017-07-07] VITALS (12 sets, daily range): BP systolic 94–110; BP diastolic 47–67; PULSE 57–90; RESP 16–18; TEMP 98.2–98.7; O2SAT 95–98
[2017-07-07] MEDS ORDERED: ALUMINUM/MAGNESIUM/SIMETH 30 ML CUP PO ONE (00:15)
[2017-07-07] MEDS: ACETAMINOPHEN/HYDROcodone 325 MG/5 MG TAB PO PRN (04:07)
[2017-07-07 04:51] LABS: BASOPHIL % 0.2 % (0.0-2.0); EOSINOPHIL % 0.1 % (0.0-4.0); HEMATOCRIT 28.2 % (39.0-51.0); HEMOGLOBIN 9.8 GM/DL (13.0-17.0); LYMPH % 4.2 % (9.0-44.0); LYMPHOCYTE # 0.3 TH/MM3 (1.0-4.8); MEAN CELL VOLUME 87.6 FL (80.0-100.0); MEAN CORPUSCULAR HEMOGLOBIN 30.4 PG (27.0-34.0); MEAN CORPUSCULAR HGB CONC 34.7 % (32.0-36.0); MEAN PLATELET VOLUME 8.6 FL (7.0-11.0); MONO % 12.5 % (0.0-8.0); MONOCYTE # 0.9 TH/MM3 (0-0.9); PLATELET COUNT 164 TH/MM3 (150-450); RED BLOOD COUNT 3.21 MIL/MM3 (4.50-5.90); RED CELL DISTRIBUTION WIDTH 15.2 % (11.6-17.2); WHITE BLOOD COUNT 7.2 TH/MM3 (4.0-11.0)
[2017-07-07 05:08] LABS: ALBUMIN 2.4 GM/DL (3.4-5.0); AST (GOT) 14 U/L (15-37); BICARBONATE 29.1 MEQ/L (21.0-32.0); BLOOD UREA NITROGEN 9 MG/DL (7-18); CALCIUM 7.9 MG/DL (8.5-10.1); CHLORIDE 101 MEQ/L (98-107); CREATININE 0.88 MG/DL (0.60-1.30); GLOMERULAR FILTRATION RATE 84 ML/MIN (>89); GLUCOSE,RANDOM 98 MG/DL (74-106); MAGNESIUM 1.7 MG/DL (1.5-2.5); SODIUM (NA) 138 MEQ/L (136-145)
[2017-07-07 05:09] LABS: ALT (GPT) 10 U/L (12-78)
[2017-07-07 05:12] LABS: ALKALINE PHOSPHATASE 96 U/L (45-117); PHOSPHORUS 3.2 MG/DL (2.5-4.9); TOTAL BILIRUBIN ADULT 0.3 MG/DL (0.2-1.0); TOTAL PROTEIN 5.8 GM/DL (6.4-8.2)
--- NOTE | 2017-07-07 08:38 | PD.CARD.PN ---
Subjective Subjective Remarks no chest pain, today (had episode preop yest) Objective Medications Current Medications Medications (Trade) Dose Ordered Sig/Leeann Route Start Time Stop Time Status Last Admin (Duoneb Neb) 1 ampule Q4HR NEB PRN NEB 06/25/17 03:30 (Zofran Inj) 4 mg Q6H PRN IVP 06/25/17 03:30 07/01/17 18:46 (Tylenol) 650 mg Q6H PRN PO 06/25/17 03:30 07/01/17 23:21 ([place] 5-325 Mg) 1 tab Q4H PRN PO 06/25/17 03:30 07/07/17 04:07 (Morphine Inj) 2 mg Q3H PRN IV PUSH 06/25/17 03:30 07/06/17 20:33 (Milk Of Magnesia Liq) 30 ml Q12H PRN PO 06/25/17 03:30 (Senokot) 17.2 mg Q12H PRN PO 06/25/17 03:30 (Dulcolax Supp) 10 mg DAILY PRN RECTAL 06/25/17 03:30 (Lactulose Liq) 30 ml DAILY PRN PO 06/25/17 03:30 (Mucinex Er) 600 mg BID PO 06/25/17 09:00 07/06/17 20:31 (Imodium) 2 mg UNSCH PRN PO 06/26/17 10:15 06/26/17 13:11 (Mag-Al Plus Susp Liq) 30 ml Q6H PRN PO 06/26/17 14:00 07/07/17 00:22 (Pepcid) 20 mg BID PO 06/27/17 21:00 07/06/17 20:31 (Nitro-Dur 0.1 Mg Patch.24hr) 1 patch DAILY T-DERMAL 06/30/17 15:00 07/05/17 12:43 (Pill Splitter) 1 ea UNSCH PRN OTHER 07/01/17 14:30 (Lovenox Inj) 40 mg Q24H SQ 07/02/17 12:00 07/05/17 15:19 (Lopressor) 25 mg BID PO 07/02/17 21:00 07/05/17 21:09 (KCl) 20 meq DAILY PO 07/02/17 15:45 07/05/17 08:45 (Benadryl) 25 mg PATIENT INTAKE COORDINATOR PO 07/03/17 08:45 07/07/17 08:44 07/05/17 21:10 (Valium) 5 mg PATIENT INTAKE COORDINATOR PO 07/03/17 08:45 07/07/17 08:44 (NS Flush) 2 ml BID IV FLUSH 07/04/17 09:00 07/06/17 20:35 (NS Flush) 2 ml UNSCH PRN IV FLUSH 07/04/17 08:45 (Cathflo Activase Inj) 2 mg Q2H PRN INTRACATH 07/05/17 14:30 (Norvasc) 5 mg DAILY PO 07/06/17 09:00 (Aspirin Chew) 81 mg DAILY CHEW 07/06/17 09:00 (Pravachol) 20 mg DAILY PO 07/06/17 09:00 (Tylenol) 650 mg Q4H PRN PO 07/05/17 15:30 07/05/17 21:11 (Benadryl) 25 mg Q4H PRN PO 07/05/17 15:30 Cefazolin Sodium 2000 mg/Sodium Chloride 120 ml @ 240 mls/hr PATIENT INTAKE COORDINATOR IV 07/05/17 17:30 07/08/17 17:29 (Plavix) 75 mg DAILY PO 07/06/17 13:15 07/06/17 13:15 Miscellaneous Information ALL NURSING DEPARTME... UNSCH PRN .XX 07/06/17 12:00 07/07/17 11:59 Vital Signs / I&O Vital Signs Date Time Temp Pulse Resp B/P (MAP) Pulse Ox O2 Delivery O2 Flow Rate FiO2 07/07/17 06:29 90 07/07/17 05:21 16 07/07/17 04:11 98.7 69 16 110/47 (68) 98 07/07/17 04:00 59 07/07/17 00:13 80 07/07/17 00:02 81 16 94/55 (68) 95 07/07/17 00:02 86 07/07/17 00:00 78 07/06/17 23:05 16 07/06/17 22:00 82 07/06/17 21:00 84 07/06/17 20:12 98.4 78 18 104/63 (77) 96 07/06/17 20:00 82 07/06/17 19:00 82 07/06/17 16:39 50 07/06/17 15:00 98.7 56 16 127/60 (82) 94 07/06/17 13:30 97.7 48 14 119/63 (81) 100 Nasal Cannula 2 07/06/17 13:15 47 14 116/56 (76) 100 Nasal Cannula 3 07/06/17 13:00 52 14 125/58 (80) 99 Nasal Cannula 3 07/06/17 12:45 45 14 117/56 (76) 97 Nasal Cannula 3 07/06/17 12:30 48 14 123/58 (79) 96 Nasal Cannula 3 Aerosol Mask 07/06/17 12:15 50 16 112/61 (78) 93 Nasal Cannula 3 07/06/17 12:00 62 16 120/66 (84) 92 Simple Mask 6 07/06/17 11:51 97.5 63 15 89/54 (66) 88 Nasal Cannula 3 I/O 07/06/17 07/06/17 07/06/17 07/07/17 07/07/17 07/07/17 07:00 15:00 23:00 07:00 15:00 23:00 Intake Total 670 ml 1300 ml 240 ml Output Total 800 ml 700 ml 600 ml Balance -130 ml 600 ml -360 ml Intake Oral 240 ml 0 ml 240 ml Packed Cells 400 ml Blood Product IV Normal Saline Flush 30 ml Other 1300 ml Output Urine Total 800 ml 400 ml 600 ml Estimated Blood Loss 300 ml Physical Exam Obese Alert, NAD Chest: BS diminished (COPD), no wheezes or rales CV S1S2 RRR Ext: no edema, right groin OK. Pulse back in left foot! Laboratory Laboratory Tests Test 07/07/17 04:00 White Blood Count 7.2 TH/MM3 Red Blood Count 3.21 MIL/MM3 Hemoglobin 9.8 GM/DL Hematocrit 28.2 % Mean Corpuscular Volume 87.6 FL Mean Corpuscular Hemoglobin 30.4 PG Mean Corpuscular Hemoglobin Concent 34.7 % Red Cell Distribution Width 15.2 % Platelet Count 164 TH/MM3 Mean Platelet Volume 8.6 FL Neutrophils (%) (Auto) 83.0 % Lymphocytes (%) (Auto) 4.2 % Monocytes (%) (Auto) 12.5 % Eosinophils (%) (Auto) 0.1 % Basophils (%) (Auto) 0.2 % Neutrophils # (Auto) 6.0 TH/MM3 Lymphocytes # (Auto) 0.3 TH/MM3 Monocytes # (Auto) 0.9 TH/MM3 Eosinophils # (Auto) 0.0 TH/MM3 Basophils # (Auto) 0.0 TH/MM3 CBC Comment DIFF FINAL Differential Comment Blood Urea Nitrogen 9 MG/DL Creatinine 0.88 MG/DL Random Glucose 98 MG/DL Total Protein 5.8 GM/DL Albumin 2.4 GM/DL Calcium Level 7.9 MG/DL Phosphorus Level 3.2 MG/DL Magnesium Level 1.7 MG/DL Alkaline Phosphatase 96 U/L Aspartate Amino Transf (AST/SGOT) 14 U/L Alanine Aminotransferase (ALT/SGPT) 10 U/L Total Bilirubin 0.3 MG/DL Sodium Level 138 MEQ/L Potassium Level 4.3 MEQ/L Chloride Level 101 MEQ/L Carbon Dioxide Level 29.1 MEQ/L Anion Gap 8 MEQ/L Estimat Glomerular Filtration Rate 84 ML/MIN Assessment and Plan Problem List: (1) Non-STEMI (non-ST elevated myocardial infarction) ICD Codes: I21.4 - Non-ST elevation (NSTEMI) myocardial infarction (2) COPD (chronic obstructive pulmonary disease) ICD Codes: J44.9 - Chronic obstructive pulmonary disease, unspecified (3) Pancytopenia ICD Codes: D61.818 - Other pancytopenia Status: Acute (4) PAD (peripheral artery disease) ICD Codes: I73.9 - Peripheral vascular disease, unspecified Status: Acute Plan: Greatly appreciate Dr. Walters's skill/expertise in revascularization left leg (5) Bladder cancer ICD Codes: C67.9 - Malignant neoplasm of bladder, unspecified Status: Chronic (6) Coronary artery disease ICD Codes: I25.10 - Atherosclerotic heart disease of [place] coronary artery without angina pectoris Plan: Change nitrate to Imdur 60mg Assessment and Plan OK with me to DC home. Absolutely NO SMOKING. Steven Cote MD Jul 07, 2017 08:38
[2017-07-07] MEDS ORDERED: ISOSORBIDE MONONITRATE 60 MG CR TAB (IMDUR) PO SCH (09:00)
[2017-07-07] MEDS: FAMOTIDINE 20 MG TAB PO SCH (09:55)
[2017-07-07] MEDS: guaiFENesin E.R. 600 MG TAB PO SCH (09:55)
[2017-07-07] MEDS: amLODIPine BESYLATE 5 MG TAB PO SCH (09:55)
[2017-07-07] MEDS: PRAVASTATIN SOD 20 MG TAB PO SCH (09:55)
[2017-07-07] MEDS: ASPIRIN 81 MG CHEW TAB CHEW SCH (09:55)
[2017-07-07] MEDS: CLOPIDOGREL 75 MG TAB PO SCH (09:55)
[2017-07-07] MEDS: SODIUM CHLORIDE 0.9% FLUSH 10 ML FLUSH IV FLUSH SCH (09:56)
[2017-07-07] MEDS: POTASSIUM CHLORIDE 20 MEQ CONTROLLED RELEASE TAB PO SCH (09:56)
[2017-07-07] MEDS: METOPROLOL TARTRATE 25 MG TAB PO SCH (09:56)
--- NOTE | 2017-07-07 11:20 | PD.ONC.PN ---
Subjective Subjective Remarks Afebrile overnight. patient resting in bed in nad. No complaints. toe feeling better today, color continuing to improve. Objective Data Date Time Temp Pulse Resp B/P (MAP) Pulse Ox O2 Delivery O2 Flow Rate FiO2 07/07/17 08:30 98.2 57 18 101/67 (78) 96 07/07/17 06:29 90 07/07/17 05:21 16 07/07/17 04:11 98.7 69 16 110/47 (68) 98 07/07/17 04:00 59 07/07/17 00:13 80 07/07/17 00:02 81 16 94/55 (68) 95 07/07/17 00:02 86 07/07/17 00:00 78 07/06/17 23:05 16 07/06/17 22:00 82 07/06/17 21:00 84 07/06/17 20:12 98.4 78 18 104/63 (77) 96 07/06/17 20:00 82 07/06/17 19:00 82 07/06/17 16:39 50 07/06/17 15:00 98.7 56 16 127/60 (82) 94 07/06/17 13:30 97.7 48 14 119/63 (81) 100 Nasal Cannula 2 07/06/17 13:15 47 14 116/56 (76) 100 Nasal Cannula 3 07/06/17 13:00 52 14 125/58 (80) 99 Nasal Cannula 3 07/06/17 12:45 45 14 117/56 (76) 97 Nasal Cannula 3 07/06/17 12:30 48 14 123/58 (79) 96 Nasal Cannula 3 Aerosol Mask 07/06/17 12:15 50 16 112/61 (78) 93 Nasal Cannula 3 07/06/17 12:00 62 16 120/66 (84) 92 Simple Mask 6 07/06/17 11:51 97.5 63 15 89/54 (66) 88 Nasal Cannula 3 07/07/17 07/07/17 07/07/17 07:00 15:00 23:00 Intake Total 240 ml Output Total 600 ml Balance -360 ml Result Diagram: 07/07/17 0400 07/07/17 0400 Laboratory Results Laboratory Tests Test 07/07/17 04:00 White Blood Count 7.2 TH/MM3 Red Blood Count 3.21 MIL/MM3 Hemoglobin 9.8 GM/DL Hematocrit 28.2 % Mean Corpuscular Volume 87.6 FL Mean Corpuscular Hemoglobin 30.4 PG Mean Corpuscular Hemoglobin Concent 34.7 % Red Cell Distribution Width 15.2 % Platelet Count 164 TH/MM3 Mean Platelet Volume 8.6 FL Neutrophils (%) (Auto) 83.0 % Lymphocytes (%) (Auto) 4.2 % Monocytes (%) (Auto) 12.5 % Eosinophils (%) (Auto) 0.1 % Basophils (%) (Auto) 0.2 % Neutrophils # (Auto) 6.0 TH/MM3 Lymphocytes # (Auto) 0.3 TH/MM3 Monocytes # (Auto) 0.9 TH/MM3 Eosinophils # (Auto) 0.0 TH/MM3 Basophils # (Auto) 0.0 TH/MM3 CBC Comment DIFF FINAL Differential Comment Blood Urea Nitrogen 9 MG/DL Creatinine 0.88 MG/DL Random Glucose 98 MG/DL Total Protein 5.8 GM/DL Albumin 2.4 GM/DL Calcium Level 7.9 MG/DL Phosphorus Level 3.2 MG/DL Magnesium Level 1.7 MG/DL Alkaline Phosphatase 96 U/L Aspartate Amino Transf (AST/SGOT) 14 U/L Alanine Aminotransferase (ALT/SGPT) 10 U/L Total Bilirubin 0.3 MG/DL Sodium Level 138 MEQ/L Potassium Level 4.3 MEQ/L Chloride Level 101 MEQ/L Carbon Dioxide Level 29.1 MEQ/L Anion Gap 8 MEQ/L Estimat Glomerular Filtration Rate 84 ML/MIN Administered Medications Medications (Trade) Dose Ordered Sig/Leeann Route PRN Reason Start Time Stop Time Status Last Admin Dose Admin Ondansetron HCl (Zofran Inj) 4 mg Q6H PRN IVP NAUSEA OR VOMITING 06/25/17 03:30 07/01/17 18:46 Acetaminophen (Tylenol) 650 mg Q6H PRN PO FEVER/PAIN SCALE 1 TO 2 06/25/17 03:30 07/01/17 23:21 Acetaminophen/ Hydrocodone Bitart ([place] 5-325 Mg) 1 tab Q4H PRN PO PAIN SCALE 3 TO 5 06/25/17 03:30 07/07/17 04:07 Morphine Sulfate (Morphine Inj) 2 mg Q3H PRN IV PUSH Pain 6-10 06/25/17 03:30 07/06/17 20:33 Guaifenesin (Mucinex Er) 600 mg BID PO 06/25/17 09:00 07/07/17 09:55 Loperamide HCl (Imodium) 2 mg UNSCH PRN PO DIARRHEA 06/26/17 10:15 06/26/17 13:11 Al Hydrox/Mg Hydrox/Simethicone (Mag-Al Plus Susp Liq) 30 ml Q6H PRN PO DYSPEPSIA OR HEARTBURN 06/26/17 14:00 07/07/17 00:22 Famotidine (Pepcid) 20 mg BID PO 06/27/17 21:00 07/07/17 09:55 Enoxaparin Sodium (Lovenox Inj) 40 mg Q24H SQ 07/02/17 12:00 07/05/17 15:19 Metoprolol Tartrate (Lopressor) 25 mg BID PO 07/02/17 21:00 07/05/17 21:09 Potassium Chloride (KCl) 20 meq DAILY PO 07/02/17 15:45 07/07/17 09:56 Sodium Chloride (NS Flush) 2 ml BID IV FLUSH 07/04/17 09:00 07/07/17 09:56 Amlodipine Besylate (Norvasc) 5 mg DAILY PO 07/06/17 09:00 07/07/17 09:55 Aspirin (Aspirin Chew) 81 mg DAILY CHEW 07/06/17 09:00 07/07/17 09:55 Pravastatin Sodium (Pravachol) 20 mg DAILY PO 07/06/17 09:00 07/07/17 09:55 Acetaminophen (Tylenol) 650 mg Q4H PRN PO SEE LABEL COMMENTS 07/05/17 15:30 07/05/17 21:11 Clopidogrel Bisulfate (Plavix) 75 mg DAILY PO 07/06/17 13:15 07/07/17 09:55 Isosorbide Mononitrate (Imdur) 60 mg DAILY@07 PO 07/07/17 09:00 07/07/17 09:55 Objective Remarks GENERAL: Elderly male, upright in bed resting. SKIN: Warm and dry. HEAD: Normocephalic. EYES: no injection or drainage. NECK: Supple, trachea midline. CARDIOVASCULAR: Regular rate and rhythm RESPIRATORY: Breath sounds equal bilaterally. No accessory muscle use. GASTROINTESTINAL: Abdomen soft, non-tender, nondistended. EXTREMITIES: no edema. left great toe is warm and well perfused. no cyanosis. NEUROLOGICAL: awake, alert. moving extremities. Assessment/Plan Problem List: (1) PAD (peripheral artery disease) ICD Codes: I73.9 - Peripheral vascular disease, unspecified Status: Acute Plan: 07/06: clear for discharge when cleared by vascular surgery. --s/p Left common femoral and external iliac artery endarterectomy, patch angioplasty, left external iliac and common iliac artery balloon thromboembolectomy and aortogram with runoff on 07/05 --vascular surgery following. (2) Bladder cancer ICD Codes: C67.9 - Malignant neoplasm of bladder, unspecified Status: Chronic Plan: --radiation on hold until recovered from fem-fem bypass --currently on combined chemotherapy and radiation therapy with cisplatin and gemcitabine. (hold while inpatient) (3) Dyspepsia ICD Codes: R10.13 - Epigastric pain Status: Resolved Plan: --on PO Pepcid BID (4) Non-STEMI (non-ST elevated myocardial infarction) ICD Codes: I21.4 - Non-ST elevation (NSTEMI) myocardial infarction Plan: underwent cardiac cath on 07/[address] Cote which showed mild CAD, no stent needed. Assessment 77y/o male with locally advanced bladder cancer, currently receiving definitive chemotherapy and radiation therapy admitted with sepsis, nausea and vomiting. Attending Statement The exam, history, and the medical decision-making described in the above note were completed with the assistance of the mid-level provider. I reviewed and agree with the findings presented. I attest that I had a [id number] encounter with the patient on the same day, and personally performed and documented my assessment and findings in the medical record. states his left foot feels better and less discolored. foot is warm Plat are normal. ok to d/c fu as outpt Tiesha Sutherland Jul 07, 2017 11:20 Deepali Valerio MD Jul 07, 2017 13:26
--- NOTE | 2017-07-07 11:24 | HHI.PR ---
Subjective Remarks Patient reports he is doing okay. Left great toe pain is unchanged. Status post heart catheterization today.. 4-4 TO HAVE FEM-FEM BYPASS TOMORROW WITH VASCULAR SURGERY NO NEW COMPLAINTS AT THIS TIME DW RN AND PT AND CUTTER FIRST 4-5 underwent cardiovascular surgery with Dr. Dr. Maya today regarding his lower extremity Patient seen postoperatively Denies any nausea vomiting denies any shortness of breath denies any chest pain Discussed with patient and RN A.m. labs 4-6 SP AXILLARY BIFEMORAL BYPASS ON - Dr. Dr. Maya DC RIVERA DC TO HOME TODAY DW RN AND PT AND SURGERY AND CM Objective Vitals Vital Signs Date Time Temp Pulse Resp B/P (MAP) Pulse Ox O2 Delivery O2 Flow Rate FiO2 07/07/17 08:30 98.2 57 18 101/67 (78) 96 07/07/17 06:29 90 07/07/17 05:21 16 07/07/17 04:11 98.7 69 16 110/47 (68) 98 07/07/17 04:00 59 07/07/17 00:13 80 07/07/17 00:02 81 16 94/55 (68) 95 07/07/17 00:02 86 07/07/17 00:00 78 07/06/17 23:05 16 07/06/17 22:00 82 07/06/17 21:00 84 07/06/17 20:12 98.4 78 18 104/63 (77) 96 07/06/17 20:00 82 07/06/17 19:00 82 07/06/17 16:39 50 07/06/17 15:00 98.7 56 16 127/60 (82) 94 07/06/17 13:30 97.7 48 14 119/63 (81) 100 Nasal Cannula 2 07/06/17 13:15 47 14 116/56 (76) 100 Nasal Cannula 3 07/06/17 13:00 52 14 125/58 (80) 99 Nasal Cannula 3 07/06/17 12:45 45 14 117/56 (76) 97 Nasal Cannula 3 07/06/17 12:30 48 14 123/58 (79) 96 Nasal Cannula 3 Aerosol Mask 07/06/17 12:15 50 16 112/61 (78) 93 Nasal Cannula 3 07/06/17 12:00 62 16 120/66 (84) 92 Simple Mask 6 07/06/17 11:51 97.5 63 15 89/54 (66) 88 Nasal Cannula 3 I/O 07/06/17 07/06/17 07/06/17 07/07/17 07/07/17 07/07/17 07:00 15:00 23:00 07:00 15:00 23:00 Intake Total 670 ml 1300 ml 240 ml Output Total 800 ml 700 ml 600 ml Balance -130 ml 600 ml -360 ml Intake Oral 240 ml 0 ml 240 ml Packed Cells 400 ml Blood Product IV Normal Saline Flush 30 ml Other 1300 ml Output Urine Total 800 ml 400 ml 600 ml Estimated Blood Loss 300 ml Result Diagram: 07/07/17 0400 07/07/17 0400 Other Results Laboratory Tests Test 07/05/17 05:10 07/06/17 05:01 07/07/17 04:00 White Blood Count 5.1 TH/MM3 4.7 TH/MM3 7.2 TH/MM3 Red Blood Count 2.59 MIL/MM3 3.52 MIL/MM3 3.21 MIL/MM3 Hemoglobin 8.1 GM/DL 10.6 GM/DL 9.8 GM/DL Hematocrit 23.3 % 30.5 % 28.2 % Mean Corpuscular Volume 89.9 FL 86.7 FL 87.6 FL Mean Corpuscular Hemoglobin 31.2 PG 30.2 PG 30.4 PG Mean Corpuscular Hemoglobin Concent 34.7 % 34.9 % 34.7 % Red Cell Distribution Width 14.6 % 15.5 % 15.2 % Platelet Count 119 TH/MM3 145 TH/MM3 164 TH/MM3 Mean Platelet Volume 8.7 FL 8.5 FL 8.6 FL Neutrophils (%) (Auto) 78.4 % 77.0 % 83.0 % Lymphocytes (%) (Auto) 6.2 % 6.3 % 4.2 % Monocytes (%) (Auto) 14.7 % 15.9 % 12.5 % Eosinophils (%) (Auto) 0.3 % 0.4 % 0.1 % Basophils (%) (Auto) 0.4 % 0.4 % 0.2 % Neutrophils # (Auto) 4.0 TH/MM3 3.7 TH/MM3 6.0 TH/MM3 Lymphocytes # (Auto) 0.3 TH/MM3 0.3 TH/MM3 0.3 TH/MM3 Monocytes # (Auto) 0.8 TH/MM3 0.8 TH/MM3 0.9 TH/MM3 Eosinophils # (Auto) 0.0 TH/MM3 0.0 TH/MM3 0.0 TH/MM3 Basophils # (Auto) 0.0 TH/MM3 0.0 TH/MM3 0.0 TH/MM3 CBC Comment AUTO DIFF AUTO DIFF DIFF FINAL Differential Total Cells Counted 100 100 Neutrophils % (Manual) 66 % 80 % Band Neutrophils % 9 % 8 % Lymphocytes % 7 % 4 % Monocytes % 7 % 4 % Basophils % 1 % Neutrophils # (Manual) 4.3 TH/MM3 4.3 TH/MM3 Metamyelocytes 7 % 1 % Myelocytes 3 % 3 % Differential Comment FINAL DIFF MANUAL FINAL DIFF MANUAL Platelet Estimate LOW LOW Platelet Morphology Comment NORMAL NORMAL Blood Urea Nitrogen 5 MG/DL 8 MG/DL 9 MG/DL Creatinine 0.75 MG/DL 0.90 MG/DL 0.88 MG/DL Random Glucose 91 MG/DL 84 MG/DL 98 MG/DL Calcium Level 8.3 MG/DL 8.5 MG/DL 7.9 MG/DL Sodium Level 139 MEQ/L 139 MEQ/L 138 MEQ/L Potassium Level 3.9 MEQ/L 4.2 MEQ/L 4.3 MEQ/L Chloride Level 106 MEQ/L 103 MEQ/L 101 MEQ/L Carbon Dioxide Level 25.3 MEQ/L 27.7 MEQ/L 29.1 MEQ/L Anion Gap 8 MEQ/L 8 MEQ/L 8 MEQ/L Estimat Glomerular Filtration Rate 101 ML/MIN 82 ML/MIN 84 ML/MIN Nucleated Red Blood Cells 2 /100 WBC Toxic Granulation 1+ Ovalocytes 1+ Total Protein 6.0 GM/DL 5.8 GM/DL Albumin 2.6 GM/DL 2.4 GM/DL Phosphorus Level 3.6 MG/DL 3.2 MG/DL Magnesium Level 1.6 MG/DL 1.7 MG/DL Alkaline Phosphatase 93 U/L 96 U/L Aspartate Amino Transf (AST/SGOT) 16 U/L 14 U/L Alanine Aminotransferase (ALT/SGPT) 11 U/L 10 U/L Total Bilirubin 0.6 MG/DL 0.3 MG/DL Hemoglobin A1c 6.3 % Free Thyroxine 0.79 NG/DL Thyroid Stimulating Hormone 3rd Gen 2.620 uIU/ML Imaging Last Impressions Aorta w/Runoff CTA 07/05/17 0000 Signed Impressions: Service Date/Time: Wednesday, July 05, 2017 12:03 - CONCLUSION: 1. The patient is post endograft repair of the infrarenal aorta. There is moderate intimal hyperplasia within the graft but it appears adequate in caliber. 2. The left external iliac circulation is occluded at its origin. There is reconstitution of the left common femoral but it is severely diseased with very high grade stenosis in its distal portion. 3. There is a focal area of high-grade stenosis in the mid segment of the right external iliac. 4. 5. Right le. The runoff distal to the common femoral is adequate. 7. 8. Left le. The runoff distal to the common femoral is adequate. Luis Wyatt MD Chest X-Ray 06/30/17 0000 Signed Impressions: Service Date/Time: Friday, June 30, 2017 08:43 - CONCLUSION: No acute disease. David Martinez MD Abdomen X-Ray 06/30/17 0000 Signed Impressions: Service Date/Time: Friday, June 30, 2017 08:47 - CONCLUSION: No evidence of obstruction. Aortic stent graft identified. David Maritnez MD Abdomen/Pelvis CT 06/24/17 2318 Signed Impressions: Service Date/Time: Sunday, June 25, 2017 00:13 - CONCLUSION: 1. Unremarkable bowel gas pattern on this noncontrast exam performed without oral contrast. 2. New patchy opacity in the posterior right lower lobe which is nonspecific and is of unclear chronicity but is new from 2015. The differential diagnosis includes pneumonia, scarring and asbestosis. 3. Status post interval abdominal aortic aneurysm repair with stent graft in place. 4. Multiple small partially calcified bilateral pleural plaques are now present. 5. Unremarkable gallbladder. Koby Interiano MD Objective Remarks GENERAL: Awake alert and oriented 3 talkative and cooperative appears stated age SKIN: Warm and dry. Left great toe is gangrenOUS HEAD: Atraumatic. Normocephalic. EYES: Pupils equal and round. No scleral icterus. No injection or drainage. Extraocular muscles intact ENT: No nasal bleeding or discharge. Mucous membranes pink and moist. Tongue is midline NECK: Trachea midline. No JVD. Supple CARDIOVASCULAR: Regular rate and rhythm. S1-S2 no S3-S4 RESPIRATORY: No accessory muscle use. Clear to auscultation. Breath sounds equal bilaterally. GASTROINTESTINAL: Abdomen soft, non-tender, nondistended. Hepatic and splenic margins not palpable. Obese MUSCULOSKELETAL: Extremities without clubbing, cyanosis, or edema. No obvious deformities. Left great toe is gangrenous NEUROLOGICAL: Awake and alert. No obvious cranial nerve deficits. Motor grossly within normal limits. Five out of 5 muscle strength in the arms and legs. Normal speech. PSYCHIATRIC: Appropriate mood and affect; insight and judgment normal. Procedures 07/02/2017 PROCEDURE PERFORMED: DESCRIPTION OF PROCEDURE: Prior to the procedure, an Gil's test was performed on the right. The patient failed his Gil's test. Left radial pulse is absent, for this reason, I chose the right groin. He does not have a pulse in his left groin. The patient was sedated with 2 mg of IV Versed. Using 1% lidocaine for local anesthesia, a 6-1/2 Macedonian sheath 5 Dayana for the left coronary artery. Right coronary artery was imaged with a 3DRC catheter. All the catheter exchanges were performed over a wire. I then used a right 4 Dayana to image the left . FINDINGS: 1. Hemodynamics. Left ventricular pressure is during the pullback. During pullback from the left ventricle to the aorta, aortic pressure is 126/59 with a mean of 85 . 2. Left ventriculography shows moderate posterobasal hypokinesis with an EF of about 60%. There is no mitral regurgitation. 3. Coronary angiography. The coronary arteries look very smooth. Left main coronary artery appears normal. The proximal left anterior descending artery and the major first diagonal branch appear normal. After the second diagonal, the LAD has a very focal stenosis best appreciated in the KRISH cranial views. This is not thought to be more severe than 50-60%. This lesion could be treated medically. Circumflex artery appears smooth and appears normal. The right coronary artery has an eccentric 30-40% proximal stenosis and a smooth 30% mid stenosis. It looks like this can be treated medically as well. 4. Iliac angiography. Angiography of the left iliac artery shows that the external iliac artery appears to be totally occluded with collaterals to the common femoral artery. On the right leg the external iliac has diffuse 50% scattered disease. CONCLUSIONS IMPRESSION: 1. Overall, preserved left ventricular function, but with posterobasal hypokinesis. 2. Normal hemodynamics. 3. Mild 2-vessel coronary artery disease. 4. 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 RECOMMENDATIONS: An attempt at percutaneous intervention on the left iliac artery. Steven Cote MD 4-5 RIGHT SIDE AXILLARY BIFEMORAL BYPASS Medications and IVs Current Medications Morphine Sulfate (Morphine Inj) 4 mg ONCE ONCE IV PUSH Last administered on at 23:31; Start 06/24/17 at 23:30; Stop 06/24/17 at 23:31; Status DC Ondansetron HCl (Zofran Inj) 4 mg ONCE ONCE IVP Last administered on at 23:31; Start 06/24/17 at 23:30; Stop 06/24/17 at 23:31; Status DC Sodium Chloride 1,000 ml @ 1,000 mls/hr Q1H IV Last administered on 06/24/17at 23:31; Start 06/24/17 at 23:18; Stop 06/25/17 at 00:17; Status DC Sodium Chloride (NS Flush) 2 ml UNSCH PRN IV FLUSH FLUSH AFTER USING IV ACCESS ; Start 06/24/17 at 23:30; Stop 06/25/17 at 03:31; Status DC Famotidine (Pepcid Inj) 20 mg ONCE ONCE IV PUSH Last administered on at 23:31; Start 06/24/17 at 23:30; Stop 06/24/17 at 23:31; Status DC Cefepime HCl 2000 mg/Sodium Chloride 100 ml @ 200 mls/hr ONCE ONCE IV Last administered on 06/25/17at 02:39; Start 06/25/17 at 02:30; Stop 06/25/17 at 02:59 ; Status DC Azithromycin 500 mg/Sodium Chloride 250 ml @ 250 mls/hr ONCE ONCE IV Last administered on 06/25/17at 05:04; Start 06/25/17 at 02:30; Stop 06/25/17 at 03:29 ; Status DC Sodium Chloride 1,000 ml @ 999 mls/hr BOLUS ONCE IV Last administered on 06/25at 05:04; Start 06/25/17 at 03:00; Stop 06/25/17 at 04:00; Status DC Pharmacy Profile Note 0 ml @ 0 mls/hr UNSCH OTHER ; Start 06/25/17 at 03:30; Stop 06/28/17 at 18:01; Status DC Cefepime HCl 1000 mg/Sodium Chloride 100 ml @ 200 mls/hr Q12H IV Last administered on 07/02/17at 23:30; Start 06/25/17 at 12:00; Stop 07/03/17 at 11:12; Status DC Albuterol/ Ipratropium (Duoneb Neb) 1 ampule Q4HR NEB PRN NEB SOB/WHEEZING; Start 06/25/17 at 03:30 Sodium Chloride 1,000 ml @ 100 mls/hr Q10H IV Last administered on 07/03/17at 14 :16; Start 06/25/17 at 03:19; Stop 07/04/17 at 08:46; Status DC Sodium Chloride (NS Flush) 2 ml UNSCH PRN IV FLUSH FLUSH AFTER USING IV ACCESS Last administered on 06/27/17at 00:43; Start 06/25/17 at 03:30; Stop 07/04/17 at 08:47; Status DC Sodium Chloride (NS Flush) 2 ml BID IV FLUSH Last administered on 07/01/17at 09: 31; Start 06/25/17 at 09:00; Stop 07/04/17 at 08:47; Status DC Ondansetron HCl (Zofran Inj) 4 mg Q6H PRN IVP NAUSEA OR VOMITING Last administered on 07/01/17at 18:46; Start 06/25/17 at 03:30 Acetaminophen (Tylenol) 650 mg Q6H PRN PO FEVER/PAIN SCALE 1 TO 2 Last administered on 07/01/17at 23:21; Start 06/25/17 at 03:30 Acetaminophen/ Hydrocodone Bitart ([place] 5-325 Mg) 1 tab Q4H PRN PO PAIN SCALE 3 TO 5 Last administered on 07/07/17at 04:07; Start 06/25/17 at 03:30 Morphine Sulfate (Morphine Inj) 2 mg Q3H PRN IV PUSH Pain 6-10 Last administered on 07/06/17at 20:33; Start 06/25/17 at 03:30 Senna/Docusate Sodium (Idalmis-Colace) 1 tab BID PO ; Start 06/25/17 at 09:00; Stop 06/27/17 at 21:22; Status DC Magnesium Hydroxide (Milk Of Magnesia Liq) 30 ml Q12H PRN PO Mild constipation ; Start 06/25/17 at 03:30 Sennosides (Senokot) 17.2 mg Q12H PRN PO Moderate constipation; Start 06/25/17 at 03:30 Bisacodyl (Dulcolax Supp) 10 mg DAILY PRN RECTAL SEVERE CONSITIPATION; Start at 03:30 Lactulose (Lactulose Liq) 30 ml DAILY PRN PO SEVERE CONSITIPATION; Start at 03:30 Vancomycin HCl 1500 mg/Sodium Chloride 515 ml @ 257.5 mls/ hr ONCE ONCE IV ; Start 06/25/17 at 04:00; Stop 06/25/17 at 05:59; Status Cancel Guaifenesin (Mucinex Er) 600 mg BID PO Last administered on 07/07/17at 09:55; Start 06/25/17 at 09:00 Vancomycin HCl 1250 mg/Sodium Chloride 262.5 ml @ 250 mls/hr Q24H IV Last administered on 06/27/17at 09:07; Start 06/25/17 at 10:00; Stop 06/27/17 at 10:50 ; Status DC Miscellaneous Information SPECIFIC LAB TO BE DRAWN:VANCO TROUGH DATE TO... ONCE ONCE .XX ; Start 06/28/17 at 09:45; Stop 06/28/17 at 09:45; Status DC Al Hydrox/Mg Hydrox/Simethicone (Mag-Al Plus Susp Liq) 30 ml ONCE ONCE PO Last administered on 06/25/17at 21:08; Start 06/25/17 at 20:15; Stop 06/25/17 at 20:16; Status DC Loperamide HCl (Imodium) 2 mg UNSCH PRN PO DIARRHEA Last administered on at 13:11; Start 06/26/17 at 10:15 Miscellaneous Information SPECIFIC LAB TO BE DRAWN:VANCO TROUGH DATE TO... ONCE ONCE .XX Last administered on 06/27/17at 09:00; Start 06/27/17 at 09:45; Stop 06/27/17 at 09:46; Status DC Al Hydrox/Mg Hydrox/Simethicone (Mag-Al Plus Susp Liq) 30 ml Q6H PRN PO DYSPEPSIA OR HEARTBURN Last administered on 07/07/17at 00:22; Start 06/26/17 at 14 :00 Famotidine (Pepcid Inj) 20 mg Q12HR IV PUSH Last administered on 06/27/17at 08: 54; Start 06/26/17 at 14:00; Stop 06/27/17 at 09:02; Status DC Filgrastim 480 mcg/Dextrose 51.6 ml @ 100 mls/hr DAILY@14 IV Last administered on 06/30/17at 13:33; Start 06/27/17 at 14:00; Stop 07/01/17 at 07:32 ; Status DC Sodium Chloride 250 ml @ 15 mls/hr ONCE ONCE IV ; Start 06/27/17 at 08:00; Stop 06/28/17 at 00:39; Status DC Acetaminophen (Tylenol) 650 mg Q4H PRN PO SEE LABEL COMMENTS Last administered on 07/05/17at 15:13; Start 06/27/17 at 08:00; Stop 07/05/17 at 15:24; Status DC Diphenhydramine HCl (Benadryl) 25 mg Q4H PRN PO SEE LABEL COMMENTS Last administered on 07/05/17at 15:13; Start 06/27/17 at 08:00; Stop 07/05/17 at 15:13; Status DC Potassium Chloride 100 ml @ 25 mls/hr Q4H IV Last administered on 06/27/17at 11 :20; Start 06/27/17 at 09:15; Stop 06/27/17 at 17:15; Status DC Famotidine (Pepcid) 20 mg BID PO Last administered on 07/07/17at 09:55; Start at 21:00 Vancomycin HCl 1250 mg/Sodium Chloride 262.5 ml @ 250 mls/hr Q12H IV ; Start at 21:00; Stop 06/27/17 at 21:00; Status DC Vancomycin/Sodium Chloride 200 ml @ 200 mls/hr Q12H IV Last administered on at 08:47; Start 06/27/17 at 21:00; Stop 06/28/17 at 18:01; Status DC Miscellaneous Information SPECIFIC LAB TO BE DRAWN:VANCOMYCIN TROUGH DATE TO... ONCE ONCE .XX ; Start 06/29/17 at 08:45; Stop 06/29/17 at 08:45; Status DC Potassium Chloride 100 ml @ 25 mls/hr Q4H IV Last administered on 06/27/17at 22 :41; Start 06/27/17 at 23:00; Stop 06/28/17 at 02:59; Status DC Daptomycin 600 mg/ Sodium Chloride 100 ml @ 200 mls/hr Q24H IV Last administered on 07/02/17at 20:43; Start 06/28/17 at 20:00; Stop 07/03/17 at 11:12; Status DC Potassium Chloride 30 meq/ Sodium Chloride 115 ml @ 33 mls/hr Q3H IV Last administered on 06/29/17at 13:00; Start 06/29/17 at 09:00; Stop 06/29/17 at 14:59 ; Status DC Magnesium Sulfate/ Dextrose 100 ml @ 100 mls/hr Q1H IV Last administered on at 09:44; Start 06/29/17 at 08:15; Stop 06/29/17 at 10:14; Status DC Magnesium Sulfate/ Dextrose 100 ml @ 100 mls/hr ONCE ONCE IV Last administered on 06/29/17at 18:00; Start 06/29/17 at 18:00; Stop 06/29/17 at 18:59 ; Status DC Potassium Chloride 30 meq/ Sodium Chloride 115 ml @ 33 mls/hr Q3H IV Last administered on 06/30/17at 11:45; Start 06/30/17 at 08:45; Stop 06/30/17 at 14:44 ; Status DC Magnesium Sulfate/ Dextrose 100 ml @ 100 mls/hr ONCE ONCE IV Last administered on 06/30/17at 09:33; Start 06/30/17 at 08:30; Stop 06/30/17 at 09:29 ; Status DC Nitroglycerin (Nitro-Dur 0.1 Mg Patch.24hr) 1 patch DAILY T-DERMAL Last administered on 07/05/17at 12:43; Start 06/30/17 at 15:00; Stop 07/07/17 at 08:35; Status DC Potassium Chloride (KCl) 30 meq ONCE ONCE PO Last administered on 07/01/17at 15 :40; Start 07/01/17 at 14:15; Stop 07/01/17 at 14:18; Status DC Metoprolol Tartrate (Lopressor) 12.5 mg Q8HR PO Last administered on 07/02/17at 05:30; Start 07/01/17 at 22:00; Stop 07/02/17 at 15:40; Status DC Miscellaneous (Pill Splitter) 1 ea UNSCH PRN OTHER SEE LABEL COMMENTS; Start at 14:30 Enoxaparin Sodium (Lovenox Inj) 40 mg Q24H SQ Last administered on 07/05/17at 15: 19; Start 07/02/17 at 12:00 Metoprolol Tartrate (Lopressor) 25 mg BID PO Last administered on 07/05/17at 21: 09; Start 07/02/17 at 21:00 Potassium Chloride (KCl) 20 meq DAILY PO Last administered on 07/07/17 09:56; Start 07/02/17 at 15:45 Sodium Chloride 1,000 ml @ 100 mls/hr Q10H IV Last administered on 07/04/17at 04 :23; Start 07/03/17 at 08:34; Stop 07/04/17 at 08:46; Status DC Diphenhydramine HCl (Benadryl) 25 mg CHART SNATCHER PO Last administered on 07/05/17at 21:10; Start 07/03/17 at 08:45; Stop 07/07/17 at 08:44; Status DC Diazepam (Valium) 5 mg CHART SNATCHER PO ; Start 07/03/17 at 08:45; Stop 07/07/17 at 08: 44; Status DC Aspirin (Aspirin) 325 mg ONCE ONCE PO Last administered on 07/03/17at 18:06; Start 07/03/17 at 17:00; Stop 07/03/17 at 17:01; Status DC Heparin Sodium/ Sodium Chloride 1,000 ml @ As Directed STK-MED ONCE IV FLUSH ; Start 07/04/17 at 07:10; Stop 07/04/17 at 07:11; Status DC Midazolam HCl (Versed Inj) 2 mg STK-MED ONCE .ROUTE Last administered on at 07:28; Start 07/04/17 at 07:28; Stop 07/04/17 at 07:29; Status DC Nitroglycerin 5 ml @ As Directed STK-MED ONCE .ROUTE ; Start 07/04/17 at 07:33; Stop 07/04/17 at 07:34; Status DC Sodium Chloride 1,000 ml @ 100 mls/hr Q10H IV Last administered on 07/04/17at 11 :29; Start 07/04/17 at 08:37; Stop 07/04/17 at 14:36; Status DC Sodium Chloride (NS Flush) 2 ml BID IV FLUSH Last administered on 07/07/17at 09: 56; Start 07/04/17 at 09:00 Sodium Chloride (NS Flush) 2 ml UNSCH PRN IV FLUSH FLUSH AFTER USING IV ACCESS ; Start 07/04/17 at 08:45 Bacitracin (Bacitracin Oint Packet) 0.9 gm ONCE ONCE TOP Last administered on 07/04/17at 08:54; Start 07/04/17 at 09:00; Stop 07/04/17 at 09:01; Status DC Iohexol (OMNIPAQUE 350 INJ ([employer] Person)) 100 ml STK-MED ONCE OTHER ; Start at 12:55; Stop 07/04/17 at 12:56; Status DC Iohexol (OMNIPAQUE 350 INJ ([employer] Person)) 50 ml STK-MED ONCE OTHER ; Start 07/04/17 at 12:55; Stop 07/04/17 at 12:56; Status DC Sodium Chloride 250 ml @ 15 mls/hr ONCE ONCE IV Last administered on at 09:00; Start 07/05/17 at 09:00; Stop 07/06/17 at 01:39; Status DC Alteplase, Recombinant (Cathflo Activase Inj) 2 mg Q2H PRN INTRACATH clotted cath Last administered on 07/05/17at 12:44; Start 07/05/17 at 12:15; Stop 07/05/17 at 15:18; Status DC Iohexol (Omnipaque 350 Inj) 99 ml STK-MED ONCE IVCONTRAST Last administered on 07/05/17at 12:18; Start 07/05/17 at 12:18; Stop 07/05/17 at 12:19; Status DC Heparin Sodium (Porcine) (Heparin Central Flush) 2.5 units STK-MED ONCE IV FLUSH ; Start 07/05/17 at 12:19; Stop 07/05/17 at 12:20; Status DC Alteplase, Recombinant (Cathflo Activase Inj) 2 mg Q2H PRN INTRACATH OCCLUDED CATHETER/PORT; Start 07/05/17 at 14:30 Amlodipine Besylate (Norvasc) 5 mg DAILY PO Last administered on 07/07/17at 09:55 ; Start 07/06/17 at 09:00 Aspirin (Aspirin Chew) 81 mg DAILY CHEW Last administered on 07/07/17at 09:55; Start 07/06/17 at 09:00 Pravastatin Sodium (Pravachol) 20 mg DAILY PO Last administered on 07/07/17at 09: 55; Start 07/06/17 at 09:00 Acetaminophen (Tylenol) 650 mg Q4H PRN PO SEE LABEL COMMENTS Last administered on 07/05/17at 21:11; Start 07/05/17 at 15:30 Diphenhydramine HCl (Benadryl) 25 mg Q4H PRN PO SEE LABEL COMMENTS; Start at 15:30 Cefazolin Sodium 2000 mg/Sodium Chloride 120 ml @ 240 mls/hr CHART SNATCHER IV ; Start 07/05/17 at 17:30; Stop 07/08/17 at 17:29 Protamine Sulfate (Protamine Sulfate Inj) 50 mg STK-MED ONCE .ROUTE ; Start 07/06 at 06:50; Stop 07/06/17 at 06:51; Status DC Heparin Sodium (Porcine) (Heparin Inj) 10,000 units STK-MED ONCE .ROUTE ; Start 07/06/17 at 06:50; Stop 07/06/17 at 06:51; Status DC Cefazolin Sodium (Ancef Inj) 2,000 mg STK-MED ONCE .ROUTE Last administered on 07/06/17at 09:37; Start 07/06/17 at 06:50; Stop 07/06/17 at 06:51; Status DC Heparin Sodium (Porcine) (Heparin Inj) 10,000 units STK-MED ONCE .ROUTE ; Start 07/06/17 at 06:51; Stop 07/06/17 at 06:52; Status DC Heparin Sodium (Porcine) (Heparin Inj) 20,000 units STK-MED ONCE .ROUTE ; Start 07/06/17 at 06:51; Stop 07/06/17 at 06:52; Status DC Heparin Sodium/ Sodium Chloride 500 ml @ As Directed STK-MED ONCE .ROUTE Last administered on 07/06/17at 06:51; Start 07/06/17 at 06:51; Stop 07/06/17 at 06:52; Status DC Fentanyl Citrate (fentaNYL INJ) 500 mcg STK-MED ONCE .ROUTE ; Start 07/06/17 at 07:28; Stop 07/06/17 at 07:29; Status DC Nitroglycerin (Nitrostat Sl (Adm Override)) 0.4 mg STK-MED ONCE SL ; Start at 08:36; Stop 07/06/17 at 08:37; Status DC Nitroglycerin/ Dextrose 250 ml @ As Directed STK-MED ONCE .ROUTE ; Start at 08:40; Stop 07/06/17 at 08:41; Status DC Iohexol 50 ml @ 0 mls/hr ONCE ONCE IV ; Start 07/06/17 at 10:02; Stop 07/06/17 at 13:13; Status DC Albuterol Sulfate (*ALBUTEROL NEB PERIprocedure ONLY) 2.5 mg STK-MED ONCE NEB ; Start 07/06/17 at 12:19; Stop 07/06/17 at 12:20; Status DC Clopidogrel Bisulfate (Plavix) 75 mg DAILY PO Last administered on 07/07/17at 09: 55; Start 07/06/17 at 13:15 Miscellaneous Information ALL NURSING DEPARTME... UNSCH PRN .XX SEE LABEL COMMENTS; Start 07/06/17 at 12:00; Stop 07/07/17 at 11:59 Al Hydrox/Mg Hydrox/Simethicone (Mag-Al Plus Susp Liq) 30 ml ONCE ONCE PO Last administered on 07/07/17at 00:15; Start 07/07/17 at 00:15; Stop 07/07/17 at 00: 25; Status DC Isosorbide Mononitrate (Imdur) 60 mg DAILY@07 PO Last administered on 07/07/17at 09:55; Start 07/07/17 at 09:00 A/P Problem List: (1) Severe sepsis ICD Code: A41.9 - Sepsis, unspecified organism; R65.20 - Severe sepsis without septic shock Status: Acute Plan: Sepsis syndrome resolved. DW ID. Agree with discontinuing antibiotics and monitor. (2) Non-STEMI (non-ST elevated myocardial infarction) ICD Code: I21.4 - Non-ST elevation (NSTEMI) myocardial infarction Plan: Cardiology following. Status post heart catheterization. Official report pending. Continue aspirin, metoprolol. Check lipids (3) PNA (pneumonia) ICD Code: J18.9 - Pneumonia, unspecified organism Plan: S/P treatment with antibiotics. Was followed by ID. (4) PAD (peripheral artery disease) ICD Code: I73.9 - Peripheral vascular disease, unspecified Status: Acute Plan: ESTELA conclusion: Severely compromised left leg circulation. Acute on chronic. Vascular surgery following, Dr. Suero Podiatry consulted as well. Vascular surgery to follow-up for surgery femorofemoral bypass on the fifth Underwent vascular surgery with Dr. Dr. Maya today July 06 (5) Bladder cancer ICD Code: C67.9 - Malignant neoplasm of bladder, unspecified Status: Chronic Plan: Patient undergoing chemotherapy with Dr. Valerio. Appreciate Oncology following. (6) Pancytopenia ICD Code: D61.818 - Other pancytopenia Status: Acute Plan: Secondary to chemotherapy. Much improved. Monitor labs. -Hematology/oncology following. Status post transfusion and Neupogen ordered per Heme/Onc - Neupogen on hold for now as counts recovering. (7) Anemia ICD Code: D64.9 - Anemia, unspecified Plan: A.m. lab Acute blood loss anemia probably secondary to GI loss (8) Diarrhea ICD Code: R19.7 - Diarrhea, unspecified Status: Resolved (9) Electrolyte abnormality ICD Code: E87.8 - Other disorders of electrolyte and fluid balance, not elsewhere classified Status: Resolved Plan: Replace as needed Assessment and Plan (1) Severe sepsis ICD Code: A41.9 - Sepsis, unspecified organism; R65.20 - Severe sepsis without septic shock Status: Acute Plan: Sepsis syndrome resolved. DW ID. Agree with discontinuing antibiotics and monitor. (2) Non-STEMI (non-ST elevated myocardial infarction) ICD Code: I21.4 - Non-ST elevation (NSTEMI) myocardial infarction Plan: Cardiology following. Status post heart catheterization. Official report pending. Continue aspirin, metoprolol. Check lipids (3) PNA (pneumonia) ICD Code: J18.9 - Pneumonia, unspecified organism Plan: S/P treatment with antibiotics. Was followed by ID. (4) PAD (peripheral artery disease) ICD Code: I73.9 - Peripheral vascular disease, unspecified Status: Acute Plan: ESTELA conclusion: Severely compromised left leg circulation. Acute on chronic. Vascular surgery following, Dr. Suero Podiatry consulted as well. Vascular surgery to follow-up Status post vascular surgical procedure with Dr. Dr. Maya (5) Bladder cancer ICD Code: C67.9 - Malignant neoplasm of bladder, unspecified Status: Chronic Plan: Patient undergoing chemotherapy with Dr. Valerio. Appreciate Oncology following. (6) Pancytopenia ICD Code: D61.818 - Other pancytopenia Status: Acute Plan: Secondary to chemotherapy. Much improved. Monitor labs. -Hematology/oncology following. Status post transfusion and Neupogen ordered per Heme/Onc - Neupogen on hold for now as counts recovering. (7) Anemia ICD Code: D64.9 - Anemia, unspecified (8) Diarrhea ICD Code: R19.7 - Diarrhea, unspecified Status: Resolved (9) Electrolyte abnormality ICD Code: E87.8 - Other disorders of electrolyte and fluid balance, not elsewhere classified Status: Resolved Blood loss anemia has been transfused suspect secondary to GI losses Discharge Planning Pending further input from Vascular surgery. Discharge Planning CLEARED BY ALL ON CASE DC Problem Qualifiers (1) PNA (pneumonia): (2) Anemia: Armin Bennett DO Jul 07, 2017 11:24
[2017-07-07] MEDS ORDERED: METO25TA3 PO (11:29)
[2017-07-07] MEDS ORDERED: LOVA20TA PO (11:29)
[2017-07-07] MEDS ORDERED: HYDR-3516 PO (11:29)
[2017-07-07] MEDS ORDERED: SENN187 PO (11:29)
[2017-07-07] MEDS ORDERED: PLAV75TA29 PO (11:29)
[2017-07-07] MEDS ORDERED: guaiFENesin ER PO (11:29)
[2017-07-07] MEDS ORDERED: AMLO5TAB2 PO (11:29)
[2017-07-07] MEDS ORDERED: ISOS60TA PO (11:29)
[2017-07-07] MEDS ORDERED: ASPI-516 CHEW (11:29)
[2017-07-07] MEDS ORDERED: FAMO20TA2 PO (11:29)
--- NOTE | 2017-07-07 11:34 | HHI.FF ---
Face to Face Verification Diagnosis: (1) Coronary artery disease (2) Non-STEMI (non-ST elevated myocardial infarction) (3) PAD (peripheral artery disease) (4) Bladder cancer (5) Sepsis (6) Lactic acidosis (7) Right lower lobe pneumonia (8) PNA (pneumonia) Physical Therapy Order: Evaluate and Treat, Improve ambulation, Strength and gait training Occupational Therapy Order: Evaluate and Treat, Improve ADL, Gross motor coordination, Fine motor coordination Home Health Nursing Order: Medical education Wound care and dressing changes Nursing assessment with vital signs Home Health Aide Order: To Assist In: Bathing and personal care, health and nutrition specialist and meal prep I have seen patient Matt Hurst on 07/07/17. My clinical findings support the need for the requested home health care services because: Deconditioned w/ increased weakness Limited ability to care for self I certify that my clinical findings support that this patient is homebound because: Impaired cognitive ability/safety Need for psychosocial assistance Armin Bennett DO Jul 07, 2017 11:34
--- NOTE | 2017-07-07 11:37 | HHI.DS ---
Discharge Summary Admission Date Jun 25, 2017 at 03:24 Discharge Date: Jul 07, 2017 Admitting Diagnosis right lower lobe pneumonia, pancytopen, lactic acidosis, dehydration (1) Severe sepsis ICD Code: A41.9 - Sepsis, unspecified organism; R65.20 - Severe sepsis without septic shock Diagnosis: Principal Status: Acute (2) Non-STEMI (non-ST elevated myocardial infarction) ICD Code: I21.4 - Non-ST elevation (NSTEMI) myocardial infarction Diagnosis: Principal (3) PNA (pneumonia) ICD Code: J18.9 - Pneumonia, unspecified organism Diagnosis: Secondary (4) PAD (peripheral artery disease) ICD Code: I73.9 - Peripheral vascular disease, unspecified Diagnosis: Principal Status: Acute (5) Bladder cancer ICD Code: C67.9 - Malignant neoplasm of bladder, unspecified Diagnosis: Secondary Status: Chronic (6) Pancytopenia ICD Code: D61.818 - Other pancytopenia Diagnosis: Secondary Status: Acute (7) Anemia ICD Code: D64.9 - Anemia, unspecified (8) Diarrhea ICD Code: R19.7 - Diarrhea, unspecified Diagnosis: Secondary Status: Resolved (9) Electrolyte abnormality ICD Code: E87.8 - Other disorders of electrolyte and fluid balance, not elsewhere classified Diagnosis: Secondary Status: Resolved Procedures 07/02/2017 PROCEDURE PERFORMED: DESCRIPTION OF PROCEDURE: Prior to the procedure, an Gil's test was performed on the right. The patient failed his Gil's test. Left radial pulse is absent, for this reason, I chose the right groin. He does not have a pulse in his left groin. The patient was sedated with 2 mg of IV Versed. Using 1% lidocaine for local anesthesia, a 6-1/2 Nepali sheath 5 Dayana for the left coronary artery. Right coronary artery was imaged with a 3DRC catheter. All the catheter exchanges were performed over a wire. I then used a right 4 Dayana to image the left . FINDINGS: 1. Hemodynamics. Left ventricular pressure is during the pullback. During pullback from the left ventricle to the aorta, aortic pressure is 126/59 with a mean of 85 . 2. Left ventriculography shows moderate posterobasal hypokinesis with an EF of about 60%. There is no mitral regurgitation. 3. Coronary angiography. The coronary arteries look very smooth. Left main coronary artery appears normal. The proximal left anterior descending artery and the major first diagonal branch appear normal. After the second diagonal, the LAD has a very focal stenosis best appreciated in the [place] cranial views. This is not thought to be more severe than 50-60%. This lesion could be treated medically. Circumflex artery appears smooth and appears normal. The right coronary artery has an eccentric 30-40% proximal stenosis and a smooth 30% mid stenosis. It looks like this can be treated medically as well. 4. Iliac angiography. Angiography of the left iliac artery shows that the external iliac artery appears to be totally occluded with collaterals to the common femoral artery. On the right leg the external iliac has diffuse 50% scattered disease. CONCLUSIONS IMPRESSION: 1. Overall, preserved left ventricular function, but with posterobasal hypokinesis. 2. Normal hemodynamics. 3. Mild 2-vessel coronary artery disease. 4. 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 RECOMMENDATIONS: An attempt at percutaneous intervention on the left iliac artery. Steven Cote MD 4-5 RIGHT SIDE AXILLARY BIFEMORAL BYPASS Brief History - From Admission This is a 77-year-old male with PMH of HTN, Hyperlipidemia and Bladder CA on Chemo who presented to ER with complaints of generalized weakness, dizziness, nausea, vomiting and diarrhea x3 days. States usually has these symptoms after Chemo, however this time lasted longer than usual. Unable to tolerate PO except for small sips. Denies fever or chills. No chest pain, cough or SOB. On arrival, BP 101/66, HR 129, O2 sat 97% on 2L NC, Afebrile. WBC 1.0. Hemoglobin 11.2. Platelets 59. Lactic Acid 3.9. UA negative for UTI. CXR with no acute findings, mild patchy opacity right lower lobe. CT Abdomen/ Pelvis patchy opacity right lower lobe, possible pneumonia. S/p Blood Cultures , Zithro/Cefepime in ER. CBC/BMP: 07/07/17 0400 07/07/17 0400 Significant Findings Laboratory Tests Test 07/05/17 05:10 07/06/17 05:01 07/07/17 04:00 Red Blood Count 2.59 MIL/MM3 (4.50-5.90) 3.52 MIL/MM3 (4.50-5.90) 3.21 MIL/MM3 (4.50-5.90) Hemoglobin 8.1 GM/DL (13.0-17.0) 10.6 GM/DL (13.0-17.0) 9.8 GM/DL (13.0-17.0) Hematocrit 23.3 % (39.0-51.0) 30.5 % (39.0-51.0) 28.2 % (39.0-51.0) Platelet Count 119 TH/MM3 (150-450) 145 TH/MM3 (150-450) Neutrophils (%) (Auto) 78.4 % (16.0-70.0) 77.0 % (16.0-70.0) 83.0 % (16.0-70.0) Lymphocytes (%) (Auto) 6.2 % (9.0-44.0) 6.3 % (9.0-44.0) 4.2 % (9.0-44.0) Monocytes (%) (Auto) 14.7 % (0.0-8.0) 15.9 % (0.0-8.0) 12.5 % (0.0-8.0) Lymphocytes # (Auto) 0.3 TH/MM3 (1.0-4.8) 0.3 TH/MM3 (1.0-4.8) 0.3 TH/MM3 (1.0-4.8) Band Neutrophils % 9 % (0-6) 8 % (0-6) Lymphocytes % 7 % (9-44) 4 % (9-44) Metamyelocytes 7 % (0-1) Myelocytes 3 % (0-0) 3 % (0-0) Platelet Estimate LOW (NORMAL) LOW (NORMAL) Blood Urea Nitrogen 5 MG/DL (7-18) Calcium Level 8.3 MG/DL (8.5-10.1) 7.9 MG/DL (8.5-10.1) Neutrophils % (Manual) 80 % (16-70) Nucleated Red Blood Cells 2 /100 WBC (0-0) Toxic Granulation 1+ (NORMAL) Ovalocytes 1+ (NORMAL) Total Protein 6.0 GM/DL (6.4-8.2) 5.8 GM/DL (6.4-8.2) Albumin 2.6 GM/DL (3.4-5.0) 2.4 GM/DL (3.4-5.0) Alanine Aminotransferase (ALT/SGPT) 11 U/L (12-78) 10 U/L (12-78) Estimat Glomerular Filtration Rate 82 ML/MIN (>89) 84 ML/MIN (>89) Hemoglobin A1c 6.3 % (4.3-6.0) Aspartate Amino Transf (AST/SGOT) 14 U/L (15-37) Imaging Last Impressions Aorta w/Runoff CTA 07/05/17 0000 Signed Impressions: Service Date/Time: Wednesday, July 05, 2017 12:03 - CONCLUSION: 1. The patient is post endograft repair of the infrarenal aorta. There is moderate intimal hyperplasia within the graft but it appears adequate in caliber. 2. The left external iliac circulation is occluded at its origin. There is reconstitution of the left common femoral but it is severely diseased with very high grade stenosis in its distal portion. 3. There is a focal area of high-grade stenosis in the mid segment of the right external iliac. 4. 5. Right le. The runoff distal to the common femoral is adequate. 7. 8. Left le. The runoff distal to the common femoral is adequate. Luis Wyatt MD Chest X-Ray 06/30/17 0000 Signed Impressions: Service Date/Time: Friday, June 30, 2017 08:43 - CONCLUSION: No acute disease. David Martinez MD Abdomen X-Ray 06/30/17 0000 Signed Impressions: Service Date/Time: Friday, June 30, 2017 08:47 - CONCLUSION: No evidence of obstruction. Aortic stent graft identified. David Martinez MD Abdomen/Pelvis CT 06/24/17 1531 Signed Impressions: Service Date/Time: Sunday, June 25, 2017 00:13 - CONCLUSION: 1. Unremarkable bowel gas pattern on this noncontrast exam performed without oral contrast. 2. New patchy opacity in the posterior right lower lobe which is nonspecific and is of unclear chronicity but is new from 2015. The differential diagnosis includes pneumonia, scarring and asbestosis. 3. Status post interval abdominal aortic aneurysm repair with stent graft in place. 4. Multiple small partially calcified bilateral pleural plaques are now present. 5. Unremarkable gallbladder. Koby Interiano MD PE at Discharge GENERAL: Awake alert and oriented 3 talkative and cooperative appears stated age SKIN: Warm and dry. Left great toe is gangrenOUS HEAD: Atraumatic. Normocephalic. EYES: Pupils equal and round. No scleral icterus. No injection or drainage. Extraocular muscles intact ENT: No nasal bleeding or discharge. Mucous membranes pink and moist. Tongue is midline NECK: Trachea midline. No JVD. Supple CARDIOVASCULAR: Regular rate and rhythm. S1-S2 no S3-S4 RESPIRATORY: No accessory muscle use. Clear to auscultation. Breath sounds equal bilaterally. GASTROINTESTINAL: Abdomen soft, non-tender, nondistended. Hepatic and splenic margins not palpable. Obese MUSCULOSKELETAL: Extremities without clubbing, cyanosis, or edema. No obvious deformities. Left great toe is gangrenous NEUROLOGICAL: Awake and alert. No obvious cranial nerve deficits. Motor grossly within normal limits. Five out of 5 muscle strength in the arms and legs. Normal speech. PSYCHIATRIC: Appropriate mood and affect; insight and judgment normal. Hospital Course This is a 77-year-old male with PMH of HTN, Hyperlipidemia and Bladder CA on Chemo who presented to ER with complaints of generalized weakness, dizziness, nausea, vomiting and diarrhea x3 days. States usually has these symptoms after Chemo, however this time lasted longer than usual. Unable to tolerate PO except for small sips. Denies fever or chills. No chest pain, cough or SOB. On arrival, BP 101/66, HR 129, O2 sat 97% on 2L NC, Afebrile. WBC 1.0. Hemoglobin 11.2. Platelets 59. Lactic Acid 3.9. UA negative for UTI. CXR with no acute findings, mild patchy opacity right lower lobe. CT Abdomen/ Pelvis patchy opacity right lower lobe, possible pneumonia. S/p Blood Cultures , Zithro/Cefepime in ER. Remarks Patient reports he is doing okay. Left great toe pain is unchanged. Status post heart catheterization today.. -4 TO HAVE FEM-FEM BYPASS TOMORROW WITH VASCULAR SURGERY NO NEW COMPLAINTS AT THIS TIME FRANCISCA RN AND PT AND [employer] 4-5 underwent cardiovascular surgery with Dr. Dr. Maya today regarding his lower extremity Patient seen postoperatively Denies any nausea vomiting denies any shortness of breath denies any chest pain Discussed with patient and RN A.gonzales labs 4-6 SP AXILLARY BIFEMORAL BYPASS ON - Dr. Dr. Maya DC RIVERA DC TO HOME TODAY DW RN AND PT AND SURGERY AND CM Pt Condition on Discharge: Good Discharge Disposition: Disch w/ Home Health Serv Discharge Time: > 30 minutes Discharge Instructions DIET: Follow Instructions for: Heart Healthy Diet, Diabetic Diet Speech Therapy-Diet Recommends: Regular Activities you can perform: Shower Only-No Bath Follow up Referrals: Cardiology - 10 Days with Steven Cote MD Oncology/Hematology - 1 Week with Deepali Valerio MD PCP Follow-up - 2-3 Days with Myke Estes MD Podiatry - 1 Week with Mira Teague DPM Vascular Surgery - 3-5 Days with Juan J Maya MD New Medications: Clopidogrel (Plavix) 75 Mg Tab 75 MG PO DAILY for Blood Clot Prevention, #90 TAB Famotidine (Famotidine) 20 Mg Tab 20 MG PO BID for Heartburn Management, #60 TAB Hydrocodone/Acetaminophen (Hydrocodone-Acetamin 5-325 mg) 5 Mg-325 Mg Tablet 1 TAB PO Q4H PRN for PAIN 3-10, #30 TAB Isosorbide Mononitrate ER (Isosorbide Mononitrate ER) 60 Mg Tab 60 MG PO DAILY@07 for Blood Pressure Management, #90 TAB Metoprolol Tartrate (Metoprolol Tartrate) 25 Mg Tab 25 MG PO BID for Blood Pressure Management, #180 TAB Sennosides (Senna-Lax) 8.6 Mg Tab 17.2 MG PO Q12H PRN for Moderate constipation, #120 TAB [guaiFENesin ER] () 600 MG TABCR 600 MG PO BID for Cough, #60 TAB Continued Medications: Amlodipine (Amlodipine) 5 Mg Tab 5 MG PO DAILY for Blood Pressure Management, #90 TAB 0 Refills (This prescription has been renewed) Aspirin (Aspirin) 81 Mg Chew 81 MG CHEW DAILY for Blood Clot Prevention, #90 TAB 0 Refills (This prescription has been renewed) Lovastatin (Lovastatin) 20 Mg Tab 20 MG PO DAILY for Cholesterol Management, #30 TAB 0 Refills (This prescription has been renewed) Armin Bennett DO Jul 07, 2017 11:37
--- NOTE | 2017-07-07 11:41 | PD.CAR.PN ---
CVT Progress Note Subjective/Hospital Course: REFERRAL RECEIVED Fullconsult KENIA Nell Selena 07/04/2017 As noted in my original consultation this patient has of severely compromised flow to the left leg manifested by chronic ischemia and early gangrene of the left hallux On initial evaluation patient was not a candidate for any surgical procedures due to pancytopenia as the consequence of chemotherapy for bladder cancer Patient's hematologic picture has somewhat improved and according to the oncology he is to undergo radiation therapy Patient has palpable right femoral pulse but none on the left very weak dopplerable popliteal pulse on the left Foot remains fairly warm with a cool greater toe which is discolored and purplish I discussed the distal aortic and iliac arteriogram findings with Dr. Steven Cote. 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 Due to his systemic condition he is not a candidate for aortofemoral bypass however he would be appropriate candidate for femoral-femoral bypass On the other hand, if he is to receive radiation therapy in the near future, then femoro-femoral bypass will need to be postponed We will discuss with oncology and get a better picture of the plan. 07/05/2017 Discussed the care with oncologist today and at this point considering the priority and patient's improvement will proceed with revascularization of the left leg CTA is reviewed and confirms the clinical exam findings. 1. Patient has a high-grade stenosis of the right external iliac artery and occlusion of left external iliac artery both of this compromising the flow to the legs 2. Patient has patent right SFA but somewhat diseased in the nearly occluded left SFA with severe disease throughout Based on all of the above this gentleman needs revascularization of the left leg. The simplest option would be left external iliac stent thromboembolectomy and left femoral-popliteal bypass. If I am unable to open left external iliac artery then the next option is right external iliac balloon angioplasty with stent and femoral-femoral bypass with left femoral-popliteal bypass. Will proceed with surgery tomorrow depending on availability of the endovascular suite for this is a combined case I discussed the details of the case with patient and the family as well as the benefits and the risks of the procedure 07/07/2017 Status post revascularization of the left leg In a combined endovascular and open procedure I was able to recanalize the common iliac artery on the left and then combined this with external iliac and common femoral endarterectomy and patch angioplasty This approach of course was most preferred one and avoided femorofemoral bypass and need for femoral-popliteal bypass Leg is warm excellent distal pulses and foot is warm. Incision is clean and dry greater toe and tips of the Second and third toe are still cyanotic but this is not demarcated yet and patient should follow-up with a flat sheet maker in about 2-3 weeks and at that time it may get better or worse but I will leave it up to flat sheet maker to decide how to deal with the toes. Right leg is asymptomatic at this time but I will follow the patient in the future. Follow-up with me in about 2-3 weeks in my office Patient can be discharged today on Plavix and baby aspirin Objective: Vital Signs Date Time Temp Pulse Resp B/P (MAP) Pulse Ox O2 Delivery O2 Flow Rate FiO2 07/07/17 08:30 98.2 57 18 101/67 (78) 96 07/07/17 06:29 90 07/07/17 05:21 16 07/07/17 04:11 98.7 69 16 110/47 (68) 98 07/07/17 04:00 59 07/07/17 00:13 80 07/07/17 00:02 81 16 94/55 (68) 95 07/07/17 00:02 86 07/07/17 00:00 78 07/06/17 23:05 16 07/06/17 22:00 82 07/06/17 21:00 84 07/06/17 20:12 98.4 78 18 104/63 (77) 96 07/06/17 20:00 82 07/06/17 19:00 82 07/06/17 16:39 50 07/06/17 15:00 98.7 56 16 127/60 (82) 94 07/06/17 13:30 97.7 48 14 119/63 (81) 100 Nasal Cannula 2 07/06/17 13:15 47 14 116/56 (76) 100 Nasal Cannula 3 07/06/17 13:00 52 14 125/58 (80) 99 Nasal Cannula 3 07/06/17 12:45 45 14 117/56 (76) 97 Nasal Cannula 3 07/06/17 12:30 48 14 123/58 (79) 96 Nasal Cannula 3 Aerosol Mask 07/06/17 12:15 50 16 112/61 (78) 93 Nasal Cannula 3 07/06/17 12:00 62 16 120/66 (84) 92 Simple Mask 6 07/06/17 11:51 97.5 63 15 89/54 (66) 88 Nasal Cannula 3 Labs: Laboratory Tests Test 07/07/17 04:00 White Blood Count 7.2 TH/MM3 (4.0-11.0) Red Blood Count 3.21 MIL/MM3 (4.50-5.90) Hemoglobin 9.8 GM/DL (13.0-17.0) Hematocrit 28.2 % (39.0-51.0) Mean Corpuscular Volume 87.6 FL (80.0-100.0) Mean Corpuscular Hemoglobin 30.4 PG (27.0-34.0) Mean Corpuscular Hemoglobin Concent 34.7 % (32.0-36.0) Red Cell Distribution Width 15.2 % (11.6-17.2) Platelet Count 164 TH/MM3 (150-450) Mean Platelet Volume 8.6 FL (7.0-11.0) Neutrophils (%) (Auto) 83.0 % (16.0-70.0) Lymphocytes (%) (Auto) 4.2 % (9.0-44.0) Monocytes (%) (Auto) 12.5 % (0.0-8.0) Eosinophils (%) (Auto) 0.1 % (0.0-4.0) Basophils (%) (Auto) 0.2 % (0.0-2.0) Neutrophils # (Auto) 6.0 TH/MM3 (1.8-7.7) Lymphocytes # (Auto) 0.3 TH/MM3 (1.0-4.8) Monocytes # (Auto) 0.9 TH/MM3 (0-0.9) Eosinophils # (Auto) 0.0 TH/MM3 (0-0.4) Basophils # (Auto) 0.0 TH/MM3 (0-0.2) CBC Comment DIFF FINAL Differential Comment Blood Urea Nitrogen 9 MG/DL (7-18) Creatinine 0.88 MG/DL (0.60-1.30) Random Glucose 98 MG/DL (74-106) Total Protein 5.8 GM/DL (6.4-8.2) Albumin 2.4 GM/DL (3.4-5.0) Calcium Level 7.9 MG/DL (8.5-10.1) Phosphorus Level 3.2 MG/DL (2.5-4.9) Magnesium Level 1.7 MG/DL (1.5-2.5) Alkaline Phosphatase 96 U/L (45-117) Aspartate Amino Transf (AST/SGOT) 14 U/L (15-37) Alanine Aminotransferase (ALT/SGPT) 10 U/L (12-78) Total Bilirubin 0.3 MG/DL (0.2-1.0) Sodium Level 138 MEQ/L (136-145) Potassium Level 4.3 MEQ/L (3.5-5.1) Chloride Level 101 MEQ/L (98-107) Carbon Dioxide Level 29.1 MEQ/L (21.0-32.0) Anion Gap 8 MEQ/L (5-15) Estimat Glomerular Filtration Rate 84 ML/MIN (>89) Result Diagram: 07/07/17 0400 07/07/170 (1) Non-STEMI (non-ST elevated myocardial infarction) (2) COPD (chronic obstructive pulmonary disease) (3) Pancytopenia (4) PAD (peripheral artery disease) Plan: Greatly appreciate Dr. Walters's skill/expertise in revascularization left leg (5) Bladder cancer (6) Coronary artery disease Plan: Change nitrate to Imdur 60mg Juan J Maya MD Jul 07, 2017 11:41
[2017-07-07] MEDS: ENOXAPARIN SODIUM 40 MG/0.4 ML SYRINGE SQ SCH (11:42)
[2017-07-07] MEDS ORDERED: SODIUM CHLORIDE 0.9% FLUSH 10 ML FLUSH IV FLUSH PRN (12:45)
== END 2017-07-07 13:15 | disposition home health service (06) | DRG 853 ==
LOC: NEPE 23:00 → NEDA 06-25 03:24 → HCIN 06-25 06:36 → HCIS 07-04 17:06
PROVIDERS: ADMIT Hospitalist; ATTEND Hospitalist
PROC: 30233N1 Transfusion of Nonautologous Red Blood Cells into Peripheral Vein, Percutaneous Approach (ICD-10-PCS; 2017-06-27)
PROC: 4A023N7 Measurement of Cardiac Sampling and Pressure, Left Heart, Percutaneous Approach (ICD-10-PCS; 2017-07-05)
PROC: B2111ZZ Fluoroscopy of Multiple Coronary Arteries using Low Osmolar Contrast (ICD-10-PCS; 2017-07-05)
PROC: B2151ZZ Fluoroscopy of Left Heart using Low Osmolar Contrast (ICD-10-PCS; 2017-07-05)
PROC: B41J1ZZ Fluoroscopy of Other Lower Arteries using Low Osmolar Contrast (ICD-10-PCS; 2017-07-05)
PROC: 04CJ0ZZ Extirpation of Matter from Left External Iliac Artery, Open Approach (ICD-10-PCS; 2017-07-06)
PROC: 04CJ0ZZ Extirpation of Matter from Left External Iliac Artery, Open Approach (ICD-10-PCS; 2017-07-06)
PROC: B41D1ZZ Fluoroscopy of Aorta and Bilateral Lower Extremity Arteries using Low Osmolar Contrast (ICD-10-PCS; 2017-07-06)
PROC: 04CL0ZZ Extirpation of Matter from Left Femoral Artery, Open Approach (ICD-10-PCS; principal; 2017-07-06 08:45)
PROC: 04CD0ZZ Extirpation of Matter from Left Common Iliac Artery, Open Approach (ICD-10-PCS; 2017-07-06 08:45)
DX: A41.9 Sepsis, unspecified organism (principal); J18.9 Pneumonia, unspecified organism; I21.4 Non-ST elevation (NSTEMI) myocardial infarction; D61.818 Other pancytopenia; I74.5 Embolism and thrombosis of iliac artery; E87.2 Acidosis; C67.9 Malignant neoplasm of bladder, unspecified; K92.2 Gastrointestinal hemorrhage, unspecified; J44.0 Chronic obstructive pulmonary disease with (acute) lower respiratory infection; D62 Acute posthemorrhagic anemia; I70.222 Atherosclerosis of native arteries of extremities with rest pain, left leg; I70.8 Atherosclerosis of other arteries; E86.0 Dehydration; R50.81 Fever presenting with conditions classified elsewhere; I25.10 Atherosclerotic heart disease of native coronary artery without angina pectoris; E78.5 Hyperlipidemia, unspecified; I10 Essential (primary) hypertension; R19.7 Diarrhea, unspecified; R65.20 Severe sepsis without septic shock; L03.032 Cellulitis of left toe; Z86.79 Personal history of other diseases of the circulatory system; Z87.891 Personal history of nicotine dependence; Z80.9 Family history of malignant neoplasm, unspecified; T45.1X5A Adverse effect of antineoplastic and immunosuppressive drugs, initial encounter
CPT/HCPCS: 36430; 71045; 74018; 74176; 75630; 75635; 76937; 80048; 80053; 80202; 81001; 82272; 82550; 83036; 83605; 83690; 83735; 84100; 84155; 84439; 84443; 84484; 85007; 85014; 85018; 85025; 85027; 86850; 86900; 86901; 86920; 87040; 87070; 87205; 87493; 88304; 88305; 88311; 93005; 93306; 93458; 93922; 94150; 94640; 96361; 96365; 96375; 99152; 99153; C1757; C1760; C1768; C1769; C1893; G0269; G0278; J0456; J0690; J0692; J0878; J1100; J1442; J1642; J1644; J1650; J2250; J2270; J2370; J2405; J2710; J2720; J2997; J3010; J3370; J3475; J3480; J7030; J7050; J7613; P9016; Q9967

== ENCOUNTER 2017-07-11 10:27 | Emergency (ER) | payer OTHER ==
[~2017-07-11] VITALS: Ht 167.6 cm; Wt 75.0 kg
[~2017-07-11 10:27] MED LIST changes: +FAMO20TA2 PO; +HYDR-3516 PO; +ISOS60TA PO; +METO25TA3 PO; +PLAV75TA29 PO; +SENN187 PO; +guaiFENesin ER PO
[2017-07-11 10:34] VITALS: BP 95/66; PULSE 84; RESP 18; TEMP 97.7; O2SAT 99
[2017-07-11] MEDS ORDERED: SODIUM CHLOR 0.9% 1000 ML INJ 1,000 ML IV ONE (10:39)
[2017-07-11 10:42] VITALS: RESP 18; O2SAT 96
[2017-07-11] MEDS ORDERED: SODIUM CHLORIDE 0.9% FLUSH 10 ML FLUSH IVF PRN (10:45)
[2017-07-11] MEDS ORDERED: ONDANSETRON HCL 4 MG/2 ML VIAL IVP ONE (10:45)
--- NOTE | 2017-07-11 10:48 | PD ---
HPI Chief Complaint: Syncope/Near-Syncope Time Seen by Provider: 10:32 Travel History International Travel<30 days: No Contact w/Intl Traveler<30days: No Traveled to known affect area: No History of Present Illness HPI The patient is a 77-year-old male who presents to the emergency department via EMS for near syncope. The patient states that he got up this morning to drink coffee, sat down in the chair, then had a get up to use the restroom once again. The patient states when he sat back down in the chair he suddenly became lightheaded, dizzy, and diaphoretic. The patient felt like he was going to pass out, however, never lost consciousness. The patient states he was recently hospitalized for similar symptoms and underwent cardiac catheterization as well as stent placement of the left lower extremity for ischemia to left great toe. The patient was on antibiotics during his hospitalization and was just discharged home on . He denies any history of C. difficile diarrhea. The patient denies any acute chest pain, shortness of breath, or abdominal pain. He does complain of some generalized malaise upon arrival. The patient does have a history of bladder cancer and is followed by Dr. Valerio, Dr. Ambrose (urology), and his primary physician, Dr. Quintanilla. The patient denies any fever, chills, or sweats. He denied any palpitations or elevated heart rate during the event. PFSH Past Medical History Cancer: No (BLADDER chemo 06/19/17) Cardiovascular Problems: No High Cholesterol: Yes Diabetes: No Diminished Hearing: No Endocrine: No Hepatitis: No Hiatal Hernia: No Hypertension: Yes Immune Disorder: No Musculoskeletal: No Neurologic: No Psychiatric: No Reproductive: No Respiratory: Yes (COPD) Radiation Therapy: Yes ( ) Thyroid Disease: No ?: Not Past Surgical History Abdominal Surgery: Yes (AAA repair) AICD: No Cardiac Surgery: No Ear Surgery: No Endocrine Surgery: No Eye Surgery: No Genitourinary Surgery: Yes (tumor removed on bladder x2) Gynecologic Surgery: No Joint Replacement: No Neurologic Surgery: No Oral Surgery: Yes Pacemaker: No Thoracic Surgery: No Social History Alcohol Use: No (DENIES) Tobacco Use: Yes (04/04 PPD) Substance Use: No Allergies-Medications (Allergen,Severity, Reaction): Coded Allergies: Sulfa (Sulfonamide Antibiotics) (Unverified Allergy, Unknown, BLURRY VISION WITH SULFA EYE DROPS., 11/15/16) Reported Meds & Prescriptions Reported Meds & Active Scripts Active Famotidine 20 Mg Tab 20 Mg PO BID Senna-Lax (Sennosides) 8.6 Mg Tab 17.2 Mg PO Q12H PRN [guaiFENesin ER] 600 MG Tabcr 600 Mg PO BID Hydrocodone-Acetamin 5-325 mg (Hydrocodone/Acetaminophen) 5 Mg-325 Mg Tablet 1 Tab PO Q4H PRN Metoprolol Tartrate 25 Mg Tab 25 Mg PO BID Isosorbide Mononitrate ER (Isosorbide Mononitrate) 60 Mg Tab 60 Mg PO DAILY@07 Plavix (Clopidogrel Bisulfate) 75 Mg Tab 75 Mg PO DAILY Aspirin 81 Mg Chew 81 Mg CHEW DAILY Lovastatin 20 Mg Tab 20 Mg PO DAILY Review of Systems Except as stated in HPI: all other systems reviewed are Neg General / Constitutional: No: Fever HENT: Positive: Lightheadedness Cardiovascular: Positive: Diaphoresis, Syncope (Near-syncope), No: Chest Pain or Discomfort Respiratory: No: Shortness of Breath Gastrointestinal: Positive: Nausea, No: Abdominal Pain Musculoskeletal: Positive: Weakness Neurologic: Positive: Dizziness, Syncope (Near-syncope) Physical Exam Narrative GENERAL: Awake, alert, pleasant 77-year-old male who appears his stated age and is in no acute respiratory distress. SKIN: Focused skin assessment warm/dry. HEAD: Atraumatic. Normocephalic. EYES: Pupils equal and round. No injection or drainage. ENT: No nasal bleeding or discharge. Mucous membranes pink and moist. NECK: Trachea midline. No JVD. CARDIOVASCULAR: Regular rate and rhythm. No murmur appreciated. RESPIRATORY: No accessory muscle use. Clear to auscultation. Breath sounds equal bilaterally. GASTROINTESTINAL: Abdomen soft, non-tender, nondistended. No rebound tenderness. MUSCULOSKELETAL: Patient has slight discoloration to the left great toe. Positive right dorsalis pedal pulse. Positive left femoral pulse. NEUROLOGICAL: Awake and alert. No obvious cranial nerve deficits. Motor grossly within normal limits. Normal speech. Nonfocal. PSYCHIATRIC: Appropriate mood and affect; insight and judgment normal. Data Data Last Documented VS Vital Signs Date Time Temp Pulse Resp B/P (MAP) Pulse Ox O2 Delivery O2 Flow Rate FiO2 07/11/17 12:04 67 18 112/62 (79) 99 Room Air 07/11/17 10:34 97.7 Orders Orders Electrocardiogram (07/11/17 10:39) Complete Blood Count With Diff (07/11/17 10:39) Comprehensive Metabolic Panel (07/11/17 10:39) Magnesium (Mg) (07/11/17 10:39) Ckmb (Isoenzyme) Profile (07/11/17 10:39) Troponin I (07/11/17 10:39) Urinalysis - C+S If Indicated (07/11/17 10:39) Chest, Single Ap (07/11/17 10:39) Ecg Monitoring (07/11/17 10:39) Iv Access Insert/Monitor (07/11/17 10:39) Oximetry (07/11/17 10:39) Ondansetron Inj (Zofran Inj) (07/11/17 10:45) Sodium Chloride 0.9% Flush (Ns Flush) (07/11/17 10:45) Sodium Chlor 0.9% 1000 Ml Inj (Ns 1000 M (07/11/17 10:39) Orthostatic Vital Signs (07/11/17 10:39) C Diff Toxin Pcr (07/11/17 10:39) Sodium Chlorid 0.9% 500 Ml Inj (Ns 500 M (07/11/17 11:45) Ed Discharge Order (07/11/17 13:17) Labs Laboratory Tests Test 07/11/17 10:59 White Blood Count 6.1 TH/MM3 Red Blood Count 3.65 MIL/MM3 Hemoglobin 11.1 GM/DL Hematocrit 32.6 % Mean Corpuscular Volume 89.5 FL Mean Corpuscular Hemoglobin 30.5 PG Mean Corpuscular Hemoglobin Concent 34.1 % Red Cell Distribution Width 17.1 % Platelet Count 384 TH/MM3 Mean Platelet Volume 7.7 FL Neutrophils (%) (Auto) 87.2 % Lymphocytes (%) (Auto) 3.2 % Monocytes (%) (Auto) 8.2 % Eosinophils (%) (Auto) 0.1 % Basophils (%) (Auto) 1.3 % Neutrophils # (Auto) 5.3 TH/MM3 Lymphocytes # (Auto) 0.2 TH/MM3 Monocytes # (Auto) 0.5 TH/MM3 Eosinophils # (Auto) 0.0 TH/MM3 Basophils # (Auto) 0.1 TH/MM3 CBC Comment DIFF FINAL Differential Comment Blood Urea Nitrogen 14 MG/DL Creatinine 1.05 MG/DL Random Glucose 133 MG/DL Total Protein 6.7 GM/DL Albumin 2.6 GM/DL Calcium Level 8.5 MG/DL Magnesium Level 1.7 MG/DL Alkaline Phosphatase 111 U/L Aspartate Amino Transf (AST/SGOT) 15 U/L Alanine Aminotransferase (ALT/SGPT) 9 U/L Total Bilirubin 0.7 MG/DL Sodium Level 137 MEQ/L Potassium Level 4.3 MEQ/L Chloride Level 104 MEQ/L Carbon Dioxide Level 22.9 MEQ/L Anion Gap 10 MEQ/L Estimat Glomerular Filtration Rate 68 ML/MIN Total Creatine Kinase 25 U/L Troponin I LESS THAN 0.02 NG/ML [facility] Medical Decision Making Medical Screen Exam Complete: Yes Emergency Medical Condition: Yes Medical Record Reviewed: Yes Interpretation(s) EKG reveals normal sinus rhythm with a rate of 65. Late transition in V5/V6 Laboratory Tests Test 07/11/17 10:59 White Blood Count 6.1 TH/MM3 Red Blood Count 3.65 MIL/MM3 Hemoglobin 11.1 GM/DL Hematocrit 32.6 % Mean Corpuscular Volume 89.5 FL Mean Corpuscular Hemoglobin 30.5 PG Mean Corpuscular Hemoglobin Concent 34.1 % Red Cell Distribution Width 17.1 % Platelet Count 384 TH/MM3 Mean Platelet Volume 7.7 FL Neutrophils (%) (Auto) 87.2 % Lymphocytes (%) (Auto) 3.2 % Monocytes (%) (Auto) 8.2 % Eosinophils (%) (Auto) 0.1 % Basophils (%) (Auto) 1.3 % Neutrophils # (Auto) 5.3 TH/MM3 Lymphocytes # (Auto) 0.2 TH/MM3 Monocytes # (Auto) 0.5 TH/MM3 Eosinophils # (Auto) 0.0 TH/MM3 Basophils # (Auto) 0.1 TH/MM3 CBC Comment DIFF FINAL Differential Comment Blood Urea Nitrogen 14 MG/DL Creatinine 1.05 MG/DL Random Glucose 133 MG/DL Total Protein 6.7 GM/DL Albumin 2.6 GM/DL Calcium Level 8.5 MG/DL Magnesium Level 1.7 MG/DL Alkaline Phosphatase 111 U/L Aspartate Amino Transf (AST/SGOT) 15 U/L Alanine Aminotransferase (ALT/SGPT) 9 U/L Total Bilirubin 0.7 MG/DL Sodium Level 137 MEQ/L Potassium Level 4.3 MEQ/L Chloride Level 104 MEQ/L Carbon Dioxide Level 22.9 MEQ/L Anion Gap 10 MEQ/L Estimat Glomerular Filtration Rate 68 ML/MIN Total Creatine Kinase 25 U/L Troponin I LESS THAN 0.02 NG/ML Differential Diagnosis Differential diagnosis includes near syncope, dehydration, symptomatic anemia, arrhythmia, electrolyte abnormality, C. difficile, diarrhea, aortic stenosis. Narrative Course IV was established, labs are drawn and sent, and the patient was placed on cardiac telemetry monitoring and continuous pulse oximetry monitoring. EKG was ordered and interpreted. Orthostatic vital signs were obtained. The patient was administered IV fluids. Labs are essentially unremarkable. Troponin was less than 0.02. Hemoglobin had significantly improved, was up to 11.1. Patient orthostatic vital signs are positive, blood pressure fell into the 80s. Therefore, patient was administered another 500 cc of normal saline. The patient's blood pressure improved to a systolic in the 130s and diastolic in the 60s. The patient's symptoms had significantly improved. Therefore, the patient was given a trial of ambulation to evaluate for possible return of orthostatic hypotension. The patient was able to get upright without any dizziness or lightheadedness and ambulate without any difficulty. The patient was recently placed on medications for his blood pressure, however, his blood pressure is now running low. Therefore, we will cut the metoprolol in half from 20 films milligrams twice a day to 12.5 mg twice a day. We also changed to Imdur from 60 mg once a day to 30 mg once a day. He is advised to monitor his blood pressure and follow-up with his primary physician. Return if symptoms worsen or progress. Diagnosis Primary Impression: Near syncope Additional Impression: Transient hypotension Patient Instructions: General Instructions Additional Instructions: Monitor blood pressure closely. Please provide the patient a copy of his labs at discharge. Medications have been changed, metoprolol was changed from 25 mg twice a day to 12.5 mg twice a day and Imdur was changed from 60 mg once a day to 30 mg once a day. Follow-up with your primary physician. Return if symptoms worsen or progress. Med/Other Pt SpecificInfo: Existing Med Changed (Change metoprolol from 25 mg twice a day to 12.5 mg twice a day. Change Imdur from 60 mg once a day to 30 mg once a day.) Disposition: 01 DISCHARGE HOME Condition: Stable Tyrell Phelps MD Jul 11, 2017 10:48
[2017-07-11 11:03] VITALS: BP_SYST 81; BP_SYST 87; BP_SYST 95; BP_DIAS 58; BP_DIAS 60; BP_DIAS 66; RESP 18
[2017-07-11 11:08] LABS: AUTOMATED NEUTROPHIL # 5.3 TH/MM3 (1.8-7.7); BASOPHIL # 0.1 TH/MM3 (0-0.2); BASOPHIL % 1.3 % (0.0-2.0); EOSINOPHIL % 0.1 % (0.0-4.0); HEMATOCRIT 32.6 % (39.0-51.0); HEMOGLOBIN 11.1 GM/DL (13.0-17.0); LYMPH % 3.2 % (9.0-44.0); LYMPHOCYTE # 0.2 TH/MM3 (1.0-4.8); MEAN CELL VOLUME 89.5 FL (80.0-100.0); MEAN CORPUSCULAR HEMOGLOBIN 30.5 PG (27.0-34.0); MEAN CORPUSCULAR HGB CONC 34.1 % (32.0-36.0); MEAN PLATELET VOLUME 7.7 FL (7.0-11.0); MONO % 8.2 % (0.0-8.0); MONOCYTE # 0.5 TH/MM3 (0-0.9); NEUT % 87.2 % (16.0-70.0); PLATELET COUNT 384 TH/MM3 (150-450); RED BLOOD COUNT 3.65 MIL/MM3 (4.50-5.90); RED CELL DISTRIBUTION WIDTH 17.1 % (11.6-17.2); WHITE BLOOD COUNT 6.1 TH/MM3 (4.0-11.0)
[2017-07-11 11:26] LABS: ALBUMIN 2.6 GM/DL (3.4-5.0); ALT (GPT) 9 U/L (12-78); AST (GOT) 15 U/L (15-37); BICARBONATE 22.9 MEQ/L (21.0-32.0); BLOOD UREA NITROGEN 14 MG/DL (7-18); CALCIUM 8.5 MG/DL (8.5-10.1); CHLORIDE 104 MEQ/L (98-107); CREATININE 1.05 MG/DL (0.60-1.30); GLOMERULAR FILTRATION RATE 68 ML/MIN (>89); GLUCOSE,RANDOM 133 MG/DL (74-106); MAGNESIUM 1.7 MG/DL (1.5-2.5); SODIUM (NA) 137 MEQ/L (136-145)
[2017-07-11 11:30] LABS: ALKALINE PHOSPHATASE 111 U/L (45-117); TOTAL BILIRUBIN ADULT 0.7 MG/DL (0.2-1.0); TOTAL PROTEIN 6.7 GM/DL (6.4-8.2); TROPONIN I LESS THAN 0.02 NG/ML (0.02-0.05)
[2017-07-11] MEDS ORDERED: SODIUM CHLORID 0.9% 500 ML INJ 500 ML IV ONE (11:45)
--- NOTE | 2017-07-11 12:00 | RADRPT ---
EXAM DATE/TIME: 07/11/2017 11:11 [facility] COMPARISON: CHEST SINGLE AP, June 30, 2017, 8:43. INDICATIONS : Dizzy. MEDICAL HISTORY : Hypertension. Chronic obstructive pulmonary disease. bladder cancer SURGICAL HISTORY : abdominal aortic aneurysm repair, bladder tumor removed. ENCOUNTER: Initial ACUITY: 1 day PAIN SCORE: 0/10 LOCATION: chest FINDINGS: The cardiac silhouette is normal in transverse diameter. The lungs are free of acute parenchymal opac ity. No effusions are identified. [id number] is in place via right subclavian approach with its ti p in the superior vena cava. There is elevation of the left hemidiaphragm. CONCLUSION: 1. No acute cardiopulmonary disease. Andres Andres MD on July 11, 2017 at 11:57 Board Certified Radiologist. This report was verified electronically.
[2017-07-11 12:04] VITALS: BP 112/62; PULSE 67; RESP 18; O2SAT 99
--- NOTE | 2017-07-12 21:41 | EKG ---
Date Performed: 07/11/2017 Time Performed: 12:09:27 PTAGE: 77 years EKG: Sinus rhythm PATTERN CONSISTENT WITH PULMONARY DISEASE POSSIBLE RIGHT VENTRICULAR HYPERTROPHY ABNORMAL ECG PREVIOUS TRACING : 07/06/2017 08.28 Since the previous tracing, no significant change noted DOCTOR: Colin Hannon Interpretating Date/Time 07/12/2017 21:38:49
== END 2017-07-11 16:08 | disposition home or self-care (01) ==
LOC: NEPC 10:27
DX: R55 Syncope and collapse (principal); R11.0 Nausea; R53.1 Weakness; I95.89 Other hypotension; R42 Dizziness and giddiness; R94.31 Abnormal electrocardiogram [ECG] [EKG]; I10 Essential (primary) hypertension; J44.9 Chronic obstructive pulmonary disease, unspecified; F17.200 Nicotine dependence, unspecified, uncomplicated
CPT/HCPCS: 71045; 80053; 82550; 83735; 84484; 85025; 93005; 96374; 99285; J2405; J7030; J7040